=== PATIENT | male | born 1940 | race Caucasian/White ===

== ENCOUNTER → 2016-11-25 | Outpatient (CLI) | payer MEDICARE, OTHER ==
--- NOTE | 2016-11-25 17:06 | CT ---
EXAMINATION TYPE: CT angio abd aorta wo/w con with 3-D reconstructions DATE OF EXAM: 11/25/2016 4:33 PM COMPARISON: 01/21/2012 HISTORY: 76-year-old male follow-up for AAA stent. TECHNIQUE: Contiguous axial scanning of the abdomen and pelvis performed without and with IV Contrast , patient injected with 80 mL of Visipaque 320. Delayed images through the stent were obtained. Coron al/sagittal MIP reconstructions performed. CT DLP: 2268 mGycm Automated exposure control for dose reduction was used. FINDINGS: The heart is normal size without pericardial effusion. Coronary vessel calcifications are present in remarkable for coronary artery disease. Ascending aorta is ectatic at 3.8 cm. The descending thoracic aorta in the tortuous and kinked at the level of the lower thorax. Just above the kinked at the level of the mid thorax, there is mild aneur ysm at 3.2 cm, sagittal MIP image 21 and axial image 4. There is subpleural microcystic change and reticular opacities within the lungs greater in the subple ural and basilar locations. More confluent 1.6 cm focal subpleural opacity superior segment right low er lobe, axial image 7 is new from prior. Overall pulmonary findings appear to have progressed from 2 012. Interval endovascular stent graft at the distal abdominal aorta. This extends above the lower thoraci c aorta kink. The [place] aortic sac measures 4.7 x 5.2 cm as measured on axial and coronal images, re spectively. This is in comparison to 5.0 x 5.3 cm on 01/21/2012. The stented lumen is widely patent and there is no evidence for a leak There appears to be a relatively severe stenosis at the origin of the celiac axis. SMA is widely casiano nt. Moderate atherosclerotic calcifications within the abdominal aorta with fusiform dilatation of the in frarenal abdominal aorta up to 2.3 cm. No significant ectasia or aneurysm. The HUMBLE is visualized casiano nt. At least mild atherosclerotic narrowing at the origin of both renal arteries. No focal liver lesions seen. Portal venous system is patent. Gallbladder, adrenal glands, right kidney, spleen, pancreas appear within normal limits. There is a 1 .9 cm intermediate density lesion medial upper pole left kidney which does not seem to enhance sugges tive of a mildly complicated cyst, new from 2011. No dilated small bowel, free fluid, or free air. No mesenteric or retroperitoneal lymphadenopathy. Moderate stool burden without pericolonic inflammatory change. Prostate gland prominent 4.5 cm wide. Multiple pelvic phleboliths. Bladder is urine distended. There is some focal mural based thickening measuring 2.7 x 1.0 cm along t he right posterior bladder base that may represent wall redundancy. No abnormal fluid collection pelv is or pelvic lymphadenopathy seen. Bones: Degenerative changes lower lumbar spine. No osseous destructive process. IMPRESSION: 1. ENDOVASCULAR STENT GRAFT REPAIR ALONG THE LEVEL OF THE DISTAL THORACIC AORTA. THE [place] SAC MEASU RES UP TO 5.2 CM VERSUS 5.3 CM ON 01/21/2012, PRIOR TO STENTING. NO CT EVIDENCE FOR ENDOLEAK. 2. 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 3. SUSPECT HIGH-GRADE STENOSIS AT THE ORIGIN OF THE CELIAC AXIS. 4. INTERSTITIAL CHANGES WITHIN THE VISUALIZED LUNGS HAVE PROGRESSED COMPARED TO 2011. CORRELATE FO R POSSIBLE FIBROTIC NSIP OR UIP. A MORE FOCAL 1.6 CM SUBPLEURAL OPACITY IN THE RIGHT LOWER LOBE SHOUL D BE REASSESSED IN 3 MONTHS. 5. SOME FOCAL MURAL BASED THICKENING ALONG THE POSTERIOR RIGHT BLADDER WALL MEASURING 2.7 X 1.0 CM CO ULD REPRESENT BLADDER WALL REDUNDANCY. CORRELATE WITH URINALYSIS AND URINE CYTOLOGY TO EXCLUDE THE PO SSIBILITY OF A UROTHELIAL NEOPLASM.
== END | disposition home or self-care (01) ==
LOC: RADCTMAIN 14:28
PROVIDERS: ATTEND Internal Medicine Cardiovascular Disease
DX: I71.2 Thoracic aortic aneurysm, without rupture (principal); I77.1 Stricture of artery; N32.89 Other specified disorders of bladder; Z95.828 Presence of other vascular implants and grafts
CPT/HCPCS: 82565; 84520; 75635; 36415; Q9967

== ENCOUNTER 2017-01-11 21:49 | Emergency (ER) | payer MEDICARE, OTHER ==
[2017-01-11] MEDS ORDERED: ACETAMINOPHEN TAB 500 MG TAB PO STA (21:53)
[2017-01-11] MEDS ORDERED: IBUPROFEN IV 600 MG in SODIUM CHLORIDE 0.9% 250 ML IV STA (21:54)
--- NOTE | 2017-01-11 22:05 | ED ---
General Adult HPI - General Stated complaint: Weakness Time Seen by Provider: 01/11/17 21:49 Source: RN notes reviewed - History of Present Illness Initial comments: This is a 77-year-old male presents to the emergency department with the complaint from his that he was altered mentally and didn't feel well. When EMS got there he appeared to be somewhat dry and he has been working outside quite a bit today they gave him a liter of fluid he perked up and his states he is at his neurologic baseline at this time. Patient states he has had a little bit of a cough but it's been a dry cough. Patient denies any difficult breathing shortest breath per patient denies any abdominal pain patient denies any nausea vomiting diarrhea. Patient denies any dysuria hematuria or urinary frequency. Patient thinks he had a flu shot this year. - Related Data Home Medications Medication Instructions Recorded Confirmed Aspirin 81 mg PO DAILY 10/20/14 01/11/17 Gabapentin [Neurontin] 800 mg PO TID 10/20/14 01/11/17 Liothyronine Sodium [Cytomel] 5 mcg PO DAILY 10/20/14 01/11/17 Multivitamin/Iron/Folic Acid 1 tab PO DAILY 10/20/14 01/11/17 [Centrum Complete Multivit Tab] Acetaminophen Tab [Tylenol Tab] 1,000 mg PO Q6HR PRN 01/11/17 01/11/17 Cyanocobalamin (Vitamin B-12) 1,000 mcg PO DAILY 01/11/17 01/11/17 [Vitamin B-12] Levothyroxine Sodium [Synthroid] 112 mcg PO DAILY 01/11/17 01/11/17 Metoprolol Succinate (ER) [Toprol 25 mg PO DAILY 01/11/17 01/11/17 Xl] Rosuvastatin Calcium [Crestor] 40 mg PO HS 01/11/17 01/11/17 Warfarin [Coumadin] 2.5 mg PO SUTUTHSA 01/11/17 01/11/17 Warfarin [Coumadin] 5 mg PO MOWEFR 01/11/17 01/11/17 traMADol HCL [Ultram] 50 mg PO DAILY PRN 01/11/17 01/11/17 Previous Rx's Medication Instructions Recorded Isosorbide Mononitrate ER [Imdur] 30 mg PO DAILY #90 tab.er.24h 10/23/14 Levofloxacin [Levaquin] 750 mg PO DAILY #10 tab 01/12/17 Allergies Allergy/AdvReac Type Severity Reaction Status Date / Time morphine Allergy Severe Nausea & Verified 01/11/17 22:05 Vomiting iodine AdvReac Rash/Hives Verified 01/11/17 22:05 Review of Systems ROS Statement: Those systems with pertinent positive or pertinent negative responses have been documented in the HPI. ROS Other: All systems not noted in ROS Statement are negative. Past Medical History Past Medical History: Hearing Disorder / Deafness, Hyperlipidemia, Myocardial Infarction (DC), Thyroid Disorder Additional Past Medical History / Comment(s): aneurysm, vertigo AND HEARING LOSS SINCE [place] , KIDNEY STONE(PASSED IT), SPINAL STENOSIS, DDD LUMBAR SPINE , CONSTIPATION Last Myocardial Infarction Date:: 10-20-14 History of Any Multi-Drug Resistant Organisms: None Reported Past Surgical History: Heart Catheterization Additional Past Surgical History / Comment(s): STENT LOWER AORTA, EAR RECONSTRUCTION SX (LT) FAILED PT DEAF. LT KNEE HAD BONE CHIPS REMOVED,, 10-20-14 HEART CATH UNABLE TO PLACE STENT, angioplasty 10/20/14 Past Anesthesia/Blood Transfusion Reactions: No Reported Reaction Past Psychological History: No Psychological Hx Reported Smoking Status: Former smoker Past Alcohol Use History: Rare Additional Past Alcohol Use History / Comment(s): QUIT 35 YEARS AGO Past Drug Use History: None Reported - Past Family History Father Family Medical History: Unable to Obtain General Exam - General Exam Comments Initial Comments: GENERAL: Patient is well-developed and well-nourished. Patient is nontoxic and well- hydrated and is in mild distress. Patient is very warm to touch ENT: Neck is soft and supple. No significant lymphadenopathy is noted. Oropharynx is clear. Moist mucous membranes. Neck has full range of motion without eliciting any pain. EYES: The sclera were anicteric and conjunctiva were pink and moist. Extraocular movements were intact and pupils were equal round and reactive to light. Eyelids were unremarkable. PULMONARY: Patient has crackles in both bases they sound as though they're dry crackles. CARDIOVASCULAR: There is a regular rate and rhythm without any murmurs gallops or rubs. ABDOMEN: Soft and nontender with normal bowel sounds. No palpable organomegaly was noted. There is no palpable pulsatile mass. SKIN: Skin is clear with no lesions or rashes and otherwise unremarkable. NEUROLOGIC: Patient is alert and oriented x3. Cranial nerves II through XII are grossly intact. Motor and sensory are also intact. Normal speech, volume and content. Symmetrical smile. MUSCULOSKELETAL: Normal extremities with adequate strength and full range of motion. No lower extremity swelling or edema. No calf tenderness. LYMPHATICS: No significant lymphadenopathy is noted PSYCHIATRIC: Normal psychiatric evaluation. Normal interpersonal interactions appears functionally intact in deals appropriately with others. No signs of depression. No signs of anxiety. Course Vital Signs 01/11/17 01/11/17 01/11/17 21:50 22:51 23:29 Temperature 101.0 F H 102.3 F H 101.3 F H Pulse Rate 124 H 110 H 111 H Respiratory 20 18 18 Rate Blood Pressure 146/70 134/63 130/61 O2 Sat by Pulse 96 94 L 95 Oximetry 01/12/17 00:12 Temperature 98.9 F Pulse Rate 108 H Respiratory 18 Rate Blood Pressure 132/60 O2 Sat by Pulse 95 Oximetry Medical Decision Making - Medical Decision Making Patient received a liter of fluid by EMS prior to arrival EKG shows sinus tachycardia at 122 bpm SD interval is 170 QRS is 84 QT interval 300 QTC is 427. Patient's EKG shows no ST segment elevation or depression or T- wave abdomen is noted. - Lab Data Result diagrams: 01/11/17 21:50 01/11/17 21:50 Lab Results 01/11/17 01/11/17 01/11/17 Range/Units 21:50 21:50 21:50 WBC 9.1 (3.8-10.6) k/uL RBC 4.14 L (4.30-5.90) m/uL Hgb 12.2 L (13.0-17.5) gm/dL Hct 38.1 L (39.0-53.0) % MCV 91.9 (80.0-100.0) fL MCH 29.5 (25.0-35.0) pg MCHC 32.1 (31.0-37.0) g/dL RDW 12.9 (11.5-15.5) % Plt Count 214 (150-450) k/uL Neutrophils % 91 % Lymphocytes % 4 % Monocytes % 3 % Eosinophils % 2 % Basophils % 0 % Neutrophils # 8.3 H (1.3-7.7) k/uL Lymphocytes # 0.4 L (1.0-4.8) k/uL Monocytes # 0.2 (0-1.0) k/uL Eosinophils # 0.2 (0-0.7) k/uL Basophils # 0.0 (0-0.2) k/uL PT (9.0-12.0) sec INR (<1.1) APTT (22.0-30.0) sec Sodium (137-145) mmol/L Potassium (3.5-5.1) mmol/L Chloride (98-107) mmol/L Carbon Dioxide (22-30) mmol/L Anion Gap mmol/L BUN (9-20) mg/dL Creatinine (0.66-1.25) mg/dL Est GFR (MDRD) Af Amer (>60 ml/min/1.73 sqM) Est GFR (MDRD) Non-Af (>60 ml/min/1.73 sqM) Glucose (74-99) mg/dL Plasma Lactic Acid Evans 1.3 (0.7-2.0) mmol/L Calcium (8.4-10.2) mg/dL Total Bilirubin (0.2-1.3) mg/dL AST (17-59) U/L ALT (21-72) U/L Alkaline Phosphatase (38-126) U/L Total Creatine Kinase 39 L (55-170) U/L CK-MB (CK-2) 0.4 (0.0-2.4) ng/mL CK-MB (CK-2) Rel Index 1.0 Troponin I <0.012 (0.000-0.034) ng/mL Total Protein (6.3-8.2) g/dL Albumin (3.5-5.0) g/dL Urine Color Urine Appearance (Clear) Urine pH (5.0-8.0) Ur Specific Foley (1.001-1.035) Urine Protein (Negative) Urine Glucose (UA) (Negative) Urine Ketones (Negative) Urine Blood (Negative) Urine Nitrite (Negative) Urine Bilirubin (Negative) Urine Urobilinogen (<2.0) mg/dL Ur Leukocyte Esterase (Negative) Urine RBC (0-5) /hpf Urine WBC (0-5) /hpf Urine WBC Clumps (None) /hpf Ur Squamous Epith Cells (0-4) /hpf Urine Mucus (None) /hpf Influenza Type A RNA (Not Detectd) Influenza Type B (PCR) (Not Detectd) 01/11/17 01/11/17 01/11/17 Range/Units 21:50 21:50 22:04 WBC (3.8-10.6) k/uL RBC (4.30-5.90) m/uL Hgb (13.0-17.5) gm/dL Hct (39.0-53.0) % MCV (80.0-100.0) fL MCH (25.0-35.0) pg MCHC (31.0-37.0) g/dL RDW (11.5-15.5) % Plt Count (150-450) k/uL Neutrophils % % Lymphocytes % % Monocytes % % Eosinophils % % Basophils % % Neutrophils # (1.3-7.7) k/uL Lymphocytes # (1.0-4.8) k/uL Monocytes # (0-1.0) k/uL Eosinophils # (0-0.7) k/uL Basophils # (0-0.2) k/uL PT 15.9 H (9.0-12.0) sec INR 1.6 (<1.1) APTT 23.7 (22.0-30.0) sec Sodium 143 (137-145) mmol/L Potassium 4.6 (3.5-5.1) mmol/L Chloride 107 (98-107) mmol/L Carbon Dioxide 25 (22-30) mmol/L Anion Gap 11 mmol/L BUN 29 H (9-20) mg/dL Creatinine 1.60 H (0.66-1.25) mg/dL Est GFR (MDRD) Af Amer 51 (>60 ml/min/1.73 sqM) Est GFR (MDRD) Non-Af 42 (>60 ml/min/1.73 sqM) Glucose 112 H (74-99) mg/dL Plasma Lactic Acid Evans (0.7-2.0) mmol/L Calcium 8.9 (8.4-10.2) mg/dL Total Bilirubin 0.5 (0.2-1.3) mg/dL AST 19 (17-59) U/L ALT 27 (21-72) U/L Alkaline Phosphatase 85 (38-126) U/L Total Creatine Kinase (55-170) U/L CK-MB (CK-2) (0.0-2.4) ng/mL CK-MB (CK-2) Rel Index Troponin I (0.000-0.034) ng/mL Total Protein 6.6 (6.3-8.2) g/dL Albumin 3.9 (3.5-5.0) g/dL Urine Color Urine Appearance (Clear) Urine pH (5.0-8.0) Ur Specific Foley (1.001-1.035) Urine Protein (Negative) Urine Glucose (UA) (Negative) Urine Ketones (Negative) Urine Blood (Negative) Urine Nitrite (Negative) Urine Bilirubin (Negative) Urine Urobilinogen (<2.0) mg/dL Ur Leukocyte Esterase (Negative) Urine RBC (0-5) /hpf Urine WBC (0-5) /hpf Urine WBC Clumps (None) /hpf Ur Squamous Epith Cells (0-4) /hpf Urine Mucus (None) /hpf Influenza Type A RNA Not Detected (Not Detectd) Influenza Type B (PCR) Not Detected (Not Detectd) 01/11/17 Range/Units 23:05 WBC (3.8-10.6) k/uL RBC (4.30-5.90) m/uL Hgb (13.0-17.5) gm/dL Hct (39.0-53.0) % MCV (80.0-100.0) fL MCH (25.0-35.0) pg MCHC (31.0-37.0) g/dL RDW (11.5-15.5) % Plt Count (150-450) k/uL Neutrophils % % Lymphocytes % % Monocytes % % Eosinophils % % Basophils % % Neutrophils # (1.3-7.7) k/uL Lymphocytes # (1.0-4.8) k/uL Monocytes # (0-1.0) k/uL Eosinophils # (0-0.7) k/uL Basophils # (0-0.2) k/uL PT (9.0-12.0) sec INR (<1.1) APTT (22.0-30.0) sec Sodium (137-145) mmol/L Potassium (3.5-5.1) mmol/L Chloride (98-107) mmol/L Carbon Dioxide (22-30) mmol/L Anion Gap mmol/L BUN (9-20) mg/dL Creatinine (0.66-1.25) mg/dL Est GFR (MDRD) Af Amer (>60 ml/min/1.73 sqM) Est GFR (MDRD) Non-Af (>60 ml/min/1.73 sqM) Glucose (74-99) mg/dL Plasma Lactic Acid Evans (0.7-2.0) mmol/L Calcium (8.4-10.2) mg/dL Total Bilirubin (0.2-1.3) mg/dL AST (17-59) U/L ALT (21-72) U/L Alkaline Phosphatase (38-126) U/L Total Creatine Kinase (55-170) U/L CK-MB (CK-2) (0.0-2.4) ng/mL CK-MB (CK-2) Rel Index Troponin I (0.000-0.034) ng/mL Total Protein (6.3-8.2) g/dL Albumin (3.5-5.0) g/dL Urine Color Light Yellow Urine Appearance Clear (Clear) Urine pH 6.0 (5.0-8.0) Ur Specific Foley 1.008 (1.001-1.035) Urine Protein Trace H (Negative) Urine Glucose (UA) Negative (Negative) Urine Ketones Negative (Negative) Urine Blood Small H (Negative) Urine Nitrite Negative (Negative) Urine Bilirubin Negative (Negative) Urine Urobilinogen <2.0 (<2.0) mg/dL Ur Leukocyte Esterase Large H (Negative) Urine RBC 23 H (0-5) /hpf Urine WBC 23 H (0-5) /hpf Urine WBC Clumps Few H (None) /hpf Ur Squamous Epith Cells <1 (0-4) /hpf Urine Mucus Rare H (None) /hpf Influenza Type A RNA (Not Detectd) Influenza Type B (PCR) (Not Detectd) Disposition Clinical Impression: Urinary tract infection Disposition: HOME SELF-CARE Condition: Good Instructions: Urinary Tract Infection in Men (ED) Prescriptions: Levofloxacin [Levaquin] 750 mg PO DAILY #10 tab Referrals: Thania Barney DO [Primary Care Provider] - 1-2 days Time of Disposition: 00:33
[2017-01-11 22:18] LABS: Basophils % (A) 0 %; CH 29.7; CHCM 32.5; Eosinophils # (A) 0.2 k/uL (0-0.7); Eosinophils % (A) 2 %; HCT 38.1 % (39.0-53.0); HDW 2.55; HGB 12.2 gm/dL (13.0-17.5); Luc # (Auto) 0.03; Luc % (Auto) 0; Lymphocytes # (A) 0.4 k/uL (1.0-4.8); Lymphocytes % (A) 4 %; MCH 29.5 pg (25.0-35.0); MCHC 32.1 g/dL (31.0-37.0); MCV 91.9 fL (80.0-100.0); Mean Platelet Volume 7.1; Monocytes # (A) 0.2 k/uL (0-1.0); Monocytes % (A) 3 %; Neutrophils # (A) 8.3 k/uL (1.3-7.7); Neutrophils % (A) 91 %; RBC 4.14 m/uL (4.30-5.90); RDW 12.9 % (11.5-15.5); WBC 9.1 k/uL (3.8-10.6); WBC (Perox) 10.15
[2017-01-11 22:27] LABS: Calcium 8.9 mg/dL (8.4-10.2); Total Bilirubin 0.5 mg/dL (0.2-1.3); Total Protein 6.6 g/dL (6.3-8.2)
[2017-01-11 22:29] LABS: Potassium 4.6 mmol/L (3.5-5.1)
[2017-01-11 22:30] LABS: Creatine Kinase 39 U/L (55-170)
[2017-01-11 22:34] LABS: INR 1.6 (<1.1); Partial Thromboplastin Time 23.7 sec (22.0-30.0); Prothrombin Time 15.9 sec (9.0-12.0)
[2017-01-11 22:42] LABS: Creatine Kinase MB 0.4 ng/mL (0.0-2.4); Troponin I <0.012 ng/mL (0.000-0.034)
[2017-01-11 22:52] VITALS: RESP 18
--- NOTE | 2017-01-11 23:10 | XR ---
EXAM: XR Chest, 2 Views. CLINICAL HISTORY: Reason: Fever TECHNIQUE: Frontal and lateral views of the chest. COMPARISON: . FINDINGS: There is a redemonstrated thoracoabdominal aortic stent graft. Chronic pulmonary interstitial thickening. No definite acute consolidation or vascular congestion. Mild cardiomegaly. No pneumothorax IMPRESSION: Redemonstrated aortic stent graft and interstitial lung disease
[2017-01-11 23:17] LABS: Appearance,Urine Clear (Clear); Bilirubin,Urine Negative (Negative); Glucose,Urine (UA) Negative (Negative); Ketones,Urine Negative (Negative); Leukocyte Esterase,Urine Large (Negative); Mucus,Urine Rare /hpf; Nitrite,Urine Negative (Negative); Particle Count 3614; Protein,Urine Trace (Negative); RBC,Urine 23 /hpf (0-5); Specific Gravity,Urine 1.008 (1.001-1.035); Squamous Epithelial Cell,Urine <1 /hpf (0-4); UA Billing (MACRO vs. MICRO) MICRO; Urobilinogen,Urine <2.0 mg/dL (<2.0); WBC,Urine 23 /hpf (0-5)
[2017-01-12 00:13] VITALS: BP 132/60; PULSE 108; TEMP 98.9
== END 2017-01-12 00:55 | disposition home or self-care (01) ==
LOC: EC 21:49
DX: N39.0 Urinary tract infection, site not specified (principal); R00.0 Tachycardia, unspecified; E78.5 Hyperlipidemia, unspecified; I25.2 Old myocardial infarction; E07.9 Disorder of thyroid, unspecified; Z95.5 Presence of coronary angioplasty implant and graft; Z88.5 Allergy status to narcotic agent; Z91.048 Other nonmedicinal substance allergy status; Z79.01 Long term (current) use of anticoagulants; Z79.82 Long term (current) use of aspirin; Z79.899 Other long term (current) drug therapy; Z87.891 Personal history of nicotine dependence
CPT/HCPCS: 99285; 96365; 96367; 36415; 93005; 80053; 82550; 82553; 83605; 84484; 85025; 85610; 85730; 81001; 87040; 87086; 87502; 71020; J0696; J1741; 87077; 87186

== ENCOUNTER 2017-01-12 11:10 | Inpatient (IN) | payer MEDICARE, OTHER ==
[2017-01-12] MEDS ORDERED: ACETAMINOPHEN TAB 500 MG TAB PO STA (11:33)
[2017-01-12] MEDS ORDERED: KETOROLAC 30 MG/ML 1 ML VIAL IVP STA (11:37)
[2017-01-12] MEDS: SODIUM CHLORIDE 0.9% 500 ML IV SCH ×2 (12:08→12:45)
[2017-01-12] MEDS: SODIUM CHLORIDE 0.9% 1,000 ML IV SCH ×2 (12:08→20:47)
[2017-01-12 12:28] LABS: Appearance,Urine Clear (Clear); Bilirubin,Urine Negative (Negative); Glucose,Urine (UA) Negative (Negative); Ketones,Urine Negative (Negative); Leukocyte Esterase,Urine Large (Negative); Mucus,Urine Rare /hpf; Nitrite,Urine Negative (Negative); PH, Urine 5.5 (5.0-8.0); Particle Count 1246; Protein,Urine Trace (Negative); RBC,Urine 27 /hpf (0-5); Specific Gravity,Urine 1.009 (1.001-1.035); UA Billing (MACRO vs. MICRO) MICRO; Urobilinogen,Urine <2.0 mg/dL (<2.0); WBC,Urine 62 /hpf (0-5)
[2017-01-12 13:14] LABS: CH 29.8; CHCM 32.6; HCT 34.8 % (39.0-53.0); Mean Platelet Volume 7.5; RBC 3.79 m/uL (4.30-5.90)
[2017-01-12 13:33] LABS: Calcium 7.6 mg/dL (8.4-10.2); Total Bilirubin 0.8 mg/dL (0.2-1.3); Total Protein 5.4 g/dL (6.3-8.2)
--- NOTE | 2017-01-12 13:35 | ED ---
Fever HPI - General Chief Complaint: Fever Stated Complaint: Dehydration Time Seen by Provider: 01/12/17 11:18 Source: patient Mode of arrival: EMS Limitations: altered mental status - History of Present Illness Initial Comments: This 77-year-old white male presents with with a complaint of some uncontrollable shaking chills. He was just seen in the emergency department last night for the same thing. He had a temperature of 102. He relates that he had a bladder polyp removed approximately one week ago and had been utilizing a Weinstein catheter until yesterday. This was scheduled to be removed today but they did remove it yesterday after diagnosing him with a urinary tract infection. He states that he has been able to urinate okay since yesterday but does have some slight dysuria. He apparently had a slight cough yesterday. He denies any difficulty in breathing or coughing today. He denies any actual weakness or chest pain. No other modifying factors. He was discharged with a prescription for Levaquin for 10 days. The gave him 2 aspirin earlier today for the shaking chills. - Related Data Home Medications Medication Instructions Recorded Confirmed Aspirin 81 mg PO DAILY 10/20/14 01/12/17 Gabapentin [Neurontin] 800 mg PO TID 10/20/14 01/12/17 Liothyronine Sodium [Cytomel] 5 mcg PO DAILY 10/20/14 01/12/17 Multivitamin/Iron/Folic Acid 1 tab PO DAILY 10/20/14 01/12/17 [Centrum Complete Multivit Tab] Acetaminophen Tab [Tylenol Tab] 1,000 mg PO Q6HR PRN 01/11/17 01/12/17 Cyanocobalamin (Vitamin B-12) 1,000 mcg PO DAILY 01/11/17 01/12/17 [Vitamin B-12] Levothyroxine Sodium [Synthroid] 112 mcg PO DAILY 01/11/17 01/12/17 Metoprolol Succinate (ER) [Toprol 25 mg PO DAILY 01/11/17 01/12/17 Xl] Rosuvastatin Calcium [Crestor] 40 mg PO HS 01/11/17 01/12/17 Warfarin [Coumadin] 2.5 mg PO SUTUTHSA 01/11/17 01/12/17 Warfarin [Coumadin] 5 mg PO MOWEFR 05/21/17 05/22/17 traMADol HCL [Ultram] 50 mg PO DAILY PRN 01/11/17 01/12/17 Previous Rx's Medication Instructions Recorded Isosorbide Mononitrate ER [Imdur] 30 mg PO DAILY #90 tab.er.24h 10/23/14 Levofloxacin [Levaquin] 750 mg PO DAILY #10 tab 01/12/17 Allergies Allergy/AdvReac Type Severity Reaction Status Date / Time morphine Allergy Severe Nausea & Verified 01/12/17 11:45 Vomiting iodine AdvReac Rash/Hives Verified 01/12/17 11:45 Review of Systems ROS Statement: Those systems with pertinent positive or pertinent negative responses have been documented in the HPI. ROS Other: All systems not noted in ROS Statement are negative. Past Medical History Past Medical History: Hearing Disorder / Deafness, Hyperlipidemia, Myocardial Infarction ([place]), Thyroid Disorder Additional Past Medical History / Comment(s): aneurysm, vertigo AND HEARING LOSS SINCE [place] , KIDNEY STONE(PASSED IT), SPINAL STENOSIS, DDD LUMBAR SPINE , CONSTIPATION Last Myocardial Infarction Date:: 10-20-14 History of Any Multi-Drug Resistant Organisms: None Reported Past Surgical History: Heart Catheterization Additional Past Surgical History / Comment(s): STENT LOWER AORTA, EAR RECONSTRUCTION SX (LT) FAILED PT DEAF. LT KNEE HAD BONE CHIPS REMOVED,, 10-20-14 HEART CATH UNABLE TO PLACE STENT, angioplasty 10/20/14 Past Anesthesia/Blood Transfusion Reactions: No Reported Reaction Past Psychological History: No Psychological Hx Reported Smoking Status: Former smoker Past Alcohol Use History: Rare Additional Past Alcohol Use History / Comment(s): QUIT 35 YEARS AGO Past Drug Use History: None Reported - Past Family History Father Family Medical History: Unable to Obtain General Exam - General Exam Comments Initial Comments: GENERAL: The patient is well nourished and well hydrated. VITAL SIGNS: Heart rate, blood pressure, respiratory rate reviewed as recorded in nurse's notes. EYES: Pupils are round and reactive. Extraocular movements are intact. No conjunctival / lid redness or swelling. ENT: No external evidence of injury, swelling, or ecchymosis. Airway is patent. Throat is clear. NECK: Nontender. No swelling or evidence of injury. No subcutaneous emphysema. Trachea is midline. No thyroid mass. HEART: Tachycardic but regular rhythm. Good peripheral pulses. LUNGS/CHEST: Breath sounds clear and equal bilaterally. No rales, rhonchi, or wheezes. No ecchymosis, subcutaneous emphysema, or tenderness. ABDOMEN: Abdomen soft without tenderness. No palpable masses or organomegaly. No peritoneal signs. No abdominal wall swelling or ecchymosis. EXTREMITIES: No extremity tenderness. Normal muscle tone and function. No thoracolumbar tenderness. NEUROLOGIC: Sensation is grossly intact. Cranial nerve exam reveals face is symmetrical, tongue is midline, speech is clear. SKIN: No abrasions or ecchymosis is noted. No induration or masses noted. PSYCHIATRIC: Alert and oriented. Appropriate behavior and judgment. Limitations: altered mental status Course Vital Signs 01/12/17 01/12/17 11:12 13:25 Temperature 98.7 F 101.9 F H Pulse Rate 116 H 111 H Respiratory 18 18 Rate Blood Pressure 131/61 108/54 O2 Sat by Pulse 96 95 Oximetry Medical Decision Making - Medical Decision Making The patient was seen and examined. All diagnostics were reviewed. Old records were reviewed. The laboratory does call and states that a blood culture preliminary report came back from yesterday and does show some gram-negative bacteria present in the bloodstream. He is hydrated and does receive some Rocephin intravenously. He also received some Toradol and some Tylenol. He is doing well on recheck and is sleeping. He is doing well on second recheck and is alert and oriented and in no distress. He still somewhat tachycardic at a heart rate of 106 on recheck. His laboratory is reviewed and does show anemia with a hemoglobin of 7. This is quite abnormal as his hemoglobin yesterday was 12. The CBC was repeated and it does show a hemoglobin of 11. The nurse relates that she apparently salas the blood proximal to the IV while he was receiving a bolus. His urine still does look infected. It appears that he does have bacteremia likely related to urinary tract infection. It is felt as though he would require admission to the hospital for further IV antibiotics. Case is discussed with Dr. Centeno and he is agreeable to admission. - Lab Data Result diagrams: 01/12/17 12:45 01/12/17 12:45 Lab Results 01/12/17 01/12/17 01/12/17 Range/Units 11:58 11:58 11:58 WBC 3.7 L (3.8-10.6) k/uL RBC 2.39 L (4.30-5.90) m/uL Hgb 7.2 L D (13.0-17.5) gm/dL Hct 22.5 L (39.0-53.0) % MCV 94.0 (80.0-100.0) fL MCH 30.2 (25.0-35.0) pg MCHC 32.1 (31.0-37.0) g/dL RDW 13.0 (11.5-15.5) % Plt Count 109 L (150-450) k/uL Neutrophils % 89 % Lymphocytes % 3 % Monocytes % 7 % Eosinophils % 0 % Basophils % 1 % Neutrophils # 3.3 (1.3-7.7) k/uL Lymphocytes # 0.1 L (1.0-4.8) k/uL Monocytes # 0.3 (0-1.0) k/uL Eosinophils # 0.0 (0-0.7) k/uL Basophils # 0.0 (0-0.2) k/uL PT 25.5 H (9.0-12.0) sec INR 2.6 (<1.1) APTT 48.9 H (22.0-30.0) sec Sodium (137-145) mmol/L Potassium (3.5-5.1) mmol/L Chloride (98-107) mmol/L Carbon Dioxide (22-30) mmol/L Anion Gap mmol/L BUN (9-20) mg/dL Creatinine (0.66-1.25) mg/dL Est GFR (MDRD) Af Amer (>60 ml/min/1.73 sqM) Est GFR (MDRD) Non-Af (>60 ml/min/1.73 sqM) Glucose (74-99) mg/dL Plasma Lactic Acid Evans 0.7 (0.7-2.0) mmol/L Calcium (8.4-10.2) mg/dL Total Bilirubin (0.2-1.3) mg/dL AST (17-59) U/L ALT (21-72) U/L Alkaline Phosphatase (38-126) U/L Total Protein (6.3-8.2) g/dL Albumin (3.5-5.0) g/dL Urine Color Urine Appearance (Clear) Urine pH (5.0-8.0) Ur Specific [place] (1.001-1.035) Urine Protein (Negative) Urine Glucose (UA) (Negative) Urine Ketones (Negative) Urine Blood (Negative) Urine Nitrite (Negative) Urine Bilirubin (Negative) Urine Urobilinogen (<2.0) mg/dL Ur Leukocyte Esterase (Negative) Urine RBC (0-5) /hpf Urine WBC (0-5) /hpf Urine Mucus (None) /hpf 01/12/17 01/12/17 01/12/17 Range/Units 11:58 12:45 12:45 WBC 6.3 (3.8-10.6) k/uL RBC 3.79 L (4.30-5.90) m/uL Hgb 11.1 L D (13.0-17.5) gm/dL Hct 34.8 L (39.0-53.0) % MCV 92.0 (80.0-100.0) fL MCH 29.4 (25.0-35.0) pg MCHC 31.9 (31.0-37.0) g/dL RDW 13.0 (11.5-15.5) % Plt Count 164 D (150-450) k/uL Neutrophils % 88 % Lymphocytes % 4 % Monocytes % 6 % Eosinophils % 0 % Basophils % 0 % Neutrophils # 5.5 (1.3-7.7) k/uL Lymphocytes # 0.3 L (1.0-4.8) k/uL Monocytes # 0.4 (0-1.0) k/uL Eosinophils # 0.0 (0-0.7) k/uL Basophils # 0.0 (0-0.2) k/uL PT (9.0-12.0) sec INR (<1.1) APTT (22.0-30.0) sec Sodium 142 (137-145) mmol/L Potassium 4.0 (3.5-5.1) mmol/L Chloride 113 H (98-107) mmol/L Carbon Dioxide 20 L (22-30) mmol/L Anion Gap 9 mmol/L BUN 25 H (9-20) mg/dL Creatinine 1.45 H (0.66-1.25) mg/dL Est GFR (MDRD) Af Amer 57 (>60 ml/min/1.73 sqM) Est GFR (MDRD) Non-Af 47 (>60 ml/min/1.73 sqM) Glucose 94 (74-99) mg/dL Plasma Lactic Acid Evans (0.7-2.0) mmol/L Calcium 7.6 L (8.4-10.2) mg/dL Total Bilirubin 0.8 (0.2-1.3) mg/dL AST 20 (17-59) U/L ALT 25 (21-72) U/L Alkaline Phosphatase 59 (38-126) U/L Total Protein 5.4 L (6.3-8.2) g/dL Albumin 2.8 L (3.5-5.0) g/dL Urine Color Light Yellow Urine Appearance Clear (Clear) Urine pH 5.5 (5.0-8.0) Ur Specific [place] 1.009 (1.001-1.035) Urine Protein Trace H (Negative) Urine Glucose (UA) Negative (Negative) Urine Ketones Negative (Negative) Urine Blood Small H (Negative) Urine Nitrite Negative (Negative) Urine Bilirubin Negative (Negative) Urine Urobilinogen <2.0 (<2.0) mg/dL Ur Leukocyte Esterase Large H (Negative) Urine RBC 27 H (0-5) /hpf Urine WBC 62 H (0-5) /hpf Urine Mucus Rare H (None) /hpf Disposition Clinical Impression: UTI (urinary tract infection), Bacteremia due to Gram-negative bacteria, Sinus tachycardia Disposition: ADMITTED IP TO THIS HOSP Condition: Fair Referrals: Thania Barney DO [Primary Care Provider] - 1-2 days Time of Disposition: 14:25 Decision Date: 01/12/17 Decision Time: 14:25
[2017-01-12 13:36] LABS: Basophils % (A) 0 %; Eosinophils % (A) 0 %; HDW 2.53; Luc # (Auto) 0.05; Luc % (Auto) 1; Lymphocytes # (A) 0.3 k/uL (1.0-4.8); Lymphocytes % (A) 4 %; MCH 29.4 pg (25.0-35.0); MCHC 31.9 g/dL (31.0-37.0); Monocytes # (A) 0.4 k/uL (0-1.0); Monocytes % (A) 6 %; Neutrophils # (A) 5.5 k/uL (1.3-7.7); Neutrophils % (A) 88 %; WBC 6.3 k/uL (3.8-10.6); WBC (Perox) 6.75
[2017-01-12 13:50] LABS: HGB 11.1 gm/dL (13.0-17.5)
[2017-01-12] MEDS ORDERED: NALOXONE 0.4 MG/ML 1 ML VIAL IV PRN (14:26)
[2017-01-12] MEDS ORDERED: ONDANSETRON 4 MG/2 ML VIAL IVP PRN (14:26)
[2017-01-12] MEDS ORDERED: IBUPROFEN 400 MG TAB PO PRN (14:26)
[2017-01-12] MEDS ORDERED: traMADol 50 MG TAB PO PRN (14:29)
[2017-01-12 14:32] LABS: INR 1.6 (<1.1); Partial Thromboplastin Time 29.2 sec (22.0-30.0); Prothrombin Time 15.7 sec (9.0-12.0)
[2017-01-12] MEDS: WARFARIN 5 MG TAB PO SCH (17:42)
[2017-01-12] MEDS: GABAPENTIN 400 MG CAP PO SCH ×2 (17:42→21:36)
[2017-01-12] MEDS: ACETAMINOPHEN TAB 325 MG TAB PO PRN (20:47)
[2017-01-12] MEDS: ATORVASTATIN 80 MG TAB PO SCH (20:47)
[2017-01-13] MEDS: SODIUM CHLORIDE 0.9% 1,000 ML IV SCH ×3 (05:26→21:15)
[2017-01-13] MEDS: LIOTHYRONINE SODIUM 5 MCG TAB PO SCH (05:27)
[2017-01-13] MEDS: LEVOTHYROXINE 112 MCG TAB PO SCH (05:27)
[2017-01-13 07:58] LABS: INR 1.6 (<1.1); Prothrombin Time 15.1 sec (9.0-12.0)
[2017-01-13] MEDS: METOPROLOL SUCCINATE (ER) 25 MG TAB.ER.24H PO SCH (08:01)
[2017-01-13] MEDS: GABAPENTIN 400 MG CAP PO SCH ×3 (08:01→21:16)
[2017-01-13] MEDS: ISOSORBIDE MONONITRATE ER 30 MG TAB.ER.24H PO SCH (08:01)
[2017-01-13] MEDS: ASPIRIN 81 MG CHEW PO SCH (08:01)
[2017-01-13] MEDS: CYANOCOBALAMIN 500 MCG TAB PO SCH (08:01)
[2017-01-13] MEDS: ACETAMINOPHEN TAB 325 MG TAB PO PRN ×2 (08:02→21:20)
[2017-01-13 08:33] LABS: Basophils % (A) 1 %; CH 29.4; CHCM 31.6; Eosinophils % (A) 0 %; HCT 36.6 % (39.0-53.0); HDW 2.58; HGB 11.7 gm/dL (13.0-17.5); Hypochromasia Slight; Luc # (Auto) 0.15; Luc % (Auto) 3; Lymphocytes # (A) 0.3 k/uL (1.0-4.8); Lymphocytes % (A) 7 %; MCHC 32.1 g/dL (31.0-37.0); MCV 93.5 fL (80.0-100.0); Mean Platelet Volume 7.5; Monocytes # (A) 0.4 k/uL (0-1.0); Monocytes % (A) 7 %; Neutrophils # (A) 4.1 k/uL (1.3-7.7); Neutrophils % (A) 83 %; RBC 3.91 m/uL (4.30-5.90); WBC (Perox) 5.34
[2017-01-13] MEDS ORDERED: PANTOPRAZOLE 40 MG/10 ML VIAL IV SCH (09:00)
[2017-01-13 11:56] VITALS: BMI 27.6
[2017-01-13] MEDS: MULTIVITAMINS, THERA 1 EACH TAB PO SCH (12:36)
[2017-01-13] MEDS: WARFARIN 5 MG TAB PO SCH (17:20)
--- NOTE | 2017-01-13 17:28 | P.HPIM ---
History of Present Illness H&P Date: 01/13/17 Chief Complaint: Febrile illness and altered mental status Aubrey Gomez is a 77-year-old white male presents with with a complaint of some uncontrollable shaking chills. He was just seen in the emergency department the night prior to admission for the same thing. He had a temperature of 102. He relates that he had a bladder polyp removed approximately one week ago and had been utilizing a Weinstein catheter until yesterday. This was scheduled to be removed today but they did remove it yesterday after diagnosing him with a urinary tract infection. He states that he has been able to urinate okay since yesterday but does have some slight dysuria. He apparently had a slight cough yesterday. He denies any difficulty in breathing or coughing today. He denies any actual weakness or chest pain. No other modifying factors. He was discharged with a prescription for Levaquin for 10 days. The gave him 2 aspirin earlier today for the shaking chills. - Past Medical History Past Medical History: Coronary Artery Disease (CAD), Hearing Disorder / Deafness , Hyperlipidemia, Hypertension, Myocardial Infarction ([place]), Thyroid Disorder Additional Past Medical History / Comment(s): "aaa-repaired", vertigo AND HEARING LOSS SINCE [place] -lt ear deaf and rt side wears a hearing aid, KIDNEY STONE(PASSED IT), SPINAL STENOSIS, DDD LUMBAR SPINE, CONSTIPATION, neuropathy, uti. Last Myocardial Infarction Date:: 10-20-14 History of Any Multi-Drug Resistant Organisms: None Reported Past Surgical History: Heart Catheterization Additional Past Surgical History / Comment(s): STENT LOWER AORTA, EAR RECONSTRUCTION SX (LT) FAILED PT DEAF. LT KNEE HAD BONE CHIPS REMOVED,, 10-20-14 HEART CATH w/angioplasty but was unable to place stent, recent bladder polyp removed- no bx results back yet-idc was removed 01-11-17 Past Anesthesia/Blood Transfusion Reactions: No Reported Reaction Past Psychological History: No Psychological Hx Reported Additional Psychological History / Comment(s): pt lives with , is independant, no pets, no outside services, no medical equipment. 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 Smoking Status: Former smoker Past Alcohol Use History: Rare Additional Past Alcohol Use History / Comment(s): started smoking at age 19 - smoked cig then swithced to pipe. quit 1979 Past Drug Use History: None Reported - Past Family History Mother Additional Family Medical History / Comment(s): brain tumor Father Family Medical History: Unable to Obtain Medications and Allergies Home Medications Medication Instructions Recorded Confirmed Type Aspirin 81 mg PO DAILY 10/20/14 01/12/17 History Gabapentin [Neurontin] 800 mg PO TID 10/20/14 01/12/17 History Liothyronine Sodium [Cytomel] 5 mcg PO DAILY 10/20/14 01/12/17 History Multivitamin/Iron/Folic Acid 1 tab PO DAILY 10/20/14 01/12/17 History [Centrum Complete Multivit Tab] Acetaminophen Tab [Tylenol Tab] 1,000 mg PO Q6HR PRN 01/11/17 01/12/17 History Cyanocobalamin (Vitamin B-12) 1,000 mcg PO DAILY 01/11/17 01/12/17 History [Vitamin B-12] Levothyroxine Sodium [Synthroid] 112 mcg PO DAILY 01/11/17 01/12/17 History Metoprolol Succinate (ER) [Toprol 25 mg PO DAILY 01/11/17 01/12/17 History Xl] Rosuvastatin Calcium [Crestor] 40 mg PO HS 01/11/17 01/12/17 History Warfarin [Coumadin] 2.5 mg PO SUTUTHSA 01/11/17 01/12/17 History Warfarin [Coumadin] 5 mg PO MOWEFR 01/11/17 01/12/17 History traMADol HCL [Ultram] 50 mg PO DAILY PRN 01/11/17 01/12/17 History Allergies Allergy/AdvReac Type Severity Reaction Status Date / Time morphine Allergy Severe Nausea & Verified 01/12/17 11:45 Vomiting iodine AdvReac Rash/Hives Verified 01/12/17 11:45 Physical Exam Vitals: Vital Signs Temp Pulse Resp BP Pulse Ox 01/13/17 15:00 98.3 F 77 16 100/53 97 01/13/17 09:13 98.0 F 01/13/17 07:00 100.1 F H 105 H 22 123/60 95 01/12/17 23:50 16 01/12/17 22:15 98.9 F 01/12/17 20:40 102.2 F H 113 H 16 129/59 96 Intake and Output 01/13/17 01/13/1717 06:59 14:59 22:59 Intake Total 860 Balance 860 Intake: Intake, IV Titration 800 Amount Sodium Chloride 0.9% 1, 800 000 ml @ 100 mls/hr IV . Q10H [facility] Rx#:[id number] Oral 60 Other: Voiding Method Toilet Toilet Toilet Urinal Urinal Urinal # Voids 2 Weight 82.554 kg Patient Weight 01/14/17 06:59 Weight 82.554 kg In general patient is alert and oriented 3 in no apparent distress HEENT head normocephalic and atraumatic Neck is supple no JVD no goiter no lymphadenopathy Cardiac exam reveals regular heart sounds S1 and S2 no gallops no murmurs Chest exam reveals a few scattered rhonchi bilaterally Abdomen is soft nontender no organomegaly with normal bowel sounds Extremity exam reveals no edema no cyanosis or clubbing Neurological examination reveals no gross deficit Results CBC & Chem 7: 01/13/17 07:27 01/12/17 12:45 Labs: Abnormal Lab Results - Last 24 Hours (Table) 01/13/17 01/13/17 Range/Units 07:27 07:27 RBC 3.91 L (4.30-5.90) m/uL Hgb 11.7 L (13.0-17.5) gm/dL Hct 36.6 L (39.0-53.0) % Plt Count 148 L (150-450) k/uL Lymphocytes # 0.3 L (1.0-4.8) k/uL PT 15.1 H (9.0-12.0) sec Microbiology - Last 24 Hours (Table) 01/12/17 11:58 Blood Culture - Preliminary Blood No Growth after 24 hours 01/12/17 11:58 Urine Culture - Preliminary Urine,Voided Thrombosis Risk Factor Assmnt - Choose All That Apply Any of the Below Risk Factors Present?: Yes Other Risk Factors: Yes Each Risk Factor Represents 3 Points: Age 75 years or older Other congenital or acquired thrombophilia - If yes, enter type in comment: No Thrombosis Risk Factor Assessment Total Risk Factor Score: 3 Thrombosis Risk Factor Assessment Level: Moderate Risk Assessment and Plan Plan: #1 acute pyelonephritis #2 possible sepsis #3 anemia #4 acute versus chronic kidney disease Will try to obtain old records creatinine on presentation 1.45 will monitor kidney function #5 patient is on Coumadin therapy INR subtherapeutic at 1.6 exact indication for Coumadin is unclear no clear history of atrial fibrillation or pulmonary embolism patient had previous history of coronary artery disease Will try to obtain old records to assess reason for patient being on Coumadin at this time will continue was current Coumadin management At this time will continue with IV antibiotic Rocephin Awaiting further blood culture and urine culture results Would recheck CBC and CMP in a.m.
[2017-01-13] MEDS: ATORVASTATIN 80 MG TAB PO SCH (21:16)
[2017-01-14] MEDS: SODIUM CHLORIDE 0.9% 1,000 ML IV SCH (01:31)
[2017-01-14] MEDS: LEVOTHYROXINE 112 MCG TAB PO SCH (06:03)
[2017-01-14] MEDS: LIOTHYRONINE SODIUM 5 MCG TAB PO SCH (06:03)
[2017-01-14 07:46] VITALS: RESP 18
[2017-01-14] MEDS: METOPROLOL SUCCINATE (ER) 25 MG TAB.ER.24H PO SCH (08:15)
[2017-01-14] MEDS: ISOSORBIDE MONONITRATE ER 30 MG TAB.ER.24H PO SCH (08:15)
[2017-01-14] MEDS: GABAPENTIN 400 MG CAP PO SCH ×3 (08:16→22:04)
[2017-01-14] MEDS: CYANOCOBALAMIN 500 MCG TAB PO SCH (08:16)
[2017-01-14] MEDS: MULTIVITAMINS, THERA 1 EACH TAB PO SCH (08:16)
[2017-01-14] MEDS: PANTOPRAZOLE 40 MG TABLET PO SCH (08:16)
[2017-01-14] MEDS: ASPIRIN 81 MG CHEW PO SCH (08:16)
[2017-01-14 09:09] LABS: INR 1.5 (<1.1); Prothrombin Time 14.6 sec (9.0-12.0)
[2017-01-14 09:22] LABS: Calcium 8.5 mg/dL (8.4-10.2); Potassium 4.2 mmol/L (3.5-5.1); Total Bilirubin 0.7 mg/dL (0.2-1.3); Total Protein 5.7 g/dL (6.3-8.2)
[2017-01-14 09:50] LABS: Basophils % (A) 1 %; CH 29.7; CHCM 32.1; Eosinophils # (A) 0.1 k/uL (0-0.7); Eosinophils % (A) 1 %; HDW 2.77; Luc # (Auto) 0.19; Luc % (Auto) 4; Lymphocytes # (A) 0.7 k/uL (1.0-4.8); Lymphocytes % (A) 14 %; MCH 29.9 pg (25.0-35.0); MCHC 32.2 g/dL (31.0-37.0); MCV 92.9 fL (80.0-100.0); Mean Platelet Volume 7.9; Monocytes # (A) 0.4 k/uL (0-1.0); Monocytes % (A) 8 %; Neutrophils # (A) 3.5 k/uL (1.3-7.7); Neutrophils % (A) 73 %; RBC 3.66 m/uL (4.30-5.90); RDW 13.2 % (11.5-15.5); WBC 4.8 k/uL (3.8-10.6); WBC (Perox) 5.08
[2017-01-14] MEDS ORDERED: ENOXAPARIN 40 MG/0.4 ML SYRINGE SQ STA (12:22)
--- NOTE | 2017-01-14 12:46 | P.PN ---
Subjective Principal diagnosis: Febrile illness and altered mental status Aubrey Gomez is a 77-year-old white male presents with with a complaint of some uncontrollable shaking chills. He was just seen in the emergency department the night prior to admission for the same thing. He had a temperature of 102. He relates that he had a bladder polyp removed approximately one week ago and had been utilizing a Weinstein catheter until yesterday. This was scheduled to be removed today but they did remove it yesterday after diagnosing him with a urinary tract infection. He states that he has been able to urinate okay since yesterday but does have some slight dysuria. He apparently had a slight cough yesterday. He denies any difficulty in breathing or coughing today. He denies any actual weakness or chest pain. No other modifying factors. He was discharged with a prescription for Levaquin for 10 days. The gave him 2 aspirin earlier today for the shaking chills. He was admitted to the hospital and was started on IV Rocephin 1 g every 24 hours He reported improvement in his symptoms since yesterday, blood culture and urine culture are still pending Objective - Vital Signs Vital signs: Vital Signs Temp 98.8 F 01/14/17 07:00 Pulse 74 01/14/17 08:00 Resp 18 01/14/17 08:00 BP 126/60 01/14/17 07:00 Pulse Ox 94 L 01/14/17 07:00 Intake & Output 01/13/17 01/14/17 01/14/17 18:59 06:59 18:59 Intake Total 980 Balance 980 Weight 82.554 kg Intake: Intake, IV Titration 800 Amount Sodium Chloride 0.9% 1, 800 000 ml @ 100 mls/hr IV . Q10H [facility] Rx#:[id number] Oral 180 Other: Voiding Method Toilet Toilet Toilet Urinal Urinal Urinal # Voids 3 1 1 - Exam In general patient is alert and oriented 3 in no apparent distress HEENT head normocephalic and atraumatic Neck is supple no JVD no goiter no lymphadenopathy Cardiac exam reveals regular heart sounds S1 and S2 no gallops no murmurs Chest exam reveals a few scattered rhonchi bilaterally Abdomen is soft nontender no organomegaly with normal bowel sounds Extremity exam reveals no edema no cyanosis or clubbing Neurological examination reveals no gross deficit - Labs CBC & Chem 7: 01/14/17 08:17 01/14/17 08:17 Labs: Abnormal Lab Results - Last 24 Hours (Table) 01/14/17 01/14/17 01/14/17 Range/Units 08:17 08:17 08:17 RBC 3.66 L (4.30-5.90) m/uL Hgb 11.0 L (13.0-17.5) gm/dL Hct 34.0 L (39.0-53.0) % Plt Count 144 L (150-450) k/uL Lymphocytes # 0.7 L (1.0-4.8) k/uL PT 14.6 H (9.0-12.0) sec Chloride 116 H (98-107) mmol/L Carbon Dioxide 21 L (22-30) mmol/L BUN 23 H (9-20) mg/dL Creatinine 1.50 H (0.66-1.25) mg/dL Glucose 102 H (74-99) mg/dL AST 65 H (17-59) U/L Total Protein 5.7 L (6.3-8.2) g/dL Albumin 2.9 L (3.5-5.0) g/dL Microbiology - Last 24 Hours (Table) 01/12/17 11:58 Blood Culture - Preliminary Blood No Growth after 24 hours Assessment and Plan Plan: #1 acute pyelonephritis #2 possible sepsis #3 anemia #4 acute versus chronic kidney disease Will try to obtain old records creatinine on presentation 1.45 will monitor kidney function #5 patient is on Coumadin therapy INR subtherapeutic at 1.6 exact indication for Coumadin is unclear no clear history of atrial fibrillation or pulmonary embolism patient had previous history of coronary artery disease Will try to obtain old records to assess reason for patient being on Coumadin at this time will continue was current Coumadin management, patient follows with tile applicator Dr Santana At this time will continue with IV antibiotic Rocephin Awaiting further blood culture and urine culture results Would recheck CBC and CMP in a.m.
--- NOTE | 2017-01-14 14:49 | P.GSCN ---
History of Present Illness Consult date: 01/14/17 History of present illness: This is a 77 yo who had gross hematuria due to a mdium sized bladder cancer resected a the [facility] 8 days ago. He was supposed to be in the offic eyesterday for cath removal but ended up in the hospital with a uti. The catheter was removed a couple of days ago. He has luts. His blood culture was negative. His urine culture is pending. HE states he had chills which are now gone. He is on ab. His path was a gd3 t1 n0m0 tcc of the bladder. I spoke with the patient . He will need bcg bladder instillations,in the futre to decrease the likelihood of recurrence. Past Medical History Past Medical History: Coronary Artery Disease (CAD), Hearing Disorder / Deafness , Hyperlipidemia, Hypertension, Myocardial Infarction ([place]), Thyroid Disorder Additional Past Medical History / Comment(s): "aaa-repaired", vertigo AND HEARING LOSS SINCE [place] -lt ear deaf and rt side wears a hearing aid, KIDNEY STONE(PASSED IT), SPINAL STENOSIS, DDD LUMBAR SPINE, CONSTIPATION, neuropathy, uti. Last Myocardial Infarction Date:: 10-20-14 History of Any Multi-Drug Resistant Organisms: None Reported Past Surgical History: Heart Catheterization Additional Past Surgical History / Comment(s): STENT LOWER AORTA, EAR RECONSTRUCTION SX (LT) FAILED PT DEAF. LT KNEE HAD BONE CHIPS REMOVED,, 10-20-14 HEART CATH w/angioplasty but was unable to place stent, recent bladder polyp removed- no bx results back yet-idc was removed 01-11-17 Past Anesthesia/Blood Transfusion Reactions: No Reported Reaction Past Psychological History: No Psychological Hx Reported Additional Psychological History / Comment(s): pt lives with , is independant, no pets, no outside services, no medical equipment. 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 Smoking Status: Former smoker Past Alcohol Use History: Rare Additional Past Alcohol Use History / Comment(s): started smoking at age 19 - smoked cig then swithced to pipe. quit 1979 Past Drug Use History: None Reported - Past Family History Mother Additional Family Medical History / Comment(s): brain tumor Father Family Medical History: Unable to Obtain Medications and Allergies Home Medications Medication Instructions Recorded Confirmed Type Aspirin 81 mg PO DAILY 10/20/14 01/12/17 History Gabapentin [Neurontin] 800 mg PO TID 10/20/14 01/12/17 History Liothyronine Sodium [Cytomel] 5 mcg PO DAILY 10/20/14 01/12/17 History Multivitamin/Iron/Folic Acid 1 tab PO DAILY 10/20/14 01/12/17 History [Centrum Complete Multivit Tab] Acetaminophen Tab [Tylenol Tab] 1,000 mg PO Q6HR PRN 01/11/17 01/12/17 History Cyanocobalamin (Vitamin B-12) 1,000 mcg PO DAILY 01/11/17 01/12/17 History [Vitamin B-12] Levothyroxine Sodium [Synthroid] 112 mcg PO DAILY 01/11/17 01/12/17 History Metoprolol Succinate (ER) [Toprol 25 mg PO DAILY 01/11/17 01/12/17 History Xl] Rosuvastatin Calcium [Crestor] 40 mg PO HS 01/11/17 01/12/17 History Warfarin [Coumadin] 2.5 mg PO SUTUTHSA 01/11/17 01/12/17 History Warfarin [Coumadin] 5 mg PO MOWEFR 01/11/17 01/12/17 History traMADol HCL [Ultram] 50 mg PO DAILY PRN 01/11/17 01/12/17 History Allergies Allergy/AdvReac Type Severity Reaction Status Date / Time morphine Allergy Severe Nausea & Verified 01/12/17 11:45 Vomiting iodine AdvReac Rash/Hives Verified 01/12/17 11:45 Surgical - Exam Vital Signs Temp Pulse Resp BP Pulse Ox 98.7 F 116 H 18 131/61 96 01/12/17 11:12 01/12/17 11:12 01/12/17 11:12 01/12/17 11:12 01/12/17 11:12 - General well developed, well nourished, no distress - Neurologic normal coordination, normal sensation - Psychiatric oriented to time, oriented to person, oriented to place, speech is normal, memory intact Results - Labs 01/14/17 08:17 01/14/17 08:17 Abnormal Lab Results - Last 24 Hours (Table) 01/14/17 01/14/17 01/14/17 Range/Units 08:17 08:17 08:17 RBC 3.66 L (4.30-5.90) m/uL Hgb 11.0 L (13.0-17.5) gm/dL Hct 34.0 L (39.0-53.0) % Plt Count 144 L (150-450) k/uL Lymphocytes # 0.7 L (1.0-4.8) k/uL PT 14.6 H (9.0-12.0) sec Chloride 116 H (98-107) mmol/L Carbon Dioxide 21 L (22-30) mmol/L BUN 23 H (9-20) mg/dL Creatinine 1.50 H (0.66-1.25) mg/dL Glucose 102 H (74-99) mg/dL AST 65 H (17-59) U/L Total Protein 5.7 L (6.3-8.2) g/dL Albumin 2.9 L (3.5-5.0) g/dL Microbiology - Last 24 Hours (Table) 01/12/17 11:58 Blood Culture - Preliminary Blood No Growth after 48 hours Diabetes panel 01/14/17 Range/Units 08:17 Sodium 144 (137-145) mmol/L Potassium 4.2 (3.5-5.1) mmol/L Chloride 116 H (98-107) mmol/L Carbon Dioxide 21 L (22-30) mmol/L BUN 23 H (9-20) mg/dL Creatinine 1.50 H (0.66-1.25) mg/dL Glucose 102 H (74-99) mg/dL Calcium 8.5 (8.4-10.2) mg/dL AST 65 H (17-59) U/L ALT 43 (21-72) U/L Alkaline Phosphatase 95 (38-126) U/L Total Protein 5.7 L (6.3-8.2) g/dL Albumin 2.9 L (3.5-5.0) g/dL Calcium panel 01/14/17 Range/Units 08:17 Calcium 8.5 (8.4-10.2) mg/dL Albumin 2.9 L (3.5-5.0) g/dL Pituitary panel 01/14/17 Range/Units 08:17 Sodium 144 (137-145) mmol/L Potassium 4.2 (3.5-5.1) mmol/L Chloride 116 H (98-107) mmol/L Carbon Dioxide 21 L (22-30) mmol/L BUN 23 H (9-20) mg/dL Creatinine 1.50 H (0.66-1.25) mg/dL Glucose 102 H (74-99) mg/dL Calcium 8.5 (8.4-10.2) mg/dL Adrenal panel 01/14/17 Range/Units 08:17 Sodium 144 (137-145) mmol/L Potassium 4.2 (3.5-5.1) mmol/L Chloride 116 H (98-107) mmol/L Carbon Dioxide 21 L (22-30) mmol/L BUN 23 H (9-20) mg/dL Creatinine 1.50 H (0.66-1.25) mg/dL Glucose 102 H (74-99) mg/dL Calcium 8.5 (8.4-10.2) mg/dL Total Bilirubin 0.7 (0.2-1.3) mg/dL AST 65 H (17-59) U/L ALT 43 (21-72) U/L Alkaline Phosphatase 95 (38-126) U/L Total Protein 5.7 L (6.3-8.2) g/dL Albumin 2.9 L (3.5-5.0) g/dL Assessment and Plan Plan: Impression: Uti post turbt. Non invasive high grade bladder cancer Recommendation: Antibiotics as being done. The patient will need bcg intravesical instillations upon recovery from the uti
[2017-01-14] MEDS: WARFARIN 5 MG TAB PO SCH (16:11)
[2017-01-14] MEDS: ATORVASTATIN 80 MG TAB PO SCH (22:04)
[2017-01-15] MEDS: PIPERACILLIN-TAZOBACTAM 3.375 GM in DEXTROSE/WATER 1 50ML.BAG IVPB SCH ×3 (02:59→16:59)
[2017-01-15] MEDS: SODIUM CHLORIDE 0.9% 1,000 ML IV SCH ×2 (03:34→11:53)
[2017-01-15] MEDS: LEVOTHYROXINE 112 MCG TAB PO SCH (05:55)
[2017-01-15] MEDS: LIOTHYRONINE SODIUM 5 MCG TAB PO SCH (05:55)
[2017-01-15] MEDS ORDERED: cefTRIAXone 2,000 MG in SODIUM CHLORIDE 0.9% 100 ML IVPB SCH (09:00)
[2017-01-15] MEDS: ASPIRIN 81 MG CHEW PO SCH (09:09)
[2017-01-15] MEDS: METOPROLOL SUCCINATE (ER) 25 MG TAB.ER.24H PO SCH (09:09)
[2017-01-15] MEDS: GABAPENTIN 400 MG CAP PO SCH ×3 (09:09→22:08)
[2017-01-15 09:10] LABS: Calcium 8.6 mg/dL (8.4-10.2); Potassium 4.2 mmol/L (3.5-5.1); Total Bilirubin 0.7 mg/dL (0.2-1.3)
[2017-01-15] MEDS: PANTOPRAZOLE 40 MG TABLET PO SCH (09:10)
[2017-01-15] MEDS: ISOSORBIDE MONONITRATE ER 30 MG TAB.ER.24H PO SCH (09:10)
[2017-01-15 09:16] LABS: INR 1.9 (<1.1); Prothrombin Time 18.3 sec (9.0-12.0)
[2017-01-15 10:54] LABS: Aty Lym Flag Slight; CH 29.4; CHCM 31.9; HCT 34.2 % (39.0-53.0); HDW 2.82; HGB 11.4 gm/dL (13.0-17.5); Hypochromasia Slight; MCH 30.7 pg (25.0-35.0); MCHC 33.2 g/dL (31.0-37.0); MCV 92.6 fL (80.0-100.0); Mean Platelet Volume 8.6; RDW 13.3 % (11.5-15.5); WBC (Perox) 5.01
--- NOTE | 2017-01-15 11:32 | P.PN ---
Subjective The patient is in the hospital with a post TUR bladder tumor urine infection. I discussed the bladder tumor results with the patient and his . His urine infection has grown enterococcus. I will start him on BCG intravesical bladder therapy after he is treated for his infection. From a urologic standpoint he can be discharged home at any time on antibiotics. Objective - Vital Signs Vital signs: Vital Signs Temp 98.7 F 01/15/17 07:00 Pulse 72 01/15/17 08:00 Resp 18 01/15/17 08:00 BP 134/70 01/15/17 07:00 Pulse Ox 92 L 01/15/17 07:00 Intake & Output 01/14/17 01/15/17 01/15/17 18:59 06:59 18:59 Intake Total 400 Balance 400 Intake: Oral 400 Other: Voiding Method Toilet Toilet Toilet Urinal Urinal Urinal # Voids 4 1 - Labs CBC & Chem 7: 01/15/17 08:17 01/15/17 08:17 Labs: Abnormal Lab Results - Last 24 Hours (Table) 01/14/17 01/15/17 01/15/17 Range/Units 23:03 08:17 08:17 RBC 3.70 L (4.30-5.90) m/uL Hgb 11.4 L (13.0-17.5) gm/dL Hct 34.2 L (39.0-53.0) % Plt Count 149 L (150-450) k/uL PT 18.3 H (9.0-12.0) sec Chloride (98-107) mmol/L Carbon Dioxide (22-30) mmol/L Creatinine (0.66-1.25) mg/dL Glucose (74-99) mg/dL AST (17-59) U/L ALT (21-72) U/L Alkaline Phosphatase (38-126) U/L Total Protein (6.3-8.2) g/dL Albumin (3.5-5.0) g/dL Prealbumin 10 L (18-36) mg/dL 01/15/17 Range/Units 08:17 RBC (4.30-5.90) m/uL Hgb (13.0-17.5) gm/dL Hct (39.0-53.0) % Plt Count (150-450) k/uL PT (9.0-12.0) sec Chloride 115 H (98-107) mmol/L Carbon Dioxide 19 L (22-30) mmol/L Creatinine 1.48 H (0.66-1.25) mg/dL Glucose 107 H (74-99) mg/dL AST 98 H (17-59) U/L ALT 75 H (21-72) U/L Alkaline Phosphatase 153 H (38-126) U/L Total Protein 6.0 L (6.3-8.2) g/dL Albumin 3.0 L (3.5-5.0) g/dL Prealbumin (18-36) mg/dL Microbiology - Last 24 Hours (Table) 01/12/17 11:58 Urine Culture - Final Urine,Voided Enterococcus faecalis 01/12/17 11:58 Blood Culture - Preliminary Blood No Growth after 48 hours
--- NOTE | 2017-01-15 11:37 | P.CONS ---
History of Present Illness - Reason for Consult Consult date: 01/14/17 - Chief Complaint Fever and chills - History of Present Illness Very pleasant 77-year-old male who is hard of hearing presents to the emergency center feeling very poorly. The patient relates to the many hour history of fever chill and rigor. His temperature had 102 at home. And consequently was brought to hospital. The patient has a pertinent recent history of bladder polyp removal that was malignant approximately week ago. The patient's Weinstein catheter was removed. The patient did present to the emergency center he was treated and felt a bit better. However with evidence of possible blood cultures and positive urine culture has been admitted to hospital for further intervention. Because the bacteremia the infectious diseases consultation was requested. The patient does feel just slightly better. He wasn't antibiotic therapy with quinolone at home and still felt very poorly. He Is Admitted As a Failure of Outpatient Therapy. Review of Systems As noted had fever chill and rigors before admission HEENT:Denies headache or acute visual change. Denies sinus or mouth discomforts. Denies neck stiffness or pain. Denies significant oral cavity pain. Denies difficulty on swallowing. Lungs: Denies significant shortness of breath, cough, sputum production, or hemoptysis. Cardiovascular: Denies significant shortness of breath, chest pain, chest wall pain, orthopnea, dyspnea on exertion, syncope Gastrointestinal:Denies nausea, vomiting, diarrhea, constipation, hematemesis, melena, hematochezia. No no significant change of bowel habit noticed. Musculoskeletal: denies significant myalgias or arthralgias. No new joint swelling. Denies new back pain. Skin: Denies new rash or lesions. No new ulcers or wounds are related.. Neuro: Denies headache or visual change. Denies any new onset weakness or difficulty with ambulation. Denies falls or seizures. Psychiatric:Denies anxiety or depression. Endocrine: Denies significant fatigue, denies significant weight loss or weight gain. Urinary very little discomfort at this time with the Weinstein removed. Was still having some bloody urine at times Past Medical History Past Medical History: Coronary Artery Disease (CAD), Hearing Disorder / Deafness , Hyperlipidemia, Hypertension, Myocardial Infarction ([place]), Thyroid Disorder Additional Past Medical History / Comment(s): "aaa-repaired", vertigo AND HEARING LOSS SINCE [place] -lt ear deaf and rt side wears a hearing aid, KIDNEY STONE(PASSED IT), SPINAL STENOSIS, DDD LUMBAR SPINE, CONSTIPATION, neuropathy, uti. Last Myocardial Infarction Date:: 10-20-14 History of Any Multi-Drug Resistant Organisms: None Reported Past Surgical History: Heart Catheterization Additional Past Surgical History / Comment(s): STENT LOWER AORTA, EAR RECONSTRUCTION SX (LT) FAILED PT DEAF. LT KNEE HAD BONE CHIPS REMOVED,, 10-20-14 HEART CATH w/angioplasty but was unable to place stent, recent bladder polyp removed- no bx results back yet-idc was removed 01-11-17 Past Anesthesia/Blood Transfusion Reactions: No Reported Reaction Past Psychological History: No Psychological Hx Reported Additional Psychological History / Comment(s): pt lives with , is independant, no pets, no outside services, no medical equipment. 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 No recent international travel. Tobacco smoking stopped 35 years ago. No alcohol use. No animal exposures. No other ill contacts Smoking Status: Former smoker Past Alcohol Use History: Rare Additional Past Alcohol Use History / Comment(s): started smoking at age 19 - smoked cig then swithced to pipe. quit 1979 Past Drug Use History: None Reported - Past Family History Mother Additional Family Medical History / Comment(s): brain tumor Father Family Medical History: Unable to Obtain Medications and Allergies Home Medications and Allergies Comment(s): Current Medications Acetaminophen (Tylenol Tab) 650 mg PO Q6HR PRN PRN Reason: Mild Pain or Fever > 100.5 Last Admin: 01/13/17 21:20 Dose: 650 mg Aspirin (Aspirin) 81 mg PO DAILY [facility] Last Admin: 01/14/17 08:16 Dose: 81 mg Atorvastatin Calcium (Lipitor) 80 mg PO HS [facility] Last Admin: 01/13/17 21:16 Dose: 80 mg Cyanocobalamin (Vitamin B-12) 1,000 mcg PO DAILY [facility] Last Admin: 01/14/17 08:16 Dose: 1,000 mcg Gabapentin (Neurontin) 800 mg PO TID [facility] Last Admin: 01/14/17 16:11 Dose: 800 mg Sodium Chloride (Saline 0.9%) 1,000 mls @ 100 mls/hr IV .Q10H [facility] Last Admin: 01/14/17 01:31 Dose: 100 mls/hr Ceftriaxone Sodium 2,000 mg/ (Sodium Chloride) 100 mls @ 100 mls/hr IVPB Q24HR [facility] Ibuprofen (Motrin) 400 mg PO Q6HR PRN PRN Reason: Mild Pain or Fever > 100.5 Isosorbide Mononitrate (Imdur) 30 mg PO DAILY [facility] Last Admin: 01/14/17 08:15 Dose: 30 mg Levothyroxine Sodium (Synthroid) 112 mcg PO DAILY@0630 [facility] Last Admin: 01/14/17 06:03 Dose: 112 mcg Liothyronine Sodium (Cytomel) 5 mcg PO DAILY@0630 [facility] Last Admin: 01/14/17 06:03 Dose: 5 mcg Metoprolol Succinate (Toprol Xl) 25 mg PO DAILY [facility] Last Admin: 01/14/17 08:15 Dose: 25 mg Multivitamins (Theragran) 1 each PO DAILY@1200 [facility] Last Admin: 01/14/17 08:16 Dose: 1 each Naloxone HCl (Narcan) 0.2 mg IV Q2M PRN PRN Reason: Opioid Reversal Ondansetron HCl (Zofran) 4 mg IVP Q8HR PRN PRN Reason: Nausea And Vomiting Pantoprazole Sodium (Protonix) 40 mg PO DAILY [facility] Last Admin: 01/14/17 08:16 Dose: 40 mg Tramadol HCl (Ultram) 50 mg PO DAILY PRN PRN Reason: Moderate Pain Warfarin Sodium (Coumadin) 2.5 mg PO [id number] [facility] Last Admin: 01/13/17 17:20 Dose: 2.5 mg Warfarin Sodium (Coumadin) 5 mg PO [id number] [facility] Last Admin: 01/14/17 16:11 Dose: 5 mg Home Medications Medication Instructions Recorded Confirmed Type Aspirin 81 mg PO DAILY 10/20/14 01/12/17 History Gabapentin [Neurontin] 800 mg PO TID 10/20/14 01/12/17 History Liothyronine Sodium [Cytomel] 5 mcg PO DAILY 10/20/14 01/12/17 History Multivitamin/Iron/Folic Acid 1 tab PO DAILY 10/20/14 01/12/17 History [Centrum Complete Multivit Tab] Acetaminophen Tab [Tylenol Tab] 1,000 mg PO Q6HR PRN 01/11/17 01/12/17 History Cyanocobalamin (Vitamin B-12) 1,000 mcg PO DAILY 01/11/17 01/12/17 History [Vitamin B-12] Levothyroxine Sodium [Synthroid] 112 mcg PO DAILY 01/11/17 01/12/17 History Metoprolol Succinate (ER) [Toprol 25 mg PO DAILY 01/11/17 01/12/17 History Xl] Rosuvastatin Calcium [Crestor] 40 mg PO HS 01/11/17 01/12/17 History Warfarin [Coumadin] 2.5 mg PO SUTUTHSA 01/11/17 01/12/17 History Warfarin [Coumadin] 5 mg PO MOWEFR 01/11/17 01/12/17 History traMADol HCL [Ultram] 50 mg PO DAILY PRN 01/11/17 01/12/17 History Allergies Allergy/AdvReac Type Severity Reaction Status Date / Time morphine Allergy Severe Nausea & Verified 01/12/17 11:45 Vomiting iodine AdvReac Rash/Hives Verified 01/12/17 11:45 Physical Exam Vitals: Vital Signs Temp Pulse Resp BP Pulse Ox 01/14/17 16:00 71 18 01/14/17 15:00 97.9 F 71 18 109/65 94 L 01/14/17 08:00 74 18 01/14/17 07:00 98.8 F 74 18 126/60 94 L 01/14/17 00:00 78 16 01/13/17 22:11 99.0 F Intake and Output 01/14/17 01/14/17 01/14/17 06:59 14:59 22:59 Intake Total 800 Balance 800 Intake: Intake, IV Titration 800 Amount Sodium Chloride 0.9% 1, 800 000 ml @ 100 mls/hr IV . Q10H [facility] Rx#:[id number] Other: Voiding Method Toilet Toilet Toilet Urinal Urinal Urinal # Voids 1 4 1 Pleasant 77-year-old male feels slightly better since coming to Hospital HEENT: Anicteric conjunctiva are pink and moist nasal mucosa grossly intact without significant lesions, there is no thrush. Has significant cranial nerve VIII defects Neck: The neck is supple without significant lymphadenopathy or thyromegaly. Lungs: Good bilateral air entry few scattered wheezes without crackles. There is no significant bronchial sounds. There is no egophony or dullness. Heart: Regular rate and rhythm with an audible S1-S2, no S3 positive S4. There is no significant murmur click or rub, PMI was nondisplaced. Abdomen: Positive bowel sounds soft and nontender without palpable masses or organomegaly. There was no guarding or rebound. Extremities: The upper extremities have excellent pulses they are symmetric, no significant petechiae or telangiectasia. No splinter hemorrhages were noted. The lower extremities are free from significant edema. The peripheral pulses were 2+ and symmetric. Neuro: Awake alert oriented to person place and time. There are no acute new gross focal sensory motor deficits. 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 No testicular swelling or penile drainage. Results CBC & Chem 7: 01/14/17 08:01/14/17 08:17 Labs: Abnormal Lab Results - Last 24 Hours (Table) 01/14/17 01/14/17 01/14/17 Range/Units : 08: 08:17 RBC 3.66 L (4.30-5.90) m/uL Hgb 11.0 L (13.0-17.5) gm/dL Hct 34.0 L (39.0-53.0) % Plt Count 144 L (150-450) k/uL Lymphocytes # 0.7 L (1.0-4.8) k/uL PT 14.6 H (9.0-12.0) sec Chloride 116 H (98-107) mmol/L Carbon Dioxide 21 L (22-30) mmol/L BUN 23 H (9-20) mg/dL Creatinine 1.50 H (0.66-1.25) mg/dL Glucose 102 H (74-99) mg/dL AST 65 H (17-59) U/L Total Protein 5.7 L (6.3-8.2) g/dL Albumin 2.9 L (3.5-5.0) g/dL Microbiology - Last 24 Hours (Table) 01/12/17 11:58 Blood Culture - Preliminary Blood No Growth after 48 hours Laboratory Results WBC 4.8 k/uL (3.8-10.6) 01/14/17 08:17 RBC 3.66 m/uL (4.30-5.90) L 01/14/17 08:17 Hgb 11.0 gm/dL (13.0-17.5) L 01/14/17 08:17 Hct 34.0 % (39.0-53.0) L 01/14/17 08:17 MCV 92.9 fL (80.0-100.0) 01/14/17 08:17 MCH 29.9 pg (25.0-35.0) 01/14/17 08:17 MCHC 32.2 g/dL (31.0-37.0) 01/14/17 08:17 RDW 13.2 % (11.5-15.5) 01/14/17 08:17 Plt Count 144 k/uL (150-450) L 01/14/17 08:17 Neutrophils % 73 % 01/14/17 08:17 Lymphocytes % 14 % 01/14/17 08:17 Monocytes % 8 % 01/14/17 08:17 Eosinophils % 1 % 01/14/17 08:17 Basophils % 1 % 01/14/17 08:17 Neutrophils # 3.5 k/uL (1.3-7.7) 01/14/17 08:17 Lymphocytes # 0.7 k/uL (1.0-4.8) L 01/14/17 08:17 Monocytes # 0.4 k/uL (0-1.0) 01/14/17 08:17 Eosinophils # 0.1 k/uL (0-0.7) 01/14/17 08:17 Basophils # 0.0 k/uL (0-0.2) 01/14/17 08:17 Hypochromasia Slight 01/13/17 07:27 PT 14.6 sec (9.0-12.0) H 01/14/17 08:17 INR 1.5 (<1.1) 01/14/17 08:17 APTT 29.2 sec (22.0-30.0) 01/12/17 12:45 Sodium 144 mmol/L (137-145) 01/14/17 08:17 Potassium 4.2 mmol/L (3.5-5.1) 01/14/17 08:17 Chloride 116 mmol/L (98-107) H 01/14/17 08:17 Carbon Dioxide 21 mmol/L (22-30) L 01/14/17 08:17 Anion Gap 7 mmol/L 01/14/17 08:17 BUN 23 mg/dL (9-20) H 01/14/17 08:17 Creatinine 1.50 mg/dL (0.66-1.25) H 01/14/17 08:17 Est GFR (MDRD) Af Amer 55 (>60 ml/min/1.73 sqM) 01/14/17 08:17 Est GFR (MDRD) Non-Af 46 (>60 ml/min/1.73 sqM) 01/14/17 08:17 Glucose 102 mg/dL (74-99) H 01/14/17 08:17 Plasma Lactic Acid Evans 0.7 mmol/L (0.7-2.0) 01/12/17 11:58 Calcium 8.5 mg/dL (8.4-10.2) 01/14/17 08:17 Total Bilirubin 0.7 mg/dL (0.2-1.3) 01/14/17 08:17 AST 65 U/L (17-59) H 01/14/17 08:17 ALT 43 U/L (21-72) 01/14/17 08:17 Alkaline Phosphatase 95 U/L (38-126) 01/14/17 08:17 Total Protein 5.7 g/dL (6.3-8.2) L 01/14/17 08:17 Albumin 2.9 g/dL (3.5-5.0) L 01/14/17 08:17 Urine Color Light Yellow 01/12/17 11:58 Urine Appearance Clear (Clear) 01/12/17 11:58 Urine pH 5.5 (5.0-8.0) 01/12/17 11:58 Ur Specific [place] 1.009 (1.001-1.035) 01/12/17 11:58 Urine Protein Trace (Negative) H 01/12/17 11:58 Urine Glucose (UA) Negative (Negative) 01/12/17 11:58 Urine Ketones Negative (Negative) 01/12/17 11:58 Urine Blood Small (Negative) H 01/12/17 11:58 Urine Nitrite Negative (Negative) 01/12/17 11:58 Urine Bilirubin Negative (Negative) 01/12/17 11:58 Urine Urobilinogen <2.0 mg/dL (<2.0) 01/12/17 11:58 Ur Leukocyte Esterase Large (Negative) H 01/12/17 11:58 Urine RBC 27 /hpf (0-5) H 01/12/17 11:58 Urine WBC 62 /hpf (0-5) H 01/12/17 11:58 Urine Mucus Rare /hpf (None) H 01/12/17 11:58 Microbiology 01/12/17 11:58 Blood Blood Culture - Preliminary No Growth after 48 hours 01/12/17 11:58 Urine,Voided Urine Culture - Preliminary Assessment and Plan (1) Sepsis Narrative/Plan: Very pleasant 77-year-old male presents to hospital with high-grade fever and chills. Patient had recent intervention with removal of a bladder tumor. He has now developed evidence of Serratia marcescens bacteremia from his urinary infection. Before she started to feel better since coming to Hospital receiving fluids. Although the bacteria is not highly resistant. He did fail outpatient antibiotic therapy. With this we'll plan on a course of outpatient intravenous antibiotic therapy with cefuroxime. Patient is agreeable to this course of therapy. If he has any difficulty with urinary retention bladder scan can be performed. Creatinine is mildly elevated and is being monitored. Given the patient has an endovascular stent graft for his abdominal aortic aneurysm aggressive treatment is certainly indicated. Follow blood cultures have been requested. Status: Acute (2) Bacteremia due to Gram-negative bacteria Status: Acute (3) Fever Status: Acute (4) Bladder malignancy Status: Acute
[2017-01-15 12:11] LABS: Add Differential Manual Differential
[2017-01-15 12:14] LABS: Manual Review Performed; Nucleated Red Blood Cells 0 /100 WBC (0-0); Total Cells Counted 100
[2017-01-15] MEDS ORDERED: LIDOCAINE 2% INJ 20 MG/ML SQ ONE (12:30)
[2017-01-15] MEDS: MULTIVITAMINS, THERA 1 EACH TAB PO SCH (12:31)
--- NOTE | 2017-01-15 12:49 | P.PN ---
Subjective Aubrey Gomez is a 77-year-old white male presents with with a complaint of some uncontrollable shaking chills. He was just seen in the emergency department the night prior to admission for the same thing. He had a temperature of 102. He relates that he had a bladder polyp removed approximately one week ago and had been utilizing a Weinstein catheter until yesterday. This was scheduled to be removed today but they did remove it yesterday after diagnosing him with a urinary tract infection. Patient seen by urology has known bladder cancer and they will be completing BCG intravascular bladder therapy after the UTI is treated. Patient is urinating without difficulty. No hematuria. He reports that the burning is showing improvement. He did have a low-grade temperature yesterday of 100.1. Infectious disease is following. Patient denies any chest pain or shortness of breath. Denies any nausea or vomiting. Objective - Vital Signs Vital signs: Vital Signs Temp 98.7 F 01/15/17 07:00 Pulse 72 01/15/17 08:00 Resp 18 01/15/17 08:00 BP 134/70 01/15/17 07:00 Pulse Ox 92 L 01/15/17 07:00 Intake & Output 01/14/17 01/15/17 01/15/17 18:59 06:59 18:59 Intake Total 400 Balance 400 Intake: Oral 400 Other: Voiding Method Toilet Toilet Toilet Urinal Urinal Urinal # Voids 4 1 - Exam Head normocephalic Neck supple Lungs clear to auscultation bilaterally no wheezing or crackles Heart regular rate and rhythm S1-S2, no rub or gallop Abdomen is soft nontender nondistended positive bowel sounds no hepatosplenomegaly Extremities no edema Neuro alert and orientated to 3 - Labs CBC & Chem 7: 01/15/17 08:17 01/15/17 08:17 Labs: Abnormal Lab Results - Last 24 Hours (Table) 01/14/17 01/15/17 01/15/17 Range/Units 23:03 08: 08:17 RBC 3.70 L (4.30-5.90) m/uL Hgb 11.4 L (13.0-17.5) gm/dL Hct 34.2 L (39.0-53.0) % Plt Count 149 L (150-450) k/uL PT 18.3 H (9.0-12.0) sec Chloride (98-107) mmol/L Carbon Dioxide (22-30) mmol/L Creatinine (0.66-1.25) mg/dL Glucose (74-99) mg/dL AST (17-59) U/L ALT (21-72) U/L Alkaline Phosphatase (38-126) U/L Total Protein (6.3-8.2) g/dL Albumin (3.5-5.0) g/dL Prealbumin 10 L (18-36) mg/dL 01/15/17 Range/Units 08:17 RBC (4.30-5.90) m/uL Hgb (13.0-17.5) gm/dL Hct (39.0-53.0) % Plt Count (150-450) k/uL PT (9.0-12.0) sec Chloride 115 H (98-107) mmol/L Carbon Dioxide 19 L (22-30) mmol/L Creatinine 1.48 H (0.66-1.25) mg/dL Glucose 107 H (74-99) mg/dL AST 98 H (17-59) U/L ALT 75 H (21-72) U/L Alkaline Phosphatase 153 H (38-126) U/L Total Protein 6.0 L (6.3-8.2) g/dL Albumin 3.0 L (3.5-5.0) g/dL Prealbumin (18-36) mg/dL Microbiology - Last 24 Hours (Table) 01/12/17 11:58 Urine Culture - Final Urine,Voided Enterococcus faecalis 01/12/17 11:58 Blood Culture - Preliminary Blood No Growth after 48 hours Assessment and Plan Plan: 1. UTI with sepsis: Urine culture growing enterococcus Cialis patient currently on Zosyn. Infectious disease following. Patient did have a low- grade temp of 100.1. We'll await further infectious disease recommendations 2. Bacteremia with previous blood culture growing Serratia Marfidelina Sanchez from his urinary infection. Infectious disease following. Repeat blood culture negative. #3 bladder cancer: Followed by urology. They're planning on BCG intravascular bladder therapy once urinary tract infection has cleared up. #4 acute versus chronic kidney disease Will try to obtain old records creatinine on presentation 1.45 will monitor kidney function. Creatinine 1.48 #5 patient is on Coumadin therapy INR subtherapeutic at 1.9 exact indication for Coumadin is unclear no clear history of atrial fibrillation or pulmonary embolism patient had previous history of coronary artery disease Will try to obtain old records to assess reason for patient being on Coumadin at this time will continue was current Coumadin management. Patient follows with process eng Dr. Goddard #6 metabolic encephalopathy with altered mental status on admission likely related to his UTI and bacteremia Consult physical therapy Anticipate discharge possibly tomorrow I performed an examination of the patient and discussed their management with the physician Food Safety Coordinator. I have reviewed the Physician Food Safety Coordinator's notes and agree with the documented findings and plan of care
--- NOTE | 2017-01-15 15:05 | IR ---
PICC LINE PLACEMENT: HISTORY: Infection requiring long-term antibiotic therapy PROCEDURE: Ultrasound and fluoroscopic guidance of PICC line placement. COMPLICATIONS: None ANESTHESIA: 1. 1% Lidocaine locally. FINDINGS/TECHNIQUE: The procedure was explained to the patient. The risks, complications, benefits and alternatives were discussed and any questions were answered. Informed consent was obtained. The patient was placed supine on the fluoroscopic table and prepped and draped in the usual sterile fash ion. Utilizing a 21 gauge needle and sonographic and fluoroscopic guidance, access in the left basi lic vein was achieved and there is placement of a 0.018 guidewire. The vein is patent. A 4-F sheath was placed over the guidewire. The guidewire and dilator were removed and a 4-F. PICC line was plac ed through the sheath with the tip at the level of the SVC. The sheath was removed, the catheter was flushed and sutured into position. The patient was stable throughout the procedure and remained sta ble upon discharge from the Department of Radiology. The vein puncture was patent under ultrasound. A lindsey scale image was obtained to document patency of the vein punctured. All elements of the maximal barrier technique were utilized. FLUOROSCOPY TIME: 0.5 minute IMPRESSION: Successful PICC line placement under ultrasound and fluoroscopic guidance.
[2017-01-15] MEDS: WARFARIN 5 MG TAB PO SCH (16:59)
--- NOTE | 2017-01-15 21:11 | P.PN ---
Subjective Principal diagnosis: Sepsis Very pleasant 77-year-old male who is hard of hearing presents to the emergency center feeling very poorly. The patient relates to the many hour history of fever chill and rigor. His temperature had 102 at home. And consequently was brought to hospital. The patient has a pertinent recent history of bladder polyp removal that was malignant approximately week ago. The patient's Weinstein catheter was removed. The patient did present to the emergency center he was treated and felt a bit better. However with evidence of possible blood cultures and positive urine culture has been admitted to hospital for further intervention. Because the bacteremia the infectious diseases consultation was requested. The patient does feel just slightly better. He wasn't antibiotic therapy with quinolone at home and still felt very poorly. He Is Admitted As a Failure of Outpatient Therapy. Cultures now reveal evidence of multiple pathogens including enterococcus. Objective - Vital Signs Vital signs: Vital Signs Temp 98.0 F 01/15/17 15:00 Pulse 58 L 01/15/17 16:00 Resp 18 01/15/17 16:00 BP 116/58 01/15/17 15:00 Pulse Ox 95 01/15/17 15:00 Intake & Output 01/15/17 01/15/17 01/16/17 06:59 18:59 06:59 Intake Total 400 Balance 400 Intake: Oral 400 Other: Voiding Method Toilet Toilet Urinal Urinal # Voids 1 2 - Exam Pleasant 77-year-old male feels slightly better since coming to Hospital HEENT: Anicteric conjunctiva are pink and moist nasal mucosa grossly intact without significant lesions, there is no thrush. Has significant cranial nerve VIII defects Neck: The neck is supple without significant lymphadenopathy or thyromegaly. Lungs: Good bilateral air entry few scattered wheezes without crackles. There is no significant bronchial sounds. There is no egophony or dullness. Heart: Regular rate and rhythm with an audible S1-S2, no S3 positive S4. There is no significant murmur click or rub, PMI was nondisplaced. Abdomen: Positive bowel sounds soft and nontender without palpable masses or organomegaly. There was no guarding or rebound. Extremities: The upper extremities have excellent pulses they are symmetric, no significant petechiae or telangiectasia. No splinter hemorrhages were noted. The lower extremities are free from significant edema. The peripheral pulses were 2+ and symmetric. Neuro: Awake alert oriented to person place and time. There are no acute new gross focal sensory motor deficits. 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 No testicular swelling or penile drainage. - Labs CBC & Chem 7: 01/15/17 08:17 01/15/17 08:17 Labs: Abnormal Lab Results - Last 24 Hours (Table) 01/14/17 01/15/17 01/15/17 Range/Units 23:03 08:17 08:17 RBC 3.70 L (4.30-5.90) m/uL Hgb 11.4 L (13.0-17.5) gm/dL Hct 34.2 L (39.0-53.0) % Plt Count 149 L (150-450) k/uL PT 18.3 H (9.0-12.0) sec Chloride (98-107) mmol/L Carbon Dioxide (22-30) mmol/L Creatinine (0.66-1.25) mg/dL Glucose (74-99) mg/dL AST (17-59) U/L ALT (21-72) U/L Alkaline Phosphatase (38-126) U/L Total Protein (6.3-8.2) g/dL Albumin (3.5-5.0) g/dL Prealbumin 10 L (18-36) mg/dL 01/15/17 Range/Units 08:17 RBC (4.30-5.90) m/uL Hgb (13.0-17.5) gm/dL Hct (39.0-53.0) % Plt Count (150-450) k/uL PT (9.0-12.0) sec Chloride 115 H (98-107) mmol/L Carbon Dioxide 19 L (22-30) mmol/L Creatinine 1.48 H (0.66-1.25) mg/dL Glucose 107 H (74-99) mg/dL AST 98 H (17-59) U/L ALT 75 H (21-72) U/L Alkaline Phosphatase 153 H (38-126) U/L Total Protein 6.0 L (6.3-8.2) g/dL Albumin 3.0 L (3.5-5.0) g/dL Prealbumin (18-36) mg/dL Microbiology - Last 24 Hours (Table) 01/12/17 11:58 Blood Culture - Preliminary Blood No Growth after 72 hours 01/12/17 11:58 Urine Culture - Final Urine,Voided Enterococcus faecalis Laboratory Results WBC 5.0 k/uL (3.8-10.6) 01/15/17 08:17 RBC 3.70 m/uL (4.30-5.90) L 01/15/17 08:17 Hgb 11.4 gm/dL (13.0-17.5) L 01/15/17 08:17 Hct 34.2 % (39.0-53.0) L 01/15/17 08:17 MCV 92.6 fL (80.0-100.0) 01/15/17 08:17 MCH 30.7 pg (25.0-35.0) 01/15/17 08: MCHC 33.2 g/dL (31.0-37.0) 01/15/17 08:17 RDW 13.3 % (11.5-15.5) 01/15/17 08:17 Plt Count 149 k/uL (150-450) L 01/15/17 08:17 Neutrophils % 73 % 01/14/17 08:17 Neutrophils % (Manual) 61.0 % 01/15/17 08:17 Band Neutrophils % 1.0 % 01/15/17 08:17 Lymphocytes % 14 % 01/14/17 08:17 Lymphocytes % (Manual) 21.0 % 01/15/17 08:17 Monocytes % 8 % 01/14/17 08:17 Monocytes % (Manual) 14.0 % 01/15/17 08:17 Eosinophils % 1 % 01/14/17 08:17 Eosinophils % (Manual) 3.0 % 01/15/17 08:17 Basophils % 1 % 01/14/17 08:17 Neutrophils # 3.5 k/uL (1.3-7.7) 01/14/17 08:17 Neutrophils # (Manual) 3.1 k/uL (1.3-7.7) 01/15/17 08:17 Lymphocytes # 0.7 k/uL (1.0-4.8) L 01/14/17 08:17 Lymphocytes # (Manual) 1.1 k/uL (1.0-4.8) 01/15/17 08:17 Monocytes # 0.4 k/uL (0-1.0) 01/14/17 08:17 Monocytes # (Manual) 0.7 k/uL (0-1.0) 01/15/17 08:17 Eosinophils # 0.1 k/uL (0-0.7) 01/14/17 08:17 Eosinophils # (Manual) 0.2 k/uL (0-0.7) 01/15/17 08:17 Basophils # 0.0 k/uL (0-0.2) 01/14/17 08:17 Nucleated RBCs 0 /100 WBC (0-0) 01/15/17 08:17 Manual Slide Review Performed 01/15/17 08:17 Hypochromasia Slight 01/15/17 08:17 Poikilocytosis (manual Present 01/15/17 08:17 PT 18.3 sec (9.0-12.0) H 01/15/17 08:17 INR 1.9 (<1.1) 01/15/17 08:17 APTT 29.2 sec (22.0-30.0) 01/12/17 12:45 Sodium 144 mmol/L (137-145) 01/15/17 08:17 Potassium 4.2 mmol/L (3.5-5.1) 01/15/17 08:17 Chloride 115 mmol/L (98-107) H 01/15/17 08:17 Carbon Dioxide 19 mmol/L (22-30) L 01/15/17 08:17 Anion Gap 10 mmol/L 01/15/17 08:17 BUN 17 mg/dL (9-20) 01/15/17 08:17 Creatinine 1.48 mg/dL (0.66-1.25) H 01/15/17 08:17 Est GFR (MDRD) Af Amer 56 (>60 ml/min/1.73 sqM) 01/15/17 08:17 Est GFR (MDRD) Non-Af 46 (>60 ml/min/1.73 sqM) 01/15/17 08:17 Glucose 107 mg/dL (74-99) H 01/15/17 08:17 Plasma Lactic Acid Evans 0.7 mmol/L (0.7-2.0) 01/12/17 11:58 Calcium 8.6 mg/dL (8.4-10.2) 01/15/17 08:17 Total Bilirubin 0.7 mg/dL (0.2-1.3) 01/15/17 08:17 AST 98 U/L (17-59) H 01/15/17 08:17 ALT 75 U/L (21-72) H 01/15/17 08:17 Alkaline Phosphatase 153 U/L (38-126) H 01/15/17 08:17 Total Protein 6.0 g/dL (6.3-8.2) L 01/15/17 08:17 Albumin 3.0 g/dL (3.5-5.0) L 01/15/17 08:17 Prealbumin 10 mg/dL (18-36) L 01/14/17 23:03 Urine Color Light Yellow 01/12/17 11:58 Urine Appearance Clear (Clear) 01/12/17 11:58 Urine pH 5.5 (5.0-8.0) 01/12/17 11:58 Ur Specific [place] 1.009 (1.001-1.035) 01/12/17 11:58 Urine Protein Trace (Negative) H 01/12/17 11:58 Urine Glucose (UA) Negative (Negative) 01/12/17 11:58 Urine Ketones Negative (Negative) 01/12/17 11:58 Urine Blood Small (Negative) H 01/12/17 11:58 Urine Nitrite Negative (Negative) 01/12/17 11:58 Urine Bilirubin Negative (Negative) 01/12/17 11:58 Urine Urobilinogen <2.0 mg/dL (<2.0) 01/12/17 11:58 Ur Leukocyte Esterase Large (Negative) H 01/12/17 11:58 Urine RBC 27 /hpf (0-5) H 01/12/17 11:58 Urine WBC 62 /hpf (0-5) H 01/12/17 11:58 Urine Mucus Rare /hpf (None) H 01/12/17 11:58 Microbiology 01/12/17 11:58 Blood Blood Culture - Preliminary No Growth after 72 hours 01/12/17 11:58 Urine,Voided Urine Culture - Final Enterococcus faecalis Outpatient urine culture with Serratia marcescens and Pseudomonas aeruginosa. Blood culture with Serratia marcescens. Assessment and Plan (1) Sepsis Narrative/Plan: Very pleasant 77-year-old male presents to hospital with high-grade fever and chills. Patient had recent intervention with removal of a bladder tumor. He has now developed evidence of Serratia marcescens bacteremia from his urinary infection. Before she started to feel better since coming to Hospital receiving fluids. Although the bacteria is not highly resistant. He did fail outpatient antibiotic therapy. With this we'll plan on a course of outpatient intravenous antibiotic therapy with cefuroxime. Patient is agreeable to this course of therapy. If he has any difficulty with urinary retention bladder scan can be performed. Creatinine is mildly elevated and is being monitored. Given the patient has an endovascular stent graft for his abdominal aortic aneurysm aggressive treatment is certainly indicated. Follow blood cultures have been requested. With the isolation of Serratia marcescens in the urine and the blood, Pseudomonas in the urine as well as enterococcus in the urine antibiotic therapy was altered to piperacillin tazobactam. Patient feeling considerably better today. PICC line is been placed and arrangements are being made for home intravenous antibiotic therapy with Zosyn. If discharged tomorrow to the office in 2 weeks to monitor his antibiotic therapy. Status: Acute (2) Bacteremia due to Gram-negative bacteria Status: Acute (3) Fever Status: Acute (4) Bladder malignancy Status: Acute
[2017-01-16] MEDS: PIPERACILLIN-TAZOBACTAM 3.375 GM in DEXTROSE/WATER 1 50ML.BAG IVPB SCH ×2 (02:24→08:36)
[2017-01-16] MEDS: LIOTHYRONINE SODIUM 5 MCG TAB PO SCH (06:17)
[2017-01-16] MEDS: LEVOTHYROXINE 112 MCG TAB PO SCH (06:17)
[2017-01-16 06:44] LABS: Aty Lym Flag Slight; CH 29.8; CHCM 33.8; HCT 32.6 % (39.0-53.0); HDW 3.14; HGB 10.9 gm/dL (13.0-17.5); MCH 29.7 pg (25.0-35.0); MCHC 33.4 g/dL (31.0-37.0); MCV 88.9 fL (80.0-100.0); RBC 3.67 m/uL (4.30-5.90); WBC 5.8 k/uL (3.8-10.6); WBC (Perox) 6.15
[2017-01-16 06:48] LABS: INR 2.5 (<1.1); Prothrombin Time 23.6 sec (9.0-12.0)
[2017-01-16 06:56] LABS: Calcium 8.7 mg/dL (8.4-10.2); Potassium 4.2 mmol/L (3.5-5.1); Total Bilirubin 0.7 mg/dL (0.2-1.3)
[2017-01-16 07:12] LABS: Add Differential Manual Differential
[2017-01-16 07:18] LABS: Manual Review Performed; Nucleated Red Blood Cells 0 /100 WBC (0-0); Total Cells Counted 100
[2017-01-16 07:19] LABS: Reactive Lymphocytes Present
[2017-01-16] MEDS: SODIUM CHLORIDE 0.9% 1,000 ML IV SCH (07:43)
[2017-01-16 08:26] VITALS: BP 140/72; PULSE 60; TEMP 98.6
[2017-01-16] MEDS: CYANOCOBALAMIN 500 MCG TAB PO SCH (08:34)
[2017-01-16] MEDS: GABAPENTIN 400 MG CAP PO SCH (08:34)
[2017-01-16] MEDS: ISOSORBIDE MONONITRATE ER 30 MG TAB.ER.24H PO SCH (08:35)
[2017-01-16] MEDS: ASPIRIN 81 MG CHEW PO SCH (08:35)
[2017-01-16] MEDS: METOPROLOL SUCCINATE (ER) 25 MG TAB.ER.24H PO SCH (08:35)
[2017-01-16] MEDS: PANTOPRAZOLE 40 MG TABLET PO SCH (08:35)
--- NOTE | 2017-01-16 11:58 | P.DS ---
Providers Date of admission: 01/12/17 14:31 Expected date of discharge: 01/16/17 Attending physician: Laly Centeno Consults: 01/14/17 12:24 Consult Physician Routine Consulting Provider: Crispin Holt Consult Reason/Comments: sepsis Do you want consulting provider notified?: Yes 01/14/17 12:57 Consult Physician Routine Consulting Provider: Ben Lott Consult Reason/Comments: bladder ca Do you want consulting provider notified?: Yes Primary care physician: Thania Barney Hospital Course: Discharge diagnosis 1. UTI with sepsis: Likely catheter associated UTI .Urine culture growing enterococcus facaelis patient currently on Zosyn. Infectious disease following. Infectious disease recommending Zosyn for 2 more weeks. Previous urine culture had grown Serratia Marcescens and pseudomonas aeruginosa 2. Bacteremia with previous blood culture growing Serratia Marcescens from his urinary infection. Infectious disease following. Repeat blood culture negative. #3 bladder cancer: Followed by urology. They're planning on BCG intravascular bladder therapy once urinary tract infection has cleared up. #4 acute versus chronic kidney disease Will try to obtain old records creatinine on presentation 1.45 will monitor kidney function. Creatinine 1.48 #5 patient is on Coumadin therapy INR subtherapeutic at 1.9 exact indication for Coumadin is unclear no clear history of atrial fibrillation or pulmonary embolism patient had previous history of coronary artery disease Will try to obtain old records to assess reason for patient being on Coumadin at this time will continue was current Coumadin management. Patient follows with electrical project engineer Dr. Goddard #6 metabolic encephalopathy with altered mental status on admission likely related to his UTI and bacteremia #7 mildly elevated LFTs likely related to the Lipitor. Lipitor has been placed on hold. Recommend checking CMP in 1 week. Infectious disease has recommended weekly checks of his CBC and BMP while on antibiotics Hospital course Aubrey Gomez is a 77-year-old white male presents with with a complaint of some uncontrollable shaking chills. He was just seen in the emergency department the night prior to admission for the same thing. He had a temperature of 102. He relates that he had a bladder polyp removed approximately one week ago and had been utilizing a Weinstein catheter until yesterday. This was scheduled to be removed today but they did remove it yesterday after diagnosing him with a urinary tract infection. Patient seen by urology has known bladder cancer and they will be completing BCG intravascular bladder therapy after the UTI is treated. Urine culture for this admission has finalized at enterococcus facaelis. Repeat blood cultures are negative. Infectious diseases recommending IV Zosyn for 2 weeks. And then patient will follow-up with infectious disease, Dr. Holt in 2 weeks. After that he can proceed to see Dr. Presley for the BCG intravascular bladder therapy for his bladder cancer. Patient's symptoms have improved. He is afebrile. He is stable for discharge. Please refer to chart for any further details. I performed an examination of the patient and discussed their management with the physician Table Setter. I have reviewed the Physician Table Setter's notes and agree with the documented findings and plan of care Patient Condition at Discharge: Stable Plan - Discharge Summary New Discharge Prescriptions: Piperacillin-Tazobactam [Zosyn] 3.375 gm IVPB Q6H #56 bag Discharge Medication List Aspirin 81 mg PO DAILY 10/20/14 [History] Gabapentin [Neurontin] 800 mg PO TID 10/20/14 [History] Liothyronine Sodium [Cytomel] 5 mcg PO DAILY 10/20/14 [History] Multivitamin/Iron/Folic Acid [Centrum Complete Multivit Tab] 1 tab PO DAILY [History] Isosorbide Mononitrate ER [Imdur] 30 mg PO DAILY #90 tab.er.24h 10/23/14 [Rx] Acetaminophen Tab [Tylenol] 1,000 mg PO Q6HR PRN 01/11/17 [History] Cyanocobalamin (Vitamin B-12) [Vitamin B-12] 1,000 mcg PO DAILY 01/11/17 [ History] Levothyroxine Sodium [Synthroid] 112 mcg PO DAILY 01/11/17 [History] Metoprolol Succinate (ER) [Toprol XL] 25 mg PO DAILY 01/11/17 [History] Warfarin [Coumadin] 2.5 mg PO SUTUTHSA 01/11/17 [History] Warfarin [Coumadin] 5 mg PO MOWEFR 01/11/17 [History] traMADol HCL [Ultram] 50 mg PO DAILY PRN 01/11/17 [History] Piperacillin-Tazobactam [Zosyn] 3.375 gm IVPB Q6H #56 bag 01/15/17 [Rx] Follow up Appointment(s)/Referral(s): Thania Barney DO [Primary Care Provider] - 1 Week Crispin Holt MD [STAFF PHYSICIAN] - 2 Weeks Ben Lott MD [STAFF PHYSICIAN] - 1 Week Ambulatory/Diagnostic Orders: Basic Metabolic Panel [LAB.AMB] Location: Determined By Patient Complete Blood Count w/diff [LAB.AMB] Location: Determined By Patient Activity/Diet/Wound Care/Special Instructions: Diet: cardiac Activity: as tolerated Discharge Disposition: HOME WITH HOME HEALTH SERVICES
== END 2017-01-16 12:55 | disposition home health service (06) | DRG 698 ==
LOC: EC 11:10 → 5MS5E 14:31
PROVIDERS: ADMIT Internal Medicine; ATTEND Internal Medicine
PROC: 02HV33Z Insertion of Infusion Device into Superior Vena Cava, Percutaneous Approach (ICD-10-PCS; principal; 2017-01-15 12:20)
PROC: B5181ZA Fluoroscopy of Superior Vena Cava using Low Osmolar Contrast, Guidance (ICD-10-PCS; principal; 2017-01-15 12:20)
PROC: B548ZZA Ultrasonography of Superior Vena Cava, Guidance (ICD-10-PCS; principal; 2017-01-15 12:20)
DX: T83.518A Infection and inflammatory reaction due to other urinary catheter, initial encounter (principal); A41.50 Gram-negative sepsis, unspecified; G93.41 Metabolic encephalopathy; N10 Acute pyelonephritis; C67.9 Malignant neoplasm of bladder, unspecified; D64.9 Anemia, unspecified; I10 Essential (primary) hypertension; E78.5 Hyperlipidemia, unspecified; H91.92 Unspecified hearing loss, left ear; I25.10 Atherosclerotic heart disease of native coronary artery without angina pectoris; I25.2 Old myocardial infarction; Y84.6 Urinary catheterization as the cause of abnormal reaction of the patient, or of later complication, without mention of misadventure at the time of the procedure; Z79.01 Long term (current) use of anticoagulants; Z79.2 Long term (current) use of antibiotics; Z79.82 Long term (current) use of aspirin; Z79.899 Other long term (current) drug therapy; Z87.442 Personal history of urinary calculi; Z87.891 Personal history of nicotine dependence; T46.6X5A Adverse effect of antihyperlipidemic and antiarteriosclerotic drugs, initial encounter; R79.89 Other specified abnormal findings of blood chemistry; Z88.5 Allergy status to narcotic agent; Z91.041 Radiographic dye allergy status
CPT/HCPCS: 36415; 36569; 71020; 76937; 77001; 80053; 81001; 82550; 82553; 83605; 84134; 84484; 85025; 85610; 85730; 87040; 87077; 87086; 87186; 87502; 93005; 96365; 96367; 99285

== ENCOUNTER 2017-02-22 11:13 | Inpatient (IN) | payer MEDICARE, OTHER ==
[2017-02-22] MEDS ORDERED: ACETAMINOPHEN TAB 500 MG TAB PO STA (11:39)
[2017-02-22] MEDS ORDERED: IBUPROFEN 600 MG TAB PO STA (11:39)
--- NOTE | 2017-02-22 11:43 | ED ---
General Adult HPI - General Chief complaint: Fever Stated complaint: Fever Time Seen by Provider: 02/22/17 11:15 Source: patient, RN notes reviewed Mode of arrival: wheelchair Limitations: no limitations - History of Present Illness Initial comments: This is a 77-year-old male who presents to the emergency department because he was altered when he woke up this morning according to the he had 102 for fever. Patient was altered for about 30 minutes and then came back to his baseline. Patient states he felt extremely fatigued this morning until he was given some Tylenol his temperature started to come down and now he feels considerably better. Patient denies any cough patient denies any difficulty breathing or shortness of breath per patient states she's had a history of urinary tract infection so he had no symptoms of dysuria hematuria urinary frequency. Patient denies any abdominal pain patient denies nausea vomiting diarrhea. Patient denies any neck stiffness. Patient denies headache patient denies numbness weakness. Patient denies any skin lesions or rashes or erythema - Related Data Home Medications Medication Instructions Recorded Confirmed Aspirin 81 mg PO DAILY 10/20/14 02/22/17 Gabapentin [Neurontin] 800 mg PO TID 10/20/14 02/22/17 Liothyronine Sodium [Cytomel] 5 mcg PO DAILY 10/20/14 02/22/17 Multivitamin/Iron/Folic Acid 1 tab PO DAILY 10/20/14 02/22/17 [Centrum Complete Multivit Tab] Acetaminophen Tab [Tylenol] 1,000 mg PO Q6HR PRN 01/11/17 02/22/17 Cyanocobalamin (Vitamin B-12) 1,000 mcg PO DAILY 01/11/17 02/22/17 [Vitamin B-12] Levothyroxine Sodium [Synthroid] 112 mcg PO DAILY 01/11/17 02/22/17 Metoprolol Succinate (ER) [Toprol 25 mg PO DAILY 01/11/17 02/22/17 XL] Warfarin [Coumadin] 2.5 mg PO SUTUTHSA 01/11/17 02/22/17 Warfarin [Coumadin] 5 mg PO MOWEFR 01/11/17 02/22/17 traMADol HCL [Ultram] 50 mg PO BID PRN 01/11/17 02/22/17 Rosuvastatin Calcium [Crestor] 40 mg PO DAILY 02/22/17 02/22/17 Previous Rx's Medication Instructions Recorded Isosorbide Mononitrate ER [Imdur] 30 mg PO DAILY #90 tab.er.24h 10/23/14 Allergies Allergy/AdvReac Type Severity Reaction Status Date / Time morphine Allergy Severe Nausea & Verified 02/22/17 12:31 Vomiting Iodinated Contrast Media - Allergy Unknown Verified 02/22/17 12:31 Oral and Review of Systems ROS Statement: Those systems with pertinent positive or pertinent negative responses have been documented in the HPI. ROS Other: All systems not noted in ROS Statement are negative. Past Medical History Past Medical History: Coronary Artery Disease (CAD), Cancer, Hearing Disorder / Deafness, Hyperlipidemia, Hypertension, Myocardial Infarction ([place]), Thyroid Disorder Additional Past Medical History / Comment(s): "aaa-repaired", vertigo AND HEARING LOSS SINCE [place] -lt ear deaf and rt side wears a hearing aid, KIDNEY STONE(PASSED IT), SPINAL STENOSIS, DDD LUMBAR SPINE, CONSTIPATION, neuropathy, uti. Bladder cancer Last Myocardial Infarction Date:: 10-20-14 History of Any Multi-Drug Resistant Organisms: None Reported Past Surgical History: Heart Catheterization Additional Past Surgical History / Comment(s): STENT LOWER AORTA, EAR RECONSTRUCTION SX (LT) FAILED PT DEAF. LT KNEE HAD BONE CHIPS REMOVED,, 10-20-14 HEART CATH w/angioplasty but was unable to place stent, recent bladder polyp removed- no bx results back yet-idc was removed 01-11-17 Past Anesthesia/Blood Transfusion Reactions: No Reported Reaction Past Psychological History: No Psychological Hx Reported Smoking Status: Former smoker Past Alcohol Use History: Rare Past Drug Use History: None Reported - Past Family History Mother Additional Family Medical History / Comment(s): brain tumor Father Family Medical History: Unable to Obtain General Exam - General Exam Comments Initial Comments: GENERAL: Patient is well-developed and well-nourished. Patient is nontoxic and well- hydrated and is in mild distress. Patient feels warm ENT: Neck is soft and supple. No significant lymphadenopathy is noted. Oropharynx is clear. Moist mucous membranes. Neck has full range of motion without eliciting any pain. EYES: The sclera were anicteric and conjunctiva were pink and moist. Extraocular movements were intact and pupils were equal round and reactive to light. Eyelids were unremarkable. PULMONARY: Unlabored respirations. Good breath sounds bilaterally. No audible rales rhonchi or wheezing was noted. CARDIOVASCULAR: There is a regular rate and rhythm without any murmurs gallops or rubs. ABDOMEN: Soft and nontender with normal bowel sounds. No palpable organomegaly was noted. There is no palpable pulsatile mass. SKIN: Skin is clear with no lesions or rashes and otherwise unremarkable. NEUROLOGIC: Patient is alert and oriented x3. Cranial nerves II through XII are grossly intact. Motor and sensory are also intact. Normal speech, volume and content. Symmetrical smile. MUSCULOSKELETAL: Normal extremities with adequate strength and full range of motion. No lower extremity swelling or edema. No calf tenderness. LYMPHATICS: No significant lymphadenopathy is noted PSYCHIATRIC: Normal psychiatric evaluation. Limitations: no limitations Course Vital Signs 02/22/17 11:18 Temperature 100.1 F H Pulse Rate 104 H Respiratory 20 Rate Blood Pressure 107/56 O2 Sat by Pulse 95 Oximetry Medical Decision Making - Medical Decision Making EKG shows normal sinus rhythm at 91 bpm ND interval is 170 QRS is 82 QT interval 3:30 QTC is 45. Patient's EKG shows no ST segment elevation or depression or T wave abnormalities are noted. Patient does have Q waves inferiorly. When compared to an old EKG there are no acute changes She has urinary tract infection with a very high white count. I looked at the microbiology studies of the urine previously as well as the blood cultures and Zosyn would cover all of those as with Levaquin however patient's on Coumadin so I did not want to start him on Levaquin. I spoke with Dr. Centeno he agreed to admit the patient admitted the patient continued antibiotics in the floor - Lab Data Result diagrams: 02/22/17 11:47 02/22/17 11:47 Lab Results 02/22/17 02/22/17 02/22/17 Range/Units 11:47 11:47 11:47 WBC 19.4 H (3.8-10.6) k/uL RBC 4.56 (4.30-5.90) m/uL Hgb 14.0 (13.0-17.5) gm/dL Hct 39.9 (39.0-53.0) % MCV 87.5 D (80.0-100.0) fL MCH 30.6 (25.0-35.0) pg MCHC 35.0 (31.0-37.0) g/dL RDW 13.8 (11.5-15.5) % Plt Count 251 (150-450) k/uL Neutrophils % 86 % Lymphocytes % 6 % Monocytes % 7 % Eosinophils % 0 % Basophils % 0 % Neutrophils # 16.6 H (1.3-7.7) k/uL Lymphocytes # 1.1 (1.0-4.8) k/uL Monocytes # 1.4 H (0-1.0) k/uL Eosinophils # 0.0 (0-0.7) k/uL Basophils # 0.1 (0-0.2) k/uL PT (9.0-12.0) sec INR (<1.1) APTT (22.0-30.0) sec Sodium 139 (137-145) mmol/L Potassium 5.1 (3.5-5.1) mmol/L Chloride 104 (98-107) mmol/L Carbon Dioxide 24 (22-30) mmol/L Anion Gap 11 mmol/L BUN 23 H (9-20) mg/dL Creatinine 1.82 H (0.66-1.25) mg/dL Est GFR (MDRD) Af Amer 44 (>60 ml/min/1.73 sqM) Est GFR (MDRD) Non-Af 36 (>60 ml/min/1.73 sqM) Glucose 118 H (74-99) mg/dL Plasma Lactic Acid Evans 1.4 (0.7-2.0) mmol/L Calcium 9.5 (8.4-10.2) mg/dL Total Bilirubin 1.3 (0.2-1.3) mg/dL AST 28 (17-59) U/L ALT 31 (21-72) U/L Alkaline Phosphatase 92 (38-126) U/L Total Protein 7.5 (6.3-8.2) g/dL Albumin 4.2 (3.5-5.0) g/dL Urine Color Urine Appearance (Clear) Urine pH (5.0-8.0) Ur Specific [place] (1.001-1.035) Urine Protein (Negative) Urine Glucose (UA) (Negative) Urine Ketones (Negative) Urine Blood (Negative) Urine Nitrite (Negative) Urine Bilirubin (Negative) Urine Urobilinogen (<2.0) mg/dL Ur Leukocyte Esterase (Negative) Urine RBC (0-5) /hpf Urine WBC (0-5) /hpf Ur Squamous Epith Cells (0-4) /hpf Urine Bacteria (None) /hpf Urine Mucus (None) /hpf Urine Yeast (Budding) (None) /hpf 02/22/17 02/22/17 Range/Units 11:47 11:47 WBC (3.8-10.6) k/uL RBC (4.30-5.90) m/uL Hgb (13.0-17.5) gm/dL Hct (39.0-53.0) % MCV (80.0-100.0) fL MCH (25.0-35.0) pg MCHC (31.0-37.0) g/dL RDW (11.5-15.5) % Plt Count (150-450) k/uL Neutrophils % % Lymphocytes % % Monocytes % % Eosinophils % % Basophils % % Neutrophils # (1.3-7.7) k/uL Lymphocytes # (1.0-4.8) k/uL Monocytes # (0-1.0) k/uL Eosinophils # (0-0.7) k/uL Basophils # (0-0.2) k/uL PT 18.6 H (9.0-12.0) sec INR 1.9 (<1.1) APTT 27.8 (22.0-30.0) sec Sodium (137-145) mmol/L Potassium (3.5-5.1) mmol/L Chloride (98-107) mmol/L Carbon Dioxide (22-30) mmol/L Anion Gap mmol/L BUN (9-20) mg/dL Creatinine (0.66-1.25) mg/dL Est GFR (MDRD) Af Amer (>60 ml/min/1.73 sqM) Est GFR (MDRD) Non-Af (>60 ml/min/1.73 sqM) Glucose (74-99) mg/dL Plasma Lactic Acid Evans (0.7-2.0) mmol/L Calcium (8.4-10.2) mg/dL Total Bilirubin (0.2-1.3) mg/dL AST (17-59) U/L ALT (21-72) U/L Alkaline Phosphatase (38-126) U/L Total Protein (6.3-8.2) g/dL Albumin (3.5-5.0) g/dL Urine Color Yellow Urine Appearance Clear (Clear) Urine pH 8.0 (5.0-8.0) Ur Specific [place] 1.010 (1.001-1.035) Urine Protein Trace H (Negative) Urine Glucose (UA) Negative (Negative) Urine Ketones Negative (Negative) Urine Blood Moderate H (Negative) Urine Nitrite Negative (Negative) Urine Bilirubin Negative (Negative) Urine Urobilinogen <2.0 (<2.0) mg/dL Ur Leukocyte Esterase Large H (Negative) Urine RBC 30 H (0-5) /hpf Urine WBC 164 H (0-5) /hpf Ur Squamous Epith Cells <1 (0-4) /hpf Urine Bacteria Rare H (None) /hpf Urine Mucus Rare H (None) /hpf Urine Yeast (Budding) Occasional H (None) /hpf Disposition Clinical Impression: Urinary tract infection, Sepsis Disposition: ADMITTED IP TO THIS HOSP Referrals: Thania Barney DO [Primary Care Provider] - 1-2 days Time of Disposition: 12:42
[2017-02-22] MEDS: SODIUM CHLORIDE 0.9% 500 ML IV SCH ×2 (11:51→11:52)
[2017-02-22 12:21] LABS: Basophils # (A) 0.1 k/uL (0-0.2); Basophils % (A) 0 %; CH 29.7; Eosinophils % (A) 0 %; HCT 39.9 % (39.0-53.0); HDW 2.54; Luc # (Auto) 0.15; Luc % (Auto) 1; Lymphocytes # (A) 1.1 k/uL (1.0-4.8); Lymphocytes % (A) 6 %; MCH 30.6 pg (25.0-35.0); Mean Platelet Volume 7.2; Monocytes # (A) 1.4 k/uL (0-1.0); Monocytes % (A) 7 %; Neutrophils # (A) 16.6 k/uL (1.3-7.7); Neutrophils % (A) 86 %; RBC 4.56 m/uL (4.30-5.90); RDW 13.8 % (11.5-15.5); WBC 19.4 k/uL (3.8-10.6)
[2017-02-22 12:22] LABS: Appearance,Urine Clear (Clear); Bacteria,Urine Rare /hpf; Bilirubin,Urine Negative (Negative); Glucose,Urine (UA) Negative (Negative); Ketones,Urine Negative (Negative); Leukocyte Esterase,Urine Large (Negative); Mucus,Urine Rare /hpf; Nitrite,Urine Negative (Negative); Particle Count 2879; Protein,Urine Trace (Negative); RBC,Urine 30 /hpf (0-5); Squamous Epithelial Cell,Urine <1 /hpf (0-4); UA Billing (MACRO vs. MICRO) MICRO; Urobilinogen,Urine <2.0 mg/dL (<2.0); WBC,Urine 164 /hpf (0-5)
[2017-02-22 12:23] LABS: Calcium 9.5 mg/dL (8.4-10.2); INR 1.9 (<1.1); Partial Thromboplastin Time 27.8 sec (22.0-30.0); Potassium 5.1 mmol/L (3.5-5.1); Prothrombin Time 18.6 sec (9.0-12.0); Total Bilirubin 1.3 mg/dL (0.2-1.3); Total Protein 7.5 g/dL (6.3-8.2)
[2017-02-22 12:27] LABS: MCV 87.5 fL (80.0-100.0)
--- NOTE | 2017-02-22 12:34 | XR ---
EXAMINATION TYPE: XR chest 2V DATE OF EXAM: 02/22/2017 COMPARISON: 01/11/17 HISTORY: Shortness of breath TECHNIQUE: Frontal and lateral views of the chest are obtained. FINDINGS: Scattered senescent parenchymal changes noted. Hyperinflation compatible with COPD. No evidence for infiltrate. No evidence for atelectasis. Heart size is stable. Mediastinal structures are stable and grossly unremarkable. No evidence for hilar prominence. Degenerative changes dorsal spine. IMPRESSION: 1. No evidence for acute pulmonary disease.
[2017-02-22] MEDS ORDERED: PIPERACILLIN-TAZOBACTAM 3.375 GM in DEXTROSE/WATER 1 50ML.BAG IVPB STA (12:40)
[2017-02-22] MEDS ORDERED: SODIUM CHLORIDE 0.9% 1,000 ML IV ONE (12:43)
[2017-02-22 14:05] VITALS: BMI 27.9
[2017-02-22] MEDS: GABAPENTIN 400 MG CAP PO SCH ×2 (16:28→22:34)
[2017-02-22] MEDS ORDERED: WARFARIN 2.5 MG TAB PO SCH (18:00)
[2017-02-22] MEDS: PIPERACILLIN-TAZOBACTAM 3.375 GM in DEXTROSE/WATER 1 50ML.BAG IVPB SCH ×2 (19:09→23:54)
[2017-02-23] MEDS: LIOTHYRONINE SODIUM 5 MCG TAB PO SCH (06:23)
[2017-02-23] MEDS: LEVOTHYROXINE 112 MCG TAB PO SCH (06:23)
[2017-02-23] MEDS: GABAPENTIN 400 MG CAP PO SCH ×3 (07:37→21:13)
[2017-02-23] MEDS: ACETAMINOPHEN TAB 325 MG TAB PO PRN ×3 (07:37→23:06)
[2017-02-23] MEDS: CYANOCOBALAMIN 500 MCG TAB PO SCH (07:37)
[2017-02-23] MEDS: ASPIRIN 81 MG CHEW PO SCH (07:38)
[2017-02-23] MEDS: ATORVASTATIN 80 MG TAB PO SCH (07:38)
[2017-02-23] MEDS: METOPROLOL SUCCINATE (ER) 25 MG TAB.ER.24H PO SCH (07:38)
[2017-02-23] MEDS: ISOSORBIDE MONONITRATE ER 30 MG TAB.ER.24H PO SCH (07:38)
[2017-02-23 08:12] LABS: Basophils # (A) 0.1 k/uL (0-0.2); Basophils % (A) 1 %; CH 29.6; CHCM 33.3; Eosinophils % (A) 0 %; HCT 39.7 % (39.0-53.0); HDW 2.51; HGB 13.2 gm/dL (13.0-17.5); Luc # (Auto) 0.25; Luc % (Auto) 2; Lymphocytes # (A) 0.9 k/uL (1.0-4.8); Lymphocytes % (A) 5 %; MCH 29.8 pg (25.0-35.0); MCHC 33.4 g/dL (31.0-37.0); MCV 89.3 fL (80.0-100.0); Mean Platelet Volume 7.3; Monocytes # (A) 1.1 k/uL (0-1.0); Monocytes % (A) 7 %; Neutrophils # (A) 14.2 k/uL (1.3-7.7); Neutrophils % (A) 86 %; RBC 4.45 m/uL (4.30-5.90); RDW 14.1 % (11.5-15.5); WBC 16.5 k/uL (3.8-10.6); WBC (Perox) 16.85
[2017-02-23 08:22] LABS: Calcium 8.8 mg/dL (8.4-10.2); Potassium 4.4 mmol/L (3.5-5.1)
[2017-02-23] MEDS: PIPERACILLIN-TAZOBACTAM 3.375 GM in DEXTROSE/WATER 1 50ML.BAG IVPB SCH ×2 (10:37→17:19)
[2017-02-23 11:04] LABS: INR 1.4 (<1.1); Prothrombin Time 13.6 sec (9.0-12.0)
--- NOTE | 2017-02-23 12:37 | P.HPIM ---
History of Present Illness H&P Date: 02/23/17 Chief Complaint: Mental status changes and fever This is a 77-year-old male, [facility] patient. He has a known past medical history of bladder cancer with recurrent UTIs. He follows up with Dr. Presley weekly for bladder washes area patient also has a history of chronic kidney disease, myocardial infarction, hypertension, hyperlipidemia, hypothyroidism, coronary artery disease with previous angioplasty and abdominal aortic aneurysm repair. Patient was brought into the emergency room because his was very concerned about his change in mental status as well as having fevers as 102. He initially was not feeling well on Thursday. But Patient's states today that he was in the bathroom standing at the counter and talking but not making much sense and was having high-grade fevers. He was given Tylenol at home and his mentation did improve. She brought him into the emergency room for further evaluation and he was found have evidence of a UTI. Last week when he went into see Dr. Fernandez Lott top of the urine was cloudy and they did not complete a bladder wash at that time. On admission his white count is 19.4 he had a temp of 102.7 and he was tachycardic with a heart rate of 128. He has received IV fluids and started on IV Zosyn. Urine culture and blood cultures are pending. Urology has been consulted. Also patient has had poor oral intake. Needing. Denies any chest pain or shortness of breath. Denies any bowel movement changes. He has been having some urinary frequency. He denies any hematuria or dysuria. Review of Systems HPI otherwise unremarkable Past Medical History Past Medical History: Coronary Artery Disease (CAD), Cancer, Hearing Disorder / Deafness, Hyperlipidemia, Hypertension, Myocardial Infarction ([place]), Thyroid Disorder Additional Past Medical History / Comment(s): "aaa-repaired", vertigo AND HEARING LOSS SINCE [place] -lt ear deaf and rt side wears a hearing aid, KIDNEY STONE(PASSED IT), SPINAL STENOSIS, DDD LUMBAR SPINE, CONSTIPATION, neuropathy, Bladder cancer Last Myocardial Infarction Date:: 10-20-14 History of Any Multi-Drug Resistant Organisms: None Reported Past Surgical History: Heart Catheterization Additional Past Surgical History / Comment(s): STENT LOWER AORTA, EAR RECONSTRUCTION SX (LT) FAILED PT DEAF. LT KNEE HAD BONE CHIPS REMOVED,, 2-27-15 HEART CATH w/angioplasty but was unable to place stent, recent bladder polyp removed; indwelling catheter was removed 01-11-17 Past Anesthesia/Blood Transfusion Reactions: No Reported Reaction Past Psychological History: No Psychological Hx Reported Additional Psychological History / Comment(s): Pt. lives with , is independant, one dog, no outside services, no medical equipment. 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 Smoking Status: Former smoker Past Alcohol Use History: Rare Past Drug Use History: None Reported - Past Family History Mother Additional Family Medical History / Comment(s): brain tumor Father Family Medical History: Unable to Obtain Medications and Allergies Home Medications Medication Instructions Recorded Confirmed Type Aspirin 81 mg PO DAILY 10/20/14 02/22/17 History Gabapentin [Neurontin] 800 mg PO TID 10/20/14 02/22/17 History Liothyronine Sodium [Cytomel] 5 mcg PO DAILY 10/20/14 02/22/17 History Multivitamin/Iron/Folic Acid 1 tab PO DAILY 10/20/14 02/22/17 History [Centrum Complete Multivit Tab] Acetaminophen Tab [Tylenol] 1,000 mg PO Q6HR PRN 01/11/17 02/22/17 History Cyanocobalamin (Vitamin B-12) 1,000 mcg PO DAILY 01/11/17 02/22/17 History [Vitamin B-12] Levothyroxine Sodium [Synthroid] 112 mcg PO DAILY 01/11/17 02/22/17 History Metoprolol Succinate (ER) [Toprol 25 mg PO DAILY 01/11/17 02/22/17 History XL] Warfarin [Coumadin] 2.5 mg PO SUTUTHSA 01/11/17 02/22/17 History Warfarin [Coumadin] 5 mg PO MOWEFR 01/11/17 02/22/17 History traMADol HCL [Ultram] 50 mg PO BID PRN 01/11/17 02/22/17 History Rosuvastatin Calcium [Crestor] 40 mg PO DAILY 02/22/17 02/22/17 History Allergies Allergy/AdvReac Type Severity Reaction Status Date / Time morphine Allergy Severe Nausea & Verified 02/22/17 12:31 Vomiting Iodinated Contrast Media - Allergy Unknown Verified 02/22/17 12:31 Oral and Physical Exam Vitals: Vital Signs Temp Pulse Pulse Resp BP BP Pulse Ox 02/23/17 08:00 128 H 02/23/17 07:00 102.7 F H 128 H 20 135/63 91 L 02/22/17 23:30 100.7 F H 02/22/17 22:56 102.1 F H 101 H 18 131/62 94 L 02/22/17 13:51 98.0 F 83 22 108/55 94 L 02/22/17 12:50 99.0 F 80 16 108/57 94 L Intake and Output 02/22/17 02/23/17 02/23/17 22:59 06:59 14:59 Other: Voiding Method Toilet Toilet Urinal Urinal # Voids 1 3 Weight 83.461 kg Patient Weight 02/24/17 06:59 Weight 83.461 kg Head normocephalic Neck supple Lungs clear to auscultation bilaterally no wheezing or crackles Heart regular rate and rhythm S1-S2, no rub or gallop Abdomen is soft nontender nondistended positive bowel sounds no hepatosplenomegaly Extremities no edema Neuro alert and orientated to 3 Results CBC & Chem 7: 02/23/17 07:47 02/23/17 07:47 Labs: Abnormal Lab Results - Last 24 Hours (Table) 02/22/17 02/23/17 02/23/17 Range/Units 11:47 07:47 07:47 WBC 19.4 H 16.5 H (3.8-10.6) k/uL Neutrophils # 16.6 H 14.2 H (1.3-7.7) k/uL Lymphocytes # 0.9 L (1.0-4.8) k/uL Monocytes # 1.4 H 1.1 H (0-1.0) k/uL PT (9.0-12.0) sec BUN 25 H (9-20) mg/dL Creatinine 2.14 H (0.66-1.25) mg/dL Glucose 127 H (74-99) mg/dL 02/23/17 Range/Units 07:47 WBC (3.8-10.6) k/uL Neutrophils # (1.3-7.7) k/uL Lymphocytes # (1.0-4.8) k/uL Monocytes # (0-1.0) k/uL PT 13.6 H (9.0-12.0) sec BUN (9-20) mg/dL Creatinine (0.66-1.25) mg/dL Glucose (74-99) mg/dL Microbiology - Last 24 Hours (Table) 02/22/17 11:47 Urine Culture - Preliminary Urine,Voided Gram Neg Bacilli Thrombosis Risk Factor Assmnt - Choose All That Apply Any of the Below Risk Factors Present?: Yes Each Factor Represents 1 point: Acute [place], Sepsis (< 1month) Each Risk Factor Represents 3 Points: Age 75 years or older, History of DVT/PE Thrombosis Risk Factor Assessment Total Risk Factor Score: 8 Thrombosis Risk Factor Assessment Level: High Risk Assessment and Plan Plan: 1. UTI with sepsis present on admission: Patient is been placed on IV Zosyn. Urine culture and blood culture are pending. Continue with IV fluids. Consult has been placed for urology 2. Altered mental status changes likely secondary to a metabolic encephalopathy from a UTI. Mentation has returned to baseline 3. History of bladder cancer: Follows up with urology outpatient for bladder washes 4. Acute on chronic kidney injury, stage III. Continue with IV fluids and likely related to sepsis and poor oral intake. 5. History of blood clots in his carotid and I in which patient is on Coumadin. INR 1.9 on admission. Monitor daily PT/INR's and continue with Coumadin 6. History of hypothyroidism continue Synthroid 7. History of myocardial infarction and coronary artery disease with previous angioplasty no cardiac stent 8. Hyperlipidemia continue Lipitor 9. Essential hypertension continue metoprolol GI prophylaxis Protonix and DVT prophylaxis patient on Coumadin. Check PT/INR now and dose accordingly Time with Patient: Greater than 30 (Greater than 50% of the total time spent in counseling and coordination of care.I performed an examination of the patient and discussed their management with the physician Die Sinker Apprentice. I have reviewed the Physician Die Sinker Apprentice's notes and agree with the documented findings and plan of care)
[2017-02-23] MEDS: MULTIVITAMINS, THERA 1 EACH TAB PO SCH (12:39)
[2017-02-23] MEDS ORDERED: ENOXAPARIN 40 MG/0.4 ML SYRINGE SQ SCH (13:30)
--- NOTE | 2017-02-23 14:51 | US ---
EXAMINATION TYPE: US kidneys/renal and bladder DATE OF EXAM: 02/23/2017 COMPARISON: NONE CLINICAL HISTORY: 77-year-old male pain, r/o hydronephrosis. TECHNIQUE: Multiple sonographic images of the kidneys and bladder were obtained. FINDINGS: Right Kidney: 11.2 x 5.9 x 5.9 cm without hydronephrosis. Left Kidney: 11.5 x 5.4 x 5.3 cm without hydronephrosis. Underdistention of the bladder limits evaluation. Neither ureteral jet was seen during the course of the exam. IMPRESSION: No hydronephrosis.
[2017-02-23] MEDS: SODIUM CHLORIDE 0.9% 1,000 ML IV SCH (15:48)
[2017-02-23] MEDS ORDERED: WARFARIN 5 MG TAB PO SCH (18:00)
--- NOTE | 2017-02-23 18:57 | P.CON ---
Consult Note - . Consult date: 02/23/17 History of Present Illness Chief Complaint: Fever The patient is a 77-year-old male admitted through the emergency room for evaluation of sepsis secondary to a urinary tract infection. The patient says that he first began experiencing intermittent chills several days prior to admission. He came to the emergency room yesterday where he was evaluated and noted to have a temperature of 102. Urinalysis suggested a urinary tract infection and his white blood count was 19,400. The patient was started on Zosyn and says he feels better but he continues to have a fever. Urologic evaluation was requested due to a history of bladder cancer. The patient was evaluated by Dr. Lott in 11/2016 due to gross hematuria. CT urogram on 11/25/2016 showed a left renal cyst but no hydronephrosis. There was thickening of the right bladder wall and cystoscoscopy confirmed a tumor in that location. 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 He was started on intravesical BCG and completed 3 of 6 planned treatments. He was last seen in the office on 02/17 and at that time his urinalysis suggested a urinary tract infection. A urine culture was obtained which grew pseudomonas aeruginosa which was sensitive to Cipro and a prescription was called in on but the patient said he never had the prescription filled. The patient denies any dysuria. He has had no hematuria since resection of his bladder tumor. He says he is voiding every 2-3 hours during the day and once or twice at night and that this is his normal voiding pattern. He denies sensations of incomplete bladder emptying. PAST MEDICAL HISTORY:Aortic Aneurysm (stable), Heart Attack (stable), 2014, Hyperlipidemia (stable), Hypothyroidism (stable), Vitamin D Deficiency (stable) , Hepatitis, Hypercholesterolemia (stable), Deafness, Vertigo (stable), Hearing Loss (Since [place]) (stable), Spinal Stenosis (Lumbar), Degenerative Disc Disease (Lumbar) (stable), Neuropathy (stable) PAST SURGICAL HISTORY: Angioplasty 2014, Aortic Aneurysm Repair (Endovascular Stent Graft Repair ) 2011, Cardiac Catheterization 2014, ear surgery -Reconstruction, knee surgery left, TUR bladder tumor 01/05/2017 MEDICATIONS ON ADMISSION: Aspirin 81 mg oral tablet, # once a day Coumadin 2.5 mg oral tablet as directed Coumadin 5 mg oral tablet, # as directed Gabapentin 800 mg oral tablet, # three times a day Imdur 30 mg oral tablet, extended release, # once a day Liothyronine Sodium 5 mcg oral tablet, # once a day Lipitor 80 mg oral tablet, # at bedtime Metoprolol Tartrate 25 mg oral tablet, # once a day Synthroid 112 mcg (0.112 mg) oral tablet, # once a day TraMADol Hydrochloride 50 mg oral tablet twice a day Tylenol 325 mg oral capsule, # prn-as needed Vitamin B12 1000 mcg oral tablet, # once a day Review of Systems - Review of Systems Constitutional: Reports: fever Respiratory: Denies: cough, wheezes Cardiac (ROS): Denies: chest pain ABD/GI: Denies: diarrhea, nausea : Denies: flank pain Physical Exam - Physical Exam General Appearance: no apparent distress Cardiovascular/Chest: no JVD Respiratory: no respiratory distress Gastrointestinal/Abdominal: non tender, soft, no organomegaly, other ( Genitourinary: Testicles are descended. No evidence of epididymitis. No hernia. Uncircumcised.) Skin Exam: warm/dry Results Result Diagrams: 02/23/17 07:47 02/23/17 07:47 Abnormal Lab Results - Last 24 Hours (Table) 02/23/17 02/23/17 02/23/17 Range/Units 07:47 07:47 07:47 WBC 16.5 H (3.8-10.6) k/uL Neutrophils # 14.2 H (1.3-7.7) k/uL Lymphocytes # 0.9 L (1.0-4.8) k/uL Monocytes # 1.1 H (0-1.0) k/uL PT 13.6 H (9.0-12.0) sec BUN 25 H (9-20) mg/dL Creatinine 2.14 H (0.66-1.25) mg/dL Glucose 127 H (74-99) mg/dL Microbiology - Last 24 Hours (Table) 02/22/17 11:47 Blood Culture - Preliminary Blood No Growth after 24 hours 02/22/17 11:47 Urine Culture - Preliminary Urine,Voided Gram Neg Bacilli Assessment and Plan (1) Sepsis Status: Acute (2) Urinary tract infection Status: Acute Plan: The patient is currently on Zosyn and according to the urine culture done on 6/ 27, the pseudomonas aeruginosa UTI is sensitive to this. Renal ultrasound will be obtained to exclude the new development of hydronephrosis which may make treatment more complicated. Post void residual will also be checked. Plan - Follow Up Plan Follow up with: Thania Barney DO [Primary Care Provider] - 1-2 days
[2017-02-23] MEDS: HEPARIN SODIUM,PORCINE 5,000 UNIT/ML 1 ML VIAL SQ SCH (21:12)
[2017-02-24] MEDS: SODIUM CHLORIDE 0.9% 1,000 ML IV SCH ×2 (03:07→16:17)
[2017-02-24] MEDS: LIOTHYRONINE SODIUM 5 MCG TAB PO SCH (06:15)
[2017-02-24] MEDS: LEVOTHYROXINE 112 MCG TAB PO SCH (06:15)
[2017-02-24] MEDS: PIPERACILLIN-TAZOBACTAM 3.375 GM in DEXTROSE/WATER 1 50ML.BAG IVPB SCH ×3 (07:38→23:19)
[2017-02-24] MEDS: METOPROLOL SUCCINATE (ER) 25 MG TAB.ER.24H PO SCH (07:38)
[2017-02-24] MEDS: PANTOPRAZOLE 40 MG TABLET PO SCH (07:38)
[2017-02-24] MEDS: ISOSORBIDE MONONITRATE ER 30 MG TAB.ER.24H PO SCH (07:38)
[2017-02-24] MEDS: ASPIRIN 81 MG CHEW PO SCH (07:38)
[2017-02-24] MEDS: ATORVASTATIN 80 MG TAB PO SCH (07:38)
[2017-02-24] MEDS: CYANOCOBALAMIN 500 MCG TAB PO SCH (07:38)
[2017-02-24] MEDS: GABAPENTIN 400 MG CAP PO SCH ×3 (07:39→21:08)
[2017-02-24] MEDS: HEPARIN SODIUM,PORCINE 5,000 UNIT/ML 1 ML VIAL SQ SCH ×2 (07:39→20:46)
[2017-02-24 08:01] LABS: INR 1.4 (<1.1); Prothrombin Time 13.6 sec (9.0-12.0)
[2017-02-24 08:04] LABS: Basophils % (A) 0 %; CHCM 32.5; Calcium 8.5 mg/dL (8.4-10.2); Eosinophils # (A) 0.1 k/uL (0-0.7); Eosinophils % (A) 1 %; HCT 34.9 % (39.0-53.0); HDW 2.64; HGB 11.6 gm/dL (13.0-17.5); Luc # (Auto) 0.37; Luc % (Auto) 3; Lymphocytes % (A) 8 %; MCH 29.7 pg (25.0-35.0); MCHC 33.1 g/dL (31.0-37.0); MCV 89.8 fL (80.0-100.0); Mean Platelet Volume 7.7; Monocytes # (A) 1.2 k/uL (0-1.0); Monocytes % (A) 10 %; Neutrophils # (A) 9.2 k/uL (1.3-7.7); Neutrophils % (A) 78 %; Potassium 4.5 mmol/L (3.5-5.1); RBC 3.89 m/uL (4.30-5.90); RDW 13.8 % (11.5-15.5); Total Bilirubin 0.9 mg/dL (0.2-1.3); WBC 11.8 k/uL (3.8-10.6); WBC (Perox) 12.61
--- NOTE | 2017-02-24 10:19 | P.PN ---
Progress Note - Text The patient is afebrile this morning. Blood pressure 136/64. The patient says that he is feeling better although he still does not have much of an appetite. He denies any abdominal or flank pain. He has no dysuria. Bladder scan was done yesterday and his postvoid residual was low. Urine culture has confirmed Pseudomonas aeruginosa which is sensitive to Zosyn as well as fluoroquinolones. Blood culture is no growth. White blood count has improved and is 11,800. BUN/creatinine are improved at 27/2.0. Impression: Sepsis secondary to pseudomonas aeruginosa urinary tract infection- improved. Recommendation: The patient could be switched to Levaquin IV and then transitioned to Cipro orally once he is discharged. The patient was scheduled to have a BCG treatment this week but this will be deferred at least until next week.
--- NOTE | 2017-02-24 13:43 | P.PN ---
Subjective This is a 77-year-old male, [facility] patient. He has a known past medical history of bladder cancer with recurrent UTIs. He follows up with Dr. Presley weekly for bladder washes area patient also has a history of chronic kidney disease, myocardial infarction, hypertension, hyperlipidemia, hypothyroidism, coronary artery disease with previous angioplasty and abdominal aortic aneurysm repair. Patient was brought into the emergency room because his was very concerned about his change in mental status as well as having fevers as 102. He initially was not feeling well on Thursday. But Patient's states today that he was in the bathroom standing at the counter and talking but not making much sense and was having high-grade fevers. He was given Tylenol at home and his mentation did improve. She brought him into the emergency room for further evaluation and he was found have evidence of a UTI. Last week when he went into see Dr. Fernandez Lott top of the urine was cloudy and they did not complete a bladder wash at that time. On admission his white count is 19.4 he had a temp of 102.7 and he was tachycardic with a heart rate of 128. He has received IV fluids and started on IV Zosyn. Urine culture and blood cultures are pending. Urology has been consulted. Also patient has had poor oral intake. Needing. Denies any chest pain or shortness of breath. Denies any bowel movement changes. He has been having some urinary frequency. He denies any hematuria or dysuria. On 02/24/2017 patient is feeling better he had episodes of significant sweating last night, temperature 98.2 as this morning he is alert and oriented he is feeling better he denies any pain or discomfort at this time. Input from urology reviewed, however will avoid IV Levaquin due to concomitant Coumadin use , plan for discharge tomorrow on oral Cipro if stable. INR is subtherapeutic at 1.4 will give Coumadin 7.5 mg today Objective - Vital Signs Vital signs: Vital Signs Temp 98.2 F 02/24/17 07:00 Pulse 69 02/24/17 07:00 Resp 20 02/24/17 07:00 BP 136/64 02/24/17 07:00 Pulse Ox 97 02/24/17 07:00 Intake & Output 02/23/17 02/24/17 02/24/17 18:59 06:59 18:59 Intake Total 600 Output Total 600 Balance 0 Weight 83.461 kg Intake: Intake, IV Titration 600 Amount Sodium Chloride 0.9% 1, 600 000 ml @ 75 mls/hr IV . [id number] [facility] Rx#:[id number] Output: Urine 600 Other: Voiding Method Toilet Toilet Urinal Urinal # Voids 1 - Exam In general patient is alert and oriented 3 in no apparent distress HEENT head normocephalic and atraumatic Neck is supple no JVD no goiter no lymphadenopathy Chest exam reveals a few scattered crackles in both bases no wheezing Cardiac exam reveals regular heart sounds no gallops no murmurs Abdomen is soft nontender no organomegaly with normal bowel sounds Extremity exam reveals no edema no cyanosis or clubbing - Labs CBC & Chem 7: 02/24/17 06:58 02/24/17 06:58 Labs: Abnormal Lab Results - Last 24 Hours (Table) 02/24/17 02/24/17 02/24/17 Range/Units 06:58 06:58 06:58 WBC 11.8 H (3.8-10.6) k/uL RBC 3.89 L (4.30-5.90) m/uL Hgb 11.6 L (13.0-17.5) gm/dL Hct 34.9 L (39.0-53.0) % Neutrophils # 9.2 H (1.3-7.7) k/uL Monocytes # 1.2 H (0-1.0) k/uL PT 13.6 H (9.0-12.0) sec Chloride 110 H (98-107) mmol/L BUN 27 H (9-20) mg/dL Creatinine 2.00 H (0.66-1.25) mg/dL Glucose 106 H (74-99) mg/dL Total Protein 6.0 L (6.3-8.2) g/dL Albumin 2.9 L (3.5-5.0) g/dL Microbiology - Last 24 Hours (Table) 02/22/17 11:47 Urine Culture - Final Urine,Voided Pseudomonas aeruginosa 02/22/17 11:47 Blood Culture - Preliminary Blood No Growth after 24 hours Assessment and Plan Plan: 1. UTI with sepsis present on admission: Patient is been placed on IV Zosyn. Urine culture and blood culture are pending. Continue with IV fluids. Consult has been placed for urology 2. Altered mental status changes likely secondary to a metabolic encephalopathy from a UTI. Mentation has returned to baseline 3. History of bladder cancer: Follows up with urology outpatient for bladder washes 4. Acute on chronic kidney injury, stage III. Continue with IV fluids and likely related to sepsis and poor oral intake. 5. History of blood clots in his carotid and I in which patient is on Coumadin. INR 1.9 on admission. Now 1.4 will give Coumadin 7.5 mg today Monitor daily PT/INR's and continue with Coumadin 6. History of hypothyroidism continue Synthroid 7. History of myocardial infarction and coronary artery disease with previous angioplasty no cardiac stent 8. Hyperlipidemia continue Lipitor 9. Essential hypertension continue metoprolol GI prophylaxis Protonix and DVT prophylaxis patient on Coumadin. Check PT/INR now and dose accordingly
[2017-02-24] MEDS: MULTIVITAMINS, THERA 1 EACH TAB PO SCH (16:17)
[2017-02-24] MEDS ORDERED: WARFARIN 7.5 MG TAB PO ONE (18:00)
[2017-02-25] MEDS: SODIUM CHLORIDE 0.9% 1,000 ML IV SCH (05:47)
[2017-02-25] MEDS: LEVOTHYROXINE 112 MCG TAB PO SCH (06:36)
[2017-02-25] MEDS: LIOTHYRONINE SODIUM 5 MCG TAB PO SCH (06:36)
[2017-02-25 07:11] LABS: Basophils # (A) 0.1 k/uL (0-0.2); Basophils % (A) 1 %; CHCM 32.8; Eosinophils # (A) 0.2 k/uL (0-0.7); Eosinophils % (A) 2 %; HCT 33.5 % (39.0-53.0); HDW 2.79; HGB 11.3 gm/dL (13.0-17.5); Luc # (Auto) 0.34; Luc % (Auto) 4; Lymphocytes # (A) 1.3 k/uL (1.0-4.8); Lymphocytes % (A) 15 %; MCHC 33.8 g/dL (31.0-37.0); MCV 88.8 fL (80.0-100.0); Mean Platelet Volume 7.7; Monocytes # (A) 0.8 k/uL (0-1.0); Monocytes % (A) 9 %; Neutrophils # (A) 5.8 k/uL (1.3-7.7); Neutrophils % (A) 69 %; RBC 3.77 m/uL (4.30-5.90); RDW 13.9 % (11.5-15.5); WBC 8.5 k/uL (3.8-10.6)
[2017-02-25 07:20] VITALS: BP 139/69; PULSE 68; RESP 18; TEMP 97.1
[2017-02-25 07:20] LABS: INR 1.9 (<1.1); Prothrombin Time 18.6 sec (9.0-12.0)
[2017-02-25 07:32] LABS: Calcium 8.6 mg/dL (8.4-10.2); Potassium 4.4 mmol/L (3.5-5.1); Total Bilirubin 0.7 mg/dL (0.2-1.3)
[2017-02-25] MEDS: PIPERACILLIN-TAZOBACTAM 3.375 GM in DEXTROSE/WATER 1 50ML.BAG IVPB SCH (09:22)
[2017-02-25] MEDS: ATORVASTATIN 80 MG TAB PO SCH (09:23)
[2017-02-25] MEDS: CYANOCOBALAMIN 500 MCG TAB PO SCH (09:23)
[2017-02-25] MEDS: GABAPENTIN 400 MG CAP PO SCH (09:23)
[2017-02-25] MEDS: HEPARIN SODIUM,PORCINE 5,000 UNIT/ML 1 ML VIAL SQ SCH (09:23)
[2017-02-25] MEDS: ASPIRIN 81 MG CHEW PO SCH (09:24)
[2017-02-25] MEDS: METOPROLOL SUCCINATE (ER) 25 MG TAB.ER.24H PO SCH (09:24)
[2017-02-25] MEDS: PANTOPRAZOLE 40 MG TABLET PO SCH (09:24)
[2017-02-25] MEDS: ISOSORBIDE MONONITRATE ER 30 MG TAB.ER.24H PO SCH (09:24)
--- NOTE | 2017-02-25 13:37 | P.DS ---
Providers Date of admission: 02/22/17 12:44 Expected date of discharge: 02/25/17 Attending physician: Laly Centeno Consults: 02/23/17 11:45 Consult Physician Routine Consulting Provider: Ben Lott Consult Reason/Comments: bladder cancer, UTI Do you want consulting provider notified?: Yes Primary care physician: Thania Barney [facility] Course: Diagnoses on discharge 1. UTI with sepsis present on admission: Patient is been placed on IV Zosyn. Urine culture positive for Pseudomonas Aerogin[place]. At the time of discharge patient was switched to Cipro 500 mg bid for 10 days Consult has been placed for urology 2. Altered mental status changes likely secondary to a metabolic encephalopathy from a UTI. Mentation has returned to baseline 3. History of bladder cancer: Follows up with urology outpatient for bladder washes 4. Acute on chronic kidney injury, stage III. Continue with IV fluids and likely related to sepsis and poor oral intake. 5. History of blood clots in his carotid and I in which patient is on Coumadin. INR 1.9 on discharge, resume home coumadin dose follow up with primary care office in 2-3 days for assessment of INR 6. History of hypothyroidism continue Synthroid 7. History of myocardial infarction and coronary artery disease with previous angioplasty no cardiac stent 8. Hyperlipidemia continue Lipitor 9. Essential hypertension continue metoprolol Hospital course: This is a 77-year-old male, [facility] patient. He has a known past medical history of bladder cancer with recurrent UTIs. He follows up with Dr. Presley weekly for bladder washes area patient also has a history of chronic kidney disease, myocardial infarction, hypertension, hyperlipidemia, hypothyroidism, coronary artery disease with previous angioplasty and abdominal aortic aneurysm repair. Patient was brought into the emergency room because his was very concerned about his change in mental status as well as having fevers as 102. He initially was not feeling well on Thursday. But Patient's states today that he was in the bathroom standing at the counter and talking but not making much sense and was having high-grade fevers. He was given Tylenol at home and his mentation did improve. She brought him into the emergency room for further evaluation and he was found have evidence of a UTI. Last week when he went into see Dr. Fernandez Lott top of the urine was cloudy and they did not complete a bladder wash at that time. On admission his white count is 19.4 he had a temp of 102.7 and he was tachycardic with a heart rate of 128. He has received IV fluids and started on IV Zosyn. Urine culture and blood cultures are pending. Urology has been consulted. Also patient has had poor oral intake. Needing. Denies any chest pain or shortness of breath. Denies any bowel movement changes. He has been having some urinary frequency. He denies any hematuria or dysuria. On 02/24/2017 patient is feeling better he had episodes of significant sweating last night, temperature 98.2 as this morning he is alert and oriented he is feeling better he denies any pain or discomfort at this time. Input from urology reviewed, however will avoid IV Levaquin due to concomitant Coumadin use , plan for discharge on oral Cipro if stable. On02/25/2017 patient is stable , afebrile, WBC down to 8.5 Patient feeling well discharged home on Cipro 500 mg bid Follow up with PCP in 2-3 days at [facility] Plan - Discharge Summary New Discharge Prescriptions: New Ciprofloxacin HCl [Cipro] 500 mg PO Q12HR #20 tablet Continue Gabapentin [Neurontin] 800 mg PO TID Aspirin 81 mg PO DAILY Multivitamin/Iron/Folic Acid [Centrum Complete Multivit Tab] 1 tab PO DAILY Liothyronine Sodium [Cytomel] 5 mcg PO DAILY Isosorbide Mononitrate ER [Imdur] 30 mg PO DAILY #90 tab.er.24h Levothyroxine Sodium [Synthroid] 112 mcg PO DAILY Cyanocobalamin (Vitamin B-12) [Vitamin B-12] 1,000 mcg PO DAILY Acetaminophen Tab [Tylenol] 1,000 mg PO Q6HR PRN PRN Reason: Pain traMADol HCL [Ultram] 50 mg PO BID PRN PRN Reason: Pain Warfarin [Coumadin] 5 mg PO MOWEFR Warfarin [Coumadin] 2.5 mg PO SUTUTHSA Metoprolol Succinate (ER) [Toprol XL] 25 mg PO DAILY Rosuvastatin Calcium [Crestor] 40 mg PO DAILY Discharge Medication List Aspirin 81 mg PO DAILY 10/20/14 [History] Gabapentin [Neurontin] 800 mg PO TID 10/20/14 [History] Liothyronine Sodium [Cytomel] 5 mcg PO DAILY 10/20/14 [History] Multivitamin/Iron/Folic Acid [Centrum Complete Multivit Tab] 1 tab PO DAILY [History] Isosorbide Mononitrate ER [Imdur] 30 mg PO DAILY #90 tab.er.24h 10/23/14 [Rx] Acetaminophen Tab [Tylenol] 1,000 mg PO Q6HR PRN 01/11/17 [History] Cyanocobalamin (Vitamin B-12) [Vitamin B-12] 1,000 mcg PO DAILY 01/11/17 [ History] Levothyroxine Sodium [Synthroid] 112 mcg PO DAILY 01/11/17 [History] Metoprolol Succinate (ER) [Toprol XL] 25 mg PO DAILY 01/11/17 [History] Warfarin [Coumadin] 2.5 mg PO SUTUTHSA 01/11/17 [History] Warfarin [Coumadin] 5 mg PO MOWEFR 01/11/17 [History] traMADol HCL [Ultram] 50 mg PO BID PRN 01/11/17 [History] Rosuvastatin Calcium [Crestor] 40 mg PO DAILY 02/22/17 [History] Ciprofloxacin HCl [Cipro] 500 mg PO Q12HR #20 tablet 02/25/17 [Rx] Follow up Appointment(s)/Referral(s): Thania Barney DO [Primary Care Provider] - 1-2 days
== END 2017-02-25 14:09 | disposition home health service (06) | DRG 871 ==
LOC: EC 11:13 → 4MS4W 12:44
PROVIDERS: ADMIT Internal Medicine; ATTEND Internal Medicine
DX: A41.9 Sepsis, unspecified organism (principal); G93.41 Metabolic encephalopathy; N17.9 Acute kidney failure, unspecified; N39.0 Urinary tract infection, site not specified; C67.2 Malignant neoplasm of lateral wall of bladder; G62.9 Polyneuropathy, unspecified; B96.5 Pseudomonas (aeruginosa) (mallei) (pseudomallei) as the cause of diseases classified elsewhere; N18.3 Chronic kidney disease, stage 3 (moderate); I12.9 Hypertensive chronic kidney disease with stage 1 through stage 4 chronic kidney disease, or unspecified chronic kidney disease; E78.5 Hyperlipidemia, unspecified; E03.9 Hypothyroidism, unspecified; E55.9 Vitamin D deficiency, unspecified; E78.00 Pure hypercholesterolemia, unspecified; H91.92 Unspecified hearing loss, left ear; M48.06 Spinal stenosis, lumbar region; M51.36 Other intervertebral disc degeneration, lumbar region; I25.10 Atherosclerotic heart disease of native coronary artery without angina pectoris; I25.2 Old myocardial infarction; Z98.61 Coronary angioplasty status; Z86.79 Personal history of other diseases of the circulatory system; Z87.442 Personal history of urinary calculi; Z87.891 Personal history of nicotine dependence; Z87.440 Personal history of urinary (tract) infections; Z86.19 Personal history of other infectious and parasitic diseases; Z88.5 Allergy status to narcotic agent; Z91.041 Radiographic dye allergy status; Z79.82 Long term (current) use of aspirin; Z79.899 Other long term (current) drug therapy; Z79.01 Long term (current) use of anticoagulants
CPT/HCPCS: 36415; 71020; 76770; 80048; 80053; 81001; 83605; 85025; 85610; 85730; 87040; 87077; 87086; 87186; 93005

== ENCOUNTER → 2018-03-19 | Outpatient (CLI) | payer MEDICARE, OTHER ==
[2018-03-19 08:40] LABS: HCT 41.7 % (39.0-53.0); HGB 13.1 gm/dL (13.0-17.5); MCH 28.3 pg (25.0-35.0); MCHC 31.3 g/dL (31.0-37.0); MCV 90.5 fL (80.0-100.0); Platelet Count 241 k/uL (150-450); RBC 4.61 m/uL (4.30-5.90); RDW 13.2 % (11.5-15.5); WBC 8.1 k/uL (3.8-10.6)
== END | disposition home or self-care (01) ==
LOC: LABPAT 07:51
PROVIDERS: ATTEND Internal Medicine Cardiovascular Disease
DX: Z01.812 Encounter for preprocedural laboratory examination (principal); I25.10 Atherosclerotic heart disease of native coronary artery without angina pectoris
CPT/HCPCS: 85027

== ENCOUNTER → 2018-03-19 | Outpatient (CLI) | payer MEDICARE, OTHER ==
[2018-03-19 08:53] LABS: Albumin 4.3 g/dL (3.5-5.0); Calcium 9.6 mg/dL (8.4-10.2); Potassium 5.5 mmol/L (3.5-5.1); Total Bilirubin 0.5 mg/dL (0.2-1.3); Total Protein 7.2 g/dL (6.3-8.2)
== END | disposition home or self-care (01) ==
LOC: LABWHC1 07:54
PROVIDERS: ATTEND Physician Assistant
DX: E03.9 Hypothyroidism, unspecified (principal); I10 Essential (primary) hypertension; I25.10 Atherosclerotic heart disease of native coronary artery without angina pectoris
CPT/HCPCS: 36415; 80053; 80061; 84443

== ENCOUNTER 2018-03-30 06:17 | Day surgery (SDC) | payer MEDICARE, OTHER ==
[2018-03-22 14:02] VITALS: BMI 28.1
[2018-03-30 07:17] LABS: INR 1.2 (<1.2); Prothrombin Time 11.7 sec (9.0-12.0)
[2018-03-30 07:23] VITALS: RESP 18
[2018-03-30] MEDS ORDERED: ASPIRIN 325 MG TAB ONE (07:23)
[2018-03-30] MEDS ORDERED: ATORVASTATIN 80 MG TAB PO STA (07:28)
[2018-03-30] MEDS ORDERED: SODIUM CHLORIDE 0.9% 1,000 ML in EMPTY BAG 1 BAG IV ONE (07:28)
[2018-03-30] MEDS ORDERED: NITROGLYCERIN SL TABS 0.4 MG TAB SUBLINGUAL PRN (07:28)
[2018-03-30] MEDS ORDERED: ALPRAZolam 0.25 MG TAB PO PRN (07:28)
[2018-03-30] MEDS ORDERED: ASPIRIN 325 MG TAB PO STA (07:28)
[2018-03-30] MEDS ORDERED: ALPRAZolam 0.5 MG TAB PO PRN (07:28)
[2018-03-30] MEDS ORDERED: METOPROLOL SUCCINATE (ER) 25 MG TAB.ER.24H PO STA (07:29)
[2018-03-30] MEDS ORDERED: ISOSORBIDE MONONITRATE ER 30 MG TAB.ER.24H PO STA (07:29)
[2018-03-30] MEDS ORDERED: MIDAZOLAM 2 MG/2 ML VIAL IV ONE (09:43)
[2018-03-30] MEDS ORDERED: fentaNYL (PF) 50 MCG/ML 2 ML AMP IV ONE (09:43)
[2018-03-30] MEDS ORDERED: LIDOCAINE 1% INJ 10MG/ML (20 ML MDV) SQ ONE (09:43)
[2018-03-30] MEDS ORDERED: diphenhydrAMINE 50 MG/ML 1 ML VIAL IVP ONE (09:43)
[2018-03-30] MEDS ORDERED: BIVALIRUDIN BOLUS 250 MG/50 ML IV ONE (10:05)
[2018-03-30] MEDS ORDERED: BIVALIRUDIN 250 MG in SODIUM CHLORIDE 0.9% 50 ML IV ONE (10:06)
--- NOTE | 2018-03-30 10:14 | P.CARDCATH ---
Date of Procedure: 03/30/18 Preoperative Diagnosis: Positive stress test with ischemia in the inferolateral wall area Postoperative Diagnosis: Borderline lesion in mid RCA which seemed to be eccentric. Intermediate disease in the LAD and circumflex Procedure(s) Performed: Left heart catheterization, selective coronary arteriography Description of Procedure: HISTORY: This is a 78-year-old gentleman with history of ischemic heart disease with the previous inferior wall DC. Patient had angioplasty of the right coronary artery at the time. Patient has been complaining of fatigue and shortness of breath and a stress test showed ischemia in the inferolateral wall. Patient is advised to have cardiac catheterization. Patient is known to have renal failure with creatinine of 1.9. He was brought in for hydration before cardiac catheterization this morning. CONSENT:I have discussed the risks, benefits and alternative therapies for the above-mentioned procedure and for both sedation/analgesia as well as necessary blood product administration, if indicated, as they pertain to this patient. The patient has indicated understanding and acceptance of the risks and procedures discussed. PROCEDURE: Patient was brought to the lab in a fasting state. Patient was given some IV sedation. The right groin is infiltrated with lidocaine and right femoral artery was entered using Seldinger technique. A 6-Setswana catheter was left in place and selective coronary arteriography was performed. Patient tolerated the procedure well. He was found have borderline lesion in the mid RCA. In view of ischemia on the stress test, FFR of the lesion was requested. Dr. Chavez's during the procedure. At this time. Conscious Sedation: Versed 1mg Fentanyl 25 g Duration []minutes HEMODYNAMICS: Aortic pressure is 140/78. Left ankle end-diastolic pressure is 12-15. There was no gradient across the aortic valve SELECTIVE CORONARY ARTERIOGRAPHY: LEFT MAIN: Normal length and patent THE LEFT ANTERIOR DESCENDING CORONARY ARTERY: This is a fair caliber vessel with intermediate disease in mid LAD. The rest of the LAD is free of occlusive disease. THE LEFT CIRCUMFLEX CORONARY ARTERY: This is a nondominant vessel giving rise to moderate caliber OM branch. The ostium and proximal portion of the OM branch has about intermediate disease of 50-60%. THE RIGHT CORONARY ARTERY: This is a dominant vessel with a borderline lesion in the mid RCA which appears to be eccentric. Patient is going to have FFR to decide the significance of the stenosis. LEFT VENTRICULOGRAPHY: Not performed FINAL IMPRESSION: Borderline lesion in the RCA in the midportion. FFR is being done to assess the significance of the lesion. The LAD and the circumflex have intermittent disease. PLAN: FFR of the RCA. Further recommendations to follow PROGNOSIS: Fair
[2018-03-30] MEDS ORDERED: IOPAMIDOL-370 125ML BTL INJ ONE (10:29)
[2018-03-30] MEDS ORDERED: RX INFO: IV CONTRAST WAS GIVEN 1 EACH MISC MISCELLANE PRN (10:29)
[2018-03-30] MEDS ORDERED: SODIUM CHLORIDE 0.9% 100 ML BAG ONE (10:30)
[2018-03-30] MEDS ORDERED: ADENOSINE 3 MG/ML 4 ML VIAL IVP ONE (10:30)
[2018-03-30] MEDS ORDERED: ACETAMINOPHEN TAB 500 MG TAB PO PRN (10:33)
--- NOTE | 2018-03-30 10:57 | AS ---
ARTERIAL STUDY DATE OF SERVICE: 03/30/2018 PERFORMING PHYSICIAN: Jarvis Ribeiro MD, Program Management Intern. PROCEDURE PERFORMED: Fractional flow reserve FFR of the RCA. INDICATION: This is a pleasant 78-year-old gentleman who sees Dr. Goddard with known history of coronary artery disease and prior angioplasty of the RCA. The patient recently was experiencing chest discomfort and he underwent myocardial perfusion imaging stress test which revealed inferolateral ischemia. He underwent heart catheterization by Dr. Goddard and was found to have intermediate lesion involving the mid RCA. Decision was made toward FFR of the RCA with calf approach. APPROACH: Right common femoral artery. COMPLICATION: None. LEVEL OF SEDATION: Moderate with sedation length of 30 minutes. PROCEDURE DESCRIPTION: After diagnostic heart catheterization was performed by Dr. Goddard and after reviewing the angiogram, we decided to pursue with an FFR of the RCA anticoagulation was initiated using Angiomax. After zeroing the Doppler wire and equalizing between the Doppler wire and the guiding catheter, we did an FFR per IV adenosine infusion. The FFR came in to be at 0.77. The procedure was terminated at that point. The patient was scheduled to undergo a PTCA and stenting of the RCA as an outpatient. MMODL / IJN: [id number] /
[2018-03-30] MEDS: traMADol 50 MG TAB PO PRN (12:30)
[2018-03-30] MEDS: SODIUM CHLORIDE 0.9% 1,000 ML IV SCH (13:32)
[2018-03-30] MEDS ORDERED: WARFARIN 2.5 MG TAB PO SCH (18:00)
[2018-03-30] MEDS: GABAPENTIN 400 MG CAP PO SCH ×2 (18:22→21:15)
[2018-03-31] MEDS: SODIUM CHLORIDE 0.9% 1,000 ML IV SCH (03:04)
[2018-03-31] MEDS ORDERED: LEVOTHYROXINE 112 MCG TAB PO SCH (06:30)
[2018-03-31] MEDS ORDERED: LIOTHYRONINE SODIUM 5 MCG TAB PO SCH (06:30)
[2018-03-31 06:40] LABS: Calcium 9.1 mg/dL (8.4-10.2); Potassium 4.6 mmol/L (3.5-5.1)
[2018-03-31 08:05] VITALS: BP 149/70; PULSE 61; TEMP 97.8
[2018-03-31] MEDS ORDERED: ATORVASTATIN 20 MG TAB PO SCH (09:00)
[2018-03-31] MEDS ORDERED: ISOSORBIDE MONONITRATE ER 30 MG TAB.ER.24H PO SCH ×2 (09:00)
[2018-03-31] MEDS ORDERED: METOPROLOL SUCCINATE (ER) 25 MG TAB.ER.24H PO SCH (09:00)
[2018-03-31] MEDS ORDERED: ASPIRIN 81 MG PO SCH (09:00)
--- NOTE | 2018-03-31 09:02 | P.DS ---
Providers Date of admission: 03/30/2018 Attending physician: Man Goddard Primary care physician: Thania Barney - Discharge Diagnosis(es) (1) Positive cardiac stress test Current Visit: Yes Status: Acute (2) CAD (coronary artery disease) Current Visit: Yes Status: Acute (3) Hyperlipidemia Current Visit: No Status: Acute (4) Hypertension Current Visit: No Status: Acute (5) Abdominal aortic aneurysm Current Visit: No Status: Acute Hospital Course: This 78-year-old gentleman with history of ischemic heart disease and previous inferior wall myocardial infarction has been complaining of fatigue and shortness of breath. Patient does stress test showed ischemia involving the inferolateral wall. Patient had a cardiac catheterization yesterday. Patient has history of renal failure with creatinine of 1.9. Patient was brought in for hydration prior to the procedure. He was found to have borderline lesion in the mid RCA at the site of previous angioplasty. Patient had FFR which was significant suggestive of a significant lesion. Because of his renal failure, patient is admitted to the hospital for hydration. His creatinine remained at 1.73. Patient is being discharged home in a stable condition. He'll have outpatient intervention to be scheduled by Dr. Chavez in about one to 2 weeks. Follow-up in the office in one week. He'll resume his Coumadin and will have a PT/INR on Thursday. Further recommendations depend upon the clinical course. Plan - Discharge Summary Discharge Rx Participant: No New Discharge Prescriptions: New Nitroglycerin Sl Tabs [Nitrostat] 0.4 mg SUBLINGUAL Q5M PRN #25 tab PRN Reason: Chest Pain Continue Gabapentin [Neurontin] 800 mg PO TID Aspirin 81 mg PO DAILY Liothyronine Sodium [Cytomel] 5 mcg PO DAILY Isosorbide Mononitrate ER [Imdur] 30 mg PO DAILY #90 tab.er.24h Levothyroxine Sodium [Synthroid] 112 mcg PO DAILY Cyanocobalamin (Vitamin B-12) [Vitamin B-12] 1,000 mcg PO DAILY Acetaminophen Tab [Tylenol] 1,000 mg PO Q6HR PRN PRN Reason: Pain traMADol HCL [Ultram] 50 mg PO BID PRN PRN Reason: Pain Warfarin [Coumadin] 5 mg PO MOWEFR Warfarin [Coumadin] 2.5 mg PO SUTUTHSA Metoprolol Succinate (ER) [Toprol XL] 25 mg PO DAILY Rosuvastatin Calcium [Crestor] 40 mg PO DAILY Discharge Medication List Aspirin 81 mg PO DAILY 10/20/14 [History] Gabapentin [Neurontin] 800 mg PO TID 10/20/14 [History] Liothyronine Sodium [Cytomel] 5 mcg PO DAILY 10/20/14 [History] Isosorbide Mononitrate ER [Imdur] 30 mg PO DAILY #90 tab.er.24h 10/23/14 [Rx] Acetaminophen Tab [Tylenol] 1,000 mg PO Q6HR PRN 01/11/17 [History] Cyanocobalamin (Vitamin B-12) [Vitamin B-12] 1,000 mcg PO DAILY 01/11/17 [ History] Levothyroxine Sodium [Synthroid] 112 mcg PO DAILY 01/11/17 [History] Metoprolol Succinate (ER) [Toprol XL] 25 mg PO DAILY 01/11/17 [History] Warfarin [Coumadin] 2.5 mg PO SUTUTHSA 01/11/17 [History] Warfarin [Coumadin] 5 mg PO MOWEFR 01/11/17 [History] traMADol HCL [Ultram] 50 mg PO BID PRN 01/11/17 [History] Rosuvastatin Calcium [Crestor] 40 mg PO DAILY 02/22/17 [History] Nitroglycerin Sl Tabs [Nitrostat] 0.4 mg SUBLINGUAL Q5M PRN #25 tab 03/31/18 [Rx ] Follow up Appointment(s)/Referral(s): Man Goddard MD [STAFF PHYSICIAN] - 1 Week Discharge Disposition: HOME SELF-CARE
[2018-03-31] MEDS: GABAPENTIN 400 MG CAP PO SCH (10:07)
[2018-03-31] MEDS: traMADol 50 MG TAB PO PRN (10:11)
[2018-03-31] MEDS ORDERED: CYANOCOBALAMIN 500 MCG TAB PO SCH (12:00)
[2018-03-31] MEDS ORDERED: WARFARIN 5 MG TAB PO SCH (18:00)
== END 2018-03-31 11:15 | disposition home or self-care (01) ==
LOC: CATHCVL 06:17 → 3OBS 12:14 → CATHCVL 03-31 11:15
PROVIDERS: ATTEND Internal Medicine Cardiovascular Disease
DX: I25.10 Atherosclerotic heart disease of native coronary artery without angina pectoris (principal); R94.39 Abnormal result of other cardiovascular function study; I10 Essential (primary) hypertension; E78.00 Pure hypercholesterolemia, unspecified; I71.4 Abdominal aortic aneurysm, without rupture; I25.2 Old myocardial infarction; F17.210 Nicotine dependence, cigarettes, uncomplicated; Z98.61 Coronary angioplasty status; Z79.01 Long term (current) use of anticoagulants; Z79.82 Long term (current) use of aspirin; Z79.52 Long term (current) use of systemic steroids; Z79.899 Other long term (current) drug therapy; Z86.73 Personal history of transient ischemic attack (TIA), and cerebral infarction without residual deficits; Z88.5 Allergy status to narcotic agent; Z91.09 Other allergy status, other than to drugs and biological substances
CPT/HCPCS: 93571; 93458; 80048; 85610; C1760; C1887 ×2; C1769 ×2; C1894; J2250; J1200; J2001; J3010; J0583; Q9967

== ENCOUNTER 2018-05-03 06:04 | Day surgery (SDC) | payer MEDICARE, OTHER ==
[2018-04-27 14:40] VITALS: BMI 26.6
[~2018-05-03 06:04] MED LIST: ALPRAZolam 0.25 MG TAB PO PRN; ALPRAZolam 0.5 MG TAB PO PRN; ASPIRIN 325 MG TAB PO STA; ATORVASTATIN 80 MG TAB PO STA; NITROGLYCERIN SL TABS 0.4 MG TAB SUBLINGUAL PRN
[2018-05-03] MEDS ORDERED: SODIUM CHLORIDE 0.9% 1,000 ML in EMPTY BAG 1 BAG IV ONE (06:30)
[2018-05-03 07:33] LABS: INR 1.3 (<1.2); Prothrombin Time 11.9 sec (9.0-12.0)
[2018-05-03 07:34] LABS: Basophils % (A) 0 %; Eosinophils % (A) 0 %; HCT 38.5 % (39.0-53.0); HGB 12.2 gm/dL (13.0-17.5); Lymphocytes % (A) 9 %; MCH 28.7 pg (25.0-35.0); MCHC 31.8 g/dL (31.0-37.0); MCV 90.3 fL (80.0-100.0); Mean Platelet Volume 6.8; Monocytes # (A) 0.7 k/uL (0-1.0); Monocytes % (A) 6 %; Neutrophils # (A) 9.4 k/uL (1.3-7.7); Neutrophils % (A) 84 %; Platelet Count 242 k/uL (150-450); RBC 4.27 m/uL (4.30-5.90); RDW 13.6 % (11.5-15.5); WBC 11.2 k/uL (3.8-10.6)
[2018-05-03 07:43] LABS: Calcium 9.5 mg/dL (8.4-10.2); Potassium 5.3 mmol/L (3.5-5.1)
[2018-05-03] MEDS: MIDAZOLAM 2 MG/2 ML VIAL IV ONE ×4 (07:55→09:09)
[2018-05-03] MEDS ORDERED: LIDOCAINE 1% INJ 10MG/ML (20 ML MDV) SQ ONE (07:57)
[2018-05-03] MEDS ORDERED: BIVALIRUDIN BOLUS 250 MG/50 ML IV ONE (08:04)
[2018-05-03] MEDS ORDERED: BIVALIRUDIN 250 MG in SODIUM CHLORIDE 0.9% 50 ML IV ONE ×2 (08:04→09:30)
[2018-05-03] MEDS ORDERED: CLOPIDOGREL 75 MG TAB PO ONE (08:08)
[2018-05-03] MEDS: NITROGLYCERIN 1000MCG/10ML SYRINGE INTRACORON ONE ×2 (08:17→10:39)
[2018-05-03] MEDS: fentaNYL (PF) 50 MCG/ML 2 ML AMP IV ONE ×3 (08:22→08:47)
[2018-05-03] MEDS ORDERED: NITROGLYCERIN SL TABS 0.4 MG TAB SUBLINGUAL ONE (08:59)
[2018-05-03] MEDS ORDERED: HYDROmorphone 1 MG/ML 1 ML SYRINGE ONE ×2 (09:16→10:01)
[2018-05-03] MEDS ORDERED: fentaNYL (PF) 50 MCG/ML 2 ML AMP IV ONE (09:18)
[2018-05-03] MEDS ORDERED: HYDROmorphone 1 MG/ML 1 ML SYRINGE IVP ONE ×4 (09:19→10:03)
[2018-05-03] MEDS ORDERED: IOPAMIDOL-370 125ML BTL INJ ONE (10:12)
[2018-05-03] MEDS ORDERED: niCARdipine Syringe (1,000 mcg/10 mL) INTRACORON ONE (10:39)
[2018-05-03] MEDS ORDERED: IOPAMIDOL-370 100ML BTL INJ ONE (10:42)
[2018-05-03] MEDS ORDERED: traMADol 50 MG TAB PO PRN (10:49)
[2018-05-03] MEDS ORDERED: NITROGLYCERIN SL TABS 0.4 MG TAB SUBLINGUAL PRN ×2 (10:49→10:50)
[2018-05-03] MEDS ORDERED: ACETAMINOPHEN TAB 500 MG TAB PO PRN (10:49)
[2018-05-03] MEDS ORDERED: ZOLPIDEM 5 MG TAB PO PRN (10:50)
[2018-05-03] MEDS ORDERED: RX INFO: IV CONTRAST WAS GIVEN 1 EACH MISC MISCELLANE PRN (10:50)
[2018-05-03] MEDS ORDERED: ATROPINE SULFATE 0.1 MG/ML 10ML SYRINGE IV PRN (10:50)
[2018-05-03] MEDS ORDERED: MAG HYDROX/AL HYDROX/SIMETH 30 ML CUP PO PRN (10:50)
[2018-05-03] MEDS ORDERED: TIROFIBAN 12.5MG-0.9% NS PMX 250 ML BAG IV ONE (10:53)
[2018-05-03] MEDS ORDERED: TIROFIBAN BOLUS 12.5MG/250 ML BAG IV ONE (10:53)
[2018-05-03] MEDS ORDERED: TIROFIBAN 12.5MG-250ML NS 250 ML IV ONE (10:56)
[2018-05-03] MEDS ORDERED: SODIUM CHLORIDE 0.9% 1,000 ML IV SCH (11:00)
[2018-05-03] MEDS: GABAPENTIN 400 MG CAP PO SCH ×2 (15:33→22:05)
[2018-05-03] MEDS ORDERED: WARFARIN 5 MG TAB PO SCH (18:00)
--- NOTE | 2018-05-04 05:08 | PTCA ---
PERCUTANEOUSTRANS CORORONARY ANGIOGRAPHY PERCUTANEOUS CORONARY INTERVENTION DATE OF PROCEDURE: May 03, 2018 PERFORMING PHYSICIAN: Jarvis Ribeiro MD. PROCEDURE PERFORMED: 1. Successful stenting of the mid right coronary artery using 2.0 x 8 and 2.0 x 15 mm Resolute [place] drug-eluting stent with good angiographic results. 2. Successful stenting of the proximal right coronary artery using 2.0 x 18 mm Resolute [place] drug-eluting stent with good angiographic results. INDICATION: Mr. Gomez is a very pleasant 78-year-old gentleman who sees Dr. Goddard as an outpatient who was experiencing chest discomfort concerning for angina. He underwent a stress test and that revealed inferior ischemia. Subsequently the patient underwent heart catheterization by Dr. Goddard a few weeks ago and that revealed intermediate to severe lesion involving the mid RCA which was eccentric and was seen worse on the TREJO view. A fractional flow reserve was performed at that time and that came in to be ischemic at 0.80. Because of that, the patient was brought today to undergo a PCI of the RCA. APPROACH: Right common femoral artery. COMPLICATION: Thrombus formation in the mid and proximal right coronary artery likely related to wire dissection. LEVEL OF SEDATION: Moderate with sedation length of 2 hours and 48 minutes. PROCEDURE DESCRIPTION: After obtaining an informed consent, the patient was brought to the cardiac laborer poultry hatchery. The right common femoral artery was cannulated using micropuncture technique and a micropuncture wire passed easily then I placed a 6-Yoruba sheath in the right common femoral artery. Subsequently anticoagulation was initiated using Angiomax. I attempted initially engaging the right coronary artery using a Bran right catheter, but I could not get good coaxial seating of the guide with the artery, but I was able to get that using a Bran right posterior. After that I wired the right coronary artery using a whisper wire and the wire was across the lesion in the midportion very smoothly and advanced to the distal right coronary artery. Subsequently I tried advancing 2.0 x 12 mm balloon but the balloon will not cross the proximal to mid right coronary artery in view of the calcified and tortuous artery. At that point, I decided to wire the right coronary artery using a run-through wire. I had hard time advancing the run-through in the mid right coronary artery and I do feel that I was in a dissection plane. Finally I was able to get the wire which was a run-through wire to the distal right coronary artery using a SuperCross catheter. The wire at that point was advanced to the distal right coronary artery. At that point, the patient started experiencing chest discomfort and the following angiogram revealed no flow in the right coronary artery with possible thrombus formation proximally. Subsequently I did balloon angioplasty of the mid and proximal right coronary artery using 2.0 x 12 mm balloon. I did balloon the mid on subsequently the proximal right coronary artery. After that I attempted advancing a stent which was is Xience 2.5 stent but the stent will not cross the lesion in the proximal to mid RCA. At that point, I decided to change my wire into a stiffer wire, which was an Iron Man. I was able to achieve that using SuperCross catheter and I did change the run- through into an Iron Man wire. With the Iron Man, I attempted advancing the Xience stent and the stent will not cross again the lesion in the proximal to mid right coronary artery. At that point, I decided to use the [place] drug-eluting stent and the stent again will not cross the lesion in the proximal to mid right coronary artery. After that I did balloon the mid and proximal RCA using initially 2.5 mm semi-compliant balloon and then a 3 mm noncompliant balloon and then 3.5 mm noncompliant balloon. With that, I was able to advance initially 2.0 x 8 mm [place] drug-eluting stent where the stent was positioned under fluoroscopy guidance and deployed under 16 atmospheres for 30 seconds. After that and proximal to that stent, I deployed 2.0 x 15 mm another Abhilash drug-eluting stent. The second stent was deployed under 16 atmospheres for 20 seconds. The last stent was 2 0 x 18 mm another [place] which was also deployed under 16 atmospheres for 20 seconds. After that, I took noncompliant balloon which was 3.5 NC balloon and I did balloon angioplasty of the stented segment in the mid and proximal right coronary artery just after I pulled the Iron Man wire from behind the . Final angiogram showed excellent angiographic results with a good flow in the right coronary artery and the patient was pain free by the end of the procedure. POSTPROCEDURE MANAGEMENT: 1. Dual antiplatelet therapy. 2. Risk factors modifications. 3. Follow up with the patient. MMODL / IJN: [id number] /
[2018-05-04] MEDS ORDERED: LEVOTHYROXINE 112 MCG TAB PO SCH (06:30)
[2018-05-04] MEDS ORDERED: LIOTHYRONINE SODIUM 5 MCG TAB PO SCH (06:30)
[2018-05-04 07:49] LABS: Basophils # (A) 0.1 k/uL (0-0.2); Basophils % (A) 1 %; Eosinophils # (A) 0.1 k/uL (0-0.7); Eosinophils % (A) 1 %; HCT 37.4 % (39.0-53.0); HGB 11.5 gm/dL (13.0-17.5); Hypochromasia Slight; Lymphocytes # (A) 1.8 k/uL (1.0-4.8); Lymphocytes % (A) 16 %; MCH 28.3 pg (25.0-35.0); MCHC 30.7 g/dL (31.0-37.0); MCV 92.3 fL (80.0-100.0); Mean Platelet Volume 6.7; Monocytes # (A) 0.8 k/uL (0-1.0); Monocytes % (A) 7 %; Neutrophils # (A) 8.3 k/uL (1.3-7.7); Neutrophils % (A) 74 %; Platelet Count 229 k/uL (150-450); RBC 4.05 m/uL (4.30-5.90); RDW 13.9 % (11.5-15.5); WBC 11.2 k/uL (3.8-10.6)
[2018-05-04] MEDS: GABAPENTIN 400 MG CAP PO SCH (08:06)
[2018-05-04 08:08] LABS: Calcium 9.2 mg/dL (8.4-10.2); Potassium 4.9 mmol/L (3.5-5.1)
[2018-05-04 08:11] VITALS: BP 117/68; PULSE 75; RESP 16; TEMP 98
[2018-05-04] MEDS ORDERED: METOPROLOL SUCCINATE (ER) 25 MG TAB.ER.24H PO SCH (09:00)
[2018-05-04] MEDS ORDERED: CLOPIDOGREL 75 MG TAB PO SCH (09:00)
[2018-05-04] MEDS ORDERED: ASPIRIN 81 MG PO SCH (09:00)
[2018-05-04] MEDS ORDERED: ATORVASTATIN 80 MG TAB PO SCH (09:00)
[2018-05-04] MEDS ORDERED: CYANOCOBALAMIN 500 MCG TAB PO SCH (09:00)
[2018-05-04] MEDS ORDERED: ISOSORBIDE MONONITRATE ER 30 MG TAB.ER.24H PO SCH (09:00)
--- NOTE | 2018-05-04 12:36 | DS ---
DISCHARGE SUMMARY DATE ADMISSION: 05/03/2018 DATE OF DISCHARGE: 05/04/2018 BRIEF HISTORY: This is a pleasant 78-year-old gentleman who sees Dr. Goddard in the office as an outpatient, who underwent a heart catheterization several weeks ago for chest discomfort and the heart catheterization revealed intermediate decidual disease involving the mid RCA documented by FFR. The patient was brought yesterday to undergo PCI of the RCA. APPROACH: Right common femoral artery. The patient underwent yesterday successful stenting of the proximal and mid RCA with good angiographic results. The procedure was complicated by dissection involving the mid RCA which was covered nicely with a stent. By the end of the procedure, the patient was completely pain-free. On follow up with him today, he denies having any chest pain or discomfort or shortness of breath. The right groin is soft and nontender and without any bruises. The patient is going to be discharged home on dual anti-platelet therapy and he is going to follow up with Dr. Goddard in the office in a week. MMODL / SHAKIRAN: [id number] /
[2018-05-04] MEDS ORDERED: WARFARIN 2.5 MG TAB PO SCH (18:00)
== END 2018-05-04 10:30 | disposition home or self-care (01) ==
LOC: CATHCVL 06:04 → 6SEL 10:44 → CATHCVL 05-04 10:30
PROVIDERS: ATTEND Internal Medicine Interventional Cardiology
DX: I25.10 Atherosclerotic heart disease of native coronary artery without angina pectoris (principal); R94.31 Abnormal electrocardiogram [ECG] [EKG]; I71.4 Abdominal aortic aneurysm, without rupture; I10 Essential (primary) hypertension; E78.00 Pure hypercholesterolemia, unspecified; N19 Unspecified kidney failure; I25.2 Old myocardial infarction; F17.210 Nicotine dependence, cigarettes, uncomplicated; Z95.5 Presence of coronary angioplasty implant and graft; Z79.01 Long term (current) use of anticoagulants; Z79.82 Long term (current) use of aspirin; Z79.899 Other long term (current) drug therapy; Z88.5 Allergy status to narcotic agent; Z91.09 Other allergy status, other than to drugs and biological substances; Z86.73 Personal history of transient ischemic attack (TIA), and cerebral infarction without residual deficits
CPT/HCPCS: 94760; 80048 ×2; 85025 ×2; 85610; C9600; C1769 ×10; C1887 ×4; C1725 ×7; C1894; C1874 ×2; J2250; J2001; J3010; J1170; J0583; J3246; Q9967 ×2

== ENCOUNTER → 2018-10-19 | Outpatient (CLI) | payer MEDICARE, OTHER ==
--- NOTE | 2018-10-19 09:03 | CT ---
EXAMINATION TYPE: CT chest wo con DATE OF EXAM: 10/19/2018 COMPARISON: Correlation CTA 11/25/[address] 01/21/2012 HISTORY: SOB, cough TECHNIQUE: Contiguous axial scanning of the chest without IV contrast. Coronal and sagittal reconstru ctions performed. CT DLP: 488 mGycm Automated exposure control for dose reduction was used. FINDINGS: Heart upper limits of normal in size without pericardial effusion. Extensive coronary vessel calcific ations are present. Midascending aorta mildly aneurysmal at 4.1 cm versus 3.9 cm in 2012. Moderate atherosclerotic arch calcifications within the tortuous origin anatomy. The upper descending thoracic aorta is aneurysmal at 3.6 cm versus 3.4 cm in 2012. Focal aneurysmal d ilatation mid descending thoracic aorta at 4.0 x 3.9 cm versus 4.1 x 3.5 cm on 11/25/2016, stable to in creased by a few millimeters, presently. Endovascular stent graft of the lower descending thoracic aorta to the level of the SMA is redemonstr ated. This segment of the aorta is very tortuous and the [place] sac measures 5.0 cm versus approximat maribel 4.9 cm as remeasured on the prior exam. Suspected severe atherosclerotic narrowing at the origin of the celiac axis. Redemonstrated fibrotic changes throughout the lungs along with underlying emphysema. Some honeycombi ng at the lung bases is demonstrated. -Subpleural mass posterior right lower lobe measures 4.2 cm. -A second irregular nodule just above in the right lower lobe measures 2.4 cm. -Medial right basilar pulmonary nodule measures 1.8 cm. -Peripheral right basilar subpleural nodule measures 2.6 x 1.3 cm. -Right middle lobe subpleural nodule measures 1.5 cm. Biapical pleural-parenchymal scarring. Lower right paratracheal lymph node is borderline to mildly enlarged at 1.1 cm, nonspecific. Visualized upper abdomen shows a couple surgical clips along the anterior right omentum. Bones: Subacute healing left anterolateral sixth rib fracture. IMPRESSION: 1. COPD AND PULMONARY FIBROSIS. 2. MULTIFOCAL CONSOLIDATIVE MASSES/NODULES IN THE RIGHT LOWER LOBE AND RIGHT MIDDLE LOBE MEASURING UP TO 4.2 CM. (APPROXIMATELY 5 DIFFERENT NODULES ARE PRESENT). ATYPICAL FUNGAL/MYCOBACTERIAL INFECTIONS AND LUNG CANCER ARE THE FAVORED DIFFERENTIAL CONSIDERATIONS. FURTHER CLINICAL CORRELATION AND WORKUP RECOMMENDED. 3. BORDERLINE TO MILDLY ENLARGED 1.1 CM RIGHT PARATRACHEAL LYMPH NODE IS NONSPECIFIC. 4. ANEURYSMAL THORACIC AORTA (ASCENDING 4.1 CM VERSUS 3.9 CM IN 2012; UPPER DESCENDING 3.6 CM VERSUS 3.4 CM IN 2012; AND PRIOR DISTAL STENT GRAFT WITH THE [place] SAC MEASURING 4.0 X 3.9 CM VERSUS 4.1 X 3.5 CM IN 11/25/2016, STABLE TO A FEW MILLIMETERS LARGER).
== END ==
LOC: RADCTMAIN 06:33
PROVIDERS: ATTEND Family Medicine
DX: J44.9 Chronic obstructive pulmonary disease, unspecified (principal); J84.10 Pulmonary fibrosis, unspecified; I71.2 Thoracic aortic aneurysm, without rupture
CPT/HCPCS: 71250

== ENCOUNTER 2018-11-24 07:22 | Day surgery (SDC) | payer MEDICARE, OTHER ==
[2018-11-24 08:27] VITALS: TEMP 97.6
[2018-11-24 08:29] LABS: Mean Platelet Volume 7.9; Platelet Count 383 k/uL (150-450)
[2018-11-24 08:41] LABS: INR 1.2 (<1.2); Prothrombin Time 12.6 sec (9.0-12.0)
--- NOTE | 2018-11-24 10:07 | XR ---
EXAMINATION TYPE: XR chest 1V portable DATE OF EXAM: 11/24/2018 COMPARISON: Prior chest x-ray dated 02/23/2017 HISTORY: Pneumothorax status post right lung biopsy TECHNIQUE: Single frontal view of the chest is obtained. FINDINGS: Interstitial changes, patient's right lung masses, postprocedural changes within the desce nding aorta are all again noted. No sizable pneumothorax is evident. IMPRESSION: No sizable pneumothorax status post right lung biopsy.
--- NOTE | 2018-11-24 10:09 | CT ---
EXAMINATION TYPE: CT biopsy lung RT DATE OF EXAM: 11/24/2018 HISTORY: Lung mass right lung COMPARISON: CT 10/19/2018 Maximal barrier technique was utilized. The skin overlying a suitable path to the lesion was localiz ed using CT and the overlying skin was prepped and draped. Lidocaine used for local anesthesia. A s kin gissel made with a scalpel. Using CT guidance, access was gained to the lesion with a 17-gauge clara de and coaxially placed 22-gauge needle. Aspirated specimen submitted to cytology. Pneumothorax was noted. Pneumothorax was aspirated through the guide needle. Core biopsy then obtained with an 18-gaug e needle coaxially. 2 passes were performed in all. Following the procedure no immediate complicatio ns. The patient is discharged in stable condition. Hemostasis achieved. IMPRESSION: SUCCESSFUL CT GUIDED CORE BIOPSY right lung mass, fine-needle aspiration also performed. PATHOLOGY P ENDING. THIS PROCEDURE WAS PERFORMED BY THE UNDERSIGNED.
[2018-11-24 10:46] VITALS: RESP 18
--- NOTE | 2018-11-24 12:14 | XR ---
EXAMINATION TYPE: XR chest 1V portable DATE OF EXAM: 11/24/2018 COMPARISON: 11/24/2018 HISTORY: Follow-up pneumothorax TECHNIQUE: Single frontal view of the chest is obtained. FINDINGS: There is a small approximately 5-10% right-sided apical pneumothorax. Left apical pleural thickening seen in areas of masslike consolidation involving the right lung are stable. Chronic inter stitial lung disease and COPD suspected. Heart is enlarged and is atherosclerotic change aorta and pr evious surgery of the aorta. IMPRESSION: There is an approximate 5-10% right apical pneumothorax.
--- NOTE | 2018-11-24 14:09 | XR ---
EXAMINATION TYPE: XR chest 1V portable DATE OF EXAM: 11/24/2018 COMPARISON: 11/24/2018 HISTORY: Post lung biopsy TECHNIQUE: Single frontal view of the chest is obtained. FINDINGS: Lucency along the medial margin the right lung. Findings right likely represent a stable r ight-sided pneumothorax. Findings suggestive of chronic interstitial lung disease, COPD bibasilar con solidation and masslike areas in the right lung are stable. Postsurgical changes noted. IMPRESSION: Stable right-sided pneumothorax.
[2018-11-24 14:20] VITALS: BP 105/52; PULSE 68
== END 2018-11-24 15:15 | disposition home or self-care (01) ==
LOC: RADPROMAIN 07:22 → 1SOBS 09:00 → RADPROMAIN 15:15
PROVIDERS: ATTEND Internal Medicine Hematology & Oncology
DX: C34.91 Malignant neoplasm of unspecified part of right bronchus or lung (principal); C67.9 Malignant neoplasm of bladder, unspecified; J93.9 Pneumothorax, unspecified; I25.2 Old myocardial infarction; E78.5 Hyperlipidemia, unspecified; Z85.51 Personal history of malignant neoplasm of bladder; Z87.891 Personal history of nicotine dependence; Z86.73 Personal history of transient ischemic attack (TIA), and cerebral infarction without residual deficits; Z95.5 Presence of coronary angioplasty implant and graft; Z88.5 Allergy status to narcotic agent; Z91.048 Other nonmedicinal substance allergy status; Z79.01 Long term (current) use of anticoagulants; Z79.02 Long term (current) use of antithrombotics/antiplatelets; Z79.82 Long term (current) use of aspirin; Z79.890 Hormone replacement therapy; Z79.899 Other long term (current) drug therapy
CPT/HCPCS: 10009; 10010; 36415; 71045; 77012; 85049; 85610; 88173; 88305; 88341; 88342

== ENCOUNTER → 2018-11-25 | Outpatient (CLI) | payer MEDICARE, OTHER ==
--- NOTE | 2018-11-25 11:37 | XR ---
EXAMINATION TYPE: XR chest 2V DATE OF EXAM: 11/25/2018 COMPARISON: Chest x-ray from yesterday. CT chest October 19, 2018. HISTORY: Pneumothorax. TECHNIQUE: Frontal and lateral views of the chest are obtained. FINDINGS: Some right-sided volume loss with mediastinal shift remains present. There are reticular in terstitial changes bilaterally felt to reflect chronic parenchymal fibrosis. Right hilar mass like op acity corresponding to superior lower lobe spiculated nodule is redemonstrated. No pleural effusion o r pneumothorax is seen. No new suspicious focal airspace opacity. The cardiac silhouette size is stab le and upper limits of normal with atherosclerotic and ectatic thoracic aorta. Metallic stent graft i n the thoracoabdominal aorta is redemonstrated with anterior course again seen. The osseous structu res are intact. IMPRESSION: Chronic parenchymal fibrosis without new acute infiltrate or obvious pneumothorax on cur rent study. I do not see pneumothorax on prior study either. Patient has chronic cystic change or ble bs medially right upper lobe unchanged from 2012 CT.
== END ==
LOC: RADXRMAIN 11:11
PROVIDERS: ATTEND Radiology Diagnostic Radiology
DX: J84.10 Pulmonary fibrosis, unspecified (principal)
CPT/HCPCS: 71046

== ENCOUNTER 2018-12-29 19:07 | Emergency (ER) | payer MEDICARE, OTHER ==
[2018-12-29 19:20] VITALS: RESP 18
[2018-12-29] MEDS ORDERED: SODIUM CHLORIDE 0.9% 1,000 ML IV ONE (19:22)
--- NOTE | 2018-12-29 20:19 | ED ---
General Adult HPI - General Chief complaint: Nausea/Vomiting/Diarrhea Stated complaint: Nausea, vomiting Time Seen by Provider: 12/29/18 19:10 Source: patient, family Mode of arrival: EMS Limitations: no limitations - History of Present Illness Initial comments: Is a 78-year-old male who presents emergent department for generalized fatigue, malaise, nausea and decreased appetite. He states that the symptoms been going on for last couple of days. He states that he has not wanted to eat anything for the last couple of days and has not. He states he's had decreased urination as well. He states that he has not had any bowel movements for the last couple of days as well. No diarrhea. No fevers or chills. No chest pain or shortness of breath. He states that he was vomiting quite a bit at home just prior to calling an ambulance. In EMS he was given Zofran. He states that his nausea and vomiting have now since improved however he still feels generally weak. He denies any other acute complaints. - Related Data Home Medications Medication Instructions Recorded Confirmed Aspirin 81 mg PO DAILY 10/20/14 12/29/18 Gabapentin [Neurontin] 800 mg PO TID 10/20/14 12/29/18 Liothyronine Sodium [Cytomel] 5 mcg PO DAILY 10/20/14 12/29/18 Acetaminophen Tab [Tylenol] 1,000 mg PO Q6HR PRN 01/11/17 12/29/18 Levothyroxine Sodium [Synthroid] 112 mcg PO DAILY 01/11/17 12/29/18 Metoprolol Succinate (ER) [Toprol 25 mg PO DAILY 01/11/17 12/29/18 XL] Warfarin [Coumadin] 2.5 mg PO SUTUTHSA 01/11/17 12/29/18 Warfarin [Coumadin] 5 mg PO MOWEFR 01/11/17 12/29/18 traMADol HCL [Ultram] 50 mg PO BID PRN 01/11/17 12/29/18 Rosuvastatin Calcium [Crestor] 40 mg PO DAILY 02/22/17 12/29/18 Previous Rx's Medication Instructions Recorded Isosorbide Mononitrate ER [Imdur] 30 mg PO DAILY #90 tab.er.24h 10/23/14 Nitroglycerin Sl Tabs [Nitrostat] 0.4 mg SUBLINGUAL Q5M PRN #25 tab 03/31/18 Clopidogrel [Plavix] 75 mg PO DAILY #90 tab 05/04/18 Cephalexin [Keflex] 500 mg PO Q8HR #21 cap 12/29/18 Ondansetron Odt [Zofran Odt] 4 mg PO Q8HR PRN #12 tab 12/29/18 Allergies Allergy/AdvReac Type Severity Reaction Status Date / Time morphine Allergy Severe Nausea & Verified 12/29/18 19:20 Vomiting Iodinated Contrast- Oral and Allergy Unknown Verified 12/29/18 19:20 IV Dye [Iodinated Contrast Media - Oral and] Review of Systems ROS Statement: Those systems with pertinent positive or pertinent negative responses have been documented in the HPI. ROS Other: All systems not noted in ROS Statement are negative. Past Medical History Past Medical History: Coronary Artery Disease (CAD), Cancer, Hearing Disorder / Deafness, Hyperlipidemia, Hypertension, Myocardial Infarction ([place]), Thyroid Disorder Additional Past Medical History / Comment(s): "aaa-repaired", vertigo AND HEARING LOSS SINCE [place] -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 LT KNEE HAD BONE CHIPS REMOVED,, 10-20-14 HEART CATH w/angioplasty but was unable to place stent, recent bladder polyp removed; indwelling catheter was removed 01-11-17. 3 STENTS RCA 05/03/18, biopsy lung-bronch Past Anesthesia/Blood Transfusion Reactions: No Reported Reaction Past Psychological History: No Psychological Hx Reported Smoking Status: Former smoker Past Alcohol Use History: None Reported Past Drug Use History: None Reported - Past Family History Mother Additional Family Medical History / Comment(s): brain tumor Father Family Medical History: Unable to Obtain General Exam - General Exam Comments Initial Comments: Constitutional: Awake alert Appears comfortable Head: Normocephalic atraumatic Eyes: no conjunctival injection No scleral icterus EOMI [place] [facility]: Oral mucosa is tacky Neck: No JVD Supple Heart: Regular rate rhythm normal S1-S2 no murmurs Lungs: Clear to auscultation bilaterally No wheezing No rales Abdomen: Soft nondistended nontender Extremities: Non edematous DP pulses intact Radial pulses intact Neuro: A&Ox3 No focal neurologic deficits Psych: Appropriate mood and affect Limitations: no limitations Course Vital Signs 12/29/18 12/29/18 19:12 21:46 Temperature 97.0 F L 97.7 F Pulse Rate 74 68 Respiratory 18 18 Rate Blood Pressure 163/75 141/75 O2 Sat by Pulse 98 98 Oximetry EKG Findings - EKG Comments: EKG Findings:: EKG is showing normal sinus rhythm with a rate of 70. There is no abnormal ST segment changes or T-wave inversions. QTC is 438. Other intervals normal. No ectopy. Medical Decision Making - Medical Decision Making This is a 78-year-old male who presents to the emergency department for nausea and vomiting and generalized malaise. Patient was given Zofran by EMS in route and had great resolution of his symptoms. The patient was given IV fluids emergency department and blood work was checked. The patient's chronic kidney disease unchanged and otherwise his electrolytes and blood counts were unr emarkable. UA did show 12 WBCs and the patient was given Keflex for this for home. He was also given another dose of Zofran and his home dose of tramadol. I spoke with the patient at length about staying in the hospital versus going home and he stated that he would like to go home because he is more comfortable there. I told that I would send him home with Keflex to take and also Zofran and that he needed to return to the emergency department promptly if he was having any nausea or vomiting that did not improve with the medications. He states that he understood and agreed. The was present at bedside and understood as well and all questions were answered. - Lab Data Result diagrams: 12/29/18 20:10 12/29/18 20:10 Lab Results 12/29/18 12/29/18 12/29/18 Range/Units 20:10 20:10 20:10 WBC 9.3 (3.8-10.6) k/uL RBC 4.53 (4.30-5.90) m/uL Hgb 12.1 L (13.0-17.5) gm/dL Hct 39.0 (39.0-53.0) % MCV 86.1 (80.0-100.0) fL MCH 26.8 (25.0-35.0) pg MCHC 31.1 (31.0-37.0) g/dL RDW 14.7 (11.5-15.5) % Plt Count 355 (150-450) k/uL Neutrophils % 84 % Lymphocytes % 9 % Monocytes % 5 % Eosinophils % 0 % Basophils % 1 % Neutrophils # 7.9 H (1.3-7.7) k/uL Lymphocytes # 0.9 L (1.0-4.8) k/uL Monocytes # 0.4 (0-1.0) k/uL Eosinophils # 0.0 (0-0.7) k/uL Basophils # 0.0 (0-0.2) k/uL Hypochromasia Slight Sodium 145 (137-145) mmol/L Potassium 4.7 (3.5-5.1) mmol/L Chloride 109 H (98-107) mmol/L Carbon Dioxide 23 (22-30) mmol/L Anion Gap 13 mmol/L BUN 25 H (9-20) mg/dL Creatinine 1.65 H (0.66-1.25) mg/dL Est GFR (CKD-EPI)AfAm 46 (>60 ml/min/1.73 sqM) Est GFR (CKD-EPI)NonAf 40 (>60 ml/min/1.73 sqM) Glucose 118 H (74-99) mg/dL Calcium 10.1 (8.4-10.2) mg/dL Magnesium 2.2 (1.6-2.3) mg/dL Total Bilirubin 0.9 (0.2-1.3) mg/dL AST 19 (17-59) U/L ALT 17 L (21-72) U/L Alkaline Phosphatase 104 (38-126) U/L Troponin I <0.012 (0.000-0.034) ng/mL Total Protein 8.0 (6.3-8.2) g/dL Albumin 4.5 (3.5-5.0) g/dL Lipase 45 (23-300) U/L Urine Color Urine Appearance (Clear) Urine pH (5.0-8.0) Ur Specific [place] (1.001-1.035) Urine Protein (Negative) Urine Glucose (UA) (Negative) Urine Ketones (Negative) Urine Blood (Negative) Urine Nitrite (Negative) Urine Bilirubin (Negative) Urine Urobilinogen (<2.0) mg/dL Ur Leukocyte Esterase (Negative) Urine RBC (0-5) /hpf Urine WBC (0-5) /hpf Urine Bacteria (None) /hpf Hyaline Casts (0-2) /lpf Urine Mucus (None) /hpf 12/29/18 Range/Units 20:22 WBC (3.8-10.6) k/uL RBC (4.30-5.90) m/uL Hgb (13.0-17.5) gm/dL Hct (39.0-53.0) % MCV (80.0-100.0) fL MCH (25.0-35.0) pg MCHC (31.0-37.0) g/dL RDW (11.5-15.5) % Plt Count (150-450) k/uL Neutrophils % % Lymphocytes % % Monocytes % % Eosinophils % % Basophils % % Neutrophils # (1.3-7.7) k/uL Lymphocytes # (1.0-4.8) k/uL Monocytes # (0-1.0) k/uL Eosinophils # (0-0.7) k/uL Basophils # (0-0.2) k/uL Hypochromasia Sodium (137-145) mmol/L Potassium (3.5-5.1) mmol/L Chloride (98-107) mmol/L Carbon Dioxide (22-30) mmol/L Anion Gap mmol/L BUN (9-20) mg/dL Creatinine (0.66-1.25) mg/dL Est GFR (CKD-EPI)AfAm (>60 ml/min/1.73 sqM) Est GFR (CKD-EPI)NonAf (>60 ml/min/1.73 sqM) Glucose (74-99) mg/dL Calcium (8.4-10.2) mg/dL Magnesium (1.6-2.3) mg/dL Total Bilirubin (0.2-1.3) mg/dL AST (17-59) U/L ALT (21-72) U/L Alkaline Phosphatase (38-126) U/L Troponin I (0.000-0.034) ng/mL Total Protein (6.3-8.2) g/dL Albumin (3.5-5.0) g/dL Lipase (23-300) U/L Urine Color Yellow Urine Appearance Clear (Clear) Urine pH 6.0 (5.0-8.0) Ur Specific [place] 1.015 (1.001-1.035) Urine Protein Trace H (Negative) Urine Glucose (UA) Negative (Negative) Urine Ketones 1+ H (Negative) Urine Blood Negative (Negative) Urine Nitrite Negative (Negative) Urine Bilirubin Negative (Negative) Urine Urobilinogen <2.0 (<2.0) mg/dL Ur Leukocyte Esterase Small H (Negative) Urine RBC 1 (0-5) /hpf Urine WBC 12 H (0-5) /hpf Urine Bacteria Rare H (None) /hpf Hyaline Casts 3 H (0-2) /lpf Urine Mucus Rare H (None) /hpf Disposition Clinical Impression: Nausea & vomiting Disposition: HOME SELF-CARE Condition: Stable Instructions (If sedation given, give patient instructions): Acute Nausea and Vomiting (ED) Prescriptions: Cephalexin [Keflex] 500 mg PO Q8HR #21 cap Ondansetron Odt [Zofran Odt] 4 mg PO Q8HR PRN #12 tab PRN Reason: Nausea Is patient prescribed a controlled substance at d/c from ED?: No Referrals: Thania Barney DO [Primary Care Provider] - 1-2 days
--- NOTE | 2018-12-29 20:20 | XR ---
EXAMINATION TYPE: XR abdomen acute w cxr DATE OF EXAM: 12/29/2018 COMPARISON: NONE HISTORY: Nausea and vomiting TECHNIQUE: Chest x-ray with supine and upright abdomen. FINDINGS: There is general coarsening interstitial density throughout the lungs. Heart appears slightly enlarge d. There is upper abdominal aorta and lower thoracic aortic stent. There is no gross heart failure. T horacic aorta is atheromatous. There is no sign of intestinal obstruction or pneumoperitoneum. Fecal pattern is normal. I see no pat hologic calcifications over the kidneys. There are some rounded calcifications over the right mid abd omen that apparently are in the omentum and unchanged compared to CT scan of 11/25/2016. IMPRESSION: Nonacute abdomen. Advanced pulmonary fibrosis. Atheromatous aorta.
[2018-12-29 20:32] LABS: Basophils % (A) 1 %; Eosinophils % (A) 0 %; HGB 12.1 gm/dL (13.0-17.5); Hypochromasia Slight; Lymphocytes # (A) 0.9 k/uL (1.0-4.8); Lymphocytes % (A) 9 %; MCH 26.8 pg (25.0-35.0); MCHC 31.1 g/dL (31.0-37.0); MCV 86.1 fL (80.0-100.0); Mean Platelet Volume 7.5; Monocytes # (A) 0.4 k/uL (0-1.0); Monocytes % (A) 5 %; Neutrophils # (A) 7.9 k/uL (1.3-7.7); Neutrophils % (A) 84 %; Platelet Count 355 k/uL (150-450); RBC 4.53 m/uL (4.30-5.90); RDW 14.7 % (11.5-15.5); WBC 9.3 k/uL (3.8-10.6)
[2018-12-29 20:34] LABS: Appearance,Urine Clear (Clear); Bacteria,Urine Rare /hpf; Bilirubin,Urine Negative (Negative); Blood,Urine Negative (Negative); Color,Urine Yellow; Glucose,Urine (UA) Negative (Negative); Hyaline Casts,Urine 3 /lpf (0-2); Ketones,Urine 1+ (Negative); Leukocyte Esterase,Urine Small (Negative); Mucus,Urine Rare /hpf; Nitrite,Urine Negative (Negative); Protein,Urine Trace (Negative); RBC,Urine 1 /hpf (0-5); Specific Gravity,Urine 1.015 (1.001-1.035); Urobilinogen,Urine <2.0 mg/dL (<2.0); WBC,Urine 12 /hpf (0-5)
[2018-12-29 20:36] LABS: Albumin 4.5 g/dL (3.5-5.0); Calcium 10.1 mg/dL (8.4-10.2); Magnesium 2.2 mg/dL (1.6-2.3); Potassium 4.7 mmol/L (3.5-5.1); Total Bilirubin 0.9 mg/dL (0.2-1.3)
[2018-12-29] MEDS ORDERED: ONDANSETRON ODT 4 MG TAB PO STA (21:35)
[2018-12-29] MEDS ORDERED: traMADol 50 MG TAB PO STA (21:35)
[2018-12-29] MEDS ORDERED: CEPHALEXIN 500 MG CAP PO STA (21:35)
[2018-12-29 21:53] VITALS: BP 141/75; PULSE 68; TEMP 97.7
== END 2018-12-29 22:50 | disposition home or self-care (01) ==
LOC: EC 19:07
DX: R11.2 Nausea with vomiting, unspecified (principal); R53.83 Other fatigue; R53.81 Other malaise; I25.10 Atherosclerotic heart disease of native coronary artery without angina pectoris; E78.5 Hyperlipidemia, unspecified; H91.90 Unspecified hearing loss, unspecified ear; I10 Essential (primary) hypertension; I25.2 Old myocardial infarction; E07.9 Disorder of thyroid, unspecified; Z85.51 Personal history of malignant neoplasm of bladder; Z85.118 Personal history of other malignant neoplasm of bronchus and lung; Z87.891 Personal history of nicotine dependence; Z79.01 Long term (current) use of anticoagulants; Z79.890 Hormone replacement therapy; Z79.82 Long term (current) use of aspirin; Z79.899 Other long term (current) drug therapy; Z88.5 Allergy status to narcotic agent; Z91.041 Radiographic dye allergy status; Z95.818 Presence of other cardiac implants and grafts
CPT/HCPCS: 36415; 74022; 80053; 81001; 83690; 83735; 84484; 85025; 93005; 96360; 99285

== ENCOUNTER 2019-01-11 09:40 | Observation (INO) | payer MEDICARE, OTHER ==
[2019-01-11] MEDS ORDERED: ONDANSETRON 4 MG/2 ML VIAL IVP STA (10:05)
[2019-01-11] MEDS ORDERED: SODIUM CHLORIDE 0.9% 1,000 ML IV STA ×2 (10:05)
--- NOTE | 2019-01-11 10:09 | ED ---
Weakness HPI - General Chief complaint: Weakness Stated complaint: weakness Time Seen by Provider: 01/11/19 09:53 Source: patient, family, RN notes reviewed, old records reviewed Mode of arrival: ambulatory Limitations: no limitations - History of Present Illness Initial comments: Patient is a 79-year-old male presents emergency department today for complaints of generalized weakness, nausea and diarrhea for the past 2 weeks. Patient states he feels dehydrated and exhausted. He states that he's had no bloody stools. He was here in the hospital and offered admission one week ago for similar complaints but was discharged home with an oral prescription for Keflex for a mild urinary tract infection. Patient states she has not been taking the antibiotic. He also reports that he has been diagnosed with lung cancer, has had recent biopsies. Patient states he's had a productive cough for the past 6 months. He reports he is supposed to follow-up with Dr. Duff next week in regards to his biopsy results to determine the treatment plan for his cancer. Patient has had chills, but no significant fever. He reports his generalized cramping abdominal pain. - Related Data Home Medications Medication Instructions Recorded Confirmed Aspirin 81 mg PO DAILY 10/20/14 01/11/19 Gabapentin [Neurontin] 800 mg PO TID 10/20/14 01/11/19 Liothyronine Sodium [Cytomel] 5 mcg PO DAILY 10/20/14 01/11/19 Acetaminophen Tab [Tylenol] 1,000 mg PO Q6HR PRN 01/11/17 01/11/19 Levothyroxine Sodium [Synthroid] 112 mcg PO DAILY 01/11/17 01/11/19 Metoprolol Succinate (ER) [Toprol 25 mg PO DAILY 01/11/17 01/11/19 XL] Warfarin [Coumadin] 2.5 mg PO SUTUTHSA 01/11/17 01/11/19 Warfarin [Coumadin] 5 mg PO MOWEFR 01/11/17 01/11/19 traMADol HCL [Ultram] 50 mg PO BID PRN 01/11/17 01/11/19 Rosuvastatin Calcium [Crestor] 40 mg PO DAILY 02/22/17 01/11/19 Previous Rx's Medication Instructions Recorded Isosorbide Mononitrate ER [Imdur] 30 mg PO DAILY #90 tab.er.24h 10/23/14 Nitroglycerin Sl Tabs [Nitrostat] 0.4 mg SUBLINGUAL Q5M PRN #25 tab 03/31/18 Clopidogrel [Plavix] 75 mg PO DAILY #90 tab 05/04/18 Cephalexin [Keflex] 500 mg PO Q8HR #21 cap 12/29/18 Ondansetron Odt [Zofran Odt] 4 mg PO Q8HR PRN #12 tab 12/29/18 Allergies Allergy/AdvReac Type Severity Reaction Status Date / Time Iodinated Contrast- Oral and Allergy Unknown Verified 01/11/19 09:53 IV Dye [Iodinated Contrast Media - Oral and] morphine AdvReac Severe Nausea & Verified 01/11/19 09:56 Vomiting Review of Systems ROS Statement: Those systems with pertinent positive or pertinent negative responses have been documented in the HPI. ROS Other: All systems not noted in ROS Statement are negative. Past Medical History Past Medical History: Coronary Artery Disease (CAD), Cancer, Hearing Disorder / Deafness, Hyperlipidemia, Hypertension, Myocardial Infarction ([place]), Thyroid Disorder Additional Past Medical History / Comment(s): "aaa-repaired", vertigo AND HEARING LOSS SINCE [place] -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 LT KNEE HAD BONE CHIPS REMOVED,, 10-20-14 HEART CATH w/angioplasty but was unable to place stent, recent bladder polyp removed; indwelling catheter was removed 01-11-17. 3 STENTS RCA 05/03/18, biopsy lung-bronch Past Anesthesia/Blood Transfusion Reactions: No Reported Reaction Past Psychological History: No Psychological Hx Reported Smoking Status: Former smoker Past Alcohol Use History: None Reported Past Drug Use History: None Reported - Past Family History Mother Additional Family Medical History / Comment(s): brain tumor Father Family Medical History: Unable to Obtain General Exam - General Exam Comments Initial Comments: 79-year-old male. oriented 3. No distress. Patient appears generally weak, lethargic. Limitations: no limitations General appearance: alert, in no apparent distress Head exam: Present: atraumatic, normocephalic, normal inspection Eye exam: Present: normal appearance, PERRL, EOMI. Absent: scleral icterus, conjunctival injection, periorbital swelling ENT exam: Present: mucous membranes dry. Absent: normal exam, normal oropharynx Neck exam: Present: normal inspection. Absent: tenderness, meningismus, lymphadenopathy Respiratory exam: Present: normal lung sounds bilaterally. Absent: respiratory distress, wheezes, rales, rhonchi, stridor Cardiovascular Exam: Present: regular rate, normal rhythm, normal heart sounds. Absent: systolic murmur, diastolic murmur, rubs, gallop, clicks GI/Abdominal exam: Present: soft, tenderness (Diffuse abdominal tenderness, no epigastric tenderness.). Absent: distended, guarding, rebound, rigid, normal bowel sounds Extremities exam: Present: normal inspection, full ROM, normal capillary refill. Absent: tenderness, pedal edema, joint swelling, calf tenderness Back exam: Present: normal inspection Neurological exam: Present: alert, oriented X3, CN II-XII intact Psychiatric exam: Present: normal affect, normal mood Skin exam: Present: warm, dry, intact, normal color, urticaria (Patient also has urticaria-like rash over her arms legs and ankles.). Absent: rash Course Vital Signs 01/11/19 01/11/19 01/11/19 09:43 10:57 11:00 Temperature 97.4 F L Pulse Rate 112 H 80 74 Respiratory 22 15 19 Rate Blood Pressure 119/72 118/56 O2 Sat by Pulse 97 98 97 Oximetry 01/11/19 12:00 Temperature Pulse Rate 80 Respiratory 16 Rate Blood Pressure 107/78 O2 Sat by Pulse 98 Oximetry EKG Findings - EKG Comments: EKG Findings:: EKG shows normal sinus rhythm. Infarct age undetermined. Abnormal EKG. Ventricular rate of 81 bpm. SC interval is 152 ms. QRS duration 84 ms. QTQTC 3-4/446 ms. Medical Decision Making - Medical Decision Making This is a 79-year-old male presenting to emergency department today for evaluation complaints of generalized weakness, nausea vomiting. Patient has had multiple episodes of diarrhea. He was seen in emergency room one week ago, and was supposed to be started on Keflex for a minor urinary tract infection. Patient reports taking a couple doses of antibiotic. Is also noted the Patient has some small areas of urticaria over her arms and legs. On known cause of ALLERGIC reaction but could've been related to Keflex dosed earlier this week. Patient arrived today to place continued generalized weakness fatigue and bodyaches He did have diarrhea this morning prior to arrival. Patient has a diffuse abdominal tenderness. Blood work was completed. Patient has evidence of acute any injury due to dehydration elevated BUN and creatinine of 2.26. Patient was given [address] abdomen and pelvis was completed and shows evidence of pulmonary masses, Patient is aware of this. There is some evidence of infiltrate or consolidation. No evidence of obstruction or diverticulitis. There is also noted to 6 mm distal ureteral stone that is nonobstructing. His white blood cell count was within normal limits. Patient's continued to feel weak and dehydrated despite 2 L of fluids and still has not produced urine sample. Patient admitted this time with due to generalized weakness dehydration acute kidney injury. - Lab Data Result diagrams: 01/11/19 10:29 01/11/19 10:29 Lab Results 01/11/19 01/11/19 01/11/19 Range/Units 10:29 10:29 10:29 WBC 10.6 (3.8-10.6) k/uL RBC 5.07 (4.30-5.90) m/uL Hgb 13.5 (13.0-17.5) gm/dL Hct 42.6 (39.0-53.0) % MCV 84.0 (80.0-100.0) fL MCH 26.6 (25.0-35.0) pg MCHC 31.6 (31.0-37.0) g/dL RDW 14.6 (11.5-15.5) % Plt Count 346 (150-450) k/uL Neutrophils % 89 % Lymphocytes % 7 % Monocytes % 3 % Eosinophils % 0 % Basophils % 0 % Neutrophils # 9.4 H (1.3-7.7) k/uL Lymphocytes # 0.8 L (1.0-4.8) k/uL Monocytes # 0.3 (0-1.0) k/uL Eosinophils # 0.0 (0-0.7) k/uL Basophils # 0.0 (0-0.2) k/uL Hypochromasia Slight PT (9.0-12.0) sec INR (<1.2) APTT (22.0-30.0) sec Sodium 142 (137-145) mmol/L Potassium 4.3 (3.5-5.1) mmol/L Chloride 105 (98-107) mmol/L Carbon Dioxide 22 (22-30) mmol/L Anion Gap 15 mmol/L BUN 33 H (9-20) mg/dL Creatinine 2.26 H (0.66-1.25) mg/dL Est GFR (CKD-EPI)AfAm 31 (>60 ml/min/1.73 sqM) Est GFR (CKD-EPI)NonAf 27 (>60 ml/min/1.73 sqM) Glucose 141 H (74-99) mg/dL Plasma Lactic Acid Evans 2.0 (0.7-2.0) mmol/L Calcium 9.6 (8.4-10.2) mg/dL Phosphorus 3.6 (2.5-4.5) mg/dL Magnesium 2.4 H (1.6-2.3) mg/dL Total Bilirubin 1.0 (0.2-1.3) mg/dL AST 35 (17-59) U/L ALT 28 (21-72) U/L Alkaline Phosphatase 108 (38-126) U/L Troponin I (0.000-0.034) ng/mL Total Protein 7.7 (6.3-8.2) g/dL Albumin 4.2 (3.5-5.0) g/dL 01/11/19 01/11/19 Range/Units 10:29 10:29 WBC (3.8-10.6) k/uL RBC (4.30-5.90) m/uL Hgb (13.0-17.5) gm/dL Hct (39.0-53.0) % MCV (80.0-100.0) fL MCH (25.0-35.0) pg MCHC (31.0-37.0) g/dL RDW (11.5-15.5) % Plt Count (150-450) k/uL Neutrophils % % Lymphocytes % % Monocytes % % Eosinophils % % Basophils % % Neutrophils # (1.3-7.7) k/uL Lymphocytes # (1.0-4.8) k/uL Monocytes # (0-1.0) k/uL Eosinophils # (0-0.7) k/uL Basophils # (0-0.2) k/uL Hypochromasia PT 12.0 (9.0-12.0) sec INR 1.2 H (<1.2) APTT 24.9 (22.0-30.0) sec Sodium (137-145) mmol/L Potassium (3.5-5.1) mmol/L Chloride (98-107) mmol/L Carbon Dioxide (22-30) mmol/L Anion Gap mmol/L BUN (9-20) mg/dL Creatinine (0.66-1.25) mg/dL Est GFR (CKD-EPI)AfAm (>60 ml/min/1.73 sqM) Est GFR (CKD-EPI)NonAf (>60 ml/min/1.73 sqM) Glucose (74-99) mg/dL Plasma Lactic Acid Evans (0.7-2.0) mmol/L Calcium (8.4-10.2) mg/dL Phosphorus (2.5-4.5) mg/dL Magnesium (1.6-2.3) mg/dL Total Bilirubin (0.2-1.3) mg/dL AST (17-59) U/L ALT (21-72) U/L Alkaline Phosphatase (38-126) U/L Troponin I <0.012 (0.000-0.034) ng/mL Total Protein (6.3-8.2) g/dL Albumin (3.5-5.0) g/dL - Radiology Data Radiology results: report reviewed CT shows pulmonary fibrosis with pulmonary masses in area of his of consolidation or infiltrate. Aortic stents noted secondary to aortic aneurysm. Nonspecific bowel gas pattern with no evidence of obstruction. There is a nonob structing distal right ureteral calculus measuring 6 mm. Findings compatible with patient's history of lung carcinoma post procedural changes. Interstitial lung disease noted. Disposition Clinical Impression: Dehydration, KAPIL (acute kidney injury), Nausea, Diarrhea, Pulmonary mass, Acute urticaria Disposition: HOME SELF-CARE Condition: Good Is patient prescribed a controlled substance at d/c from ED?: No Referrals: Thania Barney DO [Primary Care Provider] - 1-2 days Time of Disposition: 12:50
[2019-01-11 10:51] LABS: Basophils % (A) 0 %; Eosinophils % (A) 0 %; HCT 42.6 % (39.0-53.0); HGB 13.5 gm/dL (13.0-17.5); Hypochromasia Slight; Lymphocytes # (A) 0.8 k/uL (1.0-4.8); Lymphocytes % (A) 7 %; MCH 26.6 pg (25.0-35.0); MCHC 31.6 g/dL (31.0-37.0); Mean Platelet Volume 7.7; Monocytes # (A) 0.3 k/uL (0-1.0); Monocytes % (A) 3 %; Neutrophils # (A) 9.4 k/uL (1.3-7.7); Neutrophils % (A) 89 %; Platelet Count 346 k/uL (150-450); RBC 5.07 m/uL (4.30-5.90); RDW 14.6 % (11.5-15.5); WBC 10.6 k/uL (3.8-10.6)
[2019-01-11 11:01] LABS: INR 1.2 (<1.2); Partial Thromboplastin Time 24.9 sec (22.0-30.0)
[2019-01-11 11:03] LABS: Albumin 4.2 g/dL (3.5-5.0); Calcium 9.6 mg/dL (8.4-10.2); Magnesium 2.4 mg/dL (1.6-2.3); Phosphorus 3.6 mg/dL (2.5-4.5); Potassium 4.3 mmol/L (3.5-5.1); Total Protein 7.7 g/dL (6.3-8.2)
--- NOTE | 2019-01-11 11:11 | XR ---
EXAMINATION TYPE: XR chest 2V DATE OF EXAM: 01/11/2019 COMPARISON: Prior chest x-ray 12/29/2018, 11/25/2018 HISTORY: Weakness, diarrhea, lung carcinoma TECHNIQUE: Frontal and lateral views of the chest are obtained. FINDINGS: Aortic stent graft shows a tortuous course in the descending aorta. Aorta is dense and ane urysmal. Interstitial changes are again noted. Patient's right lower lobe lung mass is again seen. N o evident pneumothorax. Apical pleural thickening greater on the left. Patient is rotated. IMPRESSION: Findings compatible with patient's history of lung carcinoma, post procedural changes. I nterstitial lung disease.
[2019-01-11] MEDS ORDERED: methylPREDNISolone SOD SUCCI 125 MG/2 ML VIAL IV STA (11:30)
[2019-01-11] MEDS ORDERED: SODIUM CHLORIDE 0.9% 1,000 ML IV ONE (11:43)
--- NOTE | 2019-01-11 12:35 | CT ---
EXAMINATION TYPE: CT abdomen pelvis wo con DATE OF EXAM: 01/11/2019 COMPARISON: None HISTORY: Weakness CT DLP: 682.7 mGycm Automated exposure control for dose reduction was used. TECHNIQUE: Helical acquisition of images was performed from the lung bases through the pelvis. FINDINGS: LUNG BASES: There is coronary artery calcification and mass involving the right lower lobe. Pleural-b ased mass anterior segment of the right lower lobe also noted. Areas of infiltrate are seen at both l george bases. Additional paraspinal nodule on image 11 not excluded. Findings of pulmonary fibrosis are noted. There is an aortic stent. Dense coronary artery calcification and cardiomegaly noted. LIVER/GB: No significant abnormality is appreciated. PANCREAS: No significant abnormality is seen. SPLEEN: No significant abnormality is seen. ADRENALS: No significant abnormality is seen. KIDNEYS: There is a 6 mm distal right ureteral calculus but no evidence of hydronephrosis. ADENOPATHY: None visualized. OSSEOUS STRUCTURES: Arthropathy of the hips. There is multilevel facet arthropathy. Multilevel degen erative disc disease with grade 1 anterolisthesis L4 and L5. Suspect multilevel disc bulging and kathleen l stenosis with most marked findings at L3-4 and L4-5.. BOWEL: No significant abnormality is seen. OTHER: No free fluid or free air. IMPRESSION: 1 pulmonary fibrosis with pulmonary masses and areas of consolidation or infiltrate. 2. Aortic stents noted secondary to aortic aneurysm. 3. Nonspecific bowel gas pattern with no diagnostic evidence of obstruction. #4 nonobstructing distal right ureteral calculus measuring 6 mm.
[2019-01-11] MEDS ORDERED: MORPHINE SULFATE 4 MG/ML SYRINGE IV PRN (12:50)
[2019-01-11] MEDS ORDERED: IBUPROFEN 400 MG TAB PO PRN (12:50)
[2019-01-11] MEDS ORDERED: Acetaminophen-Codeine 300-30mg TAB PO PRN (12:50)
[2019-01-11] MEDS ORDERED: NALOXONE 0.4 MG/ML 1 ML VIAL IV PRN (12:50)
[2019-01-11] MEDS ORDERED: ACETAMINOPHEN TAB 325 MG TAB PO PRN (12:50)
[2019-01-11] MEDS ORDERED: ONDANSETRON 4 MG/2 ML VIAL IVP PRN (13:40)
[2019-01-11] MEDS ORDERED: NITROGLYCERIN SL TABS 0.4 MG TAB SUBLINGUAL PRN (13:41)
[2019-01-11] MEDS ORDERED: traMADol 50 MG TAB PO PRN (13:41)
[2019-01-11] MEDS ORDERED: diphenhydrAMINE 50 MG/ML 1 ML VIAL IVP PRN (13:44)
[2019-01-11 14:51] LABS: Amylase 86 U/L (30-110); Lipase 38 U/L (23-300)
[2019-01-11] MEDS: METOPROLOL SUCCINATE (ER) 25 MG TAB.ER.24H PO SCH (14:53)
[2019-01-11] MEDS: SODIUM CHLORIDE 0.9% 1,000 ML IV SCH (14:53)
--- NOTE | 2019-01-11 14:54 | P.HPIM ---
History of Present Illness H&P Date: 01/11/19 Chief Complaint: Nausea vomiting diarrhea This is a 79-year-old male, patient of [facility]. He has a known past medical history bladder cancer, presumed lung cancer awaiting biopsy results, chronic kidney disease, coronary artery disease previous cardiac stent s, myocardial infarction, hypertension, hyperlipidemia and repair of abdominal aortic aneurysm. 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 INR is subtherapeutic at 1.2. Patient presents to the hospital with complaints of generalized weakness nausea vomiting and diarrhea for the last few days. A couple weeks ago he presented to the ER with nausea and vomiting and at that time was found to have a UTI and was started on Keflex. Patient states he took a few doses of the medication. He is concerned that it is also made him feel ill. Over the last 3 days he has been unable to eat and she is been vomiting and multiple episodes of watery stools. He denies any sick contacts or any recent traveling. Stool for C. diff has been ordered as well as a urinalysis with culture. Patient had a computed tomography scan of the abdomen and pelvis without contrast showing a nonspecific bowel gas pattern with no diagnostic evidence of obstruction. Nonobstructing distal right ureter calculus measuring 6 mm pulmonary fibrosis with pulmonary masses and areas of consolidation or infiltrate. Aortic stents noted secondary to her aortic aneurysm. Patient denies any chest pain or shortness of breath. Denies any cough, fever or chills or sweats, denies any burning with urination. He follows up with Dr. Presley for his bladder cancer. And he follows up with Dr. Duff for the presumed lung cancer he is to be getting the biopsy results soon. Patient denies any blood in the vomit or stool. Patient was found to be dehydrated with a creatinine of 2.26 BUN of 33 years tachycardic with a heart rate of 112. Troponin was negative. Patient's been started on IV Protonix and IV Zofran as needed. Patient also has a rash macular and she noted on the legs and arms and abdomen. Patient seen and examined in the ER. He is not feeling well and difficulty to obtain full sensitive history. Most of history was obtained from the chart. Patient was given a dose of IV Solu-Medrol in the ER and we'll place him on Benadryl as needed. He does complain that the rash is itchy. He does report feeling achy all over Review of Systems Please refer to HPI otherwise unremarkable Past Medical History Past Medical History: Coronary Artery Disease (CAD), Cancer, Hearing Disorder / Deafness, Hyperlipidemia, Hypertension, Myocardial Infarction ([place]), Thyroid Dis order Additional Past Medical History / Comment(s): "aaa-repaired", vertigo AND HEARING LOSS SINCE [place] -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 LT KNEE HAD BONE CHIPS REMOVED,, 10-20-14 HEART CATH w/angioplasty but was unable to place stent, recent bladder polyp removed; indwelling catheter was removed 01-11-17. 3 STENTS RCA 05/03/18, biopsy lung-bronch Past Anesthesia/Blood Transfusion Reactions: No Reported Reaction Past Psychological History: No Psychological Hx Reported Smoking Status: Former smoker Past Alcohol Use History: None Reported Past Drug Use History: None Reported - Past Family History Mother Additional Family Medical History / Comment(s): brain tumor Father Family Medical History: Unable to Obtain Medications and Allergies Home Medications Medication Instructions Recorded Confirmed Type Aspirin 81 mg PO DAILY 10/20/14 01/11/19 History Gabapentin [Neurontin] 800 mg PO TID 10/20/14 01/11/19 History Liothyronine Sodium [Cytomel] 5 mcg PO DAILY 10/20/14 01/11/19 History Isosorbide Mononitrate ER [Imdur] 30 mg PO DAILY #90 tab.er.24h 10/23/14 01/11/19 Rx Acetaminophen Tab [Tylenol] 1,000 mg PO Q6HR PRN 01/11/17 01/11/19 History Levothyroxine Sodium [Synthroid] 112 mcg PO DAILY 01/11/17 01/11/19 History Metoprolol Succinate (ER) [Toprol 25 mg PO DAILY 01/11/17 01/11/19 History XL] Warfarin [Coumadin] 2.5 mg PO SUTUTHSA 01/11/17 01/11/19 History Warfarin [Coumadin] 5 mg PO MOWEFR 01/11/17 01/11/19 History traMADol HCL [Ultram] 50 mg PO BID PRN 01/11/17 01/11/19 History Rosuvastatin Calcium [Crestor] 40 mg PO DAILY 02/22/17 01/11/19 History Nitroglycerin Sl Tabs [Nitrostat] 0.4 mg SUBLINGUAL Q5M PRN #25 tab 03/31/18 01/11/19 Rx Clopidogrel [Plavix] 75 mg PO DAILY #90 tab 05/04/18 01/11/19 Rx Cephalexin [Keflex] 500 mg PO Q8HR #21 cap 12/29/18 01/11/19 Rx Ondansetron Odt [Zofran Odt] 4 mg PO Q8HR PRN #12 tab 12/29/18 01/11/19 Rx Allergies Allergy/AdvReac Type Severity Reaction Status Date / Time Iodinated Contrast- Oral and Allergy Unknown Verified 01/11/19 09:53 IV Dye [Iodinated Contrast Media - Oral and] morphine AdvReac Severe Nausea & Verified 01/11/19 09:56 Vomiting Physical Exam Vitals: Vital Signs Temp Pulse Resp BP Pulse Ox 01/11/19 13:30 82 113/56 94 L 01/11/19 12:30 79 12 92 L 01/11/19 12:00 80 16 107/78 98 01/11/19 11:00 74 19 118/56 97 01/11/19 10:57 80 15 98 01/11/19 09:43 97.4 F L 112 H 22 119/72 97 Intake and Output 01/10/19 01/11/19 01/11/19 22:59 06:59 14:59 Other: Weight 79.379 kg Head normocephalic Neck supple Lungs clear to auscultation bilaterally no wheezing or crackles Heart regular rate and rhythm S1-S2, no rub or gallop Abdomen is soft nontender nondistended positive bowel sounds no hepatosplenomegaly Extremities no edema Neuro alert and orientated to 3 Skin patient has macular rash noted on the legs arms and sides of abdomen Results CBC & Chem 7: 01/11/19 10:29 01/11/19 10:29 Labs: Abnormal Lab Results - Last 24 Hours (Table) 01/11/19 01/11/19 01/11/19 Range/Units 10:29 10:29 10:29 Neutrophils # 9.4 H (1.3-7.7) k/uL Lymphocytes # 0.8 L (1.0-4.8) k/uL INR 1.2 H (<1.2) BUN 33 H (9-20) mg/dL Creatinine 2.26 H (0.66-1.25) mg/dL Glucose 141 H (74-99) mg/dL Magnesium 2.4 H (1.6-2.3) mg/dL Assessment and Plan Assessment: 1. Generalized weakness with nausea vomiting and diarrhea: Exact etiology unclear. nonspecific bowel gas pattern noted on CAT scan. Check stool for C. diff patient has had recent antibiotic use. Check a urinalysis with culture. LFTs are normal. Check amylase and lipase. 2. Acute kidney injury: Likely related to dehydration and ATN due to his vomiting and diarrhea. Also poor oral intake. Continue normal saline at 100 mL an hour. 3. Chronic kidney disease stage III. Baseline creatinine between 1.5 and 1.8 4. Evidence of dehydration on admission BUN 33 creatinine 2.26 tachycardic with heart rate of 112 5. Macular rash noted on the arms legs and abdomen likely a possible ALLERGIC reaction to Keflex. Patient was given a dose of IV Solu-Medrol in the ER. We'll continue with the IV Benadryl as needed and add IV solumedrol 40mg q 8 hours. Keflex has been discontinued. 6. 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 CAT scan showing evidence of pulmonary masses. Consult Dr. Ramires and Dr. Blackwell 7. History of bladder cancer follows with Dr. Presley undergoes bladder washes. Last bladder wash was 2 years ago 8. History of coronary artery disease with previous cardiac stents resume patient's aspirin and Plavix 9. History of myocardial infarction 10. Essential hypertension 11. Hyperlipidemia 12. History of abdominal aortic aneurysm repair 13. History of carotid artery blood clots in which she is anticoagulated with Coumadin. INR subtherapeutic at 1.2. Will give Coumadin 5 mg tonight. Check PT/INR daily. And dose Coumadin accordingly. Will give Lovenox 80 mgSC q 12h until INR is therapeutic GI prophylaxis Protonix and DVT prophylaxis Lovenox Time with Patient: Greater than 30 (Greater than 50% of the total time spent in counseling and coordination of care.I performed an examination of the patient and discussed their management with the physician Boat Builder. I have reviewed the Physician Boat Builder's notes and agree with the documented findings and plan of care)
[2019-01-11 15:16] LABS: Appearance,Urine Clear (Clear); Bacteria,Urine Rare /hpf; Bilirubin,Urine Negative (Negative); Blood,Urine Small (Negative); Color,Urine Yellow; Glucose,Urine (UA) Negative (Negative); Ketones,Urine Trace (Negative); Leukocyte Esterase,Urine Negative (Negative); Mucus,Urine Rare /hpf; Nitrite,Urine Negative (Negative); PH, Urine 5.5 (5.0-8.0); Protein,Urine 1+ (Negative); RBC,Urine <1 /hpf (0-5); Specific Gravity,Urine 1.017 (1.001-1.035); Squamous Epithelial Cell,Urine <1 /hpf (0-4); Urobilinogen,Urine <2.0 mg/dL (<2.0)
[2019-01-11] MEDS: GABAPENTIN 400 MG CAP PO SCH (16:27)
[2019-01-11] MEDS: methylPREDNISolone SOD SUCCI 40 MG/ML 1 ML VIAL IV SCH (16:27)
[2019-01-11] MEDS: ENOXAPARIN 80 MG/0.8 ML SYRINGE SQ SCH (16:32)
[2019-01-11] MEDS ORDERED: WARFARIN 5 MG TAB PO ONE (18:00)
--- NOTE | 2019-01-11 18:02 | P.CNPUL ---
History of Present Illness Consult date: 01/11/19 Requesting physician: Laly Centeno Reason for consult: other Chief complaint: Generalized weakness, nausea and diarrhea, dehydration History of present illness: This is a 79-year-old white male patient of Dr. 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 Patient underwent a CT-guided fine-needle biopsy of the right lung mass. Patient was referred to interventional radiology after CT chest on 2018 was completed showing multifocal consolidative masses/nodules in the right lower lobe and right middle lobe measuring up to 4.2 cm, and there were approximately 5 different nodules present, and there was mildly enlarged 1.1 cm right paratracheal lymph node. Patient follows with Dr. Duff, and was supposed to see him for biopsy results and the plan of care. On 12/29/2018 patient was seen in the emergency department with symptoms of generalized fatigue, malaise, dehydration, decreased urination. Patient was hydrated in the emergency department, was diagnosed with urinary tract infection, was given oral Keflex and was discharged home in stable condition, however at home patient started his Keflex, and developed a rash on arms and legs and abdomen, he stopped his antibiotics. And on 01/11/2019 patient presented to the emergency department with complaint of generalized weakness, nausea, vomiting and diarrhea for the last few days. He has been unable to eat, complaining of watery diarrhea, several episodes per day. Computed tomography scan of the abdomen and pelvis without contrast showed a nonspecific bowel gas pattern with no diagnostic evidence of obstruction. There was a nonobstructing distal right ureter ureteral calculus, bilateral sections of the lungs showed pulmonary fibrosis with pulmonary masses and areas of consolidation, and aortic stents secondary to aortic aneurysm. She denied any chest pain or shortness of breath, denies any cough, chest congestion, fever or chills. Denies any burning sensation or pressure with urination. Follows with Dr. Presley for his bladder cancer. Blood work did not show any evidence of leukocytosis, patient does have evidence of ac aman kidney injury with creatinine of 2.26 and BUN of 33, mild tachycardia, patient is afebrile, room air pulse ox is 97%, blood pressure is 107/78. Patient was given 2 L of IV fluids, and maintenance IV fluids are infusing at a rate of 100 ML per hour. Electrolytes are within normal limits, plasma lactic acid is 2.0, LFTs, amylase and lipase are within normal limits. Patient was given a few doses of IV Solu-Medrol, Benadryl and Pepcid for ALLERGIC reaction presumably to Keflex. Influenza screen was negative, C. difficile was negative, stool for occult blood was positive, urinalysis showed 1+ protein, trace ketones, small amount of blood, no significant bacteria or white blood cell count. Review of Systems All systems: negative Constitutional: Reports anorexia, Reports malaise, Reports weakness, Denies chills, Denies fever Eyes: denies blurred vision, denies pain Ears, nose, mouth and throat: Denies headache, Denies sore throat Cardiovascular: Denies chest pain, Denies shortness of breath Respiratory: Reports dyspnea, Denies cough Gastrointestinal: Denies abdominal pain, Denies diarrhea, Denies nausea, Denies vomiting Musculoskeletal: Denies myalgias Integumentary: Denies pruritus, Denies rash Neurological: Denies numbness, Denies weakness Psychiatric: Denies anxiety, Denies depression Endocrine: Denies fatigue, Denies weight change Past Medical History Past Medical History: Coronary Artery Disease (CAD), Cancer, Hearing Disorder / Deafness, Hyperlipidemia, Hypertension, Myocardial Infarction (ID), Thyroid Disorder Additional Past Medical History / Comment(s): "aaa-repaired", vertigo AND HEARING LOSS SINCE [place] -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 LT KNEE HAD BONE CHIPS REMOVED,, 10-20-14 HEART CATH w/angioplasty but was unable to place stent, recent bladder polyp removed; indwelling catheter was removed 01-11-. 3 STENTS RCA 05/03/18, biopsy lung-bronch Past Anesthesia/Blood Transfusion Reactions: No Reported Reaction Past Psychological History: No Psychological Hx Reported Smoking Status: Former smoker Past Alcohol Use History: None Reported Past Drug Use History: None Reported - Past Family History Mother Additional Family Medical History / Comment(s): brain tumor Father Family Medical History: Unable to Obtain Medications and Allergies Home Medications Medication Instructions Recorded Confirmed Type Aspirin 81 mg PO DAILY 10/20/14 01/11/19 History Gabapentin [Neurontin] 800 mg PO TID 10/20/14 01/11/19 History Liothyronine Sodium [Cytomel] 5 mcg PO DAILY 10/20/14 01/11/19 History Isosorbide Mononitrate ER [Imdur] 30 mg PO DAILY #90 tab.er.24h 10/23/14 01/11/19 Rx Acetaminophen Tab [Tylenol] 1,000 mg PO Q6HR PRN 01/11/17 01/11/19 History Levothyroxine Sodium [Synthroid] 112 mcg PO DAILY 01/11/17 01/11/19 History Metoprolol Succinate (ER) [Toprol 25 mg PO DAILY 01/11/17 01/11/19 History XL] Warfarin [Coumadin] 2.5 mg PO SUTUTHSA 01/11/17 01/11/19 History Warfarin [Coumadin] 5 mg PO MOWEFR 01/11/17 01/11/19 History traMADol HCL [Ultram] 50 mg PO BID PRN 01/11/17 01/11/19 History Rosuvastatin Calcium [Crestor] 40 mg PO DAILY 02/22/17 01/11/19 History Nitroglycerin Sl Tabs [Nitrostat] 0.4 mg SUBLINGUAL Q5M PRN #25 tab 03/31/18 01/11/19 Rx Clopidogrel [Plavix] 75 mg PO DAILY #90 tab 05/04/18 01/11/19 Rx Cephalexin [Keflex] 500 mg PO Q8HR #21 cap 12/29/18 01/11/19 Rx Ondansetron Odt [Zofran Odt] 4 mg PO Q8HR PRN #12 tab 12/29/18 01/11/19 Rx Allergies Allergy/AdvReac Type Severity Reaction Status Date / Time Iodinated Contrast- Oral and Allergy Unknown Verified 01/11/19 09:53 IV Dye [Iodinated Contrast Media - Oral and] morphine AdvReac Severe Nausea & Verified 01/11/19 09:56 Vomiting Physical Exam Vitals: Vital Signs Temp Pulse Resp BP Pulse Ox 01/11/19 15:30 78 122/62 92 L 01/11/19 15:00 80 97 01/11/19 14:30 118/62 01/11/19 14:00 82 113/56 93 L 01/11/19 13:30 82 113/56 94 L 01/11/19 12:30 79 12 92 L 01/11/19 12:00 80 16 107/78 98 01/11/19 11:00 74 19 118/56 97 01/11/19 10:57 80 15 98 01/11/19 09:43 97.4 F L 112 H 22 119/72 97 Intake and Output 01/11/19 01/11/19 01/11/19 06:59 14:59 22:59 Other: Weight 79.379 kg GENERAL EXAM: Alert, 79-year-old white male, comfortable in no apparent distress. HEAD: Normocephalic/atraumatic. EYES: Normal reaction of pupils, equal size. Conjunctiva pink, sclera white. NOSE: Clear with pink turbinates. THROAT: No erythema or exudates. NECK: No masses, no JVD, no thyroid enlargement, no adenopathy. CHEST: No chest wall deformity. Symmetrical expansion. LUNGS: Equal air entry with coarse crackles at the bases CVS: Regular rate and rhythm, normal S1 and S2, no gallops, no murmurs, no rubs ABDOMEN: Soft, nontender. No hepatosplenomegaly, normal bowel sounds, no guarding or rigidity. EXTREMITIES: No clubbing, no edema, no cyanosis, 2+ pulses and upper and lower extremities. MUSCULOSKELETAL: Muscle strength and tone normal. SPINE: No scoliosis or deformity SKIN: Macular rash present on legs and arms and sides of abdomen CENTRAL NERVOUS SYSTEM: Alert and oriented -3. No focal deficits, tone is normal in all 4 extremities. PSYCHIATRIC: Alert and oriented -3. Appropriate affect. Intact judgment and insight. Results - Laboratory Findings CBC and BMP: 01/11/19 10:29 01/11/19 10:29 PT/INR, D-dimer PT 12.0 sec (9.0-12.0) 01/11/19 10:29 INR 1.2 (<1.2) H 01/11/19 10:29 Abnormal lab findings: Abnormal Labs 0501/11/19 01/11/19 10:29 10:29 10:29 Neutrophils # 9.4 H Lymphocytes # 0.8 L INR 1.2 H BUN 33 H Creatinine 2.26 H Glucose 141 H Magnesium 2.4 H Urine Protein Urine Ketones Urine Blood Urine Bacteria Urine Mucus 01/11/19 14:45 Neutrophils # Lymphocytes # INR BUN Creatinine Glucose Magnesium Urine Protein 1+ H Urine Ketones Trace H Urine Blood Small H Urine Bacteria Rare H Urine Mucus Rare H - Diagnostic Findings Chest x-ray: report reviewed, image reviewed Additional studies: CT of abdomen and pelvis Assessment and Plan Plan: Assessment: #1. Nausea vomiting, diarrhea, generalized weakness and dehydration. CT abdomen showed nonspecific bowel gas pattern, no diagnostic evidence of obstru ction and nonobstructing distal right ureteral calculus #2. Recent urinary tract infection, patient was treated with a few doses of Keflex and developed an ALLERGIC rash on arms and legs and abdomen. Urinalysis on this admission negative for infection #3. 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 Acute kidney injury related to ATN #5. CKD stage III #6. History of bladder cancer, follows with Dr. Presley #7. History of CAD with previous stenting and previous myocardial infarction #8. History of thoracic abdominal aortic aneurysm repair #9. Hypertension #10. Hyperlipidemia Plan: Continue the IV hydration, patient is hemodynamically stable, no worsening pamela rtness of breath, maintaining good oxygenation on room air, chest x-ray, and abdominal/pelvis CT has been reviewed by Dr. Blackwell, patient was seen and evaluated by Dr. Blackwell, and findings are consistent with patient's recent diagnosis of poorly differentiated metastatic non-small cell lung cancer with urothelial carcinoma. Medical oncology has been consulted. Will await their input in regards to the treatment of metastatic urothelial cancer. We'll continue current medical treatment. I performed a history & physical examination of the patient and discussed their management with my nurse practitioner, Elyssa Fields. I reviewed the nurse practitioner's note and agree with the documented findings and plan of care. Lung sounds are positive for coarse crackles breath sounds. The findings and the impression was discussed with the patient. I attest to the documentation by the nurse practitioner. Time with Patient: Greater than 30
[2019-01-12] MEDS: GABAPENTIN 400 MG CAP PO SCH ×4 (03:47→21:09)
[2019-01-12] MEDS: methylPREDNISolone SOD SUCCI 40 MG/ML 1 ML VIAL IV SCH ×2 (03:48→08:19)
[2019-01-12 06:34] VITALS: BMI 26.6
[2019-01-12] MEDS: LEVOTHYROXINE 112 MCG TAB PO SCH (06:35)
[2019-01-12] MEDS: ATORVASTATIN 80 MG TAB PO SCH (08:19)
[2019-01-12] MEDS: ISOSORBIDE MONONITRATE ER 30 MG TAB.ER.24H PO SCH (08:19)
[2019-01-12] MEDS: METOPROLOL SUCCINATE (ER) 25 MG TAB.ER.24H PO SCH (08:19)
[2019-01-12] MEDS: LIOTHYRONINE SODIUM 5 MCG TAB PO SCH (08:19)
[2019-01-12] MEDS: ASPIRIN 81 MG PO SCH (08:19)
[2019-01-12] MEDS: PANTOPRAZOLE 40 MG/10 ML VIAL IV SCH (08:19)
[2019-01-12] MEDS: CLOPIDOGREL 75 MG TAB PO SCH (08:19)
[2019-01-12] MEDS: ENOXAPARIN 80 MG/0.8 ML SYRINGE SQ SCH (08:20)
[2019-01-12 09:25] LABS: INR 1.8 (<1.2); Prothrombin Time 17.9 sec (9.0-12.0)
[2019-01-12 09:31] LABS: Basophils % (A) 0 %; Eosinophils % (A) 0 %; HCT 37.2 % (39.0-53.0); HGB 11.2 gm/dL (13.0-17.5); Hypochromasia Moderate; Lymphocytes # (A) 0.7 k/uL (1.0-4.8); Lymphocytes % (A) 7 %; MCH 26.1 pg (25.0-35.0); MCHC 30.2 g/dL (31.0-37.0); MCV 86.7 fL (80.0-100.0); Mean Platelet Volume 8.1; Monocytes # (A) 0.2 k/uL (0-1.0); Monocytes % (A) 2 %; Neutrophils # (A) 9.6 k/uL (1.3-7.7); Neutrophils % (A) 90 %; Platelet Count 303 k/uL (150-450); RDW 14.2 % (11.5-15.5); WBC 10.7 k/uL (3.8-10.6)
[2019-01-12 09:45] LABS: Albumin 3.4 g/dL (3.5-5.0); Magnesium 2.4 mg/dL (1.6-2.3); Potassium 4.9 mmol/L (3.5-5.1); Total Bilirubin 0.6 mg/dL (0.2-1.3); Total Protein 6.5 g/dL (6.3-8.2)
--- NOTE | 2019-01-12 11:00 | P.PN ---
Subjective Progress Note Date: 01/12/19 This is a 79-year-old male, patient of [facility]. He has a known past medical history bladder cancer, presumed lung cancer awaiting biopsy results, chronic kidney disease, coronary artery disease previous cardiac stents, myocardial infarction, hypertension, hyperlipidemia and repair of abdom inal aortic aneurysm. 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 INR is subtherapeutic at 1.2. Patient presents to the hospital with complaints of generalized weakness nausea vomiting and diarrhea for the last few days. A couple weeks ago he presented to the ER with nausea and vomiting and at that time was found to have a UTI and was started on Keflex. Patient states he took a few doses of the medication. He is concerned that it is also made him feel ill. Over the last 3 days he has been unable to eat and she is been vomiting and multiple episodes of watery stools. He denies any sick contacts or any recent traveling. Stool for C. diff has been ordered as well as a urinalysis with culture. Patient had a computed tomography scan of the abdomen and pelvis without contrast showing a nonspecific bowel gas pattern with no diagnostic evidence of obstruction. Nonobstructing distal right ureter calculus measuring 6 mm pulmonary fibrosis with pulmonary masses and areas of consolidation or infiltrate. Aortic stents noted secondary to her aortic aneurysm. Patient denies any chest pain or shortness of breath. Denies any cough, fever or chills or sweats, denies any burning with urination. He follows up with Dr. Presley for his bladder cancer. And he follows up with Dr. Duff for the presumed lung cancer he is to be getting the biopsy results soon. Patient denies any blood in the vomit or stool. Patient was found to be dehydrated with a creatinine of 2.26 BUN of 33 years tachycardic with a heart rate of 112. Troponin was negative. Patient's been started on IV Protonix and IV Zofran as needed. Patient also has a rash macular and she noted on the legs and arms and abdomen. Patient seen and examined in the ER. He is not feeling well and difficulty to obtain full sensitive history. Most of history was obtained from the chart. Patient was given a dose of IV Solu-Medrol in the ER and we'll place him on Benadryl as needed. He does complain that the rash is itchy. He does report feeling achy all over On 01/12/2019 patient's states improvement with generalized weakness. Patient is alert and oriented 3. Patient denies any chest shortness breath. Patient denies nausea vomiting or diarrhea. Patient denies any urinary burning or frequency. Patient is still complaining of itchiness. Patient is on benedryl and Solu-Medrol Objective - Vital Signs Vital signs: Vital Signs Temp 97.8 F 01/12/19 07:20 Pulse 62 01/12/19 07:20 Resp 16 01/12/19 07:20 BP 119/68 01/12/19 07:20 Pulse Ox 98 01/12/19 07:20 Intake & Output 01/11/19 01/12/19 01/12/19 18:59 06:59 18:59 Weight 79.379 kg - Exam Head normocephalic Neck supple Lungs clear to auscultation bilaterally no wheezing or crackles Heart regular rate and rhythm S1-S2, no rub or gallop Abdomen is soft nontender nondistended positive bowel sounds no hepatosplenomegaly Extremities no edema Neuro alert and orientated to 3 Skin patient has macular rash noted on the legs arms and sides of abdomen - Labs CBC & Chem 7: 01/12/19 08:37 01/12/19 08:37 Labs: Abnormal Lab Results - Last 24 Hours (Table) 01/11/19 01/11/19 01/11/19 Range/Units 10:29 10:29 14:45 WBC (3.8-10.6) k/uL Hgb (13.0-17.5) gm/dL Hct (39.0-53.0) % MCHC (31.0-37.0) g/dL Neutrophils # (1.3-7.7) k/uL Lymphocytes # (1.0-4.8) k/uL PT (9.0-12.0) sec INR 1.2 H (<1.2) Chloride (98-107) mmol/L BUN 33 H (9-20) mg/dL Creatinine 2.26 H (0.66-1.25) mg/dL Glucose 141 H (74-99) mg/dL Magnesium 2.4 H (1.6-2.3) mg/dL Albumin (3.5-5.0) g/dL Urine Protein 1+ H (Negative) Urine Ketones Trace H (Negative) Urine Blood Small H (Negative) Urine Bacteria Rare H (None) /hpf Urine Mucus Rare H (None) /hpf 01/12/19 01/12/19 01/12/19 Range/Units 08:37 08:37 08:37 WBC 10.7 H (3.8-10.6) k/uL Hgb 11.2 L (13.0-17.5) gm/dL Hct 37.2 L (39.0-53.0) % MCHC 30.2 L (31.0-37.0) g/dL Neutrophils # 9.6 H (1.3-7.7) k/uL Lymphocytes # 0.7 L (1.0-4.8) k/uL PT 17.9 H (9.0-12.0) sec INR 1.8 H (<1.2) Chloride 112 H (98-107) mmol/L BUN 40 H (9-20) mg/dL Creatinine 1.74 H (0.66-1.25) mg/dL Glucose 158 H (74-99) mg/dL Magnesium 2.4 H (1.6-2.3) mg/dL Albumin 3.4 L (3.5-5.0) g/dL Urine Protein (Negative) Urine Ketones (Negative) Urine Blood (Negative) Urine Bacteria (None) /hpf Urine Mucus (None) /hpf Microbiology - Last 24 Hours (Table) 01/11/19 14:45 Stool Culture - Preliminary Stool Assessment and Plan Assessment: 1. Generalized weakness with nausea vomiting and diarrhea: Exact etiology unclear. nonspecific bowel gas pattern noted on CAT scan. C. diff negative. Amylase and lipase within normal limits 2. Acute kidney injury: Likely related to dehydration and ATN due to his vomiting and diarrhea. Also poor oral intake. Continue normal saline at 100 mL an hour. Creatinine improving to 1.74 and bun 40 continue to monitor 3. Chronic kidney disease stage III. Baseline creatinine between 1.5 and 1.8 4. Evidence of dehydration on admission BUN 33 creatinine 2.26 tachycardic with heart rate of 112. Resolved 5. Macular rash noted on the arms legs and abdomen likely a possible ALLERGIC reaction to Keflex. Patient was given a dose of IV Solu-Medrol in the ER. We'll continue with the IV Benadryl as needed and add IV solumedrol 40mg q 8 hours. Keflex has been discontinued. 6. 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 CAT scan showing evidence of pulmonary masses. Consult Dr. Ramires and Dr. Blackwell 7. History of bladder cancer follows with Dr. Presley undergoes bladder washes. Last bladder wash was 2 years ago 8. History of coronary artery disease with previous cardiac stents resume patient's aspirin and Plavix 9. History of myocardial infarction 10. Essential hypertension 11. Hyperlipidemia 12. History of abdominal aortic aneurysm repair 13. History of carotid artery blood clots in which she is anticoagulated with Coumadin. INR subtherapeutic at 1.2. Will give Coumadin 5 mg tonight. Check PT/INR daily. And dose Coumadin accordingly. Will give Lovenox 80 mgSC q 12h until INR is therapeutic. INR 1.8. Patient to get 5 mg of Coumadin tonight per pharmacy dosing DVT prophylaxis Lovenox until Coumadin is therapeutic. GI prophylaxis Protonix I performed an examination of the patient and discussed their management with the Nurse Practitioner. I have reviewed the Nurse Practitioner's notes and agree with the documented findings and plan of care
--- NOTE | 2019-01-12 13:35 | P.CONS ---
History of Present Illness - Reason for Consult Consult date: 01/12/19 metastatic urotheolial carcinoma Requesting physician: Reina Hamilton - Chief Complaint weakness - History of Present Illness Mr. Gomez is a very pleasant 79-year-old male patient recently seen by Dr. Duff for concerns about right lung mass and pleural effusion. He has a history of urothelial carcinoma, treated by Urology successfully for quite some time, patient denied any chemotherapy. On 11/24/18 patient had a right lung FNA and core biopsy, he states he had postoperative complications of pneumothorax but I see no documentation to support the same. Pathology consistent with non-small cell carcinoma consistent with a high-grade urothelial carcinoma. He states that over the last couple of days he has had no energy, got to the point where he couldn't walk, unable to eat or drink adequately, he had "whole body" pain, patient denied fevers, vomiting or diarrhea to me, no bleeding, cough, palpitations, bloating, chest pain, dysuria or swelling. He states he is feeling a little better today, he did eat quite a bit of is breakfast Review of Systems 14 point review of systems is negative except as stated in HPI Past Medical History Past Medical History: Coronary Artery Disease (CAD), Cancer, Hearing Disorder / Deafness, Hyperlipidemia, Hypertension, Myocardial Infarction (PR), Thyroid Disorder Additional Past Medical History / Comment(s): "aaa-repaired", vertigo AND HEARING LOSS SINCE [place] -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 LT KNEE HAD BONE CHIPS REMOVED,, 10-20-14 HEART CATH w/angioplasty but was unable to place stent, recent bladder polyp removed; indwelling catheter was removed 01-11-17. 3 STENTS RCA 05/03/18, biopsy lung-bronch Past Anesthesia/Blood Transfusion Reactions: No Reported Reaction Past Psychological History: No Psychological Hx Reported Additional Psychological History / Comment(s): Pt. lives with , is independant, one dog, no outside services, no medical equipment. 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 Smoking Status: Former smoker Past Alcohol Use History: None Reported Additional Past Alcohol Use History / Comment(s): started smoking at age 19 - smoked cig then swithced to pipe. quit 1979 Past Drug Use History: None Reported - Past Family History Mother Additional Family Medical History / Comment(s): brain tumor Father Family Medical History: Unable to Obtain Medications and Allergies Home Medications Medication Instructions Recorded Confirmed Type Aspirin 81 mg PO DAILY 10/20/14 01/11/19 History Gabapentin [Neurontin] 800 mg PO TID 10/20/14 01/11/19 History Liothyronine Sodium [Cytomel] 5 mcg PO DAILY 10/20/14 01/11/19 History Isosorbide Mononitrate ER [Imdur] 30 mg PO DAILY #90 tab.er.24h 10/23/14 01/11/19 Rx Acetaminophen Tab [Tylenol] 1,000 mg PO Q6HR PRN 01/11/17 01/11/19 History Levothyroxine Sodium [Synthroid] 112 mcg PO DAILY 01/11/17 01/11/19 History Metoprolol Succinate (ER) [Toprol 25 mg PO DAILY 01/11/17 01/11/19 History XL] Warfarin [Coumadin] 2.5 mg PO SUTUTHSA 01/11/17 01/11/19 History Warfarin [Coumadin] 5 mg PO MOWEFR 01/11/17 01/11/19 History traMADol HCL [Ultram] 50 mg PO BID PRN 01/11/17 01/11/19 History Rosuvastatin Calcium [Crestor] 40 mg PO DAILY 02/22/17 01/11/19 History Nitroglycerin Sl Tabs [Nitrostat] 0.4 mg SUBLINGUAL Q5M PRN #25 tab 03/31/18 01/11/19 Rx Clopidogrel [Plavix] 75 mg PO DAILY #90 tab 05/04/18 01/11/19 Rx Cephalexin [Keflex] 500 mg PO Q8HR #21 cap 12/29/18 01/11/19 Rx Ondansetron Odt [Zofran Odt] 4 mg PO Q8HR PRN #12 tab 12/29/18 01/11/19 Rx Allergies Allergy/AdvReac Type Severity Reaction Status Date / Time Iodinated Contrast- Oral and Allergy Unknown Verified 01/11/19 09:53 IV Dye [Iodinated Contrast Media - Oral and] morphine AdvReac Severe Nausea & Verified 01/11/19 09:56 Vomiting Physical Exam Vitals: Vital Signs Temp Pulse Pulse Resp BP BP Pulse Ox 01/12/19 07:20 97.8 F 62 16 119/68 98 01/12/19 03:45 97.2 F L 76 18 129/73 94 L 01/12/19 03:14 66 16 112/64 97 01/12/19 00:05 97.8 F 77 16 131/65 98 01/11/19 21:42 71 18 106/53 94 L 01/11/19 18:30 70 112/67 93 L 01/11/19 18:00 109/64 96 01/11/19 17:30 81 108/66 97 01/11/19 17:00 72 114/64 96 01/11/19 16:35 97.6 F 73 15 114/64 98 01/11/19 16:30 73 114/64 96 01/11/19 16:00 74 28 H 111/63 95 01/11/19 15:30 78 122/62 92 L 01/11/19 15:00 80 97 01/11/19 14:30 118/62 01/11/19 14:00 82 113/56 93 L 01/11/19 13:30 82 113/56 94 L - Constitutional General appearance: average body habitus, cooperative, no acute distress - EENT Eyes: anicteric sclerae, EOMI ENT: hard of hearing, no hearing grossly normal, no NA/AT, normal oropharynx, no other, no pharyngeal erythema, no thrush, no tonsillar exudates, no tonsillar swelling - Neck Neck: no lymphadenopathy - Respiratory Respiratory: right: diminished, bilateral: rhonchi - Cardiovascular Heart sounds: normal: S1, S2 Abnormal Heart Sounds: no systolic murmur, no diastolic murmur, no rub, no S3 Gallop, no S4 Gallop, no click, no other leg Peripheral Edema: bilateral: None - Gastrointestinal General gastrointestinal: no absent bowel sounds, no decreased bowel sounds, no distended, no hepatomegaly, no hyperactive bowel sounds, normal bowel sounds, no organomegaly, no rigid, no scaphoid, soft, no splenomegaly, no tenderness, no umbilical hernia, no ventral hernia - Integumentary Integumentary: normal - Neurologic Neurologic: CNII-XII intact - Musculoskeletal Musculoskeletal: strength equal bilaterally - Psychiatric Psychiatric: A&O x's 3, appropriate affect, intact judgment & insight Results CBC & Chem 7: 01/12/19 08:37 01/12/19 08:37 Labs: Abnormal Lab Results - Last 24 Hours (Table) 01/11/19 01/12/19 01/12/19 Range/Units 14:45 08:37 08:37 WBC 10.7 H (3.8-10.6) k/uL Hgb 11.2 L (13.0-17.5) gm/dL Hct 37.2 L (39.0-53.0) % MCHC 30.2 L (31.0-37.0) g/dL Neutrophils # 9.6 H (1.3-7.7) k/uL Lymphocytes # 0.7 L (1.0-4.8) k/uL PT (9.0-12.0) sec INR (<1.2) Chloride 112 H (98-107) mmol/L BUN 40 H (9-20) mg/dL Creatinine 1.74 H (0.66-1.25) mg/dL Glucose 158 H (74-99) mg/dL Magnesium 2.4 H (1.6-2.3) mg/dL Albumin 3.4 L (3.5-5.0) g/dL Urine Protein 1+ H (Negative) Urine Ketones Trace H (Negative) Urine Blood Small H (Negative) Urine Bacteria Rare H (None) /hpf Urine Mucus Rare H (None) /hpf 01/12/19 Range/Units 08:37 WBC (3.8-10.6) k/uL Hgb (13.0-17.5) gm/dL Hct (39.0-53.0) % MCHC (31.0-37.0) g/dL Neutrophils # (1.3-7.7) k/uL Lymphocytes # (1.0-4.8) k/uL PT 17.9 H (9.0-12.0) sec INR 1.8 H (<1.2) Chloride (98-107) mmol/L BUN (9-20) mg/dL Creatinine (0.66-1.25) mg/dL Glucose (74-99) mg/dL Magnesium (1.6-2.3) mg/dL Albumin (3.5-5.0) g/dL Urine Protein (Negative) Urine Ketones (Negative) Urine Blood (Negative) Urine Bacteria (None) /hpf Urine Mucus (None) /hpf Microbiology - Last 24 Hours (Table) 01/11/19 14:45 Stool Culture - Preliminary Stool Chest x-ray: report reviewed CT scan - abdomen: report reviewed CT scan - pelvis: report reviewed Assessment and Plan (1) Urothelial carcinoma of bladder Narrative/Plan: Recently diagnosed with metastasis to the lungs. Patient is scheduled to see Dr. Duff on Thursday for results and plan for treatment. We did review the pathology from the lung being positive and consistent with patient's urothelial carcinoma. Patient verbalized understanding spread disease. Patient had no further questions at this time other than he did wanted to discuss treatment options. There are several different options, I have not reviewed them in full detail with Dr. Duff. I will follow up with patient, also encouraged patient to keep his appointment for Thursday case he is discharged. All of his questions were answered to the best of my ability. Current Visit: Yes Status: Acute Priority: High Code(s): C67.9 - MALIGNANT NEOPLASM OF BLADDER, UNSPECIFIED SNOMED Code(s): 284146435
[2019-01-12] MEDS: SODIUM CHLORIDE 0.9% 1,000 ML IV SCH (14:06)
--- NOTE | 2019-01-12 16:12 | P.PN ---
Subjective Progress Note Date: 01/12/19 Principal diagnosis: Nausea vomiting diarrhea, generalized weakness and dehydration This is a 79-year-old white male patient of Dr. Thania Barney, with past medical history of bladder cancer, CAD with stents, hypertension, hyperlipidemia, previous OH, hypothyroidism, thoracic aortic aneurysm repair, former nicotine dependence, recently diagnosed with poorly differentiated non- small cell carcinoma consistent with metastatic high-grade urothelial carcinoma. Patient underwent a CT-guided fine-needle biopsy of the right lung mass. Patient was referred to interventional radiology after CT chest on 2018 was completed showing multifocal consolidative masses/nodules in the right lower lobe and right middle lobe measuring up to 4.2 cm, and there were approximately 5 different nodules present, and there was mildly enlarged 1.1 cm right paratracheal lymph node. Patient follows with Dr. Duff, and was supposed to see him for biopsy results and the plan of care. On 12/29/2018 patient was seen in the emergency department with symptoms of generalized fatigue, malaise, dehydration, decreased urination. Patient was hydrated in the emergency department, was diagnosed with urinary tract infection, was given oral Keflex and was discharged home in stable condition, however at home patient started his Keflex, and developed a rash on arms and legs and abdomen, he stopped his antibiotics. And on 01/11/2019 patient presented to the emergency department with complaint of generalized weakness, nausea, vomiting and diarrhea for the last few days. He has been unable to eat, complaining of watery diarrhea, several episodes per day. Computed tomography scan of the abdomen and pelvis without contrast showed a nonspecific bowel gas pattern with no diagnostic evidence of obstruction. There was a nonobstructing distal right ureter ureteral calculus, bilateral sections of the lungs showed pulmonary fibrosis with pulmonary masses and areas of consolidation, and aortic stents secondary to aortic aneurysm. She denied any chest pain or shortness of breath, denies any cough, chest congestion, fever or chills. Denies any burning sensation or pressure with urination. Follows with Dr. Presley for his bladder cancer. Blood work did not show any evidence of leukocytosis, patient does have evidence of acute kidney injury with creatinine of 2.26 and BUN of 33, mild tachycardia, patient is afebrile, room air pulse ox is 97%, blood pressure is 107/78. Patient was given 2 L of IV fluids, and maintenance IV fluids are infusing at a rate of 100 ML per hour. Electrolytes are within normal limits, plasma lactic acid is 2.0, LFTs, amylase and lipase are within normal limits. Patient was given a few doses of IV Solu-Medrol, Benadryl and Pepcid for ALLERGIC reaction presumably to Keflex. Influenza screen was negative, C. difficile was negative, stool for occult blood was positive, urinalysis showed 1+ protein, trace ketones, small amount of blood, no significant bacteria or white blood cell count. On 01/12/2018 patient seen in follow-up on medical surgical floor. He is resting comfortably in bed, in no acute distress, he states he is feeling better today, she denies any shortness of breath, no cough or congestion, room air pulse ox is 94%, patient is afebrile, stool culture is sent and is pending at this time. Vital signs are stable, renal profile is improving, on today's labs BUN is 40, and creatinine is 1.74, white blood cell count is 10.7, hemoglobin is 11.2, INR is 1.8. C. diff was negative, stool occult blood was positive, influenza was not detected. Lung sounds are clear, patient was seen by medical oncology, will await their further input in regards to treatment of patient's urothelial carcinoma with metastasis to the lungs. Objective - Vital Signs Vital signs: Vital Signs Temp 98.2 F 01/12/19 13:02 Pulse 77 01/12/19 13:02 Resp 16 01/12/19 13:02 BP 102/56 01/12/19 13:02 Pulse Ox 94 L 01/12/19 13:02 Intake & Output 01/11/19 01/12/19 01/12/19 18:59 06:59 18:59 Intake Total 160 Balance 160 Weight 79.379 kg Intake: IV 160 Sodium Chloride 0.9% 1, 160 000 ml @ 20 mls/hr IV . Q24H [facility] Rx#:[id number] Other: # Voids 2 # Bowel Movements 1 - Exam GENERAL EXAM: Alert, 79-year-old white male, comfortable in no apparent distress. HEAD: Normocephalic/atraumatic. EYES: Normal reaction of pupils, equal size. Conjunctiva pink, sclera white. NOSE: Clear with pink turbinates. THROAT: No erythema or exudates. NECK: No masses, no JVD, no thyroid enlargement, no adenopathy. CHEST: No chest wall deformity. Symmetrical expansion. LUNGS: Equal air entry with coarse crackles at the bases CVS: Regular rate and rhythm, normal S1 and S2, no gallops, no murmurs, no rubs ABDOMEN: Soft, nontender. No hepatosplenomegaly, normal bowel sounds, no guarding or rigidity. EXTREMITIES: No clubbing, no edema, no cyanosis, 2+ pulses and upper and lower extremities. MUSCULOSKELETAL: Muscle strength and tone normal. SPINE: No scoliosis or deformity SKIN: Macular rash present on legs and arms and sides of abdomen CENTRAL NERVOUS SYSTEM: Alert and oriented -3. No focal deficits, tone is normal in all 4 extremities. PSYCHIATRIC: Alert and oriented -3. Appropriate affect. Intact judgment and insight. - Labs CBC & Chem 7: 01/12/19 08:37 01/12/19 08:37 Labs: Abnormal Lab Results - Last 24 Hours (Table) 01/12/19 01/12/19 01/12/19 Range/Units 08:37 08:37 08:37 WBC 10.7 H (3.8-10.6) k/uL Hgb 11.2 L (13.0-17.5) gm/dL Hct 37.2 L (39.0-53.0) % MCHC 30.2 L (31.0-37.0) g/dL Neutrophils # 9.6 H (1.3-7.7) k/uL Lymphocytes # 0.7 L (1.0-4.8) k/uL PT 17.9 H (9.0-12.0) sec INR 1.8 H (<1.2) Chloride 112 H (98-107) mmol/L BUN 40 H (9-20) mg/dL Creatinine 1.74 H (0.66-1.25) mg/dL Glucose 158 H (74-99) mg/dL Magnesium 2.4 H (1.6-2.3) mg/dL Albumin 3.4 L (3.5-5.0) g/dL Microbiology - Last 24 Hours (Table) 01/11/19 14:45 Stool Culture - Preliminary Stool Assessment and Plan Plan: Assessment: #1. Nausea vomiting, diarrhea, generalized weakness and dehydration, improved. CT abdomen showed nonspecific bowel gas pattern, no diagnostic evidence of obstruction and nonobstructing distal right ureteral calculus #2. Recent urinary tract infection, patient was treated with a few doses of Keflex and developed an ALLERGIC rash on arms and legs and abdomen. Urinalysis on this admission negative for infection #3. 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 Acute kidney injury related to ATN #5. CKD stage III #6. History of bladder cancer, follows with Dr. Presley #7. History of CAD with previous stenting and previous myocardial infarction #8. History of thoracic abdominal aortic aneurysm repair #9. Hypertension #10. Hyperlipidemia Plan: We'll continue with IV hydration, hemodynamically patient is stable, no further nausea vomiting or diarrhea, stool culture was sent and is pending at this time, C. diff was negative, no pulmonary complaints, maintaining good oxygenation on room air, was seen by medical oncology, will await their further input in reg ards to the plan of treatment I performed a history & physical examination of the patient and discussed their management with my nurse practitioner, Elyssa Fields. I reviewed the nurse practitioner's note and agree with the documented findings and plan of care. Lung sounds are positive for coarse crackles breath sounds. The findings and the impression was discussed with the patient. I attest to the documentation by the nurse practitioner. Time with Patient: Less than 30
[2019-01-12] MEDS: methylPREDNISolone SOD SUCCI 125 MG/2 ML VIAL IV SCH (17:09)
[2019-01-12] MEDS ORDERED: WARFARIN 5 MG TAB PO ONE (18:00)
[2019-01-12] MEDS: HYDROCORTISONE 1% CREAM 30 GM TUBE TOPICAL PRN (21:10)
[2019-01-12 22:22] VITALS: RESP 18
[2019-01-13] MEDS: methylPREDNISolone SOD SUCCI 125 MG/2 ML VIAL IV SCH ×3 (00:34→11:34)
[2019-01-13] MEDS: LEVOTHYROXINE 112 MCG TAB PO SCH (06:02)
[2019-01-13 06:20] LABS: Basophils % (A) 0 %; Eosinophils % (A) 0 %; HCT 31.7 % (39.0-53.0); Hypochromasia Moderate; Lymphocytes # (A) 0.5 k/uL (1.0-4.8); Lymphocytes % (A) 6 %; MCHC 31.6 g/dL (31.0-37.0); MCV 85.6 fL (80.0-100.0); Mean Platelet Volume 7.9; Monocytes # (A) 0.3 k/uL (0-1.0); Monocytes % (A) 3 %; Neutrophils # (A) 8.9 k/uL (1.3-7.7); Neutrophils % (A) 91 %; Platelet Count 287 k/uL (150-450); RDW 14.4 % (11.5-15.5); WBC 9.8 k/uL (3.8-10.6)
[2019-01-13 06:27] LABS: INR 3.1 (<1.2); Prothrombin Time 29.5 sec (9.0-12.0)
[2019-01-13 06:29] LABS: Albumin 2.9 g/dL (3.5-5.0); Calcium 8.7 mg/dL (8.4-10.2); Magnesium 2.4 mg/dL (1.6-2.3); Potassium 4.3 mmol/L (3.5-5.1); Total Bilirubin 0.3 mg/dL (0.2-1.3); Total Protein 5.6 g/dL (6.3-8.2)
[2019-01-13 07:07] VITALS: BP 119/64; PULSE 68; TEMP 98
[2019-01-13] MEDS: ENOXAPARIN 80 MG/0.8 ML SYRINGE SQ SCH (08:27)
[2019-01-13] MEDS: METOPROLOL SUCCINATE (ER) 25 MG TAB.ER.24H PO SCH (08:29)
[2019-01-13] MEDS: PANTOPRAZOLE 40 MG/10 ML VIAL IV SCH (08:29)
[2019-01-13] MEDS: ATORVASTATIN 80 MG TAB PO SCH (08:29)
[2019-01-13] MEDS: LIOTHYRONINE SODIUM 5 MCG TAB PO SCH (08:29)
[2019-01-13] MEDS: GABAPENTIN 400 MG CAP PO SCH (08:29)
[2019-01-13] MEDS: ISOSORBIDE MONONITRATE ER 30 MG TAB.ER.24H PO SCH (08:29)
[2019-01-13] MEDS: HYDROCORTISONE 1% CREAM 30 GM TUBE TOPICAL PRN (08:29)
[2019-01-13] MEDS: ASPIRIN 81 MG PO SCH (08:29)
[2019-01-13] MEDS: CLOPIDOGREL 75 MG TAB PO SCH (08:29)
[2019-01-13] MEDS: SODIUM CHLORIDE 0.9% 1,000 ML IV SCH (10:29)
--- NOTE | 2019-01-13 13:26 | P.DS ---
Providers Date of admission: 01/11/19 12:50 Expected date of discharge: 01/13/19 Attending physician: Laly Centeno Consults: 01/11/19 14:48 Consult Physician Routine Consulting Provider: Fredy Ramires Consult Reason/Comments: lung cancer Do you want consulting provider notified?: Yes 01/11/19 14:49 Consult Physician Routine Consulting Provider: Pretty Blackwell Consult Reason/Comments: lung cancer Do you want consulting provider notified?: Yes Primary care physician: Thania Barney Hospital Course: Discharge diagnosis 1. Generalized weakness with nausea vomiting and diarrhea: Possibly secondary to either a gastroenteritis or ALLERGIC reaction from the Keflex. Symptoms have now resolved. nonspecific bowel gas pattern noted on CAT scan. C. diff negative. Amylase and lipase within normal limits 2. Acute kidney injury: Likely related to dehydration and ATN due to his vomiting and diarrhea. Also poor oral intake. Kidney function has shown improvement. Creatinine is down to 1.60 which is near patient's baseline 3. Chronic kidney disease stage III. Baseline creatinine between 1.5 and 1.8 4. Evidence of dehydration on admission BUN 33 creatinine 2.26 tachycardic with heart rate of 112. Resolved 5. Macular rash noted on the arms legs and abdomen likely a possible ALLERGIC reaction to Keflex. Patient was given a dose of IV Solu-Medrol in the ER. We'll continue with the IV Benadryl as needed and add IV solumedrol 40mg q 8 hours. Keflex has been discontinued. Patient will continue a Medrol Dosepak, [id number] Benadryl and hydrocortisone cream as needed 6. 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 CAT scan showing evidence of pulmonary masses. Patient seen by both oncology and pulmonary service. Patient to follow-up with Dr. Duff on Thursday for treatment plan. 7. History of bladder cancer follows with Dr. Presley undergoes bladder washes. Last bladder wash was 2 years ago 8. History of coronary artery disease with previous cardiac stents resume patient's aspirin and Plavix 9. History of myocardial infarction 10. Essential hypertension 11. Hyperlipidemia 12. History of abdominal aortic aneurysm repair 13. History of carotid artery blood clots in which she is anticoagulated with Coumadin. INR subtherapeutic on admission due to patient not taking his Coumadin due to the nausea and vomiting. INR is now elevated at 3.1. No Coumadin tonight. Resume Coumadin tomorrow. We'll him follow-up with his PCP in 1 week to recheck PT/INR 14. Elevated AST of 80. Hold Lipitor and Tylenol. Repeat labs in 1 week 15. Stool positive for occult blood with anemia hemoglobin of 10. No active signs of bleeding. Will start ferrous sulfate 325 mg twice a day. Iron studies are pending. The occult blood may be positive due to patient's diarrhea episode. Recommend continuing to monitor and follow-up outpatient last colonoscopy was 5 years ago and negative. Hospital course This is a 79-year-old male, patient of [facility]. He has a known past medical history bladder cancer, presumed lung cancer awaiting biopsy results, chronic kidney disease, coronary artery disease previous cardiac stents, myocardial infarction, hypertension, hyperlipidemia and repair of abdominal aortic aneurysm. 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 INR is subtherapeutic at 1.2. Patient presents to the hospital with complaints of generalized weakness nausea vomiting and diarrhea for the last few days. A couple weeks ago he presented to the ER with nausea and vomiting and at that time was found to have a UTI and was started on Keflex. Patient states he took a few doses of the medication. He is concerned that it is also made him feel ill. Over the last 3 days he has been unable to eat and she is been vomiting and multiple episodes of watery stools. He denies any sick contacts or any recent traveling. Stool for C. diff has been ordered as well as a urinalysis with culture. Patient had a computed tomography scan of the abdomen and pelvis without contrast showing a nonspecific bowel gas pattern with no diagnostic evidence of obstruction. Nonobstructing distal right ureter calculus measuring 6 mm pulmonary fibrosis with pulmonary masses and areas of consolidation or infiltrate. Aortic stents noted secondary to her aortic aneurysm. Patient denies any chest pain or shortness of breath. Denies any cough, fever or chills or sweats, denies any burning with urination. He follows up with Dr. Presley for his bladder cancer. And he follows up with Dr. Duff for the presumed lung cancer he is to be getting the biopsy results soon. Patient denies any blood in the vomit or stool. Patient was found to be dehydrated with a creatinine of 2.26 BUN of 33 years tachycardic with a heart rate of 112. Troponin was negative. Patient's been started on IV Protonix and IV Zofran as needed. Patient also has a rash macular and she noted on the legs and arms and abdomen. Patient seen and examined in the ER. He is not feeling well and difficulty to obtain full sensitive history. Most of history was obtained from the chart. Patient was given a dose of IV Solu-Medrol in the ER and we'll place him on Benadryl as needed. He does complain that the rash is itchy. He does report feeling achy all over On 01/12/2019 patient's states improvement with generalized weakness. Patient is alert and oriented 3. Patient denies any chest shortness breath. Patient denies nausea vomiting or diarrhea. Patient denies any urinary burning or frequency. Patient is still complaining of itchiness. Patient is on benedryl and Solu-Medrol 01/13/2019 patient is medically stable for discharge. His nausea vomiting and diarrhea have now resolved. Tolerating diet. Symptoms were likely related to either a gastroenteritis or reaction to the Keflex. Patient will continue a Medrol Dosepak, [id number] Benadryl and hydrocortisone cream as needed for his rash. He did have elevated AST Lipitor and Tylenol discontinued. Recommend repeating LFTs in 1 week. INR is 3.1 no Coumadin scheduled for tonight and then he can resume his home Coumadin tomorrow. Patient will be following up with oncology tomorrow for further discussion regarding treatment for his bladder cancer with metastatic disease to the lung. Patient's symptoms have improved he is medically stable for discharge. Please refer to chart for any further details. Check CBC, CMP and PT/INR in 1 week Follow-up with Dr. Barney in [address] Duff on Thursday I performed an examination of the patient and discussed their management with the physician Health Promotion Coordinator. I have reviewed the Physician Health Promotion Coordinator's notes and agree with the documented findings and plan of care Patient Condition at Discharge: Stable Plan - Discharge Summary Discharge Rx Participant: No New Discharge Prescriptions: New Hydrocortisone Cream [Hydrocortisone 1% Cream] 1 applic TOPICAL BID PRN #1 applic PRN Reason: Skin Irritation methylPREDNISolone Dose Pack [Medrol Dose Pack] 4 mg PO DIRECTED #21 package Continue Gabapentin [Neurontin] 800 mg PO TID Aspirin 81 mg PO DAILY Liothyronine Sodium [Cytomel] 5 mcg PO DAILY Isosorbide Mononitrate ER [Imdur] 30 mg PO DAILY #90 tab.er.24h Levothyroxine Sodium [Synthroid] 112 mcg PO DAILY traMADol HCL [Ultram] 50 mg PO BID PRN PRN Reason: Pain Warfarin [Coumadin] 5 mg PO MOWEFR Warfarin [Coumadin] 2.5 mg PO SUTUTHSA Metoprolol Succinate (ER) [Toprol XL] 25 mg PO DAILY Nitroglycerin Sl Tabs [Nitrostat] 0.4 mg SUBLINGUAL Q5M PRN #25 tab PRN Reason: Chest Pain Clopidogrel [Plavix] 75 mg PO DAILY #90 tab Ondansetron Odt [Zofran ODT] 4 mg PO Q8HR PRN #12 tab PRN Reason: Nausea Discontinued Acetaminophen Tab [Tylenol] 1,000 mg PO Q6HR PRN PRN Reason: Pain Rosuvastatin Calcium [Crestor] 40 mg PO DAILY Cephalexin [Keflex] 500 mg PO Q8HR #21 cap Discharge Medication List Aspirin 81 mg PO DAILY 10/20/14 [History] Gabapentin [Neurontin] 800 mg PO TID 10/20/14 [History] Liothyronine Sodium [Cytomel] 5 mcg PO DAILY 10/20/14 [History] Isosorbide Mononitrate ER [Imdur] 30 mg PO DAILY #90 tab.er.24h 10/23/14 [Rx] Levothyroxine Sodium [Synthroid] 112 mcg PO DAILY 01/11/17 [History] Metoprolol Succinate (ER) [Toprol XL] 25 mg PO DAILY 01/11/17 [History] Warfarin [Coumadin] 2.5 mg PO SUTUTHSA 01/11/17 [History] Warfarin [Coumadin] 5 mg PO MOWEFR 01/11/17 [History] traMADol HCL [Ultram] 50 mg PO BID PRN 01/11/17 [History] Nitroglycerin Sl Tabs [Nitrostat] 0.4 mg SUBLINGUAL Q5M PRN #25 tab 03/31/18 [Rx] Clopidogrel [Plavix] 75 mg PO DAILY #90 tab 05/04/18 [Rx] Ondansetron Odt [Zofran ODT] 4 mg PO Q8HR PRN #12 tab 12/29/18 [Rx] Hydrocortisone Cream [Hydrocortisone 1% Cream] 1 applic TOPICAL BID PRN #1 applic 01/13/19 [Rx] methylPREDNISolone Dose Pack [Medrol Dose Pack] 4 mg PO DIRECTED #21 package 01/13/19 [Rx] Follow up Appointment(s)/Referral(s): Rickie Duff MD [Family Provider] - 01/14/19 Thania Barney DO [Primary Care Provider] - 3 Days Ambulatory/Diagnostic Orders: Complete Blood Count w/diff [LAB.AMB] Time Frame: 1 Week, Location: None Selected Activity/Diet/Wound Care/Special Instructions: Diet: cardiac Activity: as tolerated ok to use benadryl OTC PRN for itching Discharge Disposition: HOME SELF-CARE
[2019-01-13] MEDS ORDERED: WARFARIN 1 MG TAB PO ONE (18:00)
[2019-01-13 18:44] LABS: Iron Saturation 17.77 (15.00-50.00)
== END 2019-01-13 13:47 | disposition home or self-care (01) ==
LOC: EC 09:40 → 4MS4W 12:50
PROVIDERS: ADMIT Internal Medicine; ATTEND Internal Medicine
DX: N17.0 Acute kidney failure with tubular necrosis (principal); R11.2 Nausea with vomiting, unspecified; R53.1 Weakness; R19.7 Diarrhea, unspecified; E03.9 Hypothyroidism, unspecified; E78.5 Hyperlipidemia, unspecified; E86.0 Dehydration; I12.9 Hypertensive chronic kidney disease with stage 1 through stage 4 chronic kidney disease, or unspecified chronic kidney disease; L27.0 Generalized skin eruption due to drugs and medicaments taken internally; T36.1X5A Adverse effect of cephalosporins and other beta-lactam antibiotics, initial encounter; N18.3 Chronic kidney disease, stage 3 (moderate); C67.9 Malignant neoplasm of bladder, unspecified; C78.02 Secondary malignant neoplasm of left lung; C78.01 Secondary malignant neoplasm of right lung; N20.1 Calculus of ureter; D64.9 Anemia, unspecified; H91.90 Unspecified hearing loss, unspecified ear; E07.9 Disorder of thyroid, unspecified; L50.9 Urticaria, unspecified; J84.10 Pulmonary fibrosis, unspecified; I25.10 Atherosclerotic heart disease of native coronary artery without angina pectoris; I25.2 Old myocardial infarction; Z79.82 Long term (current) use of aspirin; Z79.899 Other long term (current) drug therapy; Z79.01 Long term (current) use of anticoagulants; Z79.02 Long term (current) use of antithrombotics/antiplatelets; Z88.5 Allergy status to narcotic agent; Z91.041 Radiographic dye allergy status; Z87.442 Personal history of urinary calculi; Z97.4 Presence of external hearing-aid; Z87.891 Personal history of nicotine dependence; Z95.828 Presence of other vascular implants and grafts; Z87.440 Personal history of urinary (tract) infections; Z79.890 Hormone replacement therapy; Z86.79 Personal history of other diseases of the circulatory system
CPT/HCPCS: 96376 ×3; 96372 ×2; 96375 ×2; 96361; 96374; 99285; 36415; 93005; 80053 ×3; 82728; 82150; 83540; 83550; 83605; 83690; 83735 ×3; 84100; 84484; 85025 ×3; 85610 ×3; 85730; 82272; 81001; 87040; 87324; 87045; 87046; 87502; 71046; 74176; G0378 ×3; J2920 ×2; J2930 ×3; J2405; J1650 ×2; C9113 ×2

== ENCOUNTER 2019-01-18 12:09 | Inpatient (IN) | payer MEDICARE, OTHER ==
[2019-01-18] MEDS ORDERED: SODIUM CHLORIDE 0.9% 500 ML 500 ML IV STA (12:30)
--- NOTE | 2019-01-18 13:05 | ED ---
General Adult HPI - General Chief complaint: Weakness Stated complaint: Low BP Time Seen by Provider: 01/18/19 12:25 Source: patient, family, RN notes reviewed, old records reviewed Mode of arrival: wheelchair Limitations: no limitations - History of Present Illness Initial comments: 79-year-old male presenting for evaluation of generalized weakness, fatigue. Patient was sent from primary care office with hypertension. Patient had recent hospital admission with dehydration, chronic renal failure. He states that since time of discharge she has been quite weak. He's had exertional dyspnea. He has recent diagnosis of lung cancer and is scheduled to initiate treatment within the next week or so. Denies fever or chills. Denies abdominal pain. He had one episode of vomiting prior to arrival today. Denied chest pain. Denies diarrhea. Denies dysuria or hematuria. - Related Data Home Medications Medication Instructions Recorded Confirmed Aspirin 81 mg PO DAILY 10/20/14 01/18/19 Liothyronine Sodium [Cytomel] 5 mcg PO DAILY 10/20/14 01/18/19 Levothyroxine Sodium [Synthroid] 112 mcg PO DAILY 01/11/17 01/18/19 Metoprolol Succinate (ER) [Toprol 25 mg PO DAILY 01/11/17 01/18/19 XL] traMADol HCL [Ultram] 50 mg PO BID PRN 01/11/17 01/18/19 Acetaminophen [Tylenol] 325 mg PO TID 01/18/19 01/18/19 Cyanocobalamin (Vitamin B-12) 1,000 mcg PO DAILY 01/18/19 01/18/19 [Vitamin B-12] Gabapentin [Neurontin] 800 mg PO TID 01/18/19 01/18/19 Rosuvastatin Calcium [Crestor] 40 mg PO DAILY 01/18/19 01/18/19 Warfarin [Coumadin] 3 mg PO DAILY 01/18/19 01/18/19 Previous Rx's Medication Instructions Recorded Isosorbide Mononitrate ER [Imdur] 30 mg PO DAILY #90 tab.er.24h 10/23/14 Nitroglycerin Sl Tabs [Nitrostat] 0.4 mg SUBLINGUAL Q5M PRN #25 tab 03/31/18 Clopidogrel [Plavix] 75 mg PO DAILY #90 tab 05/04/18 Ferrous Sulfate [Feosol] 325 mg PO BID #60 tab 01/13/19 Hydrocortisone Cream 1 applic TOPICAL BID PRN #1 applic 01/13/19 [Hydrocortisone 1% Cream] Allergies Allergy/AdvReac Type Severity Reaction Status Date / Time ciprofloxacin [From Cipro] Allergy Rash/Hives Verified 01/18/19 12:43 Iodinated Contrast- Oral and Allergy Unknown Verified 01/18/19 12:43 IV Dye [Iodinated Contrast Media - Oral and] morphine AdvReac Severe Nausea & Verified 01/18/19 12:43 Vomiting Review of Systems ROS Statement: Those systems with pertinent positive or pertinent negative responses have been documented in the HPI. ROS Other: All systems not noted in ROS Statement are negative. 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 LT KNEE HAD BONE CHIPS REMOVED,, 10-20-14 HEART CATH w/angioplasty but was unable to place stent, recent bladder polyp removed; indwelling catheter was removed 01-11-17. 3 STENTS RCA 05/03/18, biopsy lung- bronch Past Anesthesia/Blood Transfusion Reactions: No Reported Reaction Past Psychological History: No Psychological Hx Reported Smoking Status: Former smoker Past Alcohol Use History: None Reported Past Drug Use History: None Reported - Past Family History Mother Additional Family Medical History / Comment(s): brain tumor Father Family Medical History: Unable to Obtain General Exam Limitations: no limitations General appearance: alert, in no apparent distress Head exam: Present: atraumatic, normocephalic Eye exam: Present: normal appearance, PERRL ENT exam: Present: mucous membranes dry Neck exam: Present: normal inspection. Absent: tenderness, meningismus Respiratory exam: Present: respiratory distress (mild), rales Cardiovascular Exam: Present: regular rate, normal rhythm GI/Abdominal exam: Present: soft. Absent: distended, tenderness Extremities exam: Present: full ROM, normal capillary refill Neurological exam: Present: alert, oriented X3, CN II-XII intact. Absent: motor sensory deficit Psychiatric exam: Present: normal affect, normal mood Skin exam: Present: warm, dry, intact. Absent: cyanosis, diaphoretic Course Vital Signs 01/18/19 01/18/19 01/18/19 12:14 13:06 14:23 Temperature 97.6 F 97.4 F L Pulse Rate 94 86 74 Respiratory 18 20 16 Rate Blood Pressure 74/41 91/57 92/57 O2 Sat by Pulse 83 L 100 100 Oximetry 01/18/19 14:24 Temperature 98 F Pulse Rate 72 Respiratory 18 Rate Blood Pressure 140/70 O2 Sat by Pulse 96 Oximetry EKG Findings - EKG Comments: EKG Findings:: EKG: Normal sinus rhythm, baseline tremor, no ST segment elevation. Rate of 91, DE interval 154, QRS duration 74, QTC 457 Medical Decision Making - Medical Decision Making 71-year-old male presenting with dyspnea, lightheadedness. Found to be hypotensive. He does admit to cough and dyspnea. Chest x-ray shows left lower lobe pneumonia and pulmonary fibrosis. He has a significantly elevated white blood cell count at 21. Hemoglobin 9.8 which is stable for this patient from recent of 10. He has an elevated INR at 5.4, Coumadin will be held. Patient has elevated creatinine above baseline, lactic acid 3.8. He receives IV hydration in the emergency department. Urinalysis pending. Blood culture pending. Patient is initiated on Zosyn and vancomycin. Will be admitted for resuscitation, and IV antibiotics for healthcare associated pneumonia. Case discussed with admitting physician. - Lab Data Result diagrams: 01/18/19 12:50 01/18/19 12:50 Lab Results 01/18/19 01/18/19 01/18/19 Range/Units 12:50 12:50 12:50 WBC 21.0 H (3.8-10.6) k/uL RBC 3.70 L (4.30-5.90) m/uL Hgb 9.8 L (13.0-17.5) gm/dL Hct 31.5 L (39.0-53.0) % MCV 85.1 (80.0-100.0) fL MCH 26.5 (25.0-35.0) pg MCHC 31.2 (31.0-37.0) g/dL RDW 15.6 H (11.5-15.5) % Plt Count 457 H (150-450) k/uL Neutrophils % 85 % Lymphocytes % 7 % Monocytes % 5 % Eosinophils % 2 % Basophils % 0 % Neutrophils # 17.9 H (1.3-7.7) k/uL Lymphocytes # 1.5 (1.0-4.8) k/uL Monocytes # 1.0 (0-1.0) k/uL Eosinophils # 0.4 (0-0.7) k/uL Basophils # 0.0 (0-0.2) k/uL Hypochromasia Moderate PT (9.0-12.0) sec INR (<1.2) APTT (22.0-30.0) sec Sodium 143 (137-145) mmol/L Potassium 4.6 (3.5-5.1) mmol/L Chloride 108 H (98-107) mmol/L Carbon Dioxide 21 L (22-30) mmol/L Anion Gap 14 mmol/L BUN 61 H (9-20) mg/dL Creatinine 2.04 H (0.66-1.25) mg/dL Est GFR (CKD-EPI)AfAm 35 (>60 ml/min/1.73 sqM) Est GFR (CKD-EPI)NonAf 30 (>60 ml/min/1.73 sqM) Glucose 117 H (74-99) mg/dL Plasma Lactic Acid Evans 3.8 H* (0.7-2.0) mmol/L Calcium 9.3 (8.4-10.2) mg/dL Magnesium 2.5 H (1.6-2.3) mg/dL Total Bilirubin 0.5 (0.2-1.3) mg/dL AST 31 (17-59) U/L ALT 52 (21-72) U/L Alkaline Phosphatase 90 (38-126) U/L Creatine Kinase 27 L (55-170) U/L Troponin I (0.000-0.034) ng/mL NT-Pro-B Natriuret Pep pg/mL Total Protein 7.2 (6.3-8.2) g/dL Albumin 4.0 (3.5-5.0) g/dL 01/18/19 01/18/19 01/18/19 Range/Units 12:50 12:50 12:50 WBC (3.8-10.6) k/uL RBC (4.30-5.90) m/uL Hgb (13.0-17.5) gm/dL Hct (39.0-53.0) % MCV (80.0-100.0) fL MCH (25.0-35.0) pg MCHC (31.0-37.0) g/dL RDW (11.5-15.5) % Plt Count (150-450) k/uL Neutrophils % % Lymphocytes % % Monocytes % % Eosinophils % % Basophils % % Neutrophils # (1.3-7.7) k/uL Lymphocytes # (1.0-4.8) k/uL Monocytes # (0-1.0) k/uL Eosinophils # (0-0.7) k/uL Basophils # (0-0.2) k/uL Hypochromasia PT 52.5 H (9.0-12.0) sec INR 5.4 H* (<1.2) APTT 22.8 (22.0-30.0) sec Sodium (137-145) mmol/L Potassium (3.5-5.1) mmol/L Chloride (98-107) mmol/L Carbon Dioxide (22-30) mmol/L Anion Gap mmol/L BUN (9-20) mg/dL Creatinine (0.66-1.25) mg/dL Est GFR (CKD-EPI)AfAm (>60 ml/min/1.73 sqM) Est GFR (CKD-EPI)NonAf (>60 ml/min/1.73 sqM) Glucose (74-99) mg/dL Plasma Lactic Acid Evans (0.7-2.0) mmol/L Calcium (8.4-10.2) mg/dL Magnesium (1.6-2.3) mg/dL Total Bilirubin (0.2-1.3) mg/dL AST (17-59) U/L ALT (21-72) U/L Alkaline Phosphatase (38-126) U/L Creatine Kinase (55-170) U/L Troponin I <0.012 (0.000-0.034) ng/mL NT-Pro-B Natriuret Pep 803 pg/mL Total Protein (6.3-8.2) g/dL Albumin (3.5-5.0) g/dL Critical Care Time Critical Care Time: Yes Total Critical Care Time: 35 Disposition Clinical Impression: KAPIL (acute kidney injury), Dehydration, HCAP (healthcare-associated pneumonia) Disposition: ADMITTED IP TO THIS [facility] Condition: Stable Is patient prescribed a controlled substance at d/c from ED?: No Referrals: Thania Barney DO [Primary Care Provider] - 1-2 days Decision to Admit Reason: Admit from EC Decision Date: 01/18/19 Decision Time: 15:38
[2019-01-18 13:09] LABS: Basophils % (A) 0 %; Eosinophils # (A) 0.4 k/uL (0-0.7); Eosinophils % (A) 2 %; HCT 31.5 % (39.0-53.0); HGB 9.8 gm/dL (13.0-17.5); Hypochromasia Moderate; Lymphocytes # (A) 1.5 k/uL (1.0-4.8); Lymphocytes % (A) 7 %; MCH 26.5 pg (25.0-35.0); MCHC 31.2 g/dL (31.0-37.0); MCV 85.1 fL (80.0-100.0); Mean Platelet Volume 8.3; Monocytes % (A) 5 %; Neutrophils # (A) 17.9 k/uL (1.3-7.7); Neutrophils % (A) 85 %; Platelet Count 457 k/uL (150-450); RDW 15.6 % (11.5-15.5)
[2019-01-18 13:23] LABS: Calcium 9.3 mg/dL (8.4-10.2); Magnesium 2.5 mg/dL (1.6-2.3); Potassium 4.6 mmol/L (3.5-5.1); Total Bilirubin 0.5 mg/dL (0.2-1.3); Total Protein 7.2 g/dL (6.3-8.2)
[2019-01-18] MEDS ORDERED: VANCOMYCIN 1,750 MG in SODIUM CHLORIDE 0.9% 500 ML 500 ML IVPB ONE (13:30)
[2019-01-18 13:31] LABS: Partial Thromboplastin Time 22.8 sec (22.0-30.0); Prothrombin Time 52.5 sec (9.0-12.0)
[2019-01-18 13:43] LABS: INR 5.4 (<1.2)
[2019-01-18] MEDS ORDERED: SODIUM CHLORIDE 0.9% 1,000 ML IV ONE (14:05)
[2019-01-18] MEDS ORDERED: PIPERACILLIN-TAZOBACTAM 3.375 GM in SODIUM CHLORIDE 0.9% 100 ML IVPB STA (14:05)
--- NOTE | 2019-01-18 14:18 | XR ---
EXAMINATION TYPE: XR chest 2V DATE OF EXAM: 01/18/2019 COMPARISON: 01/11/2019 HISTORY: Weakness TECHNIQUE: Frontal and lateral views of the chest are obtained. FINDINGS: Aortic stent in coronary artery stent are present. There is reticular retrocardiac opacity that appears similar to the prior. This represents pulmonary fibrosis when correlated with the prior CT of 01/11/2019. Cardiomediastinal silhouette is stable. No pleural effusion or pneumothorax. Genera lized osseous demineralization is seen. There is slight progression of the midthoracic compression de formity. IMPRESSION: 1. Slight progression of the midthoracic compression deformity in comparison to the recent exam of . 2. Pulmonary fibrosis particularly exaggerated in the left lung base.
[2019-01-18] MEDS ORDERED: VANCOMYCIN IV PER PHARMACY 1 EACH MISC MISCELLANE PRN (14:50)
[2019-01-18] MEDS ORDERED: SODIUM CHLORIDE 0.9% 500 ML 500 ML IV ONE (14:55)
[2019-01-18] MEDS ORDERED: ACETAMINOPHEN TAB 325 MG TAB PO PRN (15:35)
[2019-01-18] MEDS ORDERED: NALOXONE 0.4 MG/ML 1 ML VIAL IV PRN (15:35)
[2019-01-18] MEDS: SODIUM CHLORIDE 0.9% 1,000 ML IV SCH (16:09)
[2019-01-18 18:56] LABS: Appearance,Urine Clear (Clear); Bilirubin,Urine Negative (Negative); Blood,Urine Negative (Negative); Color,Urine Light Yellow; Glucose,Urine (UA) Negative (Negative); Ketones,Urine Negative (Negative); Leukocyte Esterase,Urine Negative (Negative); Nitrite,Urine Negative (Negative); Protein,Urine Negative (Negative); Specific Gravity,Urine 1.015 (1.001-1.035); Urobilinogen,Urine <2.0 mg/dL (<2.0)
[2019-01-18] MEDS: PIPERACILLIN-TAZOBACTAM 3.375 GM in SODIUM CHLORIDE 0.9% 100 ML IVPB SCH (21:10)
[2019-01-18] MEDS ORDERED: NITROGLYCERIN SL TABS 0.4 MG TAB SUBLINGUAL PRN (21:56)
[2019-01-18] MEDS: GABAPENTIN 400 MG CAP PO SCH (22:23)
[2019-01-18] MEDS: ACETAMINOPHEN TAB 325 MG TAB PO SCH (22:23)
[2019-01-18] MEDS ORDERED: HYDROCORTISONE 1% CREAM 30 GM TUBE TOPICAL PRN (22:30)
[2019-01-19] MEDS: SODIUM CHLORIDE 0.9% 1,000 ML IV SCH ×2 (04:26→15:36)
[2019-01-19] MEDS: PIPERACILLIN-TAZOBACTAM 3.375 GM in SODIUM CHLORIDE 0.9% 100 ML IVPB SCH ×3 (04:26→20:05)
[2019-01-19] MEDS: LEVOTHYROXINE 112 MCG TAB PO SCH (06:43)
[2019-01-19] MEDS: traMADol 50 MG TAB PO PRN ×2 (08:32→20:05)
[2019-01-19] MEDS: FERROUS SULFATE 325 MG TAB PO SCH ×2 (08:33→20:05)
[2019-01-19] MEDS: GABAPENTIN 400 MG CAP PO SCH ×3 (08:33→22:37)
[2019-01-19] MEDS: ISOSORBIDE MONONITRATE ER 30 MG TAB.ER.24H PO SCH (08:33)
[2019-01-19] MEDS: ACETAMINOPHEN TAB 325 MG TAB PO SCH ×3 (08:33→21:20)
[2019-01-19] MEDS: CYANOCOBALAMIN 500 MCG TAB PO SCH (08:33)
[2019-01-19] MEDS: LIOTHYRONINE SODIUM 5 MCG TAB PO SCH (08:33)
[2019-01-19] MEDS: ATORVASTATIN 80 MG TAB PO SCH (08:34)
[2019-01-19] MEDS: METOPROLOL SUCCINATE (ER) 25 MG TAB.ER.24H PO SCH (08:35)
[2019-01-19] MEDS ORDERED: CLOPIDOGREL 75 MG TAB PO SCH (09:00)
[2019-01-19] MEDS ORDERED: ASPIRIN 81 MG PO SCH (09:00)
[2019-01-19 09:19] LABS: HCT 25.3 % (39.0-53.0); Hypochromasia Marked; MCH 27.2 pg (25.0-35.0); MCHC 31.4 g/dL (31.0-37.0); MCV 86.5 fL (80.0-100.0); Mean Platelet Volume 8.3; Platelet Count 334 k/uL (150-450); RBC 2.92 m/uL (4.30-5.90); RDW 15.3 % (11.5-15.5); WBC 10.7 k/uL (3.8-10.6)
[2019-01-19 09:24] LABS: HGB 7.9 gm/dL (13.0-17.5)
[2019-01-19 09:45] LABS: Prothrombin Time 61.6 sec (9.0-12.0)
[2019-01-19 09:49] LABS: INR 6.4 (<1.2)
[2019-01-19] MEDS ORDERED: PHYTONADIONE ORAL 5 MG/5 ML ORAL.SYRG PO STA (11:03)
--- NOTE | 2019-01-19 11:09 | P.HPIM ---
History of Present Illness H&P Date: 01/19/19 This is a 71-year-old male patient of Dr. Barney. Patient presented to the ER with complaints of generalized weakness and fatigue. Patient was recently admitted for general weakness and acute kidney injury. At this time patient does not use hearing aids and unable to hear clearly. 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 During previous admission patient was seen by pulmonary and oncology services. Additional medical history includes bladder cancer, coronary artery disease, myocardial infarction, essential hypertension, hyperlipidemia, abdominal aneurysm repair, coronary artery blood clots in which he is on Coumadin. Patient INR 5.6 on admission. Initial lactic acid 3.8. Creatinine 2.04 and bun 61. Patient also hypotensive on arrival. Patient received 2 L bolus. Blood pressure has improved. Chest x- ray completed showing slight progression in the mid thoracic compression def ormity. Pulmonary fibrosis 50 Fleet surgery in the left lung base. EKG completed showing normal sinus rhythm, possible inferior infarct. Patient denies chest pain or shortness breath. Patient denies nausea vomiting or diarrhea. Patient denies any urinary burning or frequency Review of Systems please refer to HPI otherwise unremarkable Past Medical History Past Medical History: Coronary Artery Disease (CAD), Cancer, Hearing Disorder / Deafness, Hyperlipidemia, Hypertension, Myocardial Infarction ([place]), Thyroid Disorder Additional Past Medical History / Comment(s): "aaa-repaired", vertigo AND HEAR ING LOSS SINCE [place] -lt ear deaf and rt side wears a hearing aid, KIDNEY STONE(PASSED IT), SPINAL STENOSIS, DDD LUMBAR SPINE, CONSTIPATION, neuropathy, Bladder cancer, lung CA Last Myocardial Infarction Date:: 10-20-14 History of Any Multi-Drug Resistant Organisms: None Reported Past Surgical History: Heart Catheterization Additional Past Surgical History / Comment(s): STENT LOWER AORTA, EAR RE CONSTRUCTION SX (LT) FAILED PT DEAF. LT KNEE HAD BONE CHIPS REMOVED,, 10-20-14 HEART CATH w/angioplasty but was unable to place stent, recent bladder polyp removed; indwelling catheter was removed 01-11-17. 3 STENTS RCA 05/03/18, biopsy lung-bronch Past Anesthesia/Blood Transfusion Reactions: No Reported Reaction Past Psychological History: No Psychological Hx Reported Additional Psychological History / Comment(s): Pt. lives with , is independant, one dog, no outside services, no medical equipment. 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 Smoking Status: Former smoker Past Alcohol Use History: None Reported Additional Past Alcohol Use History / Comment(s): started smoking at age 19 - smoked cig then swithced to pipe. quit 1979 Past Drug Use History: None Reported - Past Family History Mother Additional Family Medical History / Comment(s): brain tumor Father Family Medical History: Unable to Obtain Medications and Allergies Home Medications Medication Instructions Recorded Confirmed Type Aspirin 81 mg PO DAILY 10/20/14 01/18/19 History Liothyronine Sodium [Cytomel] 5 mcg PO DAILY 10/20/14 01/18/19 History Isosorbide Mononitrate ER [Imdur] 30 mg PO DAILY #90 tab.er.24h 10/23/14 01/18/19 Rx Levothyroxine Sodium [Synthroid] 112 mcg PO DAILY 01/11/17 01/18/19 History Metoprolol Succinate (ER) [Toprol 25 mg PO DAILY 01/11/17 01/18/19 History XL] traMADol HCL [Ultram] 50 mg PO BID PRN 01/11/17 01/18/19 History Nitroglycerin Sl Tabs [Nitrostat] 0.4 mg SUBLINGUAL Q5M PRN #25 tab 03/31/18 01/18/19 Rx Clopidogrel [Plavix] 75 mg PO DAILY #90 tab 05/04/18 01/18/19 Rx Ferrous Sulfate [Feosol] 325 mg PO BID #60 tab 01/13/19 01/18/19 Rx Hydrocortisone Cream 1 applic TOPICAL BID PRN #1 applic 01/13/19 01/18/19 Rx [Hydrocortisone 1% Cream] Acetaminophen [Tylenol] 325 mg PO TID 01/18/19 01/18/19 History Cyanocobalamin (Vitamin B-12) 1,000 mcg PO DAILY 01/18/19 01/18/19 History [Vitamin B-12] Gabapentin [Neurontin] 800 mg PO TID 01/18/19 01/18/19 History Rosuvastatin Calcium [Crestor] 40 mg PO DAILY 01/18/19 01/18/19 History Warfarin [Coumadin] 3 mg PO DAILY 01/18/19 01/18/19 History Allergies Allergy/AdvReac Type Severity Reaction Status Date / Time ciprofloxacin [From Cipro] Allergy Rash/Hives Verified 01/18/19 12:43 Iodinated Contrast- Oral and Allergy Unknown Verified 01/18/19 12:43 IV Dye [Iodinated Contrast Media - Oral and] morphine AdvReac Severe Nausea & Verified 01/18/19 12:43 Vomiting Physical Exam Vitals: Vital Signs Temp Pulse Pulse Resp BP BP Pulse Ox 01/19/19 10:10 77 16 01/19/19 04:28 97.6 F 75 16 95/53 100 01/19/19 00:00 97.7 F 66 15 99/53 100 01/18/19 20:59 97.6 F 71 16 104/51 100 01/18/19 18:30 97.5 F L 67 20 108/56 99 01/18/19 15:54 70 20 94/58 100 01/18/19 14:23 97.4 F L 74 16 92/57 100 01/18/19 13:06 86 20 91/57 100 01/18/19 12:14 97.6 F 94 18 74/41 83 L Intake and Output 01/18/19 01/19/19 01/19/19 22:59 06:59 14:59 Intake Total 600 1400 Output Total 275 675 Balance 325 725 Intake: Intake, IV Titration 600 1000 Amount Piperacillin-Tazobactam 3 100 .375 gm In Sodium Chloride 0.9% 100 ml @ 25 mls/hr IVPB Q8H [facility] Rx#: [id number] Sodium Chloride 0.9% 1, 600 900 000 ml @ 75 mls/hr IV . [id number] [facility] Rx#:[id number] Oral 400 Output: Urine 275 675 Other: Voiding Method Urinal Urinal Urinal # Voids 2 Weight 77.5 kg Head normocephalic Neck supple Lungs clear to auscultation bilaterally no wheezing or crackles Heart regular rate and rhythm S1-S2, no rub or gallop Abdomen is soft nontender nondistended positive bowel sounds no hepatosplenomegaly Extremities no edema Neuro alert and orientated to 3. Hard of hearing Results CBC & Chem 7: 01/19/19 08:30 01/18/19 12:50 Labs: Abnormal Lab Results - Last 24 Hours (Table) 01/18/19 01/18/19 01/18/19 Range/Units 12:50 12:50 12:50 WBC 21.0 H (3.8-10.6) k/uL RBC 3.70 L (4.30-5.90) m/uL Hgb 9.8 L (13.0-17.5) gm/dL Hct 31.5 L (39.0-53.0) % RDW 15.6 H (11.5-15.5) % Plt Count 457 H (150-450) k/uL Neutrophils # 17.9 H (1.3-7.7) k/uL PT (9.0-12.0) sec INR (<1.2) Chloride 108 H (98-107) mmol/L Carbon Dioxide 21 L (22-30) mmol/L BUN 61 H (9-20) mg/dL Creatinine 2.04 H (0.66-1.25) mg/dL Glucose 117 H (74-99) mg/dL Plasma Lactic Acid Evans 3.8 H* (0.7-2.0) mmol/L Magnesium 2.5 H (1.6-2.3) mg/dL Creatine Kinase 27 L (55-170) U/L 01/18/19 01/19/19 01/19/19 Range/Units 12:50 08:30 08:30 WBC 10.7 H (3.8-10.6) k/uL RBC 2.92 L (4.30-5.90) m/uL Hgb 7.9 L D (13.0-17.5) gm/dL Hct 25.3 L (39.0-53.0) % RDW (11.5-15.5) % Plt Count (150-450) k/uL Neutrophils # (1.3-7.7) k/uL PT 52.5 H 61.6 H (9.0-12.0) sec INR 5.4 H* 6.4 H* (<1.2) Chloride (98-107) mmol/L Carbon Dioxide (22-30) mmol/L BUN (9-20) mg/dL Creatinine (0.66-1.25) mg/dL Glucose (74-99) mg/dL Plasma Lactic Acid Evans (0.7-2.0) mmol/L Magnesium (1.6-2.3) mg/dL Creatine Kinase (55-170) U/L Thrombosis Risk Factor Assmnt - Choose All That Apply Any of the Below Risk Factors Present?: No Other Risk Factors: Yes Each Risk Factor Represents 3 Points: Age 75 years or older Other congenital or acquired thrombophilia - If yes, enter type in comment: No Thrombosis Risk Factor Assessment Total Risk Factor Score: 3 Thrombosis Risk Factor Assessment Level: Moderate Risk Assessment and Plan Assessment: 1. Sepsis present on admission related to possible pneumonia. WBC 21.0. Lactic acid 3.8. Chest x-ray completed showing slight progression in the mid thoracic compression deformity in comparison to the recent exam of 01/11/2019 pulmonary fibrosis particularly exaggerated in the left lung base. Pulmonary services have been consulted repeat chest x-ray has been ordered. Patient currently on vancomycin and Zosyn 2. Acute on chronic kidney disease related to dehydration. Creatinine 2.04 and bun 61. Patient received 2 L of normal saline. 3. Increased weakness related to dehydration and possible pneumonia. 4. Supra therapeutic INR. INR 6.4. Patient to receive 1 dose of 2 mg of vitamin K 5. 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 Patient biopsy completed November 2018 showing right lung core biopsy poorly differentiated non-small cell carcinoma consistent with metastatic high-grade urothelial carcinoma. Patient was seen by oncology and pulmonary services during previous admission. Pulmonary service is consulted 6. History of chronic kidney disease stage III. Baseline creatinine 1.5-1.8 7. History of bladder cancer. 8. History of coronary artery disease with previous cardiac stents. Patient maintained on Plavix and aspirin 9. History of myocardial infarction 10. History of essential hypertension. Home meds resumed parameters 11. History of hyperlipidemia 12. History of abdominal aortic aneurysm repair 13. History of carotid artery blood clots in which he is on Coumadin. INR subtherapeutic at 5.4 and admission. Coumadin currently held 14. Anemia. Patient currently maintained on ferrous sulfate. During previous admission patient was positive for occult blood. hemoGlobin 7.9 pulmonary, oncology and cardiology services consulted Maintained on vancomycin and Zosyn Time with Patient: Greater than 30 (Greater than 60% of the total time spent in counseling and coordination of care. I performed an examination of the patient and discussed their management with the Nurse Practitioner. I have reviewed the Nurse Practitioner's notes and agree with the documented findings and plan of care)
[2019-01-19 11:17] LABS: Calcium 8.2 mg/dL (8.4-10.2); Potassium 4.6 mmol/L (3.5-5.1)
[2019-01-19] MEDS ORDERED: VANCOMYCIN 1,500 MG in SODIUM CHLORIDE 0.9% 250 ML IVPB SCH (12:00)
--- NOTE | 2019-01-19 12:50 | XR ---
EXAMINATION TYPE: XR chest 2V DATE OF EXAM: 01/19/2019 COMPARISON: 01/18/2019 HISTORY: Shortness of breath TECHNIQUE: Frontal and lateral views of the chest are obtained. FINDINGS: Scattered senescent parenchymal changes noted. Hyperinflation compatible with COPD. stable LLL infiltrate superimposed on fibrosis Heart size is stable. Mediastinal structures are stable and grossly unremarkable. No evidence for hilar prominence. Degenerative changes dorsal spine. IMPRESSION: 1. stable LLL infiltrate superimposed on fibrosis
--- NOTE | 2019-01-19 14:23 | P.CNPUL ---
History of Present Illness Consult date: 01/19/19 Requesting physician: Laly Centeno Reason for consult: dyspnea, hypoxemia, abnormal CXR/CT, other Chief complaint: Weakness, shortness of breath, hypoxemic respiratory failure, hypotension History of present illness: This is a 79-year-old daughter white male patient with recently diagnosed poorl y differentiated non-small cell carcinoma consistent with metastatic high-grade urothelial carcinoma, diagnosed via a CT-guided fine-needle biopsy of the right lung mass. Patient follows with Dr. Duff, and was supposed to see him yesterday in regards to the treatment plan for his cancer. He was recently hospitalized last week with symptoms of nausea, vomiting and diarrhea, generalized weakness and dehydration. CT of the abdomen was negative for any diagnostic evidence of obstruction. Patient was recently treated for a urinary tract infection with a round of Keflex which she did not finish because he developed a rash. Other medical history includes chronic kidney disease stage III, history of bladder cancer being followed by Dr. Presley, CAD with previous stenting and previous myocardial infarction, history of thoracic abdominal aortic aneurysm repair, hypertension, and hyperlipidemia. Patient received IV hydration during his last admission, and was discharged home. C. diff was negative, amylase and lipase were within normal limits, his symptoms had resolved, his kidney function was improving with hydration. After going home patient felt increasingly weak and fatigued, short of breath, and it yesterday morning patient could hardly walk 10 feet related to his shortness of breath with exertion, and weakness. No nausea or vomiting, no abdominal pain, patient did pass 2 very dark colored almost black colored stools yesterday. No fever or chills, no chest pain. Patient was taken to the outpatient clinic, where he was noted to be hypotensive with a blood pressure of 74/41, and was transferred to the hospital for evaluation of his hypotension and weakness. He has an occasional cough, which has been chronic for the last 3 months, and occasional production of clear sputum. No significant cough or congestion. Chest x-ray is showing pulmonary fibrosis leading more prominent in the left lung base, follow- up chest x-ray today showed stable possible left lower lobe infiltrate. Lab work showed white blood cell count of 21, hemoglobin is 9.8, INR is 5.4, sodium was 143, potassium is 4.6, chloride was 108, CO2 is 21, B1 is 61 and creatinine is 2.04, plasma lactic acid was 3.8, troponin was negative 1, proBNP was 803, urinalysis was within normal limits, on today's labs, there has been a drop in hemoglobin down to 7.9, white blood cell count is 10.7, INR has increased to 6.4, and patient was given vitamin K, she received IV hydration, and the there has been some improvement in patient's renal profile, with BUN down to 46 and creatinine 1.7, lactic acid is down to 1.1. Patient has not had any more bowel movements, he remains weak and fatigued, but hemodynamically more stable, blood pressure is 99/52, he remains on IV 0.9 normal saline at a rate of 75 ML per hour, afebrile, room air pulse ox is 99%. He was started on antibiotic coverage in the form of Zosyn and vancomycin, blood cultures have been drawn and are pending at this time. Review of Systems All systems: negative Constitutional: Reports weakness, Denies chills, Denies fever Eyes: denies blurred vision, denies pain Ears, nose, mouth and throat: Denies headache, Denies sore throat Cardiovascular: Reports decreased exercise tolerance, Reports dyspnea on exertion, Denies chest pain, Denies shortness of breath Respiratory: Reports dyspnea, Denies cough Gastrointestinal: Denies abdominal pain, Denies diarrhea, Denies nausea, Denies vomiting Musculoskeletal: Denies myalgias Integumentary: Denies pruritus, Denies rash Neurological: Denies numbness, Denies weakness Psychiatric: Denies anxiety, Denies depression Endocrine: Denies fatigue, Denies weight change Past Medical History Past Medical History: Coronary Artery Disease (CAD), Cancer, Hearing Disorder / Deafness, Hyperlipidemia, Hypertension, Myocardial Infarction ([place]), Thyroid Disorder Additional Past Medical History / Comment(s): "aaa-repaired", vertigo AND HEARING LOSS SINCE [place] -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 LT KNEE HAD BONE CHIPS REMOVED,, 10-20-14 HEART CATH w/angioplasty but was unable to place stent, recent bladder polyp removed; indwelling catheter was removed 01-11-17. 3 STENTS RCA 05/03/18, biopsy lung-bronch Past Anesthesia/Blood Transfusion Reactions: No Reported Reaction Past Psychological History: No Psychological Hx Reported Additional Psychological History / Comment(s): Pt. lives with , is independant, one dog, no outside services, no medical equipment. 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 Smoking Status: Former smoker Past Alcohol Use History: None Reported Additional Past Alcohol Use History / Comment(s): started smoking at age 19 - smoked cig then swithced to pipe. quit 1979 Past Drug Use History: None Reported - Past Family History Mother Additional Family Medical History / Comment(s): brain tumor Father Family Medical History: Unable to Obtain Medications and Allergies Home Medications Medication Instructions Recorded Confirmed Type Aspirin 81 mg PO DAILY 10/20/14 01/18/19 History Liothyronine Sodium [Cytomel] 5 mcg PO DAILY 10/20/14 01/18/19 History Isosorbide Mononitrate ER [Imdur] 30 mg PO DAILY #90 tab.er.24h 10/23/14 01/18/19 Rx Levothyroxine Sodium [Synthroid] 112 mcg PO DAILY 01/11/17 01/18/19 History Metoprolol Succinate (ER) [Toprol 25 mg PO DAILY 01/11/17 01/18/19 History XL] traMADol HCL [Ultram] 50 mg PO BID PRN 01/11/17 01/18/19 History Nitroglycerin Sl Tabs [Nitrostat] 0.4 mg SUBLINGUAL Q5M PRN #25 tab 03/31/18 01/18/19 Rx Clopidogrel [Plavix] 75 mg PO DAILY #90 tab 05/04/18 01/18/19 Rx Ferrous Sulfate [Feosol] 325 mg PO BID #60 tab 01/13/19 01/18/19 Rx Hydrocortisone Cream 1 applic TOPICAL BID PRN #1 applic 01/13/19 01/18/19 Rx [Hydrocortisone 1% Cream] Acetaminophen [Tylenol] 325 mg PO TID 01/18/19 01/18/19 History Cyanocobalamin (Vitamin B-12) 1,000 mcg PO DAILY 01/18/19 01/18/19 History [Vitamin B-12] Gabapentin [Neurontin] 800 mg PO TID 01/18/19 01/18/19 History Rosuvastatin Calcium [Crestor] 40 mg PO DAILY 01/18/19 01/18/19 History Warfarin [Coumadin] 3 mg PO DAILY 01/18/19 01/18/19 History Allergies Allergy/AdvReac Type Severity Reaction Status Date / Time ciprofloxacin [From Cipro] Allergy Rash/Hives Verified 01/18/19 12:43 Iodinated Contrast- Oral and Allergy Unknown Verified 01/18/19 12:43 IV Dye [Iodinated Contrast Media - Oral and] morphine AdvReac Severe Nausea & Verified 01/18/19 12:43 Vomiting Physical Exam Vitals: Vital Signs Temp Pulse Pulse Resp BP BP Pulse Ox 01/19/19 12:00 97.7 F 79 18 99/52 99 01/19/19 11:10 77 16 01/19/19 10:10 77 16 01/19/19 04:28 97.6 F 75 16 95/53 100 01/19/19 00:00 97.7 F 66 15 99/53 100 01/18/19 20:59 97.6 F 71 16 104/51 100 01/18/19 18:30 97.5 F L 67 20 108/56 99 01/18/19 15:54 70 20 94/58 100 01/18/19 14:23 97.4 F L 74 16 92/57 100 Intake and Output 01/18/19 01/19/19 01/19/19 22:59 06:59 14:59 Intake Total 600 1400 Output Total 275 675 Balance 325 725 Intake: Intake, IV Titration 600 1000 Amount Piperacillin-Tazobactam 3 100 .375 gm In Sodium Chloride 0.9% 100 ml @ 25 mls/hr IVPB Q8H [facility] Rx#: [id number] Sodium Chloride 0.9% 1, 600 900 000 ml @ 75 mls/hr IV . [id number] [facility] Rx#:[id number] Oral 400 Output: Urine 275 675 Other: Voiding Method Urinal Urinal Urinal # Voids 2 Weight 77.5 kg GENERAL EXAM: Alert, pleasant, 79-year-old white male comfortable in no apparent distress. HEAD: Normocephalic/atraumatic. EYES: Normal reaction of pupils, equal size. Conjunctiva pink, sclera white. NOSE: Clear with pink turbinates. THROAT: No erythema or exudates. NECK: No masses, no JVD, no thyroid enlargement, no adenopathy. CHEST: No chest wall deformity. Symmetrical expansion. LUNGS: Equal air entry with coarse inspiratory crackles over left lower lobe CVS: Regular rate and rhythm, normal S1 and S2, no gallops, no murmurs, no rubs ABDOMEN: Soft, nontender. No hepatosplenomegaly, normal bowel sounds, no guarding or rigidity. EXTREMITIES: No clubbing, no edema, no cyanosis, 2+ pulses and upper and lower extremities. MUSCULOSKELETAL: Muscle strength and tone normal. SPINE: No scoliosis or deformity SKIN: No rashes CENTRAL NERVOUS SYSTEM: Alert and oriented -3. No focal deficits, tone is normal in all 4 extremities. PSYCHIATRIC: Alert and oriented -3. Appropriate affect. Intact judgment and insight. Results - Laboratory Findings CBC and BMP: 01/19/19 08:30 01/19/19 08:30 PT/INR, D-dimer PT 61.6 sec (9.0-12.0) H 01/19/19 08:30 INR 6.4 (<1.2) H* 01/19/19 08:30 Abnormal lab findings: Abnormal Labs 01/18/19 01/18/19 01/18/19 12:50 12:50 12:50 WBC 21.0 H RBC 3.70 L Hgb 9.8 L Hct 31.5 L RDW 15.6 H Plt Count 457 H Neutrophils # 17.9 H PT INR Chloride 108 H Carbon Dioxide 21 L BUN 61 H Creatinine 2.04 H Glucose 117 H Plasma Lactic Acid Evans 3.8 H* Calcium Magnesium 2.5 H Creatine Kinase 27 L 01/18/19 01/19/19 01/19/19 12:50 08:30 08:30 WBC 10.7 H RBC 2.92 L Hgb 7.9 L D Hct 25.3 L RDW Plt Count Neutrophils # PT 52.5 H 61.6 H INR 5.4 H* 6.4 H* Chloride Carbon Dioxide BUN Creatinine Glucose Plasma Lactic Acid Evans Calcium Magnesium Creatine Kinase 01/19/19 08:30 WBC RBC Hgb Hct RDW Plt Count Neutrophils # PT INR Chloride 116 H Carbon Dioxide BUN 46 H Creatinine 1.77 H Glucose 121 H Plasma Lactic Acid Evans Calcium 8.2 L Magnesium Creatine Kinase - Diagnostic Findings Chest x-ray: report reviewed Additional studies: EKG reviewed Assessment and Plan Plan: Assessment: #1. Weakness, hypotension, shortness of breath, likely related to acute GI blood loss anemia #2. Left lower lobe infiltrate, the possibility of underlying pneumonia is not completely excluded #3. Non-anion gap metabolic acidosis related to lactic acidosis, related to blood loss anemia, an infectious etiology is not completely excluded #4. Acute kidney injury related to ATN #5. Coagulopathy, and melanotic stools #6. Recent hospitalization for nausea, vomiting diarrhea, weakness and dehydration #7. 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 Chronic kidney disease stage III #9. History of bladder cancer follows with Dr. Presley #10. History of CAD with previous stenting and previous myocardial infarction #11. History of thoracic abdominal aortic aneurysm repair #12. Hypertension #13. Hyperlipidemia #14. History of carotid artery blood clots , on chronic anticoagulation with Coumadin Plan: We will continue with current antibiotic coverage, obtain sputum culture, chest x-ray has been reviewed, and shows a left lower lobe infiltrate superimposed on fibrosis. We'll consult a GI service in regards to coagulopathy, and melanotic stools, suspect the etiology for weakness and hypotension related to acute GI blood loss anemia, although infectious etiology is not completely excluded, we'll send ProCalcitonin level. Coumadin is on hold, patient received a dose of vitamin K. IV Protonix, and IV hydration, repeat CBC now, daily PT/INR. I performed a history & physical examination of the patient and discussed their management with my nurse practitioner, Elyssa Fields. I reviewed the nurse practitioner's note and agree with the documented findings and plan of care. Lung sounds are positive for diminised breath sounds and coarse rales in left lower lobe. The findings and the impression was discussed with the patient. I attest to the documentation by the nurse practitioner. Time with Patient: Greater than 30
[2019-01-19 14:46] LABS: HCT 22.2 % (39.0-53.0); Hypochromasia Marked; MCH 27.3 pg (25.0-35.0); MCHC 31.1 g/dL (31.0-37.0); MCV 87.8 fL (80.0-100.0); Mean Platelet Volume 7.9; Platelet Count 334 k/uL (150-450); RBC 2.53 m/uL (4.30-5.90); RDW 15.6 % (11.5-15.5); WBC 8.7 k/uL (3.8-10.6)
[2019-01-19 14:52] LABS: HGB 6.9 gm/dL (13.0-17.5)
[2019-01-19] MEDS: PANTOPRAZOLE 40 MG/10 ML VIAL IVP SCH (15:35)
[2019-01-19 16:11] LABS: Prothrombin Time 65.5 sec (9.0-12.0)
[2019-01-19 16:21] LABS: INR 6.7 (<1.2)
--- NOTE | 2019-01-19 18:26 | P.CONS ---
History of Present Illness - Reason for Consult Consult date: 01/19/19 Metastatic urothelial carcinoma Requesting physician: Laly Centeno - Chief Complaint Dizziness, hypotension - History of Present Illness Mr. Gomez is a very pleasant 79-year-old male patient who is well known to our practice. He was seen last month by Dr. Duff for concerns about right lung mass and pleural effusion. Has a known history of urothelial carci noma, treated by Urology, successfully for quite some time, no chemotherapy. On 11/24/18 patient had a right lung FNA and core biopsy, Pathology consistent with non-small cell carcinoma consistent with a high-grade urothelial carcinoma, he has plans to start chemotherapy. He was admitted earlier this month for complaints of weakness. Patient is currently admitted for dizziness and weakness. Patient was found to be hypotensive, tachycardic with an elevated lactic acid. Patient's renal function was slightly elevated. Blood cultures so far are negative, urinary analysis was not suspicious, patient is on antibiotics for suspected pneumonia. No fevers, chills, nausea, vomiting, patient appetite is fair, he does have a dry cough, no hemoptysis, abdominal pain, dysuria, hematuria, diarrhea, constipation, rashes, he does have a scab on his lip and chin, no swelling of the lower extremities, patient is ambulatory back and forth to the restroom. Review of Systems 14 point review of systems is negative except as stated in HPI Past Medical History Past Medical History: Coronary Artery Disease (CAD), Cancer, Hearing Disorder / Deafness, Hyperlipidemia, Hypertension, Myocardial Infarction ([place]), Thyroid Disorder Additional Past Medical History / Comment(s): "aaa-repaired", vertigo AND HEARING LOSS SINCE [place] -lt ear deaf and rt side wears a hearing aid, KIDNEY STONE(PASSED IT), SPINAL STENOSIS, DDD LUMBAR SPINE, CONSTIPATION, neuropathy, Bladder cancer, lung CA Last Myocardial Infarction Date:: 10-20-14 History of Any Multi-Drug Resistant Organisms: None Reported Past Surgical History: Heart Catheterization Additional Past Surgical History / Comment(s): STENT LOWER AORTA, EAR RECONSTR UCTION SX (LT) FAILED PT DEAF. LT KNEE HAD BONE CHIPS REMOVED,, 10-20-14 HEART CATH w/angioplasty but was unable to place stent, recent bladder polyp removed; indwelling catheter was removed 01-11-17. 3 STENTS RCA 05/03/18, biopsy lung- bronch Past Anesthesia/Blood Transfusion Reactions: No Reported Reaction Past Psychological History: No Psychological Hx Reported Additional Psychological History / Comment(s): Pt. lives with , is independant, one dog, no outside services, no medical equipment. 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 Smoking Status: Former smoker Past Alcohol Use History: None Reported Additional Past Alcohol Use History / Comment(s): started smoking at age 19 - smoked cig then swithced to pipe. quit 1979 Past Drug Use History: None Reported - Past Family History Mother Additional Family Medical History / Comment(s): brain tumor Father Family Medical History: Unable to Obtain Medications and Allergies Home Medications Medication Instructions Recorded Confirmed Type Aspirin 81 mg PO DAILY 10/20/14 01/18/19 History Liothyronine Sodium [Cytomel] 5 mcg PO DAILY 10/20/14 01/18/19 History Isosorbide Mononitrate ER [Imdur] 30 mg PO DAILY #90 tab.er.24h 10/23/14 01/18/19 Rx Levothyroxine Sodium [Synthroid] 112 mcg PO DAILY 01/11/17 01/18/19 History Metoprolol Succinate (ER) [Toprol 25 mg PO DAILY 01/11/17 01/18/19 History XL] traMADol HCL [Ultram] 50 mg PO BID PRN 01/11/17 01/18/19 History Nitroglycerin Sl Tabs [Nitrostat] 0.4 mg SUBLINGUAL Q5M PRN #25 tab 03/31/18 01/18/19 Rx Clopidogrel [Plavix] 75 mg PO DAILY #90 tab 05/04/18 01/18/19 Rx Ferrous Sulfate [Feosol] 325 mg PO BID #60 tab 01/13/19 01/18/19 Rx Hydrocortisone Cream 1 applic TOPICAL BID PRN #1 applic 01/13/19 01/18/19 Rx [Hydrocortisone 1% Cream] Acetaminophen [Tylenol] 325 mg PO TID 01/18/19 01/18/19 History Cyanocobalamin (Vitamin B-12) 1,000 mcg PO DAILY 01/18/19 01/18/19 History [Vitamin B-12] Gabapentin [Neurontin] 800 mg PO TID 01/18/19 01/18/19 History Rosuvastatin Calcium [Crestor] 40 mg PO DAILY 01/18/19 01/18/19 History Warfarin [Coumadin] 3 mg PO DAILY 01/18/19 01/18/19 History Allergies Allergy/AdvReac Type Severity Reaction Status Date / Time ciprofloxacin [From Cipro] Allergy Rash/Hives Verified 01/18/19 12:43 Iodinated Contrast- Oral and Allergy Unknown Verified 01/18/19 12:43 IV Dye [Iodinated Contrast Media - Oral and] morphine AdvReac Severe Nausea & Verified 01/18/19 12:43 Vomiting Physical Exam Vitals: Vital Signs Temp Pulse Pulse Resp BP BP Pulse Ox 01/19/19 17:56 97.3 F L 75 18 104/54 100 01/19/19 17:46 96.7 F L 79 16 106/52 97 01/19/19 16:36 68 18 01/19/19 16:33 97.4 F L 68 18 106/52 98 01/19/19 12:00 97.7 F 79 18 99/52 99 01/19/19 11:10 77 16 01/19/19 10:10 77 16 01/19/19 04:28 97.6 F 75 16 95/53 100 01/19/19 00:00 97.7 F 66 15 99/53 100 01/18/19 20:59 97.6 F 71 16 104/51 100 01/18/19 18:30 97.5 F L 67 20 108/56 99 Intake and Output 01/19/19 01/19/19 01/19/19 06:59 14:59 22:59 Intake Total 600 1500 400 Output Total 275 675 375 Balance 325 825 25 Intake: Intake, IV Titration 600 1000 Amount Piperacillin-Tazobactam 3 100 .375 gm In Sodium Chloride 0.9% 100 ml @ 25 mls/hr IVPB Q8H KIMI Rx#: [id number] Sodium Chloride 0.9% 1, 600 900 000 ml @ 75 mls/hr IV . [id number] KIMI Rx#:[id number] Oral 500 400 Blood Product 0 Rc As-1 Unit 0 [id number] Output: Urine 275 675 375 Other: Voiding Method Urinal Urinal Urinal # Voids 2 1 # Bowel Movements 1 Weight 77.5 kg - Constitutional General appearance: cooperative, no acute distress, obese - EENT Lower lip has a scabbed area, likely HSV, small scab on the chin. Eyes: anicteric sclerae, EOMI ENT: hearing grossly normal, normal oropharynx - Neck Neck: no lymphadenopathy - Respiratory Respiratory: bilateral: diminished - Cardiovascular Rhythm: regular Heart sounds: normal: S1, S2 Abnormal Heart Sounds: systolic murmur leg Peripheral Edema: bilateral: None - Gastrointestinal General gastrointestinal: no absent bowel sounds, no decreased bowel sounds, no distended, no hepatomegaly, no hyperactive bowel sounds, normal bowel sounds, no organomegaly, no rigid, no scaphoid, soft, no splenomegaly, no tenderness, no umbilical hernia, no ventral hernia - Neurologic Neurologic: CNII-XII intact - Musculoskeletal Musculoskeletal: strength equal bilaterally - Psychiatric Psychiatric: A&O x's 3, appropriate affect, intact judgment & insight Results CBC & Chem 7: 01/19/19 14:02 01/19/19 08:30 Labs: Abnormal Lab Results - Last 24 Hours (Table) 01/19/19 01/19/19 01/19/19 Range/Units 08:30 08:30 08:30 WBC 10.7 H (3.8-10.6) k/uL RBC 2.92 L (4.30-5.90) m/uL Hgb 7.9 L D (13.0-17.5) gm/dL Hct 25.3 L (39.0-53.0) % RDW (11.5-15.5) % PT 61.6 H (9.0-12.0) sec INR 6.4 H* (<1.2) Chloride 116 H (98-107) mmol/L BUN 46 H (9-20) mg/dL Creatinine 1.77 H (0.66-1.25) mg/dL Glucose 121 H (74-99) mg/dL Calcium 8.2 L (8.4-10.2) mg/dL Crossmatch 01/19/19 01/19/19 01/19/19 Range/Units 14:02 15:47 15:47 WBC (3.8-10.6) k/uL RBC 2.53 L (4.30-5.90) m/uL Hgb 6.9 L* (13.0-17.5) gm/dL Hct 22.2 L (39.0-53.0) % RDW 15.6 H (11.5-15.5) % PT 65.5 H (9.0-12.0) sec INR 6.7 H* (<1.2) Chloride (98-107) mmol/L BUN (9-20) mg/dL Creatinine (0.66-1.25) mg/dL Glucose (74-99) mg/dL Calcium (8.4-10.2) mg/dL Crossmatch See Detail Microbiology - Last 24 Hours (Table) 01/18/19 12:50 Blood Culture - Preliminary Blood No Growth after 24 hours Chest x-ray: report reviewed Assessment and Plan (1) Urothelial carcinoma of bladder Narrative/Plan: Patient is recently diagnosed with metastatic urothelial carcinoma. There is a plan to begin chemotherapy. Discussed with patient that he will begin chemotherapy once his current condition has resolved and he has completed antibiotics as directed. He verbalized understanding. Current Visit: Yes Status: Acute Priority: High Code(s): C67.9 - MALIGNANT NEOPLASM OF BLADDER, UNSPECIFIED SNOMED Code(s): 476014920 Plan: Physical therapy will be ordered to maintain patient strength/stamina while hospitalized
[2019-01-20] MEDS: PIPERACILLIN-TAZOBACTAM 3.375 GM in SODIUM CHLORIDE 0.9% 100 ML IVPB SCH ×3 (03:54→21:58)
[2019-01-20] MEDS: SODIUM CHLORIDE 0.9% 1,000 ML IV SCH (03:55)
[2019-01-20] MEDS: LEVOTHYROXINE 112 MCG TAB PO SCH (06:48)
[2019-01-20] MEDS ORDERED: PANTOPRAZOLE 40 MG TABLET PO SCH (07:30)
[2019-01-20 07:40] LABS: INR 1.9 (<1.2); Prothrombin Time 18.8 sec (9.0-12.0)
[2019-01-20 07:41] LABS: Anisocytosis Slight; Basophils % (A) 0 %; Eosinophils # (A) 0.5 k/uL (0-0.7); Eosinophils % (A) 5 %; HCT 24.1 % (39.0-53.0); HGB 7.5 gm/dL (13.0-17.5); Hypochromasia Marked; Lymphocytes # (A) 1.2 k/uL (1.0-4.8); Lymphocytes % (A) 14 %; MCH 26.5 pg (25.0-35.0); MCHC 31.1 g/dL (31.0-37.0); MCV 85.2 fL (80.0-100.0); Mean Platelet Volume 8.2; Monocytes # (A) 0.6 k/uL (0-1.0); Monocytes % (A) 6 %; Neutrophils # (A) 6.2 k/uL (1.3-7.7); Neutrophils % (A) 73 %; Platelet Count 269 k/uL (150-450); RBC 2.83 m/uL (4.30-5.90); RDW 16.3 % (11.5-15.5); WBC 8.5 k/uL (3.8-10.6)
[2019-01-20 07:54] LABS: Albumin 2.4 g/dL (3.5-5.0); Potassium 4.4 mmol/L (3.5-5.1); Total Bilirubin 0.5 mg/dL (0.2-1.3); Total Protein 4.9 g/dL (6.3-8.2)
--- NOTE | 2019-01-20 08:17 | P.CRDCN ---
History of Present Illness Consult date: 01/20/19 Requesting physician: Laly Centeno Reason for Consult (text): History of stents Chief complaint: Weakness, shortness of breath History of present illness: This is a pleasant 79-year-old gentleman who follows regularly with Dr. Goddard in the office. He has a known history of hypertension, hyperlipidemia, inferior wall [place] with stent placement in 2014, most recently in April 2018 he underwent successful stenting of the mid right coronary artery and proximal right coronary artery by Dr. Chavez. He does have history of prior nicotine dependence and underlying renal failure. He also carries a recent diagnosis of poorly differentiated non-small cell carcinoma consistent with metastatic high-grade urothelial carcinoma diagnosed via CAT scan needle biopsy of the right lung mass. He follows with Dr. Ca for his cancer needs. He has had several recent admissions to the hospital. He presents to the hospital on this occasion with symptoms of increasing weakness and fatigue with associated shortness of breath. According to the patient, he could not even walk from his carotids to his car which is approximately 25 feet. He denies any nausea or vomiting, no abdominal discomfort, he does state that he had 2 black stools at home prior to coming to the hospital. He was taken to the outpatient clinic where he was noted to be hypotensive with a blood pressure of 74/40, he was transferred to [facility] because of this. Patient does have occasional cough especially when trying to take a deep breath, this has been going on for the past 3 months. He is coughing up occasional sputum which is clear. Chest x-ray revealed pulmonary fibrosis more prominent in the left lung base, possible left lower lobe infiltrate. White blood cell count 21, hemoglobin 9.8, INR 5.4, sodium 143, potassium 4.6, chloride 108, CO2 21, BUN 61 and creatinine 2.0. Troponin was negative, BNP 803, urinalysis normal. Subsequent to his initial labs there was a drop in hemoglobin down to 6.9, and the INR increased to 6.4, patient was given vitamin K, IV hydration, and a unit of packed red blood cells. He was seen and examined this morning, continues to have cough, feels very weak. His EKG shows a normal sinus rhythm with inferior Q waves noted. Blood pressure this morning 132/50 with a heart rate of 80, 94% on 3 L of oxygen. This morning's labs, white blood cell count 8.5, hemoglobin 7.5, platelet count 269. INR is down to 1.9. Sodium 141, potassium 4.4, BUN 33 and creatinine 1.5 this morning. Pro calcitonin 0.12+. Past Medical History Past Medical History: Coronary Artery Disease (CAD), Cancer, Hearing Disorder / Deafness, Hyperlipidemia, Hypertension, Myocardial Infarction ([place]), Thyroid Disorder Additional Past Medical History / Comment(s): "aaa-repaired", vertigo AND HEARING LOSS SINCE [place] -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 LT KNEE HAD BONE CHIPS REMOVED,, 10-20-14 HEART CATH w/angioplasty but was unable to place stent, recent bladder polyp removed; indwelling catheter was removed 01-11-17. 3 STENTS RCA 05/03/18, biopsy lung-bronch Past Anesthesia/Blood Transfusion Reactions: No Reported Reaction Past Psychological History: No Psychological Hx Reported Additional Psychological History / Comment(s): Pt. lives with , is independant, one dog, no outside services, no medical equipment. 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 Smoking Status: Former smoker Past Alcohol Use History: None Reported Additional Past Alcohol Use History / Comment(s): started smoking at age 19 - smoked cig then swithced to pipe. quit 1979 Past Drug Use History: None Reported - Past Family History Mother Additional Family Medical History / Comment(s): brain tumor Father Family Medical History: Unable to Obtain Medications and Allergies Home Medications Medication Instructions Recorded Confirmed Type Aspirin 81 mg PO DAILY 10/20/14 01/18/19 History Liothyronine Sodium [Cytomel] 5 mcg PO DAILY 10/20/14 01/18/19 History Isosorbide Mononitrate ER [Imdur] 30 mg PO DAILY #90 tab.er.24h 10/23/1401/18 Rx Levothyroxine Sodium [Synthroid] 112 mcg PO DAILY 01/11/17 01/18/19 History Metoprolol Succinate (ER) [Toprol 25 mg PO DAILY 01/11/17 01/18/19 History XL] traMADol HCL [Ultram] 50 mg PO BID PRN 01/11/17 01/18/19 History Nitroglycerin Sl Tabs [Nitrostat] 0.4 mg SUBLINGUAL Q5M PRN #25 tab 03/31/18 01/18/19 Rx Clopidogrel [Plavix] 75 mg PO DAILY #90 tab 05/04/18 01/18/19 Rx Ferrous Sulfate [Feosol] 325 mg PO BID #60 tab 01/13/19 01/18/19 Rx Hydrocortisone Cream 1 applic TOPICAL BID PRN #1 applic 01/13/19 01/18/19 Rx [Hydrocortisone 1% Cream] Acetaminophen [Tylenol] 325 mg PO TID 01/18/19 01/18/19 History Cyanocobalamin (Vitamin B-12) 1,000 mcg PO DAILY 01/18/19 01/18/19 History [Vitamin B-12] Gabapentin [Neurontin] 800 mg PO TID 01/18/19 01/18/19 History Rosuvastatin Calcium [Crestor] 40 mg PO DAILY 01/18/19 01/18/19 History Warfarin [Coumadin] 3 mg PO DAILY 01/18/19 01/18/19 History Allergies Allergy/AdvReac Type Severity Reaction Status Date / Time ciprofloxacin [From Cipro] Allergy Rash/Hives Verified 01/18/19 12:43 Iodinated Contrast- Oral and Allergy Unknown Verified 01/18/19 12:43 IV Dye [Iodinated Contrast Media - Oral and] morphine AdvReac Severe Nausea & Verified 01/18/19 12:43 Vomiting Physical Exam Vitals: Vital Signs Temp Pulse Pulse Resp BP BP Pulse Ox 01/20/19 03:53 98.2 F 86 16 132/55 94 L 01/19/19 22:42 97.9 F 70 15 111/55 100 01/19/19 19:50 98.0 F 77 15 104/54 97 01/19/19 19:43 98.0 F 77 15 104/54 97 01/19/19 18:26 98.0 F 78 18 105/51 100 01/19/19 17:56 97.3 F L 75 18 104/54 100 01/19/19 17:46 96.7 F L 79 16 106/52 97 01/19/19 16:36 68 18 01/19/19 16:33 97.4 F L 68 18 106/52 98 01/19/19 12:00 97.7 F 79 18 99/52 99 01/19/19 11:10 77 16 01/19/19 10:10 77 16 Intake and Output 01/19/19 01/20/19 01/20/19 22:59 06:59 14:59 Intake Total 710 0 Output Total 750 1200 Balance -40 -1200 0 Intake: Oral 400 0 Blood Product 310 Rc As-1 Unit 310 [id number] Output: Urine 750 1200 Other: Voiding Method Urinal Urinal # Voids 1 2 # Bowel Movements 1 1 Weight 78.5 kg GENERAL EXAM: Alert, pleasant, 79-year-old white male comfortable in no apparent distress. HEAD: Normocephalic/atraumatic. EYES: Normal reaction of pupils, equal size. Conjunctiva pink, sclera white. NOSE: Clear with pink turbinates. THROAT: No erythema or exudates. NECK: No masses, no JVD, no thyroid enlargement, no adenopathy. CHEST: No chest wall deformity. Symmetrical expansion. LUNGS: Equal air entry with coarse inspiratory crackles over left lower lobe CVS: Regular rate and rhythm, normal S1 and S2, no gallops, no murmurs, no rubs ABDOMEN: Soft, nontender. No hepatosplenomegaly, normal bowel sounds, no guarding or rigidity. EXTREMITIES: No clubbing, no edema, no cyanosis, 2+ pulses and upper and lower extremities. MUSCULOSKELETAL: Muscle strength and tone normal. SPINE: No scoliosis or deformity SKIN: No rashes CENTRAL NERVOUS SYSTEM: Alert and oriented -3. No focal deficits, tone is normal in all 4 extremities. PSYCHIATRIC: Alert and oriented -3. Appropriate affect. Intact judgment and insight. Results 01/20/19 07:21 01/20/19 07:21 Cardiac Enzymes 01/20/19 Range/Units 07:21 AST 26 (17-59) U/L Coagulation 01/19/19 01/19/19 01/20/19 Range/Units 08:30 15:47 07:21 PT 61.6 H 65.5 H 18.8 H (9.0-12.0) sec CBC 01/19/19 01/19/19 01/20/19 Range/Units 08:30 14:02 07:21 WBC 10.7 H 8.7 8.5 (3.8-10.6) k/uL RBC 2.92 L 2.53 L 2.83 L (4.30-5.90) m/uL Hgb 7.9 L D 6.9 L* 7.5 L (13.0-17.5) gm/dL Hct 25.3 L 22.2 L 24.1 L (39.0-53.0) % Plt Count 334 334 269 (150-450) k/uL Comprehensive Metabolic Panel 01/19/19 01/20/19 Range/Units 08:30 07:21 Sodium 144 141 (137-145) mmol/L Potassium 4.6 4.4 (3.5-5.1) mmol/L Chloride 116 H 115 H (98-107) mmol/L Carbon Dioxide 22 23 (22-30) mmol/L BUN 46 H 33 H (9-20) mg/dL Creatinine 1.77 H 1.56 H (0.66-1.25) mg/dL Glucose 121 H 96 (74-99) mg/dL Calcium 8.2 L 8.0 L (8.4-10.2) mg/dL AST 26 (17-59) U/L ALT 47 (21-72) U/L Alkaline Phosphatase 67 (38-126) U/L Total Protein 4.9 L (6.3-8.2) g/dL Albumin 2.4 L (3.5-5.0) g/dL Current Medications Generic Name Dose Route Start Last Admin Trade Name Cristy PRN Reason Stop Dose Admin Acetaminophen 650 mg 01/18/19 15:35 Tylenol Tab PO Q6HR PRN Mild Pain or Fever > 100.5 Acetaminophen 325 mg 01/18/19 22:00 01/19/19 21:20 Tylenol Tab PO Not Given TID [facility] Atorvastatin Calcium 80 mg 01/19/19 09:00 01/19/19 08:34 Lipitor PO 80 mg DAILY KIMI Administration Cyanocobalamin 1,000 mcg 01/19/19 09:00 01/19/19 08:33 Vitamin B-12 PO 1,000 mcg DAILY KIMI Administration Ferrous Sulfate 325 mg 01/19/19 09:00 01/19/19 20:05 Feosol PO 325 mg BID KIMI Administration Gabapentin 800 mg 05/28/19 22:00 01/19/19 22:37 Neurontin PO 800 mg TID KIMI Administration Hydrocortisone 1 applic 01/18/19 22:30 Hydrocortisone 1% Cream TOPICAL BID PRN Skin Irritation Piperacillin Sod/Tazobactam 100 mls @ 25 mls/hr 01/18/19 20:00 01/20/19 03:54 Sod 3.375 gm/ Sodium Chloride IVPB 25 mls/hr Q8H KIMI Administration Sodium Chloride 1,000 mls @ 75 mls/hr 01/18/19 15:45 01/20/19 03:55 Saline 0.9% IV 75 mls/hr .[id number] KIMI Administration Vancomycin HCl 1,500 mg/ 250 mls @ 125 mls/hr 01/20/19 12:00 Sodium Chloride IVPB Q24H [facility] Isosorbide Mononitrate 30 mg 01/19/19 09:00 01/19/19 08:33 Imdur PO 30 mg DAILY [facility] Administration Levothyroxine Sodium 112 mcg 01/19/19 06:30 01/20/19 06:48 Synthroid PO 112 mcg DAILY@0630 [facility] Administration Liothyronine Sodium 5 mcg 01/19/19 09:00 01/19/19 08:33 Cytomel PO 5 mcg DAILY [facility] Administration Metoprolol Succinate 25 mg 01/19/19 09:00 01/19/19 08:35 Toprol Xl PO 25 mg DAILY [facility] Administration Naloxone HCl 0.2 mg 01/18/19 15:35 Narcan IV Q2M PRN Opioid Reversal Nitroglycerin 0.4 mg 01/18/19 21:56 Nitrostat SUBLINGUAL Q5M PRN Chest Pain Pantoprazole Sodium 40 mg 01/19/19 13:45 01/19/19 15:35 Protonix IVP 40 mg DAILY [facility] Administration Tramadol HCl 50 mg 01/18/19 22:15 01/19/19 20:05 Ultram PO 50 mg BID PRN Administration Moderate Pain Intake and Output 01/19/19 01/20/19 01/20/19 22:59 06:59 14:59 Intake Total 710 0 Output Total 750 1200 Balance -40 -1200 0 Intake: Oral 400 0 Blood Product 310 Rc As-1 Unit 310 [id number] Output: Urine 750 1200 Other: Voiding Method Urinal Urinal # Voids 1 2 # Bowel Movements 1 1 Weight 78.5 kg 01/20/19 07:21 01/20/19 07:21 EKG Interpretations (text) EKG shows a normal sinus rhythm with no acute changes. Assessment and Plan Plan: Assessment and plan: #1. Weakness, hypotension, shortness of breath, possibly related to acute GI blood loss anemia #2. Left lower lobe infiltrate, the possibility of underlying pneumonia is not completely excluded #3. Non-anion gap metabolic acidosis related to lactic acidosis, related to blood loss anemia, an infectious etiology is not completely excluded #4. Acute kidney injury related to ATN #5. Coagulopathy, and melanotic stools #6. Recent hospitalization for nausea, vomiting diarrhea, weakness and dehydration #7. 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 Chronic kidney disease stage III #9. History of bladder cancer follows with Dr. Presley #10. History of CAD with previous stenting and previous myocardial infarction, most recent RCA stenting performed in April 2018 #11. History of thoracic abdominal aortic aneurysm repair #12. Hypertension #13. Hyperlipidemia #14. History of carotid artery blood clots , on chronic anticoagulation with Coumadin Plan Patient had been on aspirin, Plavix, and Coumadin at home all of which are currently on hold. Most recent stent as mentioned was performed in April 2018. Echocardiogram with Doppler study will be obtained. Consultation has been requested with GI service for possible EGD today. Once cleared by them patient will need to be reinitiated on the Plavix. We will continue to follow and further recommendations will be made. DNP note has been reviewed, I agree with a documented findings and plan of care. Patient was seen and examined.
[2019-01-20] MEDS ORDERED: ASPIRIN 81 MG PO SCH (09:00)
[2019-01-20] MEDS: CYANOCOBALAMIN 500 MCG TAB PO SCH (09:27)
[2019-01-20] MEDS: PANTOPRAZOLE 40 MG/10 ML VIAL IVP SCH (09:27)
[2019-01-20] MEDS: LIOTHYRONINE SODIUM 5 MCG TAB PO SCH (09:27)
[2019-01-20] MEDS: FERROUS SULFATE 325 MG TAB PO SCH ×2 (09:28→21:59)
[2019-01-20] MEDS: ATORVASTATIN 80 MG TAB PO SCH (09:28)
[2019-01-20] MEDS: METOPROLOL SUCCINATE (ER) 25 MG TAB.ER.24H PO SCH (09:28)
[2019-01-20] MEDS: GABAPENTIN 400 MG CAP PO SCH ×3 (09:28→21:59)
[2019-01-20] MEDS: ACETAMINOPHEN TAB 325 MG TAB PO SCH ×3 (09:28→21:59)
[2019-01-20] MEDS: ISOSORBIDE MONONITRATE ER 30 MG TAB.ER.24H PO SCH (09:28)
--- NOTE | 2019-01-20 11:27 | P.PN ---
Subjective Progress Note Date: 01/20/19 This is a 71-year-old male patient of Dr. Barney. Patient presented to the ER with complaints of generalized weakness and fatigue. Patient was recently admitted for general weakness and acute kidney injury. At this time patient does not use hearing aids and unable to hear clearly. 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 During previous admission patient was seen by pulmonary and oncology services. Additional medical history includes bladder cancer, coronary artery disease, myocardial infarction, essential hypertension, hyperlipidemia, abdominal aneurysm repair, coronary artery blood clots in which he is on Coumadin. Patient INR 5.6 on admission. Initial lactic acid 3.8. Creatinine 2.04 and bun 61. Patient also hypotensive on arrival. Patient received 2 L bolus. Blood pressure has improved. Chest x- ray completed showing slight progression in the mid thoracic compression deformity. Pulmonary fibrosis particularly exaggerated in the left lung base. EKG completed showing normal sinus rhythm, possible inferior infarct. Patient denies chest pain or shortness breath. Patient denies nausea vomiting or diarrhea. Patient denies any urinary burning or frequency 01/20/2019 patient is sitting up in bed comfortably. Family at bedside. Does report a productive cough. Does report shortness of breath with activity. Requiring oxygen. Does not usually use oxygen at home. He did receive 1 unit of blood yesterday. Hemoglobin has increased from 6.9-7.5. Awaiting GI evaluat ion. Patient reports no further stools. At home he did have black stools. Patient currently on Zosyn and vancomycin for pneumonia. Echocardiogram results are pending. Patient denies any chest pain. Denies any nausea vomiting. Denies any burning with urination. Also note INR is down from 6.7-1.9 after vitamin K. chest x-ray from yesterday showing stable left lower lobe infiltrate superimposed on fibrosis Objective - Vital Signs Vital signs: Vital Signs Temp 98.1 F 01/20/19 09:39 Pulse 88 01/20/19 09:40 Resp 20 01/20/19 09:40 BP 111/57 01/20/19 09:39 Pulse Ox 100 01/20/19 09:39 Intake & Output 01/19/19 01/20/19 01/20/19 18:59 06:59 18:59 Intake Total 1900 310 0 Output Total 1050 1575 Balance 850 -1265 0 Weight 78.5 kg Intake: Intake, IV Titration 1000 Amount Piperacillin-Tazobactam 3 100 .375 gm In Sodium Chloride 0.9% 100 ml @ 25 mls/hr IVPB Q8H [facility] Rx#: [id number] Sodium Chloride 0.9% 1, 900 000 ml @ 75 mls/hr IV . [id number] [facility] Rx#:[id number] Oral 900 0 Blood Product 0 310 Rc As-1 Unit 0 310 [id number] Output: Urine 1050 1575 Other: Voiding Method Urinal Urinal Urinal # Voids 1 2 # Bowel Movements 1 1 - Exam Head normocephalic Neck supple Lungs crackles left lower lobe Heart regular rate and rhythm S1-S2, no rub or gallop Abdomen is soft nontender nondistended positive bowel sounds no hepatosplenomegaly Extremities no edema Neuro alert and orientated to 3 - Labs CBC & Chem 7: 01/20/19 07:21 01/20/19 07:21 Labs: Abnormal Lab Results - Last 24 Hours (Table) 01/19/19 01/19/19 01/19/19 Range/Units 08:30 14:02 15:47 RBC 2.53 L (4.30-5.90) m/uL Hgb 6.9 L* (13.0-17.5) gm/dL Hct 22.2 L (39.0-53.0) % RDW 15.6 H (11.5-15.5) % PT 65.5 H (9.0-12.0) sec INR 6.7 H* (<1.2) Chloride 116 H (98-107) mmol/L BUN 46 H (9-20) mg/dL Creatinine 1.77 H (0.66-1.25) mg/dL Glucose 121 H (74-99) mg/dL Calcium 8.2 L (8.4-10.2) mg/dL Total Protein (6.3-8.2) g/dL Albumin (3.5-5.0) g/dL Procalcitonin (0.02-0.09) ng/mL Crossmatch 01/19/19 01/19/19 01/20/19 Range/Units 15:47 15:47 07:21 RBC 2.83 L (4.30-5.90) m/uL Hgb 7.5 L (13.0-17.5) gm/dL Hct 24.1 L (39.0-53.0) % RDW 16.3 H (11.5-15.5) % PT (9.0-12.0) sec INR (<1.2) Chloride (98-107) mmol/L BUN (9-20) mg/dL Creatinine (0.66-1.25) mg/dL Glucose (74-99) mg/dL Calcium (8.4-10.2) mg/dL Total Protein (6.3-8.2) g/dL Albumin (3.5-5.0) g/dL Procalcitonin 0.12 H (0.02-0.09) ng/mL Crossmatch See Detail 01/20/19 01/20/19 Range/Units 07:21 07:21 RBC (4.30-5.90) m/uL Hgb (13.0-17.5) gm/dL Hct (39.0-53.0) % RDW (11.5-15.5) % PT 18.8 H (9.0-12.0) sec INR 1.9 H (<1.2) Chloride 115 H (98-107) mmol/L BUN 33 H (9-20) mg/dL Creatinine 1.56 H (0.66-1.25) mg/dL Glucose (74-99) mg/dL Calcium 8.0 L (8.4-10.2) mg/dL Total Protein 4.9 L (6.3-8.2) g/dL Albumin 2.4 L (3.5-5.0) g/dL Procalcitonin (0.02-0.09) ng/mL Crossmatch Microbiology - Last 24 Hours (Table) 01/19/19 17:48 Gram Stain - Preliminary Sputum Sputum Culture - Preliminary 01/18/19 12:50 Blood Culture - Preliminary Blood No Growth after 24 hours Assessment and Plan Assessment: 1. Generalized weakness, fatigue and shortness of breath possibly related to anemia due to GI bleed and pneumonia 2. Left lower lobe infiltrate with possible pneumonia: Currently on vancomycin and Zosyn. Pulmonary service following. Pro-calcitonin level elevated at 0.12 3. Pneumonia with possible sepsis present on admission: Continue antibiotics. Patient did require IV fluids. 4. Acute blood loss anemia secondary to GI bleed: Patient is no longer having black stools. He did receive a unit of blood. Hemoglobin has gone up from 6.9- 7.5. Awaiting GI evaluation for possible endoscopy. Patient's Coumadin, aspirin and Plavix are all on hold 5. Coagulopathy INR of 6.7 on admission down to 1.9 after vitamin K given. Continue monitor PT/INR 6. Acute kidney injury secondary to ATN due to dehydration and anemia.: Continue IV fluids. Creatinine is down to 1.56 7. Chronic kidney disease stage III with a baseline creatinine of 1.5-1.8 8. 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 Patient was seen by oncology. He will be planning to start chemotherapy after his current illness has resolved. 9. History of coronary artery disease with previous cardiac stents and myocardial infarction. Last cardiac stents in 2018. Cardiology is following they have ordered an echo. And awaiting GI evaluation before restarting Plavix 10. 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 Which Coumadin is currently on hold due to GI bleed 11. History of thoracic abdominal aortic aneurysm repair 12. History of essential hypertension 13. Hyperlipidemia 14. Hypotension improved with IV fluids. Possibly related to sepsis and anemia. GI prophylaxis Protonix and DVT prophylaxis SCDs I performed an examination of the patient and discussed their management with the physician Plate Molder. I have reviewed the Physician Plate Molder's notes and agree with the documented findings and plan of care
[2019-01-20] MEDS: VANCOMYCIN 1,500 MG in SODIUM CHLORIDE 0.9% 250 ML IVPB SCH (11:48)
[2019-01-20] MEDS: traMADol 50 MG TAB PO PRN (11:55)
--- NOTE | 2019-01-20 13:22 | P.PN ---
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 Patient follows with Dr. Duff, and was supposed to see him yesterday in regards to the treatment plan for his cancer. He was recently hospitalized last week with symptoms of nausea, vomiting and diarrhea, generalized weakness and dehydration. CT of the abdomen was negative for any diagnostic evidence of obstruction. Patient was recently treated for a urinary tract infection with a round of Keflex which she did not finish because he developed a rash. Other medical history includes chronic kidney disease stage III, history of bladder cancer being followed by Dr. Presley, CAD with previous stenting and previous myocardial infarction, history of thoracic abdominal aortic aneurysm repair, hypertension, and hyperlipidemia. Patient received IV hydration during his last admission, and was discharged home. C. diff was nega tive, amylase and lipase were within normal limits, his symptoms had resolved, his kidney function was improving with hydration. After going home patient felt increasingly weak and fatigued, short of breath, and it yesterday morning patient could hardly walk 10 feet related to his shortness of breath with exertion, and weakness. No nausea or vomiting, no abdominal pain, patient did pass 2 very dark colored almost black colored stools yesterday. No fever or chills, no chest pain. Patient was taken to the outpatient clinic, where he was noted to be hypotensive with a blood pressure of 74/41, and was transferred to the hospital for evaluation of his hypotension and weakness. He has an occa sional cough, which has been chronic for the last 3 months, and occasional production of clear sputum. No significant cough or congestion. Chest x-ray is showing pulmonary fibrosis leading more prominent in the left lung base, follow- up chest x-ray today showed stable possible left lower lobe infiltrate. Lab work showed white blood cell count of 21, hemoglobin is 9.8, INR is 5.4, sodium was 143, potassium is 4.6, chloride was 108, CO2 is 21, B1 is 61 and creatinine is 2.04, plasma lactic acid was 3.8, troponin was negative 1, proBNP was 803, urinalysis was within normal limits, on today's labs, there has been a drop in hemoglobin down to 7.9, white blood cell count is 10.7, INR has increased to 6.4, and patient was given vitamin K, she received IV hydration, and the there has been some improvement in patient's renal profile, with BUN down to 46 and creatinine 1.7, lactic acid is down to 1.1. Patient has not had any more bowel movements, he remains weak and fatigued, but hemodynamically more stable, blood pressure is 99/52, he remains on IV 0.9 normal saline at a rate of 75 ML per hour, afebrile, room air pulse ox is 99%. He was started on antibiotic coverage in the form of Zosyn and vancomycin, blood cultures have been drawn and are pending at this time. On 01/20/2019 patient seen in follow-up on selective care unit, he is awake and alert, in no acute distress, no complaints of worsening shortness of breath, he remains on supplemental oxygen currently 3 L, and his pulse ox is 100%, afebrile, hemodynamically patient is stable, as today patient received units of packed red blood cells for hemoglobin of 6.9, today's blood work shows hemoglobin of 7.5, white blood cell count is 8.5, INR is down to 1.9, renal profile is improving, with the BUN of 33, and creatinine of 1.56. Her calcitonin level was relatively low, at 0.12. Patient remains on empiric antibiotics in the form of Zosyn and vancomycin, and blood culture showed no growth, urine culture is pending, preliminary Gram stain showed many gram- positive cocci, rare budding yeast, few gram-positive bacilli and few gram- negative bacilli. Fungal culture is pending. No fever or chills. no Complaints of chest pain, no cough or congestion. Objective - Vital Signs Vital signs: Vital Signs Temp 98.6 F 01/20/19 11:35 Pulse 81 01/20/19 11:35 Resp 20 01/20/19 11:35 BP 133/73 01/20/19 11:35 Pulse Ox 98 01/20/19 11:35 Intake & Output 01/19/19 01/20/19 01/20/19 18:59 06:59 18:59 Intake Total 1900 310 0 Output Total 1050 1575 725 Balance 850 -1265 -725 Weight 78.5 kg Intake: Intake, IV Titration 1000 Amount Piperacillin-Tazobactam 3 100 .375 gm In Sodium Chloride 0.9% 100 ml @ 25 mls/hr IVPB Q8H [facility] Rx#: [id number] Sodium Chloride 0.9% 1, 900 000 ml @ 75 mls/hr IV . [id number] [facility] Rx#:[id number] Oral 900 0 Blood Product 0 310 Rc As-1 Unit 0 310 [id number] Output: Urine 1050 1575 725 Other: Voiding Method Urinal Urinal Urinal # Voids 1 2 2 # Bowel Movements 1 1 - Exam GENERAL EXAM: Alert, pleasant, 79-year-old white male comfortable in no apparent distress. HEAD: Normocephalic/atraumatic. EYES: Normal reaction of pupils, equal size. Conjunctiva pink, sclera white. NOSE: Clear with pink turbinates. THROAT: No erythema or exudates. NECK: No masses, no JVD, no thyroid enlargement, no adenopathy. CHEST: No chest wall deformity. Symmetrical expansion. LUNGS: Equal air entry with coarse inspiratory crackles over left lower lobe CVS: Regular rate and rhythm, normal S1 and S2, no gallops, no murmurs, no rubs ABDOMEN: Soft, nontender. No hepatosplenomegaly, normal bowel sounds, no guarding or rigidity. EXTREMITIES: No clubbing, no edema, no cyanosis, 2+ pulses and upper and lower extremities. MUSCULOSKELETAL: Muscle strength and tone normal. SPINE: No scoliosis or deformity SKIN: No rashes CENTRAL NERVOUS SYSTEM: Alert and oriented -3. No focal deficits, tone is normal in all 4 extremities. PSYCHIATRIC: Alert and oriented -3. Appropriate affect. Intact judgment and insight. - Labs CBC & Chem 7: 01/20/19 07:21 01/20/19 07:21 Labs: Abnormal Lab Results - Last 24 Hours (Table) 01/19/19 01/19/19 01/19/19 Range/Units 14:02 15:47 15:47 RBC 2.53 L (4.30-5.90) m/uL Hgb 6.9 L* (13.0-17.5) gm/dL Hct 22.2 L (39.0-53.0) % RDW 15.6 H (11.5-15.5) % PT 65.5 H (9.0-12.0) sec INR 6.7 H* (<1.2) Chloride (98-107) mmol/L BUN (9-20) mg/dL Creatinine (0.66-1.25) mg/dL Calcium (8.4-10.2) mg/dL Total Protein (6.3-8.2) g/dL Albumin (3.5-5.0) g/dL Procalcitonin 0.12 H (0.02-0.09) ng/mL Crossmatch 01/19/19 01/20/19 01/20/19 Range/Units 15:47 07:21 07:21 RBC 2.83 L (4.30-5.90) m/uL Hgb 7.5 L (13.0-17.5) gm/dL Hct 24.1 L (39.0-53.0) % RDW 16.3 H (11.5-15.5) % PT (9.0-12.0) sec INR (<1.2) Chloride 115 H (98-107) mmol/L BUN 33 H (9-20) mg/dL Creatinine 1.56 H (0.66-1.25) mg/dL Calcium 8.0 L (8.4-10.2) mg/dL Total Protein 4.9 L (6.3-8.2) g/dL Albumin 2.4 L (3.5-5.0) g/dL Procalcitonin (0.02-0.09) ng/mL Crossmatch See Detail 01/20/19 Range/Units 07:21 RBC (4.30-5.90) m/uL Hgb (13.0-17.5) gm/dL Hct (39.0-53.0) % RDW (11.5-15.5) % PT 18.8 H (9.0-12.0) sec INR 1.9 H (<1.2) Chloride (98-107) mmol/L BUN (9-20) mg/dL Creatinine (0.66-1.25) mg/dL Calcium (8.4-10.2) mg/dL Total Protein (6.3-8.2) g/dL Albumin (3.5-5.0) g/dL Procalcitonin (0.02-0.09) ng/mL Crossmatch Microbiology - Last 24 Hours (Table) 01/19/19 17:48 Gram Stain - Preliminary Sputum Sputum Culture - Preliminary 01/18/19 12:50 Blood Culture - Preliminary Blood No Growth after 24 hours Assessment and Plan Plan: Assessment: #1. Weakness, hypotension, shortness of breath, likely related to acute GI blood loss anemia #2. Left lower lobe infiltrate, the possibility of underlying pneumonia is not completely excluded #3. Non-anion gap metabolic acidosis related to lactic acidosis, related to b lood loss anemia, an infectious etiology is not completely excluded #4. Acute kidney injury related to ATN #5. Coagulopathy, and melanotic stools #6. Recent hospitalization for nausea, vomiting diarrhea, weakness and dehydration #7. 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 Chronic kidney disease stage III #9. History of bladder cancer follows with Dr. Presley #10. History of CAD with previous stenting and previous myocardial infarction #11. History of thoracic abdominal aortic aneurysm repair #12. Hypertension #13. Hyperlipidemia #14. History of carotid artery blood clots , on chronic anticoagulation with Coumadin Plan: Continue current antibiotic coverage, will await the results of the sputum cultures, patient is afebrile, hemodynamically he is stable, received a unit of blood yesterday, today hemoglobin is 7.5, no active bleeding, INR is down to 1.9. Blood and is on hold, awaiting GI evaluation, pro-calcitonin level was relatively low at 0.12, will continue with the antibiotics for now. I performed a history & physical examination of the patient and discussed their management with my nurse practitioner, Elyssa Fields. I reviewed the nurse practitioner's note and agree with the documented findings and plan of care. Lung sounds are positive for diminised breath sounds and coarse rales in left lower lobe. The findings and the impression was discussed with the patient. I attest to the documentation by the nurse practitioner. Time with Patient: Less than 30
--- NOTE | 2019-01-20 14:13 | CDI ---
Documentation Clarification Form Date: 01/20/2019 2:04:07 PM From: Diandra [email or web address] sims, CCDS Admit Date: 01/18/2019 3:35:00 PM Patient Name: Aubrey Gomez Visit Number: [id number] Discharge Date: ATTENTION: The Clinical Documentation Specialists (CDI) and [facility] Coding Staff appreciate your assistance in clarifying documentation. Please respond to the clarification below the line at the bottom and electronically sign. The CDI & [facility] Coding staff will review the response and follow-up if needed. Please note: Queries are made part of the Legal Health Record. If you have any questions, please contact the author of this message via ITS. Dr. Kyle Aguilar: Per the pulmonary consult & subsequent progress notes: "Chief complaint: Weakness, shortness of breath, hypoxemic respiratory failure, hypotension." History/Risk Factors: Hypertension, CKD III, Bladder CA, CAD w/previous MS & stent, thoracic AAA repair & hyperlipidemia. Tobacco use: Former smoker. 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 Vital signs: R 18 - 20, BP 74/41*, PO 83 1Lnc LABS: WBC 21.0^, Hgb 9.8 - 6.9, INR 5.4^^, CO2 21*, BUN 61^, Cr 2.04^, Lactic Acid 3.8^^. Treatment: IV fluid bolus, IV Vanco, IV Zosyn, IV Narcan, O2 1-4Lnc In your professional opinion, can you please clarify the acuity of the documented hypoxic respiratory failure? Acute Chronic Acute on Chronic Other Diagnosis, please specify Unable to determine (Last Revision: November 2017) Acute hypoxemic respiratory failure related to possible left lower lobe pneumonia MTDD
[2019-01-20] MEDS ORDERED: BISACODYL 5 MG TABLET.DR PO STA (15:27)
--- NOTE | 2019-01-20 15:27 | P.CONS ---
History of Present Illness - Reason for Consult Consult date: 01/20/19 GI bleed anemia coagulopathy Requesting physician: Elyssa Feilds - Chief Complaint Weakness fatigue - History of Present Illness 79-year-old male limited with fatigue and weakness. 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 Admitted with supratherapeutic INR possible pneumonia. Home medications include Feosol aspirin Plavix warfarin. Admission hemoglobin 9.8 MCV 85. Platelet 457. hemoglobin decreased to 6.9 received 1 unit of blood current hemoglobin 7.5. INR 6.7 presently 1.9. BUN 61. Creatinine 2.0. Average hemoglobin over the past several months between 10-12. Recent positive FOBT 01/11/2019 C. diff negative. Reports an isolated bowel movement appearing black in nature few days ago and none since. Denies gross hematemesis hematochezia abdominal pain or weight loss. No history of peptic ulcer disease. No recent EGD. Colonoscopy about 5 years ago to his memory was unremarkable. No NSAIDs or alcohol. Review of Systems RConstitutional: Denies fever, chills, sweats, weight gain, or loss. Weakness fatigue. HEENT: Negative for migraines, blurred vision or loss, earaches, drainage, tinnitus, oral mucosal lesions, dysphagia, or odynophagia. Cardiac: Negative for chest pain, arrhythmias, or palpitation. Respiratory: Negative for shortness of breath, hemoptysis, cough, or sputum production. Gastrointestinal: See HPI for pertinent findings. Genitourinary: Negative for hematuria, urgency, frequency, polyuria, dysuria, or penile discharge. Musculoskeletal: Negative for muscle aches, swelling, arthritis, and arthralgias. Neurologic: Negative for stroke or TIA. Endocrine: Negative for thyroid problems. Skin: Negative for rash or itching. Psychiatric: Negative history for depression and anxietyle Past Medical History Past Medical History: Coronary Artery Disease (CAD), Cancer, Hearing Disorder / Deafness, Hyperlipidemia, Hypertension, Myocardial Infarction ([place]), Thyroid Disorder Additional Past Medical History / Comment(s): "aaa-repaired", vertigo AND HEARING LOSS SINCE [place] -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 LT KNEE HAD BONE CHIPS REMOVED,, 10-20-14 HEART CATH w/angioplasty but was unable to place stent, recent bladder polyp removed; indwelling catheter was removed 01-11-17. 3 STENTS RCA 05/03/18, biopsy lung-bronch Past Anesthesia/Blood Transfusion Reactions: No Reported Reaction Past Psychological History: No Psychological Hx Reported Additional Psychological History / Comment(s): Pt. lives with , is independant, one dog, no outside services, no medical equipment. 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 Smoking Status: Former smoker Past Alcohol Use History: None Reported Additional Past Alcohol Use History / Comment(s): started smoking at age 19 -s moked cig then swithced to pipe. quit 1979 Past Drug Use History: None Reported - Past Family History Mother Additional Family Medical History / Comment(s): brain tumor Father Family Medical History: Unable to Obtain Medications and Allergies Home Medications Medication Instructions Recorded Confirmed Type Aspirin 81 mg PO DAILY 10/20/14 01/18/19 History Liothyronine Sodium [Cytomel] 5 mcg PO DAILY 10/20/14 01/18/19 History Isosorbide Mononitrate ER [Imdur] 30 mg PO DAILY #90 tab.er.24h 10/23/14 01/18/19 Rx Levothyroxine Sodium [Synthroid] 112 mcg PO DAILY 01/11/17 01/18/19 History Metoprolol Succinate (ER) [Toprol 25 mg PO DAILY 01/11/17 01/18/19 History XL] traMADol HCL [Ultram] 50 mg PO BID PRN 01/11/17 01/18/19 History Nitroglycerin Sl Tabs [Nitrostat] 0.4 mg SUBLINGUAL Q5M PRN #25 tab 03/31/18 01/18/19 Rx Clopidogrel [Plavix] 75 mg PO DAILY #90 tab 05/04/18 01/18/19 Rx Ferrous Sulfate [Feosol] 325 mg PO BID #60 tab 01/13/19 01/18/19 Rx Hydrocortisone Cream 1 applic TOPICAL BID PRN #1 applic 01/13/19 01/18/19 Rx [Hydrocortisone 1% Cream] Acetaminophen [Tylenol] 325 mg PO TID 01/18/19 01/18/19 History Cyanocobalamin (Vitamin B-12) 1,000 mcg PO DAILY 01/18/19 01/18/19 History [Vitamin B-12] Gabapentin [Neurontin] 800 mg PO TID 01/18/19 01/18/19 History Rosuvastatin Calcium [Crestor] 40 mg PO DAILY 01/18/19 01/18/19 History Warfarin [Coumadin] 3 mg PO DAILY 01/18/19 01/18/19 History Allergies Allergy/AdvReac Type Severity Reaction Status Date / Time ciprofloxacin [From Cipro] Allergy Rash/Hives Verified 01/18/19 12:43 Iodinated Contrast- Oral and Allergy Unknown Verified 01/18/19 12:43 IV Dye [Iodinated Contrast Media - Oral and] morphine AdvReac Severe Nausea & Verified 01/18/19 12:43 Vomiting Physical Exam Vitals: Vital Signs Temp Pulse Pulse Resp BP BP Pulse Ox 01/20/19 11:35 98.6 F 81 20 133/73 98 01/20/19 11:34 88 20 01/20/19 09:40 88 20 01/20/19 09:39 98.1 F 88 20 111/57 100 01/20/19 03:53 98.2 F 86 16 132/55 94 L 01/19/19 22:42 97.9 F 70 15 111/55 100 01/19/19 19:50 98.0 F 77 15 104/54 97 01/19/19 19:43 98.0 F 77 15 104/54 97 01/19/19 18:26 98.0 F 78 18 105/51 100 01/19/19 17:56 97.3 F L 75 18 104/54 100 01/19/19 17:46 96.7 F L 79 16 106/52 97 01/19/19 16:36 68 18 01/19/19 16:33 97.4 F L 68 18 106/52 98 Intake and Output 01/19/19 01/20/19 01/20/19 22:59 06:59 14:59 Intake Total 710 0 Output Total 750 1200 725 Balance -40 -1200 -725 Intake: Oral 400 0 Blood Product 310 Rc As-1 Unit 310 [id number] Output: Urine 750 1200 725 Other: Voiding Method Urinal Urinal Urinal # Voids 1 2 2 # Bowel Movements 1 1 Weight 78.5 kg General appearance: The patient is alert, oriented, in no acute distress. HET: Head is normocephalic and atraumatic. Pupils are equal and reactive. Oropharynx is clear without lesions. Neck: Supple without lymphadenopathy. Trachea midline. Heart: S1 S2. Regular rate and rhythm. Lungs: No crackles or wheezes are heard. Abdomen: Soft, nontender, nondistended with bowel sounds. No peritoneal signs. No palpable organomegaly or masses. Extremities: Normal skin color and turgor. No cyanosis, rash, ulceration, clubbing, or edema. Radial and pedal pulses are 2/4 bilaterally. Neurological: No focal deficits. Strength and sensation are grossly intact. Results CBC & Chem 7: 01/20/19 07:21 01/20/19 07:21 Labs: Abnormal Lab Results - Last 24 Hours (Table) 01/19/19 01/19/19 01/19/19 Range/Units 14:02 15:47 15:47 RBC 2.53 L (4.30-5.90) m/uL Hgb 6.9 L* (13.0-17.5) gm/dL Hct 22.2 L (39.0-53.0) % RDW 15.6 H (11.5-15.5) % PT 65.5 H (9.0-12.0) sec INR 6.7 H* (<1.2) Chloride (98-107) mmol/L BUN (9-20) mg/dL Creatinine (0.66-1.25) mg/dL Calcium (8.4-10.2) mg/dL Total Protein (6.3-8.2) g/dL Albumin (3.5-5.0) g/dL Procalcitonin 0.12 H (0.02-0.09) ng/mL Crossmatch 01/19/19 01/20/19 01/20/19 Range/Units 15:47 07:21 07:21 RBC 2.83 L (4.30-5.90) m/uL Hgb 7.5 L (13.0-17.5) gm/dL Hct 24.1 L (39.0-53.0) % RDW 16.3 H (11.5-15.5) % PT (9.0-12.0) sec INR (<1.2) Chloride 115 H (98-107) mmol/L BUN 33 H (9-20) mg/dL Creatinine 1.56 H (0.66-1.25) mg/dL Calcium 8.0 L (8.4-10.2) mg/dL Total Protein 4.9 L (6.3-8.2) g/dL Albumin 2.4 L (3.5-5.0) g/dL Procalcitonin (0.02-0.09) ng/mL Crossmatch See Detail 01/20/19 Range/Units 07:21 RBC (4.30-5.90) m/uL Hgb (13.0-17.5) gm/dL Hct (39.0-53.0) % RDW (11.5-15.5) % PT 18.8 H (9.0-12.0) sec INR 1.9 H (<1.2) Chloride (98-107) mmol/L BUN (9-20) mg/dL Creatinine (0.66-1.25) mg/dL Calcium (8.4-10.2) mg/dL Total Protein (6.3-8.2) g/dL Albumin (3.5-5.0) g/dL Procalcitonin (0.02-0.09) ng/mL Crossmatch Microbiology - Last 24 Hours (Table) 01/19/19 17:48 Gram Stain - Preliminary Sputum Sputum Culture - Preliminary 01/18/19 12:50 Blood Culture - Preliminary Blood No Growth after 24 hours Assessment and Plan (1) Normocytic hypochromic anemia Narrative/Plan: 79-year-old male admitted with weakness fatigue supratherapeutic INR underlying history metastatic urothelial carcinoma CBC indicating normocytic hypochromic anemia status post blood transfusion with positive FOBT and report of black- colored bowel movement 3 days ago without further episodes. Component of acute blood loss anemia possible upper possible small bowel possible colonic source. Current Visit: Yes Status: Acute Code(s): D50.9 - IRON DEFICIENCY ANEMIA, UNSPECIFIED SNOMED Code(s): 47713887 (2) Metastatic cancer Current Visit: Yes Status: Acute Code(s): C79.9 - SECONDARY MALIGNANT NEOPLASM OF UNSPECIFIED SITE SNOMED Code(s): 434211779 (3) Urothelial carcinoma Current Visit: Yes Status: Acute Code(s): C68.9 - MALIGNANT NEOPLASM OF URINARY ORGAN, UNSPECIFIED SNOMED Code(s): 255193020 (4) Warfarin-induced coagulopathy Current Visit: Yes Status: Acute Code(s): D68.32 - HEMORRHAGIC DISORD D/T EXTRINSIC CIRCULATING ANTICOAGULANTS; T45.515A - ADVERSE EFFECT OF ANTICOAGULANTS, INITIAL ENCOUNTER SNOMED Code(s): 46894622 (5) Supratherapeutic INR Current Visit: Yes Status: Acute Code(s): R79.1 - ABNORMAL COAGULATION PROFILE SNOMED Code(s): 807478944 (6) Guaiac positive stools Current Visit: Yes Status: Acute Code(s): R19.5 - OTHER FECAL ABNORMALITIES SNOMED Code(s): 12281949 Plan: 1. EGD colonoscopy tomorrow possible small bowel capsule endoscopy per clinical course. CBC monitoring. Protonix 40 mg daily. Anticoagulation on hold. Feosol twice daily. PT/INR in a.m. The porcelain enameling supervisor has discussed the risks, benefits and alternative therapies for the above-mentioned procedure and for both sedation/analgesia as well as necessary blood product administration, if indicated, as they pertain to this patient. The patient has indicated understanding and acceptance of the risks and procedures discussed. Thank you for this kind referral and the opportunity to participate in the care of your patient. This consultation was discussed with Dr. Rain. The impression and plan of care have been directed as dictated.
[2019-01-20] MEDS ORDERED: PEG 3350-NA SULF,BICARB,CL/KCL 4,000 ML BOTTLE PO ONE (17:00)
--- NOTE | 2019-01-20 19:27 | P.PN ---
Subjective Progress Note Date: 01/20/19 Principal diagnosis: sepsis symptoms. In follow-up today patient is getting out of the shower, he is short of breath but after a few moments of rest he recuperates. Patient denies dizziness, nausea, appetite is fair, he is beginning to cough up some thick white sputum, denies hemoptysis, chest pain, dysuria, diarrhea or constipation, mild swelling in the lower extremities, not new for him, he has chronic back pain Objective - Vital Signs Vital signs: Vital Signs Temp 98.2 F 01/20/19 17:30 Pulse 68 01/20/19 17:30 Resp 18 01/20/19 17:30 BP 102/42 01/20/19 17:30 Pulse Ox 96 01/20/19 17:30 Intake & Output 01/20/19 01/20/19 01/21/19 06:59 18:59 06:59 Intake Total 310 680 Output Total 1575 925 Balance -1265 -245 Weight 78.5 kg Intake: Oral 680 Blood Product 310 Rc As-1 Unit 310 [id number] Output: Urine 1575 925 Other: Voiding Method Urinal Urinal # Voids 2 2 # Bowel Movements 1 - Constitutional General appearance: Present: cooperative, mild distress, obese - EENT Eyes: Present: EOMI ENT: Present: hard of hearing - Respiratory Respiratory: right: rhonchi, bilateral: diminished - Cardiovascular Heart sounds: normal: S1, S2 - Peripheral edema leg Peripheral Edema: bilateral: Trace - Gastrointestinal General gastrointestinal: Present: normal bowel sounds, soft - Integumentary Integumentary: Present: pale - Neurologic Neurologic: Present: CNII-XII intact - Musculoskeletal Musculoskeletal: Present: strength equal bilaterally - Psychiatric Psychiatric: Present: A&O x's 3, appropriate affect, intact judgment & insight - Labs CBC & Chem 7: 01/20/19 07:21 01/20/19 07:21 Labs: Abnormal Lab Results - Last 24 Hours (Table) 01/19/19 01/19/19 01/20/19 Range/Units 15:47 15:47 07:21 RBC 2.83 L (4.30-5.90) m/uL Hgb 7.5 L (13.0-17.5) gm/dL Hct 24.1 L (39.0-53.0) % RDW 16.3 H (11.5-15.5) % PT (9.0-12.0) sec INR (<1.2) Chloride (98-107) mmol/L BUN (9-20) mg/dL Creatinine (0.66-1.25) mg/dL Calcium (8.4-10.2) mg/dL Total Protein (6.3-8.2) g/dL Albumin (3.5-5.0) g/dL Procalcitonin 0.12 H (0.02-0.09) ng/mL Crossmatch See Detail 01/20/19 01/20/19 Range/Units 07:21 07:21 RBC (4.30-5.90) m/uL Hgb (13.0-17.5) gm/dL Hct (39.0-53.0) % RDW (11.5-15.5) % PT 18.8 H (9.0-12.0) sec INR 1.9 H (<1.2) Chloride 115 H (98-107) mmol/L BUN 33 H (9-20) mg/dL Creatinine 1.56 H (0.66-1.25) mg/dL Calcium 8.0 L (8.4-10.2) mg/dL Total Protein 4.9 L (6.3-8.2) g/dL Albumin 2.4 L (3.5-5.0) g/dL Procalcitonin (0.02-0.09) ng/mL Crossmatch Microbiology - Last 24 Hours (Table) 01/18/19 12:50 Blood Culture - Preliminary Blood No Growth after 48 hours 01/19/19 17:48 Gram Stain - Preliminary Sputum Sputum Culture - Preliminary Assessment and Plan (1) Urothelial carcinoma of bladder Narrative/Plan: Patient is recently diagnosed with metastatic urothelial carcinoma. There is a plan to begin chemotherapy, pending insurance verification of tecentric. Patient that he will begin chemotherapy once his current condition has resolved and he has completed antibiotics as directed. He verbalized understanding. Current Visit: Yes Status: Acute Priority: High Code(s): C67.9 - MALIGNANT NEOPLASM OF BLADDER, UNSPECIFIED SNOMED Code(s): 529193134 Plan: Physical therapy ordered
[2019-01-21] MEDS: PIPERACILLIN-TAZOBACTAM 3.375 GM in SODIUM CHLORIDE 0.9% 100 ML IVPB SCH ×3 (03:40→20:31)
[2019-01-21] MEDS: SODIUM CHLORIDE 0.9% 1,000 ML IV SCH ×3 (03:43→23:42)
[2019-01-21] MEDS: LEVOTHYROXINE 112 MCG TAB PO SCH (06:26)
[2019-01-21 06:57] LABS: Anisocytosis Slight; Basophils % (A) 0 %; Eosinophils # (A) 0.3 k/uL (0-0.7); Eosinophils % (A) 4 %; HCT 23.9 % (39.0-53.0); HGB 7.4 gm/dL (13.0-17.5); Hypochromasia Marked; Lymphocytes # (A) 1.3 k/uL (1.0-4.8); Lymphocytes % (A) 16 %; MCH 26.6 pg (25.0-35.0); MCHC 31.1 g/dL (31.0-37.0); MCV 85.6 fL (80.0-100.0); Mean Platelet Volume 8.2; Monocytes # (A) 0.5 k/uL (0-1.0); Monocytes % (A) 6 %; Neutrophils # (A) 5.9 k/uL (1.3-7.7); Neutrophils % (A) 73 %; Platelet Count 261 k/uL (150-450); RDW 17.1 % (11.5-15.5); WBC 8.1 k/uL (3.8-10.6)
[2019-01-21] MEDS: LACTATED RINGERS 1,000 ML IV SCH (07:02)
[2019-01-21 07:05] LABS: INR 1.4 (<1.2); Prothrombin Time 13.8 sec (9.0-12.0)
[2019-01-21 07:09] LABS: Albumin 2.5 g/dL (3.5-5.0); Calcium 8.1 mg/dL (8.4-10.2); Potassium 4.6 mmol/L (3.5-5.1); Total Bilirubin 0.5 mg/dL (0.2-1.3)
[2019-01-21] MEDS: ACETAMINOPHEN TAB 325 MG TAB PO SCH ×3 (09:50→21:04)
[2019-01-21] MEDS: ISOSORBIDE MONONITRATE ER 30 MG TAB.ER.24H PO SCH (09:50)
[2019-01-21] MEDS: LIOTHYRONINE SODIUM 5 MCG TAB PO SCH (09:50)
[2019-01-21] MEDS: ATORVASTATIN 80 MG TAB PO SCH (09:50)
[2019-01-21] MEDS: PANTOPRAZOLE 40 MG/10 ML VIAL IVP SCH (09:50)
[2019-01-21] MEDS: GABAPENTIN 400 MG CAP PO SCH ×3 (09:50→21:04)
[2019-01-21] MEDS: FERROUS SULFATE 325 MG TAB PO SCH ×2 (09:50→20:31)
[2019-01-21] MEDS: METOPROLOL SUCCINATE (ER) 25 MG TAB.ER.24H PO SCH (09:50)
[2019-01-21] MEDS: CYANOCOBALAMIN 500 MCG TAB PO SCH (09:50)
[2019-01-21] MEDS ORDERED: VANCOMYCIN TROUGH DUE 1 EACH MISC MISCELLANE ONE (11:00)
[2019-01-21] MEDS: VANCOMYCIN 1,500 MG in SODIUM CHLORIDE 0.9% 250 ML IVPB SCH (11:34)
--- NOTE | 2019-01-21 13:18 | P.PN ---
Subjective Progress Note Date: 01/21/19 Principal diagnosis: Weakness, shortness of breath, hypoxemic respiratory failure, hypertension This is a 79-year-old daughter white male patient with recently diagnosed poorly differentiated non-small cell carcinoma consistent with metastatic high-grade urothelial carcinoma, diagnosed via a CT-guided fine-needle biopsy of the right lung mass. Patient follows with Dr. Duff, and was supposed to see him yesterday in regards to the treatment plan for his cancer. He was recently hospitalized last week with symptoms of nausea, vomiting and diarrhea, generalized weakness and dehydration. CT of the abdomen was negative for any diagnostic evidence of obstruction. Patient was recently treated for a urinary tract infection with a round of Keflex which she did not finish because he developed a rash. Other medical history includes chronic kidney disease stage III, history of bladder cancer being followed by Dr. Presley, CAD with previous stenting and previous myocardial infarction, history of thoracic abdominal aortic aneurysm repair, hypertension, and hyperlipidemia. Patient received IV hydration during his last admission, and was discharged home. C. diff was nega tive, amylase and lipase were within normal limits, his symptoms had resolved, his kidney function was improving with hydration. After going home patient felt increasingly weak and fatigued, short of breath, and it yesterday morning patient could hardly walk 10 feet related to his shortness of breath with exertion, and weakness. No nausea or vomiting, no abdominal pain, patient did pass 2 very dark colored almost black colored stools yesterday. No fever or chills, no chest pain. Patient was taken to the outpatient clinic, where he was noted to be hypotensive with a blood pressure of 74/41, and was transferred to the hospital for evaluation of his hypotension and weakness. He has an occa sional cough, which has been chronic for the last 3 months, and occasional production of clear sputum. No significant cough or congestion. Chest x-ray is showing pulmonary fibrosis leading more prominent in the left lung base, follow- up chest x-ray today showed stable possible left lower lobe infiltrate. Lab work showed white blood cell count of 21, hemoglobin is 9.8, INR is 5.4, sodium was 143, potassium is 4.6, chloride was 108, CO2 is 21, B1 is 61 and creatinine is 2.04, plasma lactic acid was 3.8, troponin was negative 1, proBNP was 803, urinalysis was within normal limits, on today's labs, there has been a drop in hemoglobin down to 7.9, white blood cell count is 10.7, INR has increased to 6.4, and patient was given vitamin K, she received IV hydration, and the there has been some improvement in patient's renal profile, with BUN down to 46 and creatinine 1.7, lactic acid is down to 1.1. Patient has not had any more bowel movements, he remains weak and fatigued, but hemodynamically more stable, blood pressure is 99/52, he remains on IV 0.9 normal saline at a rate of 75 ML per hour, afebrile, room air pulse ox is 99%. He was started on antibiotic coverage in the form of Zosyn and vancomycin, blood cultures have been drawn and are pending at this time. On 01/20/2019 patient seen in follow-up on selective care unit, he is awake and alert, in no acute distress, no complaints of worsening shortness of breath, he remains on supplemental oxygen currently 3 L, and his pulse ox is 100%, afebrile, hemodynamically patient is stable, as today patient received units of packed red blood cells for hemoglobin of 6.9, today's blood work shows hemoglobin of 7.5, white blood cell count is 8.5, INR is down to 1.9, renal profile is improving, with the BUN of 33, and creatinine of 1.56. Her calcitonin level was relatively low, at 0.12. Patient remains on empiric antibiotics in the form of Zosyn and vancomycin, and blood culture showed no growth, urine culture is pending, preliminary Gram stain showed many gram- positive cocci, rare budding yeast, few gram-positive bacilli and few gram- negative bacilli. Fungal culture is pending. No fever or chills. no Complaints of chest pain, no cough or congestion. On 01/21/2019 patient seen in follow-up on selective care unit, he is resting comfortably in bed, in no acute distress. Remains on 2 L of oxygen and the pulse ox of 99%, hemodynamically stable, afebrile, respirations are even and nonlabored, lung sounds reveal coarse rales at the left lower base. No cough or congestion, today's labs have been reviewed, showing white blood cell count of 8.1, hemoglobin of 7.4, INR is 1.4, Coumadin remains on hold, sodium is 141, potassium is 4.6, chloride is 113, B1 of 19 creatinine is 1.58. Patient has been prepped for EGD and colonoscopy today. Continues on antibiotic coverage in the form of Zosyn and vancomycin, blood and sputum cultures showed no growth. No fever or chills Objective - Vital Signs Vital signs: Vital Signs Temp 97.7 F 01/21/19 11:47 Pulse 74 01/21/19 11:47 Resp 20 01/21/19 11:47 BP 97/57 01/21/19 11:47 Pulse Ox 99 01/21/19 11:47 Intake & Output 01/20/19 01/21/19 01/21/19 18:59 06:59 18:59 Intake Total 680 Output Total 925 850 Balance -245 -850 Weight 74.8 kg Intake: Oral 680 Output: Urine 925 850 Other: Voiding Method Urinal Urinal Urinal # Voids 2 1 # Bowel Movements 3 - Exam GENERAL EXAM: Alert, pleasant, 79-year-old white male comfortable in no apparent distress. HEAD: Normocephalic/atraumatic. EYES: Normal reaction of pupils, equal size. Conjunctiva pink, sclera white. NOSE: Clear with pink turbinates. THROAT: No erythema or exudates. NECK: No masses, no JVD, no thyroid enlargement, no adenopathy. CHEST: No chest wall deformity. Symmetrical expansion. LUNGS: Equal air entry with coarse inspiratory crackles over left lower lobe CVS: Regular rate and rhythm, normal S1 and S2, no gallops, no murmurs, no rubs ABDOMEN: Soft, nontender. No hepatosplenomegaly, normal bowel sounds, no guarding or rigidity. EXTREMITIES: No clubbing, no edema, no cyanosis, 2+ pulses and upper and lower extremities. MUSCULOSKELETAL: Muscle strength and tone normal. SPINE: No scoliosis or deformity SKIN: No rashes CENTRAL NERVOUS SYSTEM: Alert and oriented -3. No focal deficits, tone is normal in all 4 extremities. PSYCHIATRIC: Alert and oriented -3. Appropriate affect. Intact judgment and insight. - Labs CBC & Chem 7: 01/21/19 06:18 01/21/19 06:18 Labs: Abnormal Lab Results - Last 24 Hours (Table) 01/21/19 01/21/19 01/21/19 Range/Units 06:18 06:18 06:18 RBC 2.80 L (4.30-5.90) m/uL Hgb 7.4 L (13.0-17.5) gm/dL Hct 23.9 L (39.0-53.0) % RDW 17.1 H (11.5-15.5) % PT 13.8 H (9.0-12.0) sec INR 1.4 H (<1.2) Chloride 113 H (98-107) mmol/L Creatinine 1.58 H (0.66-1.25) mg/dL Calcium 8.1 L (8.4-10.2) mg/dL Total Protein 5.0 L (6.3-8.2) g/dL Albumin 2.5 L (3.5-5.0) g/dL Microbiology - Last 24 Hours (Table) 01/19/19 17:48 Gram Stain - Final Sputum Sputum Culture - Final 01/18/19 12:50 Blood Culture - Preliminary Blood No Growth after 48 hours Assessment and Plan Plan: Assessment: #1. Weakness, hypotension, shortness of breath, likely related to acute GI blood loss anemia #2. Left lower lobe infiltrate, the possibility of underlying pneumonia is not completely excluded, with acute hypoxemic respiratory failure #3. Anion gap metabolic acidosis related to lactic acidosis, related to blood loss anemia, an infectious etiology is not completely excluded, #4. Acute kidney injury related to ATN #5. Coagulopathy, and melanotic stools #6. Recent hospitalization for nausea, vomiting diarrhea, weakness and dehydration #7. 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 Chronic kidney disease stage III #9. History of bladder cancer follows with Dr. Presley #10. History of CAD with previous stenting and previous myocardial infarction #11. History of thoracic abdominal aortic aneurysm repair #12. Hypertension #13. Hyperlipidemia #14. History of carotid artery blood clots , on chronic anticoagulation with Coumadin Plan: Sputum blood cultures have been negative, we will discontinue the vancomycin, continue Zosyn for now, clinically patient is asymptomatic, no cough or congestion, no fever or chills, hemodynamically stable, awaiting EGD and colonoscopy today. We'll follow I performed a history & physical examination of the patient and discussed their management with my nurse practitioner, Elyssa Fields. I reviewed the nurse practitioner's note and agree with the documented findings and plan of care. Lung sounds are positive for diminised breath sounds and coarse rales in left lower lobe. The findings and the impression was discussed with the patient. I attest to the documentation by the nurse practitioner. Time with Patient: Less than 30
[2019-01-21] MEDS ORDERED: IV FLUID CONTINUATION 1,000 ML IV ONE (13:50)
[2019-01-21] MEDS ORDERED: LIDOCAINE 1% INJ 10MG/ML (20 ML MDV) ONE (13:51)
[2019-01-21] MEDS ORDERED: PROPOFOL 10 MG/ML 20 ML VIAL IV ONE (13:51)
--- NOTE | 2019-01-21 14:22 | ECHOF ---
Referral Reason:sob MEASUREMENTS -------- HEIGHT: 172.7 cm WEIGHT: 78.5 kg BP: 132/55 RVIDd: 3.2 cm (< 3.3) IVSd: 1.1 cm (0.6 - 1.1) LVIDd: 4.3 cm (3.9 - 5.3) LVPWd: 1.4 cm (0.6 - 1.1) IVSs: 1.4 cm LVIDs: 2.9 cm LVPWs: 1.3 cm LAESV Index (A-L): 33.76 ml/m Ao Diam: 3.6 cm (2.0 - 3.7) AV Cusp: 2.0 cm (1.5 - 2.6) LA Diam: 4.2 cm (2.7 - 3.8) MV EXCURSION: 16.659 mm (> 18.000) MV EF SLOPE: 106 mm/s (70 - 150) EPSS: 0.8 cm MV E David: 0.57 m/s MV DecT: 225 ms MV A David: 0.69 m/s MV E/A Ratio: 0.83 RAP: 5.00 mmHg RVSP: 36.49 mmHg FINDINGS -------- Sinus rhythm. This was a technically good study. The left ventricular size is normal. There is mild concentric left ventricular hypertrophy. Overa ll left ventricular systolic function is normal with, an EF between 60 - 65 %. The right ventricle is normal in size. LA is midly dilated 29-33ml/m2. The right atrial size is normal. Interatrial and interventricular septum intact. The aortic valve is trileaflet and appears structurally normal. Mild mitral regurgitation is present. Mild tricuspid regurgitation present. There is mild pulmonary hypertension. The right ventricular systolic pressure, as measured by Doppler, is 36.49mmHg. The pulmonic valve is normal. The aortic root size is normal. Normal inferior vena cava with normal inspiratory collapse consistent with estimated right atrial pre ssure of 5 mmHg. There is no pericardial effusion. CONCLUSIONS -------- 1. Sinus rhythm. 2. This was a technically good study. 3. The left ventricular size is normal. 4. There is mild concentric left ventricular hypertrophy. 5. Overall left ventricular systolic function is normal with, an EF between 60 - 65 %. 6. The right ventricle is normal in size. 7. LA is midly dilated 29-33ml/m2. 8. The right atrial size is normal. 9. Interatrial and interventricular septum intact. 10. The aortic valve is trileaflet and appears structurally normal. 11. Mild mitral regurgitation is present. 12. Mild tricuspid regurgitation present. 13. There is mild pulmonary hypertension. 14. The right ventricular systolic pressure, as measured by Doppler, is 36.49mmHg. 15. The pulmonic valve is normal. 16. The aortic root size is normal. 17. Normal inferior vena cava with normal inspiratory collapse consistent with estimated right atrial pressure of 5 mmHg. 18. There is no pericardial effusion. SCAL[facility] SPECIALIST: Morelia Leyva RDCS
--- NOTE | 2019-01-21 14:50 | P.PCN ---
Date of Procedure: 01/21/19 Description of Procedure: Brief history: 79-year-old male limited with fatigue and weakness. 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 Admitted with supratherapeutic INR possible pneumonia. Home medications include Feosol aspirin Plavix warfarin. Admission hemoglobin 9.8 MCV 85. Platelet 457. hemoglobin decreased to 6.9 received 1 unit of blood current hemoglobin 7.5. INR 6.7 presently 1.9. BUN 61. Creatinine 2.0. Average hemoglobin over the past several months between 10-12. Recent positive FOBT 01/11/2019 C. diff negative. Reports an isolated bowel movement appearing black in nature few days ago and none since. Denies gross hematemesis hematochezia abdominal pain or weight loss. No history of peptic ulcer disease. No recent EGD. Colonoscopy about 5 years ago to his memory was unremarkable. No NSAIDs or alcohol. Procedure performed: Esophagogastroduodenoscopy Colonoscopy Estimated blood loss: Minimal. Preoperative diagnosis: Anemia acute blood loss, melena Anesthesia: MAC Procedure: After informed consent was obtained from the patient was brought into the endoscopy unit and IV sedation was administered by anesthesia under continuous monitoring. Initially upper endoscopy was done. The Olympus GF 190 video endoscope was inserted inserted into the mouth and esophagus intubated without any difficulty and was gradually advanced into the stomach and duodenum and carefully examined. The bulb was significant for 2 and nonbleeding superficial ulcers without high risk stigmata for rebleeding and second part of the duodenum appeared normal. The scope was then withdrawn into the stomach adequately insufflated with air and upon careful examination the antrum and body, cardia and fundus appeared normal. The scope was then withdrawn into the esophagus. The GE junction was located at 43 cm to the incisors. It appeared regular with no erythema erosions or ulcerations. Rest of the esophagus appeared normal. Patient tolerated the procedure well. At this time the patient continued to remain sedation. Initial digital rectal examination was normal. Olympus CF 190 video colonoscope was then inserted into the rectum and gradually advanced to the cecum without any difficulty. Careful examination was performed as the scope was gradually being withdrawn. The prep was excellent. The cecum, ascending colon, transverse colon, descending colon, sigmoid colon and rectum appeared normal. Retroflexion was performed in the rectum and no lesions were noted, internal hemorrhoids seen. Patient tolerated the procedure well. Impression: 1. 2 nonbleeding duodenal ulcers. No old blood or active bleeding noted on EGD. 2. Mild internal hemorrhoids. Recommendations: Findings of this examination were discussed with the patient. Okay for full liquid diet, advance to low fiber low residual as tolerated. Continue Protonix 40 mg twice daily. Continue to monitor hemoglobin and transfuse as needed. No plan for further endoscopic evaluation at this time. The gastroenterology service will stand by, please call us back with any questions or concerns.
--- NOTE | 2019-01-21 15:10 | P.PN ---
Subjective Progress Note Date: 01/21/19 This is a 71-year-old male patient of Dr. Barney. Patient presented to the ER with complaints of generalized weakness and fatigue. Patient was recently admitted for general weakness and acute kidney injury. At this time patient does not use hearing aids and unable to hear clearly. 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 During previous admission patient was seen by pulmonary and oncology services. Additional medical history includes bladder cancer, coronary artery disease, myocardial infarction, essential hypertension, hyperlipidemia, abdominal aneurysm repair, coronary artery blood clots in which he is on Coumadin. Patient INR 5.6 on admission. Initial lactic acid 3.8. Creatinine 2.04 and bun 61. Patient also hypotensive on arrival. Patient received 2 L bolus. Blood pressure has improved. Chest x- ray completed showing slight progression in the mid thoracic compression deformity. Pulmonary fibrosis particularly exaggerated in the left lung base. EKG completed showing normal sinus rhythm, possible inferior infarct. Patient denies chest pain or shortness breath. Patient denies nausea vomiting or diarrhea. Patient denies any urinary burning or frequency 01/20/2019 patient is sitting up in bed comfortably. Family at bedside. Does report a productive cough. Does report shortness of breath with activity. Requiring oxygen. Does not usually use oxygen at home. He did receive 1 unit of blood yesterday. Hemoglobin has increased from 6.9-7.5. Awaiting GI evaluat ion. Patient reports no further stools. At home he did have black stools. Patient currently on Zosyn and vancomycin for pneumonia. Echocardiogram results are pending. Patient denies any chest pain. Denies any nausea vomiting. Denies any burning with urination. Also note INR is down from 6.7-1.9 after vitamin K. chest x-ray from yesterday showing stable left lower lobe infiltrate superimposed on fibrosis 01/21/2019 patient is scheduled for EGD and colonoscopy today. Hemoglobin history from 7.5-7.4. INR is down to 1.4. Creatinine 1.56-1.5. Albumin is low at 2.5. Patient denies any chest pain: Still having some shortness of breath requiring oxygen. Sputum culture growing normal respiratory shirley. Patient denies any nausea or vomiting. Denies any burning with urination. Patient's aspirin, Plavix and Coumadin remain on hold. Patient complaining of rash along the lower back and buttocks area. Patient reports that the rash is nonpainful. Denies any history of shingles. Objective - Vital Signs Vital signs: Vital Signs Temp 97.5 F L 01/21/19 08:00 Pulse 70 01/21/19 08:00 Resp 18 01/21/19 08:00 BP 111/72 01/21/19 08:00 Pulse Ox 98 01/21/19 08:00 Intake & Output 01/20/19 01/21/19 01/21/19 18:59 06:59 18:59 Intake Total 680 Output Total 925 850 Balance -245 -850 Weight 74.8 kg Intake: Oral 680 Output: Urine 925 850 Other: Voiding Method Urinal Urinal Urinal # Voids 2 1 # Bowel Movements 3 - Exam Head normocephalic Neck supple Lungs clear Heart regular rate and rhythm S1-S2, no rub or gallop Abdomen is soft nontender nondistended positive bowel sounds no hepat osplenomegaly Extremities no edema Neuro alert and orientated to 3 Patient has rash along the lower back and buttocks area. Rash is flat with ulcers in the middle. - Labs CBC & Chem 7: 01/21/19 06:18 01/21/19 06:18 Labs: Abnormal Lab Results - Last 24 Hours (Table) 01/21/19 01/21/19 01/21/19 Range/Units 06:18 06:18 06:18 RBC 2.80 L (4.30-5.90) m/uL Hgb 7.4 L (13.0-17.5) gm/dL Hct 23.9 L (39.0-53.0) % RDW 17.1 H (11.5-15.5) % PT 13.8 H (9.0-12.0) sec INR 1.4 H (<1.2) Chloride 113 H (98-107) mmol/L Creatinine 1.58 H (0.66-1.25) mg/dL Calcium 8.1 L (8.4-10.2) mg/dL Total Protein 5.0 L (6.3-8.2) g/dL Albumin 2.5 L (3.5-5.0) g/dL Microbiology - Last 24 Hours (Table) 01/19/19 17:48 Gram Stain - Final Sputum Sputum Culture - Final 01/18/19 12:50 Blood Culture - Preliminary Blood No Growth after 48 hours Assessment and Plan Assessment: 1. Generalized weakness, fatigue and shortness of breath possibly related to anemia due to GI bleed and pneumonia 2. Left lower lobe infiltrate with possible pneumonia: Currently on vancomycin and Zosyn. Pulmonary service following. Pro-calcitonin level 0.12. Sputum culture normal respiratory shirley 3. Pneumonia with possible sepsis present on admission: Continue antibiotics. Patient did require IV fluids. 4. Acute blood loss anemia secondary to GI bleed: Patient is no longer having black stools. He did receive a unit of blood. Hemoglobin has gone up from 6.9- 7.5. Awaiting GI evaluation for possible endoscopy. Patient's Coumadin, aspirin and Plavix are all on hold. Hemoglobin is 7.4 he is scheduled for EGD and colonoscopy today 5. Coagulopathy INR of 6.7 on admission down to 1.9 after vitamin K given. Continue monitor PT/INR 6. Acute kidney injury secondary to ATN due to dehydration and anemia.: Continue IV fluids. Creatinine is down to 1.56 7. Chronic kidney disease stage III with a baseline creatinine of 1.5-1.8 8. 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 Patient was seen by oncology. He will be planning to start chemotherapy after his current illness has resolved. 9. History of coronary artery disease with previous cardiac stents and myocardial infarction. Last cardiac stents in 2018. Cardiology is following they have ordered an echo. And awaiting GI evaluation before restarting Plavix 10. 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 Which Coumadin is currently on hold due to GI bleed 11. History of thoracic abdominal aortic aneurysm repair 12. History of essential hypertension 13. Hyperlipidemia 14. Hypotension improved with IV fluids. Possibly related to sepsis and anemia. Plan Patient scheduled for EGD and colonoscopy Patient will possibly need home O2 and nebulizer treatments at time of discharge due pneumonia and lung metastases from the bladder cancer. Await GI recommendations regarding restarting patient's Plavix, Coumadin and aspirin GI prophylaxis Protonix and DVT prophylaxis SCDs I performed an examination of the patient and discussed their management with the physician Stumper Feller. I have reviewed the Physician Stumper Feller's notes and agree with the documented findings and plan of care
[2019-01-21] MEDS: ASPIRIN 81 MG PO SCH (16:59)
[2019-01-21] MEDS: PANTOPRAZOLE 40 MG TABLET PO SCH (16:59)
[2019-01-21] MEDS: valACYclovir 500 MG TAB PO SCH ×2 (17:00→20:31)
[2019-01-21] MEDS ORDERED: WARFARIN 5 MG TAB PO ONE (18:00)
--- NOTE | 2019-01-21 18:24 | CONS ---
CONSULTATION This patient was admitted with generalized weakness. Patient had a low hemoglobin of 6.9. He underwent upper GI endoscopy and two ulcers were found. Patient's initial INR was 6.7. INR is now 1.4. Patient denies any chest pain or shortness of breath. Blood pressure is 99/48 mmHg. First and second heart sounds are normal. Lungs are clinically clear to auscultation and percussion. We will continue to hold aspirin, Plavix and Coumadin at present. We will discuss with the GI service when to resume it. We will discontinue aspirin, and when we resume we will treat the patient with Eliquis and Plavix only. MMODL / IJN: [id number] /
[2019-01-21] MEDS: traMADol 50 MG TAB PO PRN (22:41)
[2019-01-22] MEDS: PIPERACILLIN-TAZOBACTAM 3.375 GM in SODIUM CHLORIDE 0.9% 100 ML IVPB SCH ×3 (03:38→20:27)
[2019-01-22] MEDS: LACTATED RINGERS 1,000 ML IV SCH (05:07)
[2019-01-22] MEDS: LEVOTHYROXINE 112 MCG TAB PO SCH (06:11)
[2019-01-22 07:56] LABS: Anisocytosis Slight; Basophils % (A) 0 %; Eosinophils # (A) 0.4 k/uL (0-0.7); Eosinophils % (A) 4 %; HCT 25.3 % (39.0-53.0); Hypochromasia Marked; Lymphocytes % (A) 11 %; MCHC 31.6 g/dL (31.0-37.0); MCV 85.6 fL (80.0-100.0); Monocytes # (A) 0.4 k/uL (0-1.0); Monocytes % (A) 5 %; Neutrophils # (A) 7.3 k/uL (1.3-7.7); Neutrophils % (A) 79 %; Platelet Count 286 k/uL (150-450); RBC 2.96 m/uL (4.30-5.90); RDW 17.2 % (11.5-15.5); WBC 9.2 k/uL (3.8-10.6)
[2019-01-22 07:59] LABS: INR 1.3 (<1.2); Prothrombin Time 13.4 sec (9.0-12.0)
[2019-01-22 08:13] LABS: Albumin 2.7 g/dL (3.5-5.0); Calcium 8.3 mg/dL (8.4-10.2); Potassium 4.1 mmol/L (3.5-5.1); Total Bilirubin 0.7 mg/dL (0.2-1.3); Total Protein 5.4 g/dL (6.3-8.2)
[2019-01-22] MEDS: METOPROLOL SUCCINATE (ER) 25 MG TAB.ER.24H PO SCH ×2 (08:41→09:11)
[2019-01-22] MEDS: GABAPENTIN 400 MG CAP PO SCH ×3 (08:41→20:25)
[2019-01-22] MEDS: CYANOCOBALAMIN 500 MCG TAB PO SCH (08:41)
[2019-01-22] MEDS: ATORVASTATIN 80 MG TAB PO SCH (08:42)
[2019-01-22] MEDS: LIOTHYRONINE SODIUM 5 MCG TAB PO SCH (08:42)
[2019-01-22] MEDS: FERROUS SULFATE 325 MG TAB PO SCH ×2 (08:43→20:25)
[2019-01-22] MEDS: valACYclovir 500 MG TAB PO SCH ×2 (08:43→20:26)
[2019-01-22] MEDS: ACETAMINOPHEN TAB 325 MG TAB PO SCH ×3 (08:43→20:28)
[2019-01-22] MEDS: PANTOPRAZOLE 40 MG TABLET PO SCH ×2 (08:43→16:38)
[2019-01-22] MEDS: traMADol 50 MG TAB PO PRN ×2 (08:43→20:25)
[2019-01-22] MEDS: ISOSORBIDE MONONITRATE ER 30 MG TAB.ER.24H PO SCH ×2 (08:45→09:11)
[2019-01-22] MEDS: ASPIRIN 81 MG PO SCH (08:45)
[2019-01-22] MEDS ORDERED: CLOPIDOGREL 75 MG TAB PO SCH (09:00)
[2019-01-22] MEDS: SODIUM CHLORIDE 0.9% 1,000 ML IV SCH (11:55)
--- NOTE | 2019-01-22 12:21 | P.PN ---
Subjective Progress Note Date: 01/22/19 Principal diagnosis: Acute GI blood loss anemia with weakness hypotension shortness of breath This is a 79-year-old daughter white male patient with recently diagnosed poorly differentiated non-small cell carcinoma consistent with metastatic high-grade urothelial carcinoma, diagnosed via a CT-guided fine-needle biopsy of the right lung mass. Patient follows with Dr. Duff, and was supposed to see him yesterday in regards to the treatment plan for his cancer. He was recently hospitalized last week with symptoms of nausea, vomiting and diarrhea, generalized weakness and dehydration. CT of the abdomen was negative for any diagnostic evidence of obstruction. Patient was recently treated for a urinary tract infection with a round of Keflex which she did not finish because he developed a rash. Other medical history includes chronic kidney disease stage III, history of bladder cancer being followed by Dr. Presley, CAD with previous stenting and previous myocardial infarction, history of thoracic abdominal aortic aneurysm repair, hypertension, and hyperlipidemia. Patient received IV hydration during his last admission, and was discharged home. C. diff was negative, amylase and lipase were within normal limits, his symptoms had resolved, his kidney function was improving with hydration. After going home patient felt increasingly weak and fatigued, short of breath, and it yesterday morning patient could hardly walk 10 feet related to his shortness of breath with exertion, and weakness. No nausea or vomiting, no abdominal pain, patient did pass 2 very dark colored almost black colored stools yesterday. No fever or chills, no chest pain. Patient was taken to the outpatient clinic, where he was noted to be hypotensive with a blood pressure of 74/41, and was transferred to the hospital for evaluation of his hypotension and weakness. He has an occasi onal cough, which has been chronic for the last 3 months, and occasional production of clear sputum. No significant cough or congestion. Chest x-ray is showing pulmonary fibrosis leading more prominent in the left lung base, follow- up chest x-ray today showed stable possible left lower lobe infiltrate. Lab work showed white blood cell count of 21, hemoglobin is 9.8, INR is 5.4, sodium was 143, potassium is 4.6, chloride was 108, CO2 is 21, B1 is 61 and creatinine is 2.04, plasma lactic acid was 3.8, troponin was negative 1, proBNP was 803, urinalysis was within normal limits, on today's labs, there has been a drop in hemoglobin down to 7.9, white blood cell count is 10.7, INR has increased to 6.4, and patient was given vitamin K, she received IV hydration, and the there has been some improvement in patient's renal profile, with BUN down to 46 and creatinine 1.7, lactic acid is down to 1.1. Patient has not had any more bowel movements, he remains weak and fatigued, but hemodynamically more stable, blood pressure is 99/52, he remains on IV 0.9 normal saline at a rate of 75 ML per hour, afebrile, room air pulse ox is 99%. He was started on antibiotic coverage in the form of Zosyn and vancomycin, blood cultures have been drawn and are pending at this time. On 01/20/2019 patient seen in follow-up on selective care unit, he is awake and alert, in no acute distress, no complaints of worsening shortness of breath, he remains on supplemental oxygen currently 3 L, and his pulse ox is 100%, afebrile, hemodynamically patient is stable, as today patient received units of packed red blood cells for hemoglobin of 6.9, today's blood work shows hemoglobin of 7.5, white blood cell count is 8.5, INR is down to 1.9, renal profile is improving, with the BUN of 33, and creatinine of 1.56. Her calcitonin level was relatively low, at 0.12. Patient remains on empiric antibiotics in the form of Zosyn and vancomycin, and blood culture showed no growth, urine culture is pending, preliminary Gram stain showed many gram- positive cocci, rare budding yeast, few gram-positive bacilli and few gram- negative bacilli. Fungal culture is pending. No fever or chills. no Complaints of chest pain, no cough or congestion. On 01/21/2019 patient seen in follow-up on selective care unit, he is resting comfortably in bed, in no acute distress. Remains on 2 L of oxygen and the pulse ox of 99%, hemodynamically stable, afebrile, respirations are even and nonlabored, lung sounds reveal coarse rales at the left lower base. No cough or congestion, today's labs have been reviewed, showing white blood cell count of 8.1, hemoglobin of 7.4, INR is 1.4, Coumadin remains on hold, sodium is 141, potassium is 4.6, chloride is 113, B1 of 19 creatinine is 1.58. Patient has been prepped for EGD and colonoscopy today. Continues on antibiotic coverage in the form of Zosyn and vancomycin, blood and sputum cultures showed no growth. No fever or chills The patient is seen today 01/22/2019 in follow-up on the regular medical floor. He is currently sitting up in bed. Awake and alert in no acute distress. Maintaining O2 saturations in the 90s on room air. White count 9.2. Hemoglobin 8.0. Creatinine 1.68. INR 1.3. EGD/colonoscopy revealed 2 nonbleeding duodenal ulcers. No old blood or active bleeding on EGD. Mild internal hemorrhoids. He required 1 unit of packed red blood cells this admission. Objective - Vital Signs Vital signs: Vital Signs Temp 98.2 F 01/22/19 07:03 Pulse 112 H 01/22/19 09:13 Resp 14 01/22/19 09:13 BP 111/57 01/22/19 09:13 Pulse Ox 93 L 01/22/19 09:13 Intake & Output 01/21/19 01/22/19 01/22/19 18:59 06:59 18:59 Intake Total 1050 120 Output Total 300 650 Balance 750 -530 Intake: IV 450 Intake, IV Titration 120 Amount Lactated Ringers 1,000 ml 120 @ 20 mls/hr IV .Q24H [facility] Rx#:[id number] Oral 600 Output: Urine 300 650 Other: Voiding Method Urinal Toilet Urinal # Voids 1 - Exam GENERAL EXAM: Alert, pleasant, 79-year-old male comfortable in no apparent distress. On room air. HEAD: Normocephalic/atraumatic. EYES: Normal reaction of pupils, equal size. Conjunctiva pink, sclera white. NOSE: Clear with pink turbinates. THROAT: No erythema or exudates. NECK: No masses, no JVD, no thyroid enlargement, no adenopathy. CHEST: No chest wall deformity. Symmetrical expansion. LUNGS: Equal air entry with coarse inspiratory crackles over left lower lobe CVS: Regular rate and rhythm, normal S1 and S2, no gallops, no murmurs, no rubs ABDOMEN: Soft, nontender. No hepatosplenomegaly, normal bowel sounds, no guarding or rigidity. EXTREMITIES: No clubbing, no edema, no cyanosis, 2+ pulses and upper and lower extremities. MUSCULOSKELETAL: Muscle strength and tone normal. SPINE: No scoliosis or deformity SKIN: No rashes CENTRAL NERVOUS SYSTEM: Alert and oriented -3. No focal deficits, tone is normal in all 4 extremities. PSYCHIATRIC: Alert and oriented -3. Appropriate affect. Intact judgment and insight. - Labs CBC & Chem 7: 01/22/19 07:18 01/22/19 07:18 Labs: Abnormal Lab Results - Last 24 Hours (Table) 01/22/19 01/22/19 01/22/19 Range/Units 07:18 07:18 07:18 RBC 2.96 L (4.30-5.90) m/uL Hgb 8.0 L (13.0-17.5) gm/dL Hct 25.3 L (39.0-53.0) % RDW 17.2 H (11.5-15.5) % PT 13.4 H (9.0-12.0) sec INR 1.3 H (<1.2) Chloride 110 H (98-107) mmol/L Creatinine 1.68 H (0.66-1.25) mg/dL Calcium 8.3 L (8.4-10.2) mg/dL Total Protein 5.4 L (6.3-8.2) g/dL Albumin 2.7 L (3.5-5.0) g/dL Microbiology - Last 24 Hours (Table) 01/18/19 12:50 Blood Culture - Preliminary Blood No Growth after 72 hours 01/19/19 17:48 Gram Stain - Final Sputum Sputum Culture - Final Assessment and Plan Assessment: Assessment: #1. Weakness, hypotension, shortness of breath, likely related to acute GI blood loss anemia #2. Left lower lobe infiltrate, the possibility of underlying pneumonia is not completely excluded, with acute hypoxemic respiratory failure #3. Anion gap metabolic acidosis related to lactic acidosis, related to blood loss anemia, an infectious etiology is not completely excluded, #4. Acute kidney injury related to ATN #5. Coagulopathy, and melanotic stools #6. Recent hospitalization for nausea, vomiting diarrhea, weakness and dehydration #7. 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 Chronic kidney disease stage III #9. History of bladder cancer follows with Dr. Presley #10. History of CAD with previous stenting and previous myocardial infarction #11. History of thoracic abdominal aortic aneurysm repair #12. Hypertension #13. Hyperlipidemia #14. History of carotid artery blood clots , on chronic anticoagulation with Coumadin Plan: The patient was seen and evaluated by Dr. Aguilar. He is currently stable from the pulmonary standpoint. On room air. No pulmonary complaints. Continued on Zosyn for now. Increase his activity as tolerated. We'll continue to follow. I, the cosigning physician, performed a history & physical examination of the patient. Lungs sounds are clear. Maintaining good O2 saturations in the 90s on room air. I discussed the assessment and plan of care with my nurse practitioner, Stephanie Ulloa. I attest to the above note as dictated by her.
--- NOTE | 2019-01-22 14:03 | P.PN ---
Subjective Patient is seen and examined resting comfortably in bed in no acute distress. He denies symptoms of chest discomfort or shortness of breath. He underwent upper GI revealing 2 nonbleeding duodenal ulcers with no old blood or active bleeding noted on EGD. Laboratory data reviewed, WBC 9.2, hemoglobin 8, platelets 286, sodium 141, potassium 4.1, creatinine 1.68. Blood pressure 111/57 heart rate 112. Currently maintained on aspirin 81 mg daily, Plavix 75 mg daily, atorvastatin 80 mg daily, Imdur 30 mg daily, Toprol 25 mg daily and Coumadin. It was our recommendation yesterday to continue to hold aspirin and Plavix and Coumadin and monitor serial hemoglobins, however Coumadin was given last night and aspirin and Plavix were this morning however the nurse felt these after reading her note. GENERAL: Well-appearing, well-nourished and in no acute distress. NECK: Supple without JVD or thyromegaly. LUNGS: Scattered rhonchi, worse on the left. Respiration equal and unlabored. HEART: Regular rate and rhythm without murmurs, rubs or gallops. S1 and S2 heard. EXTREMITIES: Normal range of motion, no edema. No clubbing or cyanosis. Perip heral pulses intact. 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 When stable will resume plavix and eliquis 5 mg BID. We will check the cost of Eliquis with case management. Nurse Practitioner note has been reviewed, I agree with a documented findings and plan of care. Patient was seen and examined. Objective - Vital Signs Vital signs: Vital Signs Temp 98.2 F 01/22/19 07:03 Pulse 112 H 01/22/19 09:13 Resp 14 01/22/19 09:13 BP 111/57 01/22/19 09:13 Pulse Ox 93 L 01/22/19 09:13 Intake & Output 01/21/19 01/22/19 01/22/19 18:59 06:59 18:59 Intake Total 1050 120 Output Total 300 650 Balance 750 -530 Intake: IV 450 Intake, IV Titration 120 Amount Lactated Ringers 1,000 ml 120 @ 20 mls/hr IV .Q24H [facility] Rx#:[id number] Oral 600 Output: Urine 300 650 Other: Voiding Method Urinal Toilet Urinal # Voids 1 - Labs CBC & Chem 7: 01/22/19 07:18 01/22/19 07:18 Labs: Abnormal Lab Results - Last 24 Hours (Table) 01/22/19 01/22/19 01/22/19 Range/Units 07:18 07:18 07:18 RBC 2.96 L (4.30-5.90) m/uL Hgb 8.0 L (13.0-17.5) gm/dL Hct 25.3 L (39.0-53.0) % RDW 17.2 H (11.5-15.5) % PT 13.4 H (9.0-12.0) sec INR 1.3 H (<1.2) Chloride 110 H (98-107) mmol/L Creatinine 1.68 H (0.66-1.25) mg/dL Calcium 8.3 L (8.4-10.2) mg/dL Total Protein 5.4 L (6.3-8.2) g/dL Albumin 2.7 L (3.5-5.0) g/dL Microbiology - Last 24 Hours (Table) 01/18/19 12:50 Blood Culture - Preliminary Blood No Growth after 72 hours
--- NOTE | 2019-01-22 14:13 | P.PN ---
Subjective Progress Note Date: 01/22/19 This is a 71-year-old male patient of Dr. Barney. Patient presented to the ER with complaints of generalized weakness and fatigue. Patient was recently admitted for general weakness and acute kidney injury. At this time patient does not use hearing aids and unable to hear clearly. 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 During previous admission patient was seen by pulmonary and oncology services. Additional medical history includes bladder cancer, coronary artery disease, myocardial infarction, essential hypertension, hyperlipidemia, abdominal aneurysm repair, coronary artery blood clots in which he is on Coumadin. Patient INR 5.6 on admission. Initial lactic acid 3.8. Creatinine 2.04 and bun 61. Patient also hypotensive on arrival. Patient received 2 L bolus. Blood pressure has improved. Chest x- ray completed showing slight progression in the mid thoracic compression deformity. Pulmonary fibrosis particularly exaggerated in the left lung base. EKG completed showing normal sinus rhythm, possible inferior infarct. Patient denies chest pain or shortness breath. Patient denies nausea vomiting or diarrhea. Patient denies any urinary burning or frequency 01/20/2019 patient is sitting up in bed comfortably. Family at bedside. Does report a productive cough. Does report shortness of breath with activity. Requiring oxygen. Does not usually use oxygen at home. He did receive 1 unit of blood yesterday. Hemoglobin has increased from 6.9-7.5. Awaiting GI evaluat ion. Patient reports no further stools. At home he did have black stools. Patient currently on Zosyn and vancomycin for pneumonia. Echocardiogram results are pending. Patient denies any chest pain. Denies any nausea vomiting. Denies any burning with urination. Also note INR is down from 6.7-1.9 after vitamin K. chest x-ray from yesterday showing stable left lower lobe infiltrate superimposed on fibrosis 01/21/2019 patient is scheduled for EGD and colonoscopy today. Hemoglobin history from 7.5-7.4. INR is down to 1.4. Creatinine 1.56-1.5. Albumin is low at 2.5. Patient denies any chest pain: Still having some shortness of breath requiring oxygen. Sputum culture growing normal respiratory shirley. Patient denies any nausea or vomiting. Denies any burning with urination. Patient's aspirin, Plavix and Coumadin remain on hold. Patient complaining of rash along the lower back and buttocks area. Patient reports that the rash is nonpainful. Denies any history of shingles. On 01/22/2019 patient is alert and oriented 3 in no apparent distress complaining of generalized weakness otherwise he denies any complaints there is no fever or chills no headache or dizziness no chest pain no shortness of breath no cough no nausea or vomiting no abdominal pain no diarrhea and no urinary symptoms rash on back examined compatible with zoster eruption although not painful patient stated that he had this rash multiple times in the past Objective - Vital Signs Vital signs: Vital Signs Temp 98.2 F 01/22/19 07:03 Pulse 112 H 01/22/19 09:13 Resp 14 01/22/19 09:13 BP 111/57 01/22/19 09:13 Pulse Ox 93 L 01/22/19 09:13 Intake & Output 01/21/19 01/22/19 01/22/19 18:59 06:59 18:59 Intake Total 1050 120 320 Output Total 300 650 Balance 750 -530 320 Intake: IV 450 Intake, IV Titration 120 Amount Lactated Ringers 1,000 ml 120 @ 20 mls/hr IV .Q24H [facility] Rx#:[id number] Oral 600 320 Output: Urine 300 650 Other: Voiding Method Urinal Toilet Urinal # Voids 1 - Exam In general patient is alert and oriented 3 in no apparent distress Head normocephalic and atraumatic Neck supple no JVD no goiter Lungs clear to auscultation no crackles no wheezing Heart regular rate and rhythm S1-S2, no rub or gallop Abdomen is soft nontender nondistended positive bowel sounds no he patosplenomegaly Extremities no edema no cyanosis or clubbing Neuro no gross focal neurological deficit Patient has rash along the lower back and buttocks area. Rash is flat with ulcers in the middle. - Labs CBC & Chem 7: 01/22/19 07:18 01/22/19 07:18 Labs: Abnormal Lab Results - Last 24 Hours (Table) 01/22/19 01/22/19 01/22/19 Range/Units 07:18 07:18 07:18 RBC 2.96 L (4.30-5.90) m/uL Hgb 8.0 L (13.0-17.5) gm/dL Hct 25.3 L (39.0-53.0) % RDW 17.2 H (11.5-15.5) % PT 13.4 H (9.0-12.0) sec INR 1.3 H (<1.2) Chloride 110 H (98-107) mmol/L Creatinine 1.68 H (0.66-1.25) mg/dL Calcium 8.3 L (8.4-10.2) mg/dL Total Protein 5.4 L (6.3-8.2) g/dL Albumin 2.7 L (3.5-5.0) g/dL Microbiology - Last 24 Hours (Table) 01/18/19 12:50 Blood Culture - Preliminary Blood No Growth after 72 hours Assessment and Plan Plan: 1. Generalized weakness, fatigue and shortness of breath possibly related to anemia due to GI bleed and pneumonia 2. Left lower lobe infiltrate with possible pneumonia: Currently on vancomycin and Zosyn. Pulmonary service following. Pro-calcitonin level 0.12. Sputum culture normal respiratory shirley 3. Pneumonia with possible sepsis present on admission: Continue antibiotics. Patient did require IV fluids. 4. Acute blood loss anemia secondary to GI bleed: Patient is no longer having black stools. He did receive a unit of blood. Hemoglobin has gone up from 6.9- 7.5. Awaiting GI evaluation for possible endoscopy. Patient's Coumadin, aspirin and Plavix are all on hold. Hemoglobin is 7.4 he is scheduled for EGD and colonoscopy today 5. Coagulopathy INR of 6.7 on admission down to 1.9 after vitamin K given. Continue monitor PT/INR 6. Acute kidney injury secondary to ATN due to dehydration and anemia.: Continue IV fluids. Creatinine is down to 1.56 7. Chronic kidney disease stage III with a baseline creatinine of 1.5-1.8 8. 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 Patient was seen by oncology. He will be planning to start chemotherapy after his current illness has resolved. 9. History of coronary artery disease with previous cardiac stents and myocardial infarction. Last cardiac stents in 2018. Cardiology is following they have ordered an echo. And awaiting GI evaluation before restarting Plavix 10. 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 Which Coumadin is currently on hold due to GI bleed 11. History of thoracic abdominal aortic aneurysm repair 12. History of essential hypertension 13. Hyperlipidemia 14. Hypotension improved with IV fluids. Possibly related to sepsis and anemia. Plan: Today patient was seen and examined labs and medication were reviewed EGD and colonoscopy results reviewed At this time patient remains off blood thinners per cardiology and GI recommendation Patient will possibly need home O2 and nebulizer treatments at time of discharge due pneumonia and lung metastases from the bladder cancer. Valtrex was added yesterday to medication regimen Continue current medication at this time will follow in a.m. GI prophylaxis Protonix and DVT prophylaxis SCDs
[2019-01-22 15:43] VITALS: BMI 25.0
[2019-01-23] MEDS: PIPERACILLIN-TAZOBACTAM 3.375 GM in SODIUM CHLORIDE 0.9% 100 ML IVPB SCH ×3 (04:02→21:35)
[2019-01-23] MEDS: SODIUM CHLORIDE 0.9% 1,000 ML IV SCH ×2 (04:04→15:38)
[2019-01-23] MEDS: LEVOTHYROXINE 112 MCG TAB PO SCH (04:09)
[2019-01-23] MEDS: LACTATED RINGERS 1,000 ML IV SCH (04:10)
--- NOTE | 2019-01-23 06:33 | XR ---
EXAMINATION TYPE: XR chest 1V portable DATE OF EXAM: 01/23/2019 HISTORY: pneumonia. REFERENCE: Previous study dated 01/19/2019. FINDINGS: The heart is mildly enlarged. There is bibasilar airspace disease. There are worsening, bilateral effusions. I suspect underlying C OPD. IMPRESSION: 1. BILATERAL AIRSPACE DISEASE. 2. BILATERAL EFFUSIONS. 3. MILD CARDIOMEGALY. 4. I SUSPECT UNDERLYING COPD.
[2019-01-23] MEDS: PANTOPRAZOLE 40 MG TABLET PO SCH ×2 (09:11→17:51)
[2019-01-23] MEDS: METOPROLOL SUCCINATE (ER) 25 MG TAB.ER.24H PO SCH (09:11)
[2019-01-23] MEDS: ISOSORBIDE MONONITRATE ER 30 MG TAB.ER.24H PO SCH (09:12)
[2019-01-23] MEDS: CYANOCOBALAMIN 500 MCG TAB PO SCH (09:12)
[2019-01-23] MEDS: ACETAMINOPHEN TAB 325 MG TAB PO SCH ×3 (09:12→21:36)
[2019-01-23] MEDS: ATORVASTATIN 80 MG TAB PO SCH (09:12)
[2019-01-23] MEDS: traMADol 50 MG TAB PO PRN (09:12)
[2019-01-23] MEDS: valACYclovir 500 MG TAB PO SCH ×2 (09:12→21:36)
[2019-01-23] MEDS: LIOTHYRONINE SODIUM 5 MCG TAB PO SCH (09:12)
[2019-01-23] MEDS: GABAPENTIN 400 MG CAP PO SCH ×3 (09:13→21:37)
[2019-01-23] MEDS: FERROUS SULFATE 325 MG TAB PO SCH ×2 (09:13→21:36)
[2019-01-23 09:19] LABS: INR 1.3 (<1.2); Prothrombin Time 13.4 sec (9.0-12.0)
--- NOTE | 2019-01-23 09:25 | P.PN ---
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 Patient follows with Dr. Duff, and was supposed to see him yesterday in regards to the treatment plan for his cancer. He was recently hospitalized last week with symptoms of nausea, vomiting and diarrhea, generalized weakness and dehydration. CT of the abdomen was negative for any diagnostic evidence of obstruction. Patient was recently treated for a urinary tract infection with a round of Keflex which she did not finish because he developed a rash. Other medical history includes chronic kidney disease stage III, history of bladder cancer being followed by Dr. Presley, CAD with previous stenting and previous myocardial infarction, history of thoracic abdominal aortic aneurysm repair, hypertension, and hyperlipidemia. Patient received IV hydration during his last admission, and was discharged home. C. diff was nega tive, amylase and lipase were within normal limits, his symptoms had resolved, his kidney function was improving with hydration. After going home patient felt increasingly weak and fatigued, short of breath, and it yesterday morning patient could hardly walk 10 feet related to his shortness of breath with exertion, and weakness. No nausea or vomiting, no abdominal pain, patient did pass 2 very dark colored almost black colored stools yesterday. No fever or chills, no chest pain. Patient was taken to the outpatient clinic, where he was noted to be hypotensive with a blood pressure of 74/41, and was transferred to the hospital for evaluation of his hypotension and weakness. He has an occa sional cough, which has been chronic for the last 3 months, and occasional production of clear sputum. No significant cough or congestion. Chest x-ray is showing pulmonary fibrosis leading more prominent in the left lung base, follow- up chest x-ray today showed stable possible left lower lobe infiltrate. Lab work showed white blood cell count of 21, hemoglobin is 9.8, INR is 5.4, sodium was 143, potassium is 4.6, chloride was 108, CO2 is 21, B1 is 61 and creatinine is 2.04, plasma lactic acid was 3.8, troponin was negative 1, proBNP was 803, urinalysis was within normal limits, on today's labs, there has been a drop in hemoglobin down to 7.9, white blood cell count is 10.7, INR has increased to 6.4, and patient was given vitamin K, she received IV hydration, and the there has been some improvement in patient's renal profile, with BUN down to 46 and creatinine 1.7, lactic acid is down to 1.1. Patient has not had any more bowel movements, he remains weak and fatigued, but hemodynamically more stable, blood pressure is 99/52, he remains on IV 0.9 normal saline at a rate of 75 ML per hour, afebrile, room air pulse ox is 99%. He was started on antibiotic coverage in the form of Zosyn and vancomycin, blood cultures have been drawn and are pending at this time. On 01/20/2019 patient seen in follow-up on selective care unit, he is awake and alert, in no acute distress, no complaints of worsening shortness of breath, he remains on supplemental oxygen currently 3 L, and his pulse ox is 100%, afebrile, hemodynamically patient is stable, as today patient received units of packed red blood cells for hemoglobin of 6.9, today's blood work shows hemoglobin of 7.5, white blood cell count is 8.5, INR is down to 1.9, renal profile is improving, with the BUN of 33, and creatinine of 1.56. Her calcitonin level was relatively low, at 0.12. Patient remains on empiric antibiotics in the form of Zosyn and vancomycin, and blood culture showed no growth, urine culture is pending, preliminary Gram stain showed many gram- positive cocci, rare budding yeast, few gram-positive bacilli and few gram- negative bacilli. Fungal culture is pending. No fever or chills. no Complaints of chest pain, no cough or congestion. On 01/21/2019 patient seen in follow-up on selective care unit, he is resting comfortably in bed, in no acute distress. Remains on 2 L of oxygen and the pulse ox of 99%, hemodynamically stable, afebrile, respirations are even and nonlabored, lung sounds reveal coarse rales at the left lower base. No cough or congestion, today's labs have been reviewed, showing white blood cell count of 8.1, hemoglobin of 7.4, INR is 1.4, Coumadin remains on hold, sodium is 141, potassium is 4.6, chloride is 113, B1 of 19 creatinine is 1.58. Patient has been prepped for EGD and colonoscopy today. Continues on antibiotic coverage in the form of Zosyn and vancomycin, blood and sputum cultures showed no growth. No fever or chills On 01/23/2019 patient seen in follow-up on medical surgical floor. He is resting comfortably in bed, he remains on 3 L of oxygen, his pulse ox is 96%, will Probably weaning that down. He denies any specific complaints, no shortness of breath, no chest pain, he does have occasional cough, which is unchanged from his baseline, with production of small amount of whitish colored or clear colored sputum. No fever or chills, hemodynamic was stable, there has been no further episodes of GI bleeding, no melanotic stools, no hematemesis. Today's hemoglobin is 8.0, Coumadin is on hold, and INR is 1.3. Sputum culture revealed no growth, patient remains on antibiotic coverage in the form of IV Zosyn, vancomycin has been discontinued, follow-up chest x-ray today was obtained, single view, and showed bibasilar airspace disease and a worsening bilateral effusions. Clinically patient is asymptomatic, lung sounds reveal diffuse coarse crackles throughout. No lower extremity swelling. Today's labs have been reviewed, no leukocytosis, with blood cell, is 9.2, hemoglobin is 8.0, as mentioned above, sodium is 141, potassium is 4.1, Court is 110, BUN is 13 creatinine is 1.68. Objective - Vital Signs Vital signs: Vital Signs Temp 98.6 F 01/23/19 07:17 Pulse 109 H 01/23/19 07:17 Resp 15 01/23/19 07:17 BP 121/62 01/23/19 07:17 Pulse Ox 95 01/23/19 07:17 Intake & Output 01/22/19 01/23/19 01/23/19 18:59 06:59 18:59 Intake Total 500 240 Output Total 600 Balance 500 -600 240 Weight 74.8 kg Intake: Oral 500 240 Output: Urine 600 Other: Voiding Method Toilet Toilet Urinal Urinal # Voids 3 2 - Exam GENERAL EXAM: Alert, pleasant, 79-year-old white male comfortable in no apparent distress. HEAD: Normocephalic/atraumatic. EYES: Normal reaction of pupils, equal size. Conjunctiva pink, sclera white. NOSE: Clear with pink turbinates. THROAT: No erythema or exudates. NECK: No masses, no JVD, no thyroid enlargement, no adenopathy. CHEST: No chest wall deformity. Symmetrical expansion. LUNGS: Equal air entry with coarse inspiratory crackles throughout the lung friend CVS: Regular rate and rhythm, normal S1 and S2, no gallops, no murmurs, no rubs ABDOMEN: Soft, nontender. No hepatosplenomegaly, normal bowel sounds, no guarding or rigidity. EXTREMITIES: No clubbing, no edema, no cyanosis, 2+ pulses and upper and lower extremities. MUSCULOSKELETAL: Muscle strength and tone normal. SPINE: No scoliosis or deformity SKIN: No rashes CENTRAL NERVOUS SYSTEM: Alert and oriented -3. No focal deficits, tone is normal in all 4 extremities. PSYCHIATRIC: Alert and oriented -3. Appropriate affect. Intact judgment and insight. - Labs CBC & Chem 7: 01/22/19 07:18 01/22/19 07:18 Labs: Abnormal Lab Results - Last 24 Hours (Table) 01/23/19 Range/Units 08:20 PT 13.4 H (9.0-12.0) sec INR 1.3 H (<1.2) Microbiology - Last 24 Hours (Table) 01/18/19 12:50 Blood Culture - Preliminary Blood No Growth after 96 hours Assessment and Plan Plan: Assessment: #1. Weakness, hypotension, shortness of breath, likely related to acute GI blood loss anemia #2. Left lower lobe infiltrate, the possibility of underlying pneumonia is not completely excluded, with acute hypoxemic respiratory failure #3. Anion gap metabolic acidosis related to lactic acidosis, related to blood loss anemia, an infectious etiology is not completely excluded, #4. Acute kidney injury related to ATN #5. Coagulopathy, and melanotic stools #6. Recent hospitalization for nausea, vomiting diarrhea, weakness and dehydration #7. Recent diagnosis of poorly differentiated non-small cell carcinoma consis tent with metastatic high-grade urothelial carcinoma, has not received treatment yet #8. Chronic kidney disease stage III #9. History of bladder cancer follows with Dr. Presley #10. History of CAD with previous stenting and previous myocardial infarction #11. History of thoracic abdominal aortic aneurysm repair #12. Hypertension #13. Hyperlipidemia #14. History of carotid artery blood clots , on chronic anticoagulation with Coumadin Plan: Today's chest x-ray shows worsening bilateral pleural effusions, and bilateral airspace disease, this was a single view portable chest x-ray, clinically patient denies any pulmonary complaints, denies any other complaints, no shortness of breath, no worsening cough or congestion, afebrile, sputum and blood cultures remain negative thus far, he is on Zosyn. Encourage patient to get up and ambulate, wean FiO2, does not look fluid overloaded, no lower extremity edema. We will obtain a 2 view chest x-ray tomorrow. I performed a history & physical examination of the patient and discussed their management with my nurse practitioner, Elyssa Fields. I reviewed the nurse practitioner's note and agree with the documented findings and plan of care. Lung sounds are positive for diminised breath sounds and coarse rales in left lower lobe. The findings and the impression was discussed with the patient. I attest to the documentation by the nurse practitioner. Time with Patient: Less than 30
[2019-01-23 09:29] LABS: Albumin 2.5 g/dL (3.5-5.0); Calcium 8.1 mg/dL (8.4-10.2); Potassium 4.2 mmol/L (3.5-5.1); Total Bilirubin 0.3 mg/dL (0.2-1.3)
[2019-01-23 09:48] LABS: Anisocytosis Slight; Basophils % (A) 0 %; Eosinophils # (A) 0.2 k/uL (0-0.7); Eosinophils % (A) 2 %; HCT 23.2 % (39.0-53.0); HGB 7.2 gm/dL (13.0-17.5); Hypochromasia Marked; Lymphocytes # (A) 0.8 k/uL (1.0-4.8); Lymphocytes % (A) 8 %; MCH 26.9 pg (25.0-35.0); MCHC 31.1 g/dL (31.0-37.0); MCV 86.3 fL (80.0-100.0); Mean Platelet Volume 8.2; Monocytes # (A) 0.5 k/uL (0-1.0); Monocytes % (A) 5 %; Neutrophils # (A) 8.9 k/uL (1.3-7.7); Neutrophils % (A) 84 %; Platelet Count 240 k/uL (150-450); RBC 2.69 m/uL (4.30-5.90); RDW 17.8 % (11.5-15.5); WBC 10.6 k/uL (3.8-10.6)
--- NOTE | 2019-01-23 11:15 | P.PN ---
Subjective Progress Note Date: 01/23/19 This is a 71-year-old male patient of Dr. Barney. Patient presented to the ER with complaints of generalized weakness and fatigue. Patient was recently admitted for general weakness and acute kidney injury. At this time patient does not use hearing aids and unable to hear clearly. 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 During previous admission patient was seen by pulmonary and oncology services. Additional medical history includes bladder cancer, coronary artery disease, myocardial infarction, essential hypertension, hyperlipidemia, abdominal aneurysm repair, coronary artery blood clots in which he is on Coumadin. Patient INR 5.6 on admission. Initial lactic acid 3.8. Creatinine 2.04 and bun 61. Patient also hypotensive on arrival. Patient received 2 L bolus. Blood pressure has improved. Chest x- ray completed showing slight progression in the mid thoracic compression deformity. Pulmonary fibrosis particularly exaggerated in the left lung base. EKG completed showing normal sinus rhythm, possible inferior infarct. Patient denies chest pain or shortness breath. Patient denies nausea vomiting or diarrhea. Patient denies any urinary burning or frequency 01/20/2019 patient is sitting up in bed comfortably. Family at bedside. Does report a productive cough. Does report shortness of breath with activity. Requiring oxygen. Does not usually use oxygen at home. He did receive 1 unit of blood yesterday. Hemoglobin has increased from 6.9-7.5. Awaiting GI evaluat ion. Patient reports no further stools. At home he did have black stools. Patient currently on Zosyn and vancomycin for pneumonia. Echocardiogram results are pending. Patient denies any chest pain. Denies any nausea vomiting. Denies any burning with urination. Also note INR is down from 6.7-1.9 after vitamin K. chest x-ray from yesterday showing stable left lower lobe infiltrate superimposed on fibrosis 01/21/2019 patient is scheduled for EGD and colonoscopy today. Hemoglobin history from 7.5-7.4. INR is down to 1.4. Creatinine 1.56-1.5. Albumin is low at 2.5. Patient denies any chest pain: Still having some shortness of breath requiring oxygen. Sputum culture growing normal respiratory shirley. Patient denies any nausea or vomiting. Denies any burning with urination. Patient's aspirin, Plavix and Coumadin remain on hold. Patient complaining of rash along the lower back and buttocks area. Patient reports that the rash is nonpainful. Denies any history of shingles. On 01/22/2019 patient is alert and oriented 3 in no apparent distress complaining of generalized weakness otherwise he denies any complaints there is no fever or chills no headache or dizziness no chest pain no shortness of breath no cough no nausea or vomiting no abdominal pain no diarrhea and no urinary symptoms rash on back examined compatible with zoster eruption although not painful patient stated that he had this rash multiple times in the past On 01/23/2019 patient was seen and examined on the medical floor he is alert and oriented 3 in no apparent distress, he had some shortness of breath during the night and had to be restarted on oxygen, he is complaining of cough otherwise he denies any complaints there is no fever or chills no headache or dizziness no chest pain no nausea or vomiting no abdominal pain no diarrhea and no urinary symptoms Objective - Vital Signs Vital signs: Vital Signs Temp 98.6 F 01/23/19 07:17 Pulse 109 H 01/23/19 08:00 Resp 15 01/23/19 08:00 BP 121/62 01/23/19 07:17 Pulse Ox 95 01/23/19 07:17 Intake & Output 01/22/19 01/23/19 01/23/19 18:59 06:59 18:59 Intake Total 500 240 Output Total 600 Balance 500 -600 240 Weight 74.8 kg Intake: Oral 500 240 Output: Urine 600 Other: Voiding Method Toilet Toilet Toilet Urinal Urinal Urinal # Voids 3 2 - Exam In general patient is alert and oriented 3 in no apparent distress Head normocephalic and atraumatic Neck supple no JVD no goiter Lungs clear to auscultation no crackles no wheezing Heart regular rate and rhythm S1-S2, no rub or gallop Abdomen is soft nontender nondistended positive bowel sounds no hepatosplenomegaly Extremities no edema no cyanosis or clubbing Neuro no gross focal neurological deficit Patient has rash along the lower back and buttocks area. Rash is flat with ulcers in the middle. - Labs CBC & Chem 7: 01/23/19 08:20 01/23/19 08:20 Labs: Abnormal Lab Results - Last 24 Hours (Table) 01/23/19 01/23/19 01/23/19 Range/Units 08:20 08:20 08:20 RBC 2.69 L (4.30-5.90) m/uL Hgb 7.2 L (13.0-17.5) gm/dL Hct 23.2 L (39.0-53.0) % RDW 17.8 H (11.5-15.5) % Neutrophils # 8.9 H (1.3-7.7) k/uL Lymphocytes # 0.8 L (1.0-4.8) k/uL PT 13.4 H (9.0-12.0) sec INR 1.3 H (<1.2) Chloride 111 H (98-107) mmol/L Creatinine 1.96 H (0.66-1.25) mg/dL Glucose 111 H (74-99) mg/dL Calcium 8.1 L (8.4-10.2) mg/dL Total Protein 5.0 L (6.3-8.2) g/dL Albumin 2.5 L (3.5-5.0) g/dL Microbiology - Last 24 Hours (Table) 01/18/19 12:50 Blood Culture - Preliminary Blood No Growth after 96 hours Assessment and Plan Plan: 1. Generalized weakness, fatigue and shortness of breath possibly related to anemia due to GI bleed and pneumonia 2. Left lower lobe infiltrate with possible pneumonia: Currently on vancomycin and Zosyn. Pulmonary service following. Pro-calcitonin level 0.12. Sputum culture normal respiratory shirley 3. Pneumonia with possible sepsis present on admission: Continue antibiotics. Patient did require IV fluids. 4. Acute blood loss anemia secondary to GI bleed: Patient is no longer having black stools. He did receive a unit of blood. Hemoglobin has gone up from 6.9- 7.5. Awaiting GI evaluation for possible endoscopy. Patient's Coumadin, aspirin and Plavix are all on hold. Hemoglobin is 7.4 he is scheduled for EGD and colonoscopy today 5. Coagulopathy INR of 6.7 on admission down to 1.9 after vitamin K given. Continue monitor PT/INR 6. Acute kidney injury secondary to ATN due to dehydration and anemia.: Continue IV fluids. Creatinine is down to 1.56 7. Chronic kidney disease stage III with a baseline creatinine of 1.5-1.8 8. 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 Patient was seen by oncology. He will be planning to start chemotherapy after his current illness has resolved. 9. History of coronary artery disease with previous cardiac stents and myocardial infarction. Last cardiac stents in 2018. Cardiology is following they have ordered an echo. And awaiting GI evaluation before restarting Plavix 10. 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 Which Coumadin is currently on hold due to GI bleed 11. History of thoracic abdominal aortic aneurysm repair 12. History of essential hypertension 13. Hyperlipidemia 14. Hypotension improved with IV fluids. Possibly related to sepsis and anemia. Plan: Today patient was seen and examined labs and medication were reviewed EGD and colonoscopy results reviewed At this time patient remains off blood thinners per cardiology and GI recommendation Patient will possibly need home O2 and nebulizer treatments at time of discharge due pneumonia and lung metastases from the bladder cancer. Valtrex was added yesterday to medication regimen Continue current medication at this time will follow in a.m. GI prophylaxis Protonix and DVT prophylaxis SCDs
[2019-01-24] MEDS: PIPERACILLIN-TAZOBACTAM 3.375 GM in SODIUM CHLORIDE 0.9% 100 ML IVPB SCH ×3 (05:20→20:29)
[2019-01-24] MEDS: LEVOTHYROXINE 112 MCG TAB PO SCH (05:21)
[2019-01-24] MEDS: SODIUM CHLORIDE 0.9% 1,000 ML IV SCH ×2 (05:24→08:28)
--- NOTE | 2019-01-24 07:10 | XR ---
EXAMINATION TYPE: XR chest 2V DATE OF EXAM: 01/24/2019 COMPARISON: 01/23/2019 HISTORY: Follow-up for right basilar airspace disease TECHNIQUE: Frontal and lateral views of the chest are obtained. FINDINGS: There is increasing confluence of the right infrahilar consolidation. There is improved ae ration of the lateral lungs although a reticular basilar predominant pattern suggests underlying pulm onary fibrosis. There is improved aeration of the medial left lower lung and trace right pleural effu viviane remaining. Calcified biapical pleural plaques are seen. Cardia mediastinal silhouette is enlarge d with descending thoracic aortic and upper abdominal aortic endovascular stent. Mild generalized oss eous demineralization is seen. IMPRESSION: Improved aeration of the peripheral lungs however there is worsening consolidation in th e right infrahilar region. Given the short-term change findings likely relate to shifting atelectasis . Underlying pulmonary fibrosis and stable trace right pleural effusion are also noted.
[2019-01-24] MEDS: FERROUS SULFATE 325 MG TAB PO SCH ×2 (08:24→20:29)
[2019-01-24] MEDS: PANTOPRAZOLE 40 MG TABLET PO SCH ×2 (08:25→17:44)
[2019-01-24] MEDS: ATORVASTATIN 80 MG TAB PO SCH (08:25)
[2019-01-24] MEDS: ISOSORBIDE MONONITRATE ER 30 MG TAB.ER.24H PO SCH (08:25)
[2019-01-24] MEDS: GABAPENTIN 400 MG CAP PO SCH ×3 (08:25→21:04)
[2019-01-24] MEDS: ACETAMINOPHEN TAB 325 MG TAB PO SCH ×3 (08:25→21:08)
[2019-01-24] MEDS: METOPROLOL SUCCINATE (ER) 25 MG TAB.ER.24H PO SCH (08:26)
[2019-01-24] MEDS: LIOTHYRONINE SODIUM 5 MCG TAB PO SCH (08:26)
[2019-01-24] MEDS: CYANOCOBALAMIN 500 MCG TAB PO SCH (08:26)
[2019-01-24] MEDS: valACYclovir 500 MG TAB PO SCH ×2 (08:27→20:29)
[2019-01-24] MEDS: LACTATED RINGERS 1,000 ML IV SCH (08:29)
[2019-01-24 11:09] LABS: Anisocytosis Slight; Basophils % (A) 0 %; Eosinophils # (A) 0.3 k/uL (0-0.7); Eosinophils % (A) 3 %; HCT 23.5 % (39.0-53.0); HGB 7.1 gm/dL (13.0-17.5); Hypochromasia Marked; Lymphocytes # (A) 0.8 k/uL (1.0-4.8); Lymphocytes % (A) 8 %; MCH 26.3 pg (25.0-35.0); MCHC 30.4 g/dL (31.0-37.0); MCV 86.5 fL (80.0-100.0); Mean Platelet Volume 8.4; Monocytes # (A) 0.5 k/uL (0-1.0); Monocytes % (A) 5 %; Neutrophils # (A) 8.7 k/uL (1.3-7.7); Neutrophils % (A) 83 %; Platelet Count 265 k/uL (150-450); RBC 2.72 m/uL (4.30-5.90); RDW 17.9 % (11.5-15.5); WBC 10.5 k/uL (3.8-10.6)
[2019-01-24 11:43] LABS: Albumin 2.5 g/dL (3.5-5.0); Calcium 8.2 mg/dL (8.4-10.2); Potassium 4.3 mmol/L (3.5-5.1); Total Bilirubin 0.3 mg/dL (0.2-1.3)
--- NOTE | 2019-01-24 13:00 | P.PN ---
Subjective Progress Note Date: 01/24/19 This is a 71-year-old male patient of Dr. Barney. Patient presented to the ER with complaints of generalized weakness and fatigue. Patient was recently admitted for general weakness and acute kidney injury. At this time patient does not use hearing aids and unable to hear clearly. 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 During previous admission patient was seen by pulmonary and oncology services. Additional medical history includes bladder cancer, coronary artery disease, myocardial infarction, essential hypertension, hyperlipidemia, abdominal aneurysm repair, coronary artery blood clots in which he is on Coumadin. Patient INR 5.6 on admission. Initial lactic acid 3.8. Creatinine 2.04 and bun 61. Patient also hypotensive on arrival. Patient received 2 L bolus. Blood pressure has improved. Chest x- ray completed showing slight progression in the mid thoracic compression deformity. Pulmonary fibrosis particularly exaggerated in the left lung base. EKG completed showing normal sinus rhythm, possible inferior infarct. Patient denies chest pain or shortness breath. Patient denies nausea vomiting or diarrhea. Patient denies any urinary burning or frequency 01/20/2019 patient is sitting up in bed comfortably. Family at bedside. Does report a productive cough. Does report shortness of breath with activity. Requiring oxygen. Does not usually use oxygen at home. He did receive 1 unit of blood yesterday. Hemoglobin has increased from 6.9-7.5. Awaiting GI evaluat ion. Patient reports no further stools. At home he did have black stools. Patient currently on Zosyn and vancomycin for pneumonia. Echocardiogram results are pending. Patient denies any chest pain. Denies any nausea vomiting. Denies any burning with urination. Also note INR is down from 6.7-1.9 after vitamin K. chest x-ray from yesterday showing stable left lower lobe infiltrate superimposed on fibrosis 01/21/2019 patient is scheduled for EGD and colonoscopy today. Hemoglobin history from 7.5-7.4. INR is down to 1.4. Creatinine 1.56-1.5. Albumin is low at 2.5. Patient denies any chest pain: Still having some shortness of breath requiring oxygen. Sputum culture growing normal respiratory shirley. Patient denies any nausea or vomiting. Denies any burning with urination. Patient's aspirin, Plavix and Coumadin remain on hold. Patient complaining of rash along the lower back and buttocks area. Patient reports that the rash is nonpainful. Denies any history of shingles. On 01/22/2019 patient is alert and oriented 3 in no apparent distress complaining of generalized weakness otherwise he denies any complaints there is no fever or chills no headache or dizziness no chest pain no shortness of breath no cough no nausea or vomiting no abdominal pain no diarrhea and no urinary symptoms rash on back examined compatible with zoster eruption although not painful patient stated that he had this rash multiple times in the past On 01/23/2019 patient was seen and examined on the medical floor he is alert and oriented 3 in no apparent distress, he had some shortness of breath during the night and had to be restarted on oxygen, he is complaining of cough otherwise he denies any complaints there is no fever or chills no headache or dizziness no chest pain no nausea or vomiting no abdominal pain no diarrhea and no urinary symptoms 01/24/2019 patient reporting that he is not feeling well today. No specific complaints. He is having some nasal congestion still reporting a cough. With some sputum production. Mucinex has been added. His aspirin, Plavix and Couma din remain on hold. No further signs or symptoms of GI bleed. Has undergone EGD and colonoscopy during this admission. EKG had revealed 2 nonbleeding ulcers and mild internal hemorrhoids noted on colonoscopy. Patient remains on Protonix 40 mg twice a day. Awaiting today's CBC results. Patient also was on Valtrex for shingles. He denies any chest pain or worsening shortness breath. Denies any nausea or vomiting. Reports having bowel movements no diarrhea. Denies any burning with urination. Chest x-ray is showing improvement in aeration and worsening consolidation in right infrahilar region. He is felt pulmonary service. Creatinine is down from 1.96-1.82 Objective - Vital Signs Vital signs: Vital Signs Temp 97.4 F L 01/24/19 07:00 Pulse 77 01/24/19 07:00 Resp 16 01/24/19 07:00 BP 111/62 01/24/19 07:00 Pulse Ox 99 01/24/19 07:00 Intake & Output 01/23/19 01/24/19 01/24/19 18:59 06:59 18:59 Intake Total 760 590 550 Output Total 600 600 Balance 160 -10 550 Intake: Intake, IV Titration 160 550 Amount Lactated Ringers 1,000 ml 160 @ 20 mls/hr IV .Q24H [facility] Rx#:[id number] Piperacillin-Tazobactam 3 100 .375 gm In Sodium Chloride 0.9% 100 ml @ 25 mls/hr IVPB Q8H [facility] Rx#: [id number] Sodium Chloride 0.9% 1, 450 000 ml @ 75 mls/hr IV . [id number] [facility] Rx#:[id number] Oral 600 590 Output: Urine 600 600 Other: Voiding Method Toilet Urinal Urinal Urinal # Voids 4 - Exam Head normocephalic Neck supple Lungs crackles noted bilaterally Heart regular rate and rhythm S1-S2, no rub or gallop Abdomen is soft nontender nondistended positive bowel sounds no hepatosplenomegaly Extremities no edema Neuro alert and orientated to 3 Patient has rash along the lower back and buttocks area. Rash is flat with ulcers in the middle. - Labs CBC & Chem 7: 01/24/19 09:57 01/24/19 10:49 Labs: Abnormal Lab Results - Last 24 Hours (Table) 01/24/19 01/24/19 Range/Units 09:57 10:49 RBC 2.72 L (4.30-5.90) m/uL Hgb 7.1 L (13.0-17.5) gm/dL Hct 23.5 L (39.0-53.0) % MCHC 30.4 L (31.0-37.0) g/dL RDW 17.9 H (11.5-15.5) % Neutrophils # 8.7 H (1.3-7.7) k/uL Lymphocytes # 0.8 L (1.0-4.8) k/uL Chloride 110 H (98-107) mmol/L Creatinine 1.82 H (0.66-1.25) mg/dL Glucose 127 H (74-99) mg/dL Calcium 8.2 L (8.4-10.2) mg/dL AST 16 L (17-59) U/L Total Protein 5.0 L (6.3-8.2) g/dL Albumin 2.5 L (3.5-5.0) g/dL Microbiology - Last 24 Hours (Table) 01/18/19 12:50 Blood Culture - Preliminary Blood No Growth after 120 hours Assessment and Plan Assessment: 1. Generalized weakness, fatigue and shortness of breath possibly related to anemia due to GI bleed and pneumonia 2. Left lower lobe infiltrate with possible pneumonia: Currently on Zosyn. Pulmonary service following. Pro-calcitonin level 0.12. Sputum culture normal respiratory shirley 3. Pneumonia with possible sepsis present on admission: Continue antibiotics. Patient did require IV fluids. 4. Acute blood loss anemia secondary to GI bleed: Patient is no longer having black stools. He did receive a unit of blood. Hemoglobin has gone up from 6.9- 7.5. Awaiting GI evaluation for possible endoscopy. Patient's Coumadin, aspirin and Plavix are all on hold. Status post EGD revealing 2 nonbleeding ulcers and colonoscopy revealing mild internal. CBC pending 5. Coagulopathy INR of 6.7 on admission down to 1.9 after vitamin K given. Continue monitor PT/INR. INR 1.30 6. Acute kidney injury secondary to ATN due to dehydration and anemia.: Continue IV fluids. Creatinine is down to 1.56 7. Chronic kidney disease stage III with a baseline creatinine of 1.5-1.8 8. 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 Patient was seen by oncology. He will be planning to start chemotherapy after his current illness has resolved. 9. History of coronary artery disease with previous cardiac stents and myocardial infarction. Last cardiac stents in 2018. Cardiology is following they have ordered an echo. And awaiting GI evaluation before restarting Plavix 10. 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 Which Coumadin is currently on hold due to GI bleed. Cardiology has looked into Eliquis for anticoagulation. Per skilled nursing case manager co-pay is 28 hours. 11. History of thoracic abdominal aortic aneurysm repair 12. History of essential hypertension 13. Hyperlipidemia 14. Hypotension improved with IV fluids. Possibly related to sepsis and anemia. Plan Patient will possibly need home O2 and nebulizer treatments at time of discharge due pneumonia and lung metastases from the bladder cancer. Patient is currently off of blood thinners per cardiology and GI recommendations. Continue to monitor hemoglobin. Awaiting their further recommendations on when to resume blood thinners. Add Mucinex Check CBC, CMP and INR GI prophylaxis Protonix and DVT prophylaxis SCDs I performed an examination of the patient and discussed their management with the physician Shipping And Receiving Assistant. I have reviewed the Physician Shipping And Receiving Assistant's notes and agree with the documented findings and plan of care
--- NOTE | 2019-01-24 13:18 | P.PN ---
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 Patient follows with Dr. Duff, and was supposed to see him yesterday in regards to the treatment plan for his cancer. He was recently hospitalized last week with symptoms of nausea, vomiting and diarrhea, generalized weakness and dehydration. CT of the abdomen was negative for any diagnostic evidence of obstruction. Patient was recently treated for a urinary tract infection with a round of Keflex which she did not finish because he developed a rash. Other medical history includes chronic kidney disease stage III, history of bladder cancer being followed by Dr. Presley, CAD with previous stenting and previous myocardial infarction, history of thoracic abdominal aortic aneurysm repair, hypertension, and hyperlipidemia. Patient received IV hydration during his last admission, and was discharged home. C. diff was nega tive, amylase and lipase were within normal limits, his symptoms had resolved, his kidney function was improving with hydration. After going home patient felt increasingly weak and fatigued, short of breath, and it yesterday morning patient could hardly walk 10 feet related to his shortness of breath with exertion, and weakness. No nausea or vomiting, no abdominal pain, patient did pass 2 very dark colored almost black colored stools yesterday. No fever or chills, no chest pain. Patient was taken to the outpatient clinic, where he was noted to be hypotensive with a blood pressure of 74/41, and was transferred to the hospital for evaluation of his hypotension and weakness. He has an occa sional cough, which has been chronic for the last 3 months, and occasional production of clear sputum. No significant cough or congestion. Chest x-ray is showing pulmonary fibrosis leading more prominent in the left lung base, follow- up chest x-ray today showed stable possible left lower lobe infiltrate. Lab work showed white blood cell count of 21, hemoglobin is 9.8, INR is 5.4, sodium was 143, potassium is 4.6, chloride was 108, CO2 is 21, B1 is 61 and creatinine is 2.04, plasma lactic acid was 3.8, troponin was negative 1, proBNP was 803, urinalysis was within normal limits, on today's labs, there has been a drop in hemoglobin down to 7.9, white blood cell count is 10.7, INR has increased to 6.4, and patient was given vitamin K, she received IV hydration, and the there has been some improvement in patient's renal profile, with BUN down to 46 and creatinine 1.7, lactic acid is down to 1.1. Patient has not had any more bowel movements, he remains weak and fatigued, but hemodynamically more stable, blood pressure is 99/52, he remains on IV 0.9 normal saline at a rate of 75 ML per hour, afebrile, room air pulse ox is 99%. He was started on antibiotic coverage in the form of Zosyn and vancomycin, blood cultures have been drawn and are pending at this time. On 01/20/2019 patient seen in follow-up on selective care unit, he is awake and alert, in no acute distress, no complaints of worsening shortness of breath, he remains on supplemental oxygen currently 3 L, and his pulse ox is 100%, afebrile, hemodynamically patient is stable, as today patient received units of packed red blood cells for hemoglobin of 6.9, today's blood work shows hemoglobin of 7.5, white blood cell count is 8.5, INR is down to 1.9, renal profile is improving, with the BUN of 33, and creatinine of 1.56. Her calcitonin level was relatively low, at 0.12. Patient remains on empiric antibiotics in the form of Zosyn and vancomycin, and blood culture showed no growth, urine culture is pending, preliminary Gram stain showed many gram- positive cocci, rare budding yeast, few gram-positive bacilli and few gram- negative bacilli. Fungal culture is pending. No fever or chills. no Complaints of chest pain, no cough or congestion. On 01/21/2019 patient seen in follow-up on selective care unit, he is resting comfortably in bed, in no acute distress. Remains on 2 L of oxygen and the pulse ox of 99%, hemodynamically stable, afebrile, respirations are even and nonlabored, lung sounds reveal coarse rales at the left lower base. No cough or congestion, today's labs have been reviewed, showing white blood cell count of 8.1, hemoglobin of 7.4, INR is 1.4, Coumadin remains on hold, sodium is 141, potassium is 4.6, chloride is 113, B1 of 19 creatinine is 1.58. Patient has been prepped for EGD and colonoscopy today. Continues on antibiotic coverage in the form of Zosyn and vancomycin, blood and sputum cultures showed no growth. No fever or chills On 01/23/2019 patient seen in follow-up on medical surgical floor. He is resting comfortably in bed, he remains on 3 L of oxygen, his pulse ox is 96%, will Probably weaning that down. He denies any specific complaints, no shortness of breath, no chest pain, he does have occasional cough, which is unchanged from his baseline, with production of small amount of whitish colored or clear colored sputum. No fever or chills, hemodynamic was stable, there has been no further episodes of GI bleeding, no melanotic stools, no hematemesis. Today's hemoglobin is 8.0, Coumadin is on hold, and INR is 1.3. Sputum culture revealed no growth, patient remains on antibiotic coverage in the form of IV Zosyn, vancomycin has been discontinued, follow-up chest x-ray today was obtained, single view, and showed bibasilar airspace disease and a worsening bilateral effusions. Clinically patient is asymptomatic, lung sounds reveal diffuse coarse crackles throughout. No lower extremity swelling. Today's labs have been reviewed, no leukocytosis, with blood cell, is 9.2, hemoglobin is 8.0, as mentioned above, sodium is 141, potassium is 4.1, Court is 110, BUN is 13 creatinine is 1.68. On 01/24/2019 patient is seen again in follow-up on medical surgical floor. He is resting comfortably in bed, in no acute distress, he states he is feeling we ak, and more short of breath than he had been in the previous days, but does not appear to be in any form of distress, no use of accessory muscles of breathing, he remains on 2 L of oxygen with a pulse ox of 99%, he is hemodynamically stable, lung sounds reveal coarse bibasilar crackles, his occasional cough with production of clear sputum. Sputum and blood culture showed no growth thus far, today's labs have been reviewed, showing white blood cell count of 10.5, hemoglobin of 7.1, patient remains on Zosyn for antibiotic coverage, his chest x-ray has been reviewed with Dr. Dr. Simpson, showed improved aeration of the peripheral lungs, but there is some worsening of the right infrahilar region, possibly related to shifting atelectasis. No fever or chills. The patient has not had any further bleeding since admission. Objective - Vital Signs Vital signs: Vital Signs Temp 97.4 F L 01/24/19 07:00 Pulse 77 01/24/19 07:00 Resp 16 01/24/19 07:00 BP 111/62 01/24/19 07:00 Pulse Ox 99 01/24/19 07:00 Intake & Output 01/23/19 01/24/19 01/24/19 18:59 06:59 18:59 Intake Total 760 590 550 Output Total 600 600 Balance 160 -10 550 Intake: Intake, IV Titration 160 550 Amount Lactated Ringers 1,000 ml 160 @ 20 mls/hr IV .Q24H [facility] Rx#:[id number] Piperacillin-Tazobactam 3 100 .375 gm In Sodium Chloride 0.9% 100 ml @ 25 mls/hr IVPB Q8H [facility] Rx#: [id number] Sodium Chloride 0.9% 1, 450 000 ml @ 75 mls/hr IV . [id number] [facility] Rx#:[id number] Oral 600 590 Output: Urine 600 600 Other: Voiding Method Toilet Urinal Urinal Urinal # Voids 4 - Exam GENERAL EXAM: Alert, pleasant, 79-year-old white male comfortable in no apparent distress. HEAD: Normocephalic/atraumatic. EYES: Normal reaction of pupils, equal size. Conjunctiva pink, sclera white. NOSE: Clear with pink turbinates. THROAT: No erythema or exudates. NECK: No masses, no JVD, no thyroid enlargement, no adenopathy. CHEST: No chest wall deformity. Symmetrical expansion. LUNGS: Equal air entry with coarse inspiratory crackles throughout the lung friend CVS: Regular rate and rhythm, normal S1 and S2, no gallops, no murmurs, no rubs ABDOMEN: Soft, nontender. No hepatosplenomegaly, normal bowel sounds, no guarding or rigidity. EXTREMITIES: No clubbing, no edema, no cyanosis, 2+ pulses and upper and lower extremities. MUSCULOSKELETAL: Muscle strength and tone normal. SPINE: No scoliosis or deformity SKIN: No rashes CENTRAL NERVOUS SYSTEM: Alert and oriented -3. No focal deficits, tone is normal in all 4 extremities. PSYCHIATRIC: Alert and oriented -3. Appropriate affect. Intact judgment and insight. - Labs CBC & Chem 7: 01/24/19 09:57 01/24/19 10:49 Labs: Abnormal Lab Results - Last 24 Hours (Table) 01/24/19 01/24/19 Range/Units 09:57 10:49 RBC 2.72 L (4.30-5.90) m/uL Hgb 7.1 L (13.0-17.5) gm/dL Hct 23.5 L (39.0-53.0) % MCHC 30.4 L (31.0-37.0) g/dL RDW 17.9 H (11.5-15.5) % Neutrophils # 8.7 H (1.3-7.7) k/uL Lymphocytes # 0.8 L (1.0-4.8) k/uL Chloride 110 H (98-107) mmol/L Creatinine 1.82 H (0.66-1.25) mg/dL Glucose 127 H (74-99) mg/dL Calcium 8.2 L (8.4-10.2) mg/dL AST 16 L (17-59) U/L Total Protein 5.0 L (6.3-8.2) g/dL Albumin 2.5 L (3.5-5.0) g/dL Microbiology - Last 24 Hours (Table) 01/18/19 12:50 Blood Culture - Preliminary Blood No Growth after 120 hours Assessment and Plan Plan: Assessment: #1. Weakness, hypotension, shortness of breath, likely related to acute GI blood loss anemia, underwent EGD showing 2 nonbleeding ulcers, and mild internal hemorrhoids on colonoscopy #2. Left lower lobe infiltrate, the possibility of underlying pneumonia is not completely excluded, with acute hypoxemic respiratory failure #3. Anion gap metabolic acidosis related to lactic acidosis, related to blood loss anemia, an infectious etiology is not completely excluded, #4. Acute kidney injury related to ATN #5. Coagulopathy, and melanotic stools #6. Recent hospitalization for nausea, vomiting diarrhea, weakness and dehydration #7. 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 Chronic kidney disease stage III #9. History of bladder cancer follows with Dr. Presley #10. History of CAD with previous stenting and previous myocardial infarction #11. History of thoracic abdominal aortic aneurysm repair #12. Hypertension #13. Hyperlipidemia #14. History of carotid artery blood clots , on chronic anticoagulation with Coumadin #15. Rash along the lower back and buttocks area, possibility of shingles Plan: Continue current antibiotic coverage, vital signs remain stable, but overall patient is feeling weak and more short of breath, although does not appear to be in any respiratory distress. Hemoglobin 7.1, still quite anemic, but has had no active bleeding, Coumadin remains on hold, sputum and blood culture showed no growth, chest x-ray has been reviewed and shows improved aeration of the peripheral lungs, however there is some worsening of the right infrahilar region. From pulmonary perspective clinically patient is stable, could be considered for discharge home on the outpatient course of oral Augmentin. I performed a history & physical examination of the patient and discussed their management with my nurse practitioner, Elyssa Fields. I reviewed the nurse practitioner's note and agree with the documented findings and plan of care. Lung sounds are positive for diminised breath sounds and coarse rales in left lower lobe. The findings and the impression was discussed with the patient. I attest to the documentation by the nurse practitioner. Time with Patient: Less than 30
[2019-01-24] MEDS ORDERED: SODIUM FERRIC GLUCONAT-SUCROSE 125 MG in SODIUM CHLORIDE 0.9% 100 ML IVPB ONE (14:17)
[2019-01-24] MEDS: traMADol 50 MG TAB PO PRN (20:29)
[2019-01-24] MEDS: guaiFENesin 600 MG TABLET.ER PO SCH (20:29)
[2019-01-25] MEDS: PIPERACILLIN-TAZOBACTAM 3.375 GM in SODIUM CHLORIDE 0.9% 100 ML IVPB SCH ×3 (03:56→21:27)
[2019-01-25] MEDS: LEVOTHYROXINE 112 MCG TAB PO SCH (06:04)
[2019-01-25] MEDS: LACTATED RINGERS 1,000 ML IV SCH (07:49)
[2019-01-25] MEDS: ISOSORBIDE MONONITRATE ER 30 MG TAB.ER.24H PO SCH (07:52)
[2019-01-25] MEDS: FERROUS SULFATE 325 MG TAB PO SCH ×2 (07:52→21:27)
[2019-01-25] MEDS: PANTOPRAZOLE 40 MG TABLET PO SCH ×2 (07:52→15:53)
[2019-01-25] MEDS: ATORVASTATIN 80 MG TAB PO SCH (07:52)
[2019-01-25] MEDS: guaiFENesin 600 MG TABLET.ER PO SCH ×2 (07:52→21:28)
[2019-01-25] MEDS: ACETAMINOPHEN TAB 325 MG TAB PO SCH ×3 (07:53→21:28)
[2019-01-25] MEDS: valACYclovir 500 MG TAB PO SCH (07:53)
[2019-01-25] MEDS: CYANOCOBALAMIN 500 MCG TAB PO SCH (07:53)
[2019-01-25] MEDS: GABAPENTIN 400 MG CAP PO SCH ×3 (07:53→21:27)
[2019-01-25] MEDS: METOPROLOL SUCCINATE (ER) 25 MG TAB.ER.24H PO SCH (07:53)
[2019-01-25] MEDS: LIOTHYRONINE SODIUM 5 MCG TAB PO SCH (07:54)
[2019-01-25] MEDS: traMADol 50 MG TAB PO PRN ×2 (07:55→21:29)
[2019-01-25] MEDS: SODIUM CHLORIDE 0.9% 1,000 ML IV SCH (07:56)
[2019-01-25 08:25] LABS: Anisocytosis Slight; Basophils % (A) 0 %; Eosinophils # (A) 0.4 k/uL (0-0.7); Eosinophils % (A) 3 %; HCT 25.8 % (39.0-53.0); HGB 7.9 gm/dL (13.0-17.5); Hypochromasia Marked; Lymphocytes # (A) 1.1 k/uL (1.0-4.8); Lymphocytes % (A) 11 %; MCH 27.1 pg (25.0-35.0); MCHC 30.7 g/dL (31.0-37.0); MCV 88.3 fL (80.0-100.0); Mean Platelet Volume 7.9; Monocytes # (A) 0.5 k/uL (0-1.0); Monocytes % (A) 5 %; Neutrophils # (A) 8.2 k/uL (1.3-7.7); Neutrophils % (A) 79 %; Platelet Count 273 k/uL (150-450); RBC 2.93 m/uL (4.30-5.90); RDW 18.4 % (11.5-15.5); WBC 10.4 k/uL (3.8-10.6)
[2019-01-25 08:27] LABS: Albumin 2.8 g/dL (3.5-5.0); Calcium 8.6 mg/dL (8.4-10.2); Potassium 4.2 mmol/L (3.5-5.1); Total Bilirubin 0.5 mg/dL (0.2-1.3); Total Protein 5.6 g/dL (6.3-8.2)
--- NOTE | 2019-01-25 11:38 | P.PN ---
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 Patient follows with Dr. Duff, and was supposed to see him yesterday in regards to the treatment plan for his cancer. He was recently hospitalized last week with symptoms of nausea, vomiting and diarrhea, generalized weakness and dehydration. CT of the abdomen was negative for any diagnostic evidence of obstruction. Patient was recently treated for a urinary tract infection with a round of Keflex which she did not finish because he developed a rash. Other medical history includes chronic kidney disease stage III, history of bladder cancer being followed by Dr. Presley, CAD with previous stenting and previous myocardial infarction, history of thoracic abdominal aortic aneurysm repair, hypertension, and hyperlipidemia. Patient received IV hydration during his last admission, and was discharged home. C. diff was negative, amylase and lipase were within normal limits, his symptoms had resolved, his kidney function was improving with hydration. After going home patient felt increasingly weak and fatigued, short of breath, and it yesterday morning patient could hardly walk 10 feet related to his shortness of breath with exertion, and weakness. No nausea or vomiting, no abdominal pain, patient did pass 2 very dark colored almost black colored stools yesterday. No fever or chills, no chest pain. Patient was taken to the outpatient clinic, where he was noted to be hypotensive with a blood pressure of 74/41, and was transferred to the hospital for evaluation of his hypotension and weakness. He has an occasi onal cough, which has been chronic for the last 3 months, and occasional production of clear sputum. No significant cough or congestion. Chest x-ray is showing pulmonary fibrosis leading more prominent in the left lung base, follow- up chest x-ray today showed stable possible left lower lobe infiltrate. Lab work showed white blood cell count of 21, hemoglobin is 9.8, INR is 5.4, sodium was 143, potassium is 4.6, chloride was 108, CO2 is 21, B1 is 61 and creatinine is 2.04, plasma lactic acid was 3.8, troponin was negative 1, proBNP was 803, urinalysis was within normal limits, on today's labs, there has been a drop in hemoglobin down to 7.9, white blood cell count is 10.7, INR has increased to 6.4, and patient was given vitamin K, she received IV hydration, and the there has been some improvement in patient's renal profile, with BUN down to 46 and creatinine 1.7, lactic acid is down to 1.1. Patient has not had any more bowel movements, he remains weak and fatigued, but hemodynamically more stable, blood pressure is 99/52, he remains on IV 0.9 normal saline at a rate of 75 ML per hour, afebrile, room air pulse ox is 99%. He was started on antibiotic coverage in the form of Zosyn and vancomycin, blood cultures have been drawn and are pending at this time. On 01/20/2019 patient seen in follow-up on selective care unit, he is awake and alert, in no acute distress, no complaints of worsening shortness of breath, he remains on supplemental oxygen currently 3 L, and his pulse ox is 100%, afebrile, hemodynamically patient is stable, as today patient received units of packed red blood cells for hemoglobin of 6.9, today's blood work shows hemoglobin of 7.5, white blood cell count is 8.5, INR is down to 1.9, renal profile is improving, with the BUN of 33, and creatinine of 1.56. Her calcitonin level was relatively low, at 0.12. Patient remains on empiric antibiotics in the form of Zosyn and vancomycin, and blood culture showed no growth, urine culture is pending, preliminary Gram stain showed many gram- positive cocci, rare budding yeast, few gram-positive bacilli and few gram- negative bacilli. Fungal culture is pending. No fever or chills. no Complaints of chest pain, no cough or congestion. On 01/21/2019 patient seen in follow-up on selective care unit, he is resting comfortably in bed, in no acute distress. Remains on 2 L of oxygen and the pulse ox of 99%, hemodynamically stable, afebrile, respirations are even and nonlabored, lung sounds reveal coarse rales at the left lower base. No cough or congestion, today's labs have been reviewed, showing white blood cell count of 8.1, hemoglobin of 7.4, INR is 1.4, Coumadin remains on hold, sodium is 141, potassium is 4.6, chloride is 113, B1 of 19 creatinine is 1.58. Patient has been prepped for EGD and colonoscopy today. Continues on antibiotic coverage in the form of Zosyn and vancomycin, blood and sputum cultures showed no growth. No fever or chills The patient is seen today 01/22/2019 in follow-up on the regular medical floor. He is currently sitting up in bed. Awake and alert in no acute distress. Maintaining O2 saturations in the 90s on room air. White count 9.2. Hemoglobin 8.0. Creatinine 1.68. INR 1.3. EGD/colonoscopy revealed 2 nonbleeding duodenal ulcers. No old blood or active bleeding on EGD. Mild internal hemorrhoids. He required 1 unit of packed red blood cells this admission. On 01/23/2019 patient seen in follow-up on medical surgical floor. He is resting comfortably in bed, he remains on 3 L of oxygen, his pulse ox is 96%, will Probably weaning that down. He denies any specific complaints, no shortness of breath, no chest pain, he does have occasional cough, which is unchanged from his baseline, with production of small amount of whitish colored or clear colored sputum. No fever or chills, hemodynamic was stable, there has been no further episodes of GI bleeding, no melanotic stools, no hematemesis. Today's hemoglobin is 8.0, Coumadin is on hold, and INR is 1.3. Sputum culture revealed no growth, patient remains on antibiotic coverage in the form of IV Zosyn, vancomycin has been discontinued, follow-up chest x-ray today was obtained, single view, and showed bibasilar airspace disease and a worsening bilateral effusions. Clinically patient is asymptomatic, lung sounds reveal diffuse coarse crackles throughout. No lower extremity swelling. Today's labs have been reviewed, no leukocytosis, with blood cell, is 9.2, hemoglobin is 8.0, as mentioned above, sodium is 141, potassium is 4.1, Court is 110, BUN is 13 creatinine is 1.68. On 01/24/2019 patient is seen again in follow-up on medical surgical floor. He is resting comfortably in bed, in no acute distress, he states he is feeling weak, and more short of breath than he had been in the previous days, but does not appear to be in any form of distress, no use of accessory muscles of breathing, he remains on 2 L of oxygen with a pulse ox of 99%, he is hemodynamically stable, lung sounds reveal coarse bibasilar crackles, his occasional cough with production of clear sputum. Sputum and blood culture showed no growth thus far, today's labs have been reviewed, showing white blood cell count of 10.5, hemoglobin of 7.1, patient remains on Zosyn for antibiotic coverage, his chest x-ray has been reviewed with Dr. Dr. Simpson, showed improved aeration of the peripheral lungs, but there is some worsening of the right infrahilar region, possibly related to shifting atelectasis. No fever or chills. The patient has not had any further bleeding since admission. The patient is seen today 01/25/2019 in follow-up on the regular medical floor. He is currently resting comfortably in bed. Awake and alert in no acute distress. Maintaining good O2 saturations in the 90s on room air. He's been afebrile. Hemodynamically stable. No further bleeding noted. Required 1 unit of packed red blood cells this admission. Current hemoglobin 7.9. Blood and sputum cultures revealed no growth. White count 10.4. Hemoglobin 7.9. Creatinine 1.99. Remains on Zosyn. Objective - Vital Signs Vital signs: Vital Signs Temp 98.5 F 01/25/19 07:00 Pulse 78 01/25/19 07:00 Resp 18 01/25/19 07:00 BP 101/59 01/25/19 07:00 Pulse Ox 97 01/25/19 07:00 Intake & Output 01/24/19 01/25/19 01/25/19 18:59 06:59 18:59 Intake Total 550 Output Total 800 400 Balance 550 -800 -400 Intake: Intake, IV Titration 550 Amount Piperacillin-Tazobactam 3 100 .375 gm In Sodium Chloride 0.9% 100 ml @ 25 mls/hr IVPB Q8H [facility] Rx#: [id number] Sodium Chloride 0.9% 1, 450 000 ml @ 75 mls/hr IV . [id number] [facility] Rx#:[id number] Output: Urine 800 400 Other: Voiding Method Urinal Urinal Urinal # Voids 2 - Exam GENERAL EXAM: Alert, pleasant, 79-year-old male comfortable in no apparent distress. On room air. HEAD: Normocephalic/atraumatic. EYES: Normal reaction of pupils, equal size. Conjunctiva pink, sclera white. NOSE: Clear with pink turbinates. THROAT: No erythema or exudates. NECK: No masses, no JVD, no thyroid enlargement, no adenopathy. CHEST: No chest wall deformity. Symmetrical expansion. LUNGS: Equal air entry with coarse inspiratory crackles over left lower lobe CVS: Regular rate and rhythm, normal S1 and S2, no gallops, no murmurs, no rubs ABDOMEN: Soft, nontender. No hepatosplenomegaly, normal bowel sounds, no guarding or rigidity. EXTREMITIES: No clubbing, no edema, no cyanosis, 2+ pulses and upper and lower extremities. MUSCULOSKELETAL: Muscle strength and tone normal. SPINE: No scoliosis or deformity SKIN: No rashes CENTRAL NERVOUS SYSTEM: Alert and oriented -3. No focal deficits, tone is normal in all 4 extremities. PSYCHIATRIC: Alert and oriented -3. Appropriate affect. Intact judgment and insight. - Labs CBC & Chem 7: 01/25/19 07:24 01/25/19 07:24 Labs: Abnormal Lab Results - Last 24 Hours (Table) 01/24/19 01/25/19 01/25/19 Range/Units 10:49 07:24 07:24 RBC 2.93 L (4.30-5.90) m/uL Hgb 7.9 L (13.0-17.5) gm/dL Hct 25.8 L (39.0-53.0) % MCHC 30.7 L (31.0-37.0) g/dL RDW 18.4 H (11.5-15.5) % Neutrophils # 8.2 H (1.3-7.7) k/uL Chloride 110 H 110 H (98-107) mmol/L Creatinine 1.82 H 1.99 H (0.66-1.25) mg/dL Glucose 127 H 101 H (74-99) mg/dL Calcium 8.2 L (8.4-10.2) mg/dL AST 16 L (17-59) U/L Total Protein 5.0 L 5.6 L (6.3-8.2) g/dL Albumin 2.5 L 2.8 L (3.5-5.0) g/dL Microbiology - Last 24 Hours (Table) 01/18/19 12:50 Blood Culture - Final Blood No Growth after 144 hours Assessment and Plan Assessment: Assessment: #1. Weakness, hypotension, shortness of breath, likely related to acute GI blood loss anemia. EGD/colonoscopy revealed 2 nonbleeding duodenal ulcers. No old blood or active bleeding noted on EGD. Mild internal hemorrhoids on colonoscopy. Status post 1 unit of packed red blood cells this admission. Current hemoglobin 7.9. #2. Left lower lobe infiltrate, the possibility of underlying pneumonia is not completely excluded, with acute hypoxemic respiratory failure #3. Anion gap metabolic acidosis related to lactic acidosis, related to blood l oss anemia, an infectious etiology is not completely excluded, #4. Acute kidney injury related to ATN #5. Coagulopathy, and melanotic stools #6. Recent hospitalization for nausea, vomiting diarrhea, weakness and dehydration #7. 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 Chronic kidney disease stage III #9. History of bladder cancer follows with Dr. Presley #10. History of CAD with previous stenting and previous myocardial infarction #11. History of thoracic abdominal aortic aneurysm repair #12. Hypertension #13. Hyperlipidemia #14. History of carotid artery blood clots , on chronic anticoagulation with Coumadin Plan: The patient was seen and evaluated by Dr. Simpson. He is currently stable from the pulmonary standpoint. On room air. No pulmonary complaints. Home once cleared medically. I, the cosigning physician, performed a history & physical examination of the patient. Lungs sounds with crackles in left lung base. Maintaining good O2 saturations in the 90s on room air. I discussed the assessment and plan of care with my nurse practitioner, Stephanie Ulloa. I attest to the above note as dictated by her.
--- NOTE | 2019-01-25 12:13 | P.PN ---
Subjective Progress Note Date: 01/25/19 This is a 71-year-old male patient of Dr. Barney. Patient presented to the ER with complaints of generalized weakness and fatigue. Patient was recently admitted for general weakness and acute kidney injury. At this time patient does not use hearing aids and unable to hear clearly. 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 During previous admission patient was seen by pulmonary and oncology services. Additional medical history includes bladder cancer, coronary artery disease, myocardial infarction, essential hypertension, hyperlipidemia, abdominal aneurysm repair, coronary artery blood clots in which he is on Coumadin. Patient INR 5.6 on admission. Initial lactic acid 3.8. Creatinine 2.04 and bun 61. Patient also hypotensive on arrival. Patient received 2 L bolus. Blood pressure has improved. Chest x- ray completed showing slight progression in the mid thoracic compression deformity. Pulmonary fibrosis particularly exaggerated in the left lung base. EKG completed showing normal sinus rhythm, possible inferior infarct. Patient denies chest pain or shortness breath. Patient denies nausea vomiting or diarrhea. Patient denies any urinary burning or frequency 01/20/2019 patient is sitting up in bed comfortably. Family at bedside. Does report a productive cough. Does report shortness of breath with activity. Requiring oxygen. Does not usually use oxygen at home. He did receive 1 unit of blood yesterday. Hemoglobin has increased from 6.9-7.5. Awaiting GI evaluat ion. Patient reports no further stools. At home he did have black stools. Patient currently on Zosyn and vancomycin for pneumonia. Echocardiogram results are pending. Patient denies any chest pain. Denies any nausea vomiting. Denies any burning with urination. Also note INR is down from 6.7-1.9 after vitamin K. chest x-ray from yesterday showing stable left lower lobe infiltrate superimposed on fibrosis 01/21/2019 patient is scheduled for EGD and colonoscopy today. Hemoglobin history from 7.5-7.4. INR is down to 1.4. Creatinine 1.56-1.5. Albumin is low at 2.5. Patient denies any chest pain: Still having some shortness of breath requiring oxygen. Sputum culture growing normal respiratory shirley. Patient denies any nausea or vomiting. Denies any burning with urination. Patient's aspirin, Plavix and Coumadin remain on hold. Patient complaining of rash along the lower back and buttocks area. Patient reports that the rash is nonpainful. Denies any history of shingles. On 01/22/2019 patient is alert and oriented 3 in no apparent distress complaining of generalized weakness otherwise he denies any complaints there is no fever or chills no headache or dizziness no chest pain no shortness of breath no cough no nausea or vomiting no abdominal pain no diarrhea and no urinary symptoms rash on back examined compatible with zoster eruption although not painful patient stated that he had this rash multiple times in the past On 01/23/2019 patient was seen and examined on the medical floor he is alert and oriented 3 in no apparent distress, he had some shortness of breath during the night and had to be restarted on oxygen, he is complaining of cough otherwise he denies any complaints there is no fever or chills no headache or dizziness no chest pain no nausea or vomiting no abdominal pain no diarrhea and no urinary symptoms 01/24/2019 patient reporting that he is not feeling well today. No specific complaints. He is having some nasal congestion still reporting a cough. With some sputum production. Mucinex has been added. His aspirin, Plavix and Couma din remain on hold. No further signs or symptoms of GI bleed. Has undergone EGD and colonoscopy during this admission. EKG had revealed 2 nonbleeding ulcers and mild internal hemorrhoids noted on colonoscopy. Patient remains on Protonix 40 mg twice a day. Awaiting today's CBC results. Patient also was on Valtrex for shingles. He denies any chest pain or worsening shortness breath. Denies any nausea or vomiting. Reports having bowel movements no diarrhea. Denies any burning with urination. Chest x-ray is showing improvement in aeration and worsening consolidation in right infrahilar region. He is felt pulmonary service. Creatinine is down from 1.96-1.82 01/25/2019 patient reports that he is feeling better. He did receive a dose of IV iron yesterday. Hemoglobin has gone up from 7.1-7.9. He is having regular stools. Denies any black stools or blood present in his stools. In case was discussed with both GI and cardiology service. Cardiology is recommending only to continue the Plavix and Eliquis 5 mg twice a day. Aspirin Be discontinued. GI service is given the okay to resume anticoagulation. Also recommending to monitor patient overnight the night for any further bleeding and repeat hemoglobin in a.m. Patient reports improvement in his shortness breath. He d enies any chest pain denies any nausea or vomiting. Patient was rash is starting to scabe. Pulmonary service has cleared him for discharge. The recommending Augmentin for antibiotic for his pneumonia at discharge. Objective - Vital Signs Vital signs: Vital Signs Temp 98.5 F 01/25/19 07:00 Pulse 78 01/25/19 07:00 Resp 18 01/25/19 07:00 BP 101/59 01/25/19 07:00 Pulse Ox 97 01/25/19 07:00 Intake & Output 01/24/19 01/25/19 01/25/19 18:59 06:59 18:59 Intake Total 550 Output Total 800 400 Balance 550 -800 -400 Intake: Intake, IV Titration 550 Amount Piperacillin-Tazobactam 3 100 .375 gm In Sodium Chloride 0.9% 100 ml @ 25 mls/hr IVPB Q8H [facility] Rx#: [id number] Sodium Chloride 0.9% 1, 450 000 ml @ 75 mls/hr IV . [id number] [facility] Rx#:[id number] Output: Urine 800 400 Other: Voiding Method Urinal Urinal Urinal # Voids 2 - Exam Head normocephalic Neck supple Lungs diminished at the bases Heart regular rate and rhythm S1-S2, no rub or gallop Abdomen is soft nontender nondistended positive bowel sounds no hepatosplenomegaly Extremities no edema Neuro alert and orientated to 3 Skin: Shingles rash along the sacral buttocks area starting to scab - Labs CBC & Chem 7: 01/25/19 07:24 01/25/19 07:24 Labs: Abnormal Lab Results - Last 24 Hours (Table) 01/25/19 01/25/19 Range/Units 07:24 07:24 RBC 2.93 L (4.30-5.90) m/uL Hgb 7.9 L (13.0-17.5) gm/dL Hct 25.8 L (39.0-53.0) % MCHC 30.7 L (31.0-37.0) g/dL RDW 18.4 H (11.5-15.5) % Neutrophils # 8.2 H (1.3-7.7) k/uL Chloride 110 H (98-107) mmol/L Creatinine 1.99 H (0.66-1.25) mg/dL Glucose 101 H (74-99) mg/dL Total Protein 5.6 L (6.3-8.2) g/dL Albumin 2.8 L (3.5-5.0) g/dL Microbiology - Last 24 Hours (Table) 01/18/19 12:50 Blood Culture - Final Blood No Growth after 144 hours Assessment and Plan Assessment: 1. Generalized weakness, fatigue and shortness of breath possibly related to anemia due to GI bleed and pneumonia 2. Left lower lobe infiltrate with possible pneumonia: Currently on Zosyn. Pulmonary service following. Pro-calcitonin level 0.12. Sputum culture normal respiratory shirley. Pulmonary service recommending Augmentin at time of discharge. Pulmonary has cleared him for discharge from their perspective 3. Pneumonia with possible sepsis present on admission 4. Acute blood loss anemia secondary to GI bleed: Patient is no longer having black stools. He did receive a unit of blood. Hemoglobin has gone up from 6.9-7.5. Awaiting GI evaluation for possible endoscopy. Patient's Coumadin, aspirin and Plavix are all on hold. Status post EGD revealing 2 nonbleeding duodenal ulcers and colonoscopy revealing mild internal. 5. Coagulopathy INR of 6.7 on admission down to 1.9 after vitamin K given. Continue monitor PT/INR. INR 1.0 6. Acute kidney injury secondary to ATN due to dehydration and anemia 7. Chronic kidney disease stage III with a baseline creatinine of 1.5-1.8 8. 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 Patient was seen by oncology. He will be planning to start chemotherapy after his current illness has resolved. 9. History of coronary artery disease with previous cardiac stents and myocardial infarction. Last cardiac stents in 2018. 10. 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 Which Coumadin is currently on hold due to GI bleed. Cardiology has looked into Eliquis for anticoagulation. Per case therapist co-pay is $28 per month 11. History of thoracic abdominal aortic aneurysm repair 12. History of essential hypertension 13. Hyperlipidemia 14. Hypotension improved with IV fluids. Possibly related to sepsis and anemia. Plan Patient being assessed for possible home oxygen. Discussed case with GI and cardiology service. And is okay to resume anticoagulation per cardiology and GI service. We'll restart Plavix [address] patient on Eliquis 5 mg twice a day. Coumadin and aspirin have been discontinued Recheck CBC in a.m. Anticipate discharge tomorrow if hemoglobin remains stable and no active signs of bleeding. GI prophylaxis Protonix and DVT prophylaxis SCDs I performed an examination of the patient and discussed their management with the physician Retail Agent. I have reviewed the Physician Retail Agent's notes and agree with the documented findings and plan of care
[2019-01-25] MEDS: CLOPIDOGREL 75 MG TAB PO SCH (15:53)
--- NOTE | 2019-01-25 16:52 | P.PN ---
Subjective Progress Note Date: 01/25/19 Principal diagnosis: sepsis symptoms. In follow-up today patient continues to have a rather nonproductive cough, he denies chest pain, difficulty in breathing, he is able to ambulate independently, he does have chronic back pain from spinal stenosis, this is unchanged or progressive at this time, he is tolerating oral intake, has no concerns about elimination. Objective - Vital Signs Vital signs: Vital Signs Temp 98.5 F 01/25/19 07:00 Pulse 78 01/25/19 07:00 Resp 18 01/25/19 07:00 BP 101/59 01/25/19 07:00 Pulse Ox 97 01/25/19 07:00 Intake & Output 01/24/19 01/25/19 01/25/19 18:59 06:59 18:59 Intake Total 550 Output Total 800 400 Balance 550 -800 -400 Intake: Intake, IV Titration 550 Amount Piperacillin-Tazobactam 3 100 .375 gm In Sodium Chloride 0.9% 100 ml @ 25 mls/hr IVPB Q8H [facility] Rx#: [id number] Sodium Chloride 0.9% 1, 450 000 ml @ 75 mls/hr IV . [id number] [facility] Rx#:[id number] Output: Urine 800 400 Other: Voiding Method Urinal Urinal Urinal # Voids 2 2 - Exam Well-developed, well-nourished 79-year-old male, he is laying in bed, he is able to move/change positions independently without assistance, and O 4, no acute distress, respirations are even and unlabored, no swelling of the lower extremities, appropriate mood and affect, no gross focal or motor neuro deficits - Labs CBC & Chem 7: 01/25/19 07:24 01/25/19 07:24 Labs: Abnormal Lab Results - Last 24 Hours (Table) 01/25/19 01/25/19 Range/Units 07:24 07:24 RBC 2.93 L (4.30-5.90) m/uL Hgb 7.9 L (13.0-17.5) gm/dL Hct 25.8 L (39.0-53.0) % MCHC 30.7 L (31.0-37.0) g/dL RDW 18.4 H (11.5-15.5) % Neutrophils # 8.2 H (1.3-7.7) k/uL Chloride 110 H (98-107) mmol/L Creatinine 1.99 H (0.66-1.25) mg/dL Glucose 101 H (74-99) mg/dL Total Protein 5.6 L (6.3-8.2) g/dL Albumin 2.8 L (3.5-5.0) g/dL Microbiology - Last 24 Hours (Table) 01/18/19 12:50 Blood Culture - Final Blood No Growth after 144 hours Assessment and Plan (1) Urothelial carcinoma of bladder Narrative/Plan: Patient is recently diagnosed with metastatic urothelial carcinoma. There is a plan to begin chemotherapy, pending insurance verification of tecentric. Patient that he will begin chemotherapy once his current condition has resolved and he has completed antibiotics as directed. He verbalized understanding. Current Visit: Yes Status: Acute Priority: High Code(s): C67.9 - MALIGNANT NEOPLASM OF BLADDER, UNSPECIFIED SNOMED Code(s): 354696818
[2019-01-25] MEDS: APIXABAN 5 MG TAB PO SCH (23:04)
[2019-01-26] MEDS: LACTATED RINGERS 1,000 ML IV SCH (04:57)
[2019-01-26] MEDS: LEVOTHYROXINE 112 MCG TAB PO SCH (04:58)
[2019-01-26] MEDS: PIPERACILLIN-TAZOBACTAM 3.375 GM in SODIUM CHLORIDE 0.9% 100 ML IVPB SCH ×2 (04:58→13:24)
[2019-01-26 07:38] LABS: Anisocytosis Slight; Basophils % (A) 0 %; Eosinophils # (A) 0.3 k/uL (0-0.7); Eosinophils % (A) 3 %; HCT 23.9 % (39.0-53.0); HGB 7.4 gm/dL (13.0-17.5); Hypochromasia Marked; Lymphocytes # (A) 1.1 k/uL (1.0-4.8); Lymphocytes % (A) 9 %; MCH 27.2 pg (25.0-35.0); MCHC 30.9 g/dL (31.0-37.0); MCV 88.1 fL (80.0-100.0); Mean Platelet Volume 7.8; Monocytes # (A) 0.6 k/uL (0-1.0); Monocytes % (A) 5 %; Neutrophils # (A) 9.1 k/uL (1.3-7.7); Neutrophils % (A) 81 %; Platelet Count 247 k/uL (150-450); RBC 2.71 m/uL (4.30-5.90); RDW 18.8 % (11.5-15.5); WBC 11.3 k/uL (3.8-10.6)
[2019-01-26 07:42] LABS: Albumin 2.7 g/dL (3.5-5.0); Calcium 8.5 mg/dL (8.4-10.2); Potassium 4.7 mmol/L (3.5-5.1); Total Bilirubin 0.5 mg/dL (0.2-1.3); Total Protein 5.5 g/dL (6.3-8.2)
[2019-01-26] MEDS: ACETAMINOPHEN TAB 325 MG TAB PO SCH ×2 (08:37→17:25)
[2019-01-26] MEDS: traMADol 50 MG TAB PO PRN (08:39)
[2019-01-26] MEDS: GABAPENTIN 400 MG CAP PO SCH ×2 (08:40→17:25)
[2019-01-26] MEDS: ATORVASTATIN 80 MG TAB PO SCH (08:40)
[2019-01-26] MEDS: PANTOPRAZOLE 40 MG TABLET PO SCH (08:40)
[2019-01-26] MEDS: guaiFENesin 600 MG TABLET.ER PO SCH (08:40)
[2019-01-26] MEDS: CLOPIDOGREL 75 MG TAB PO SCH (08:40)
[2019-01-26] MEDS: FERROUS SULFATE 325 MG TAB PO SCH (08:40)
[2019-01-26] MEDS: LIOTHYRONINE SODIUM 5 MCG TAB PO SCH (08:40)
[2019-01-26] MEDS: METOPROLOL SUCCINATE (ER) 25 MG TAB.ER.24H PO SCH (08:41)
[2019-01-26] MEDS: ISOSORBIDE MONONITRATE ER 30 MG TAB.ER.24H PO SCH (08:41)
[2019-01-26] MEDS: CYANOCOBALAMIN 500 MCG TAB PO SCH (08:41)
[2019-01-26] MEDS: APIXABAN 5 MG TAB PO SCH (08:41)
--- NOTE | 2019-01-26 12:21 | P.PN ---
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 Patient follows with Dr. Duff, and was supposed to see him yesterday in regards to the treatment plan for his cancer. He was recently hospitalized last week with symptoms of nausea, vomiting and diarrhea, generalized weakness and dehydration. CT of the abdomen was negative for any diagnostic evidence of obstruction. Patient was recently treated for a urinary tract infection with a round of Keflex which she did not finish because he developed a rash. Other medical history includes chronic kidney disease stage III, history of bladder cancer being followed by Dr. Presley, CAD with previous stenting and previous myocardial infarction, history of thoracic abdominal aortic aneurysm repair, hypertension, and hyperlipidemia. Patient received IV hydration during his last admission, and was discharged home. C. diff was nega tive, amylase and lipase were within normal limits, his symptoms had resolved, his kidney function was improving with hydration. After going home patient felt increasingly weak and fatigued, short of breath, and it yesterday morning patient could hardly walk 10 feet related to his shortness of breath with exertion, and weakness. No nausea or vomiting, no abdominal pain, patient did pass 2 very dark colored almost black colored stools yesterday. No fever or chills, no chest pain. Patient was taken to the outpatient clinic, where he was noted to be hypotensive with a blood pressure of 74/41, and was transferred to the hospital for evaluation of his hypotension and weakness. He has an occa sional cough, which has been chronic for the last 3 months, and occasional production of clear sputum. No significant cough or congestion. Chest x-ray is showing pulmonary fibrosis leading more prominent in the left lung base, follow- up chest x-ray today showed stable possible left lower lobe infiltrate. Lab work showed white blood cell count of 21, hemoglobin is 9.8, INR is 5.4, sodium was 143, potassium is 4.6, chloride was 108, CO2 is 21, B1 is 61 and creatinine is 2.04, plasma lactic acid was 3.8, troponin was negative 1, proBNP was 803, urinalysis was within normal limits, on today's labs, there has been a drop in hemoglobin down to 7.9, white blood cell count is 10.7, INR has increased to 6.4, and patient was given vitamin K, she received IV hydration, and the there has been some improvement in patient's renal profile, with BUN down to 46 and creatinine 1.7, lactic acid is down to 1.1. Patient has not had any more bowel movements, he remains weak and fatigued, but hemodynamically more stable, blood pressure is 99/52, he remains on IV 0.9 normal saline at a rate of 75 ML per hour, afebrile, room air pulse ox is 99%. He was started on antibiotic coverage in the form of Zosyn and vancomycin, blood cultures have been drawn and are pending at this time. On 01/20/2019 patient seen in follow-up on selective care unit, he is awake and alert, in no acute distress, no complaints of worsening shortness of breath, he remains on supplemental oxygen currently 3 L, and his pulse ox is 100%, afebrile, hemodynamically patient is stable, as today patient received units of packed red blood cells for hemoglobin of 6.9, today's blood work shows hemoglobin of 7.5, white blood cell count is 8.5, INR is down to 1.9, renal profile is improving, with the BUN of 33, and creatinine of 1.56. Her calcitonin level was relatively low, at 0.12. Patient remains on empiric antibiotics in the form of Zosyn and vancomycin, and blood culture showed no growth, urine culture is pending, preliminary Gram stain showed many gram- positive cocci, rare budding yeast, few gram-positive bacilli and few gram- negative bacilli. Fungal culture is pending. No fever or chills. no Complaints of chest pain, no cough or congestion. On 01/21/2019 patient seen in follow-up on selective care unit, he is resting comfortably in bed, in no acute distress. Remains on 2 L of oxygen and the pulse ox of 99%, hemodynamically stable, afebrile, respirations are even and nonlabored, lung sounds reveal coarse rales at the left lower base. No cough or congestion, today's labs have been reviewed, showing white blood cell count of 8.1, hemoglobin of 7.4, INR is 1.4, Coumadin remains on hold, sodium is 141, potassium is 4.6, chloride is 113, B1 of 19 creatinine is 1.58. Patient has been prepped for EGD and colonoscopy today. Continues on antibiotic coverage in the form of Zosyn and vancomycin, blood and sputum cultures showed no growth. No fever or chills On 01/23/2019 patient seen in follow-up on medical surgical floor. He is resting comfortably in bed, he remains on 3 L of oxygen, his pulse ox is 96%, will Probably weaning that down. He denies any specific complaints, no shortness of breath, no chest pain, he does have occasional cough, which is unchanged from his baseline, with production of small amount of whitish colored or clear colored sputum. No fever or chills, hemodynamic was stable, there has been no further episodes of GI bleeding, no melanotic stools, no hematemesis. Today's hemoglobin is 8.0, Coumadin is on hold, and INR is 1.3. Sputum culture revealed no growth, patient remains on antibiotic coverage in the form of IV Zosyn, vancomycin has been discontinued, follow-up chest x-ray today was obtained, single view, and showed bibasilar airspace disease and a worsening bilateral effusions. Clinically patient is asymptomatic, lung sounds reveal diffuse coarse crackles throughout. No lower extremity swelling. Today's labs have been reviewed, no leukocytosis, with blood cell, is 9.2, hemoglobin is 8.0, as mentioned above, sodium is 141, potassium is 4.1, Court is 110, BUN is 13 creatinine is 1.68. On 01/24/2019 patient is seen again in follow-up on medical surgical floor. He is resting comfortably in bed, in no acute distress, he states he is feeling we ak, and more short of breath than he had been in the previous days, but does not appear to be in any form of distress, no use of accessory muscles of breathing, he remains on 2 L of oxygen with a pulse ox of 99%, he is hemodynamically stable, lung sounds reveal coarse bibasilar crackles, his occasional cough with production of clear sputum. Sputum and blood culture showed no growth thus far, today's labs have been reviewed, showing white blood cell count of 10.5, hemoglobin of 7.1, patient remains on Zosyn for antibiotic coverage, his chest x-ray has been reviewed with Dr. Dr. Simpson, showed improved aeration of the peripheral lungs, but there is some worsening of the right infrahilar region, possibly related to shifting atelectasis. No fever or chills. The patient has not had any further bleeding since admission. On 01/26/2019 patient seen in follow-up on medical surgical floor. Awake and alert, in no acute distress resting quietly in bed, currently on room air, his pulse ox is 91-92%, afebrile, cultures are negative thus far, including blood and sputum cultures, patient has been treated was 90s of IV Zosyn, but can stop the antibiotics today. Follow-up labs today have been reviewed, showing white blood cell, of 11.3, hemoglobin of 7.4, serum sodium of 140, potassium is 4.7, chloride is 108, BUN of 11 creatinine is 1.87. Patient has had no further bleeding, and he required 1 unit of packed red blood cell transfusion on admission. No cough, no congestion, lung sounds reveal coarse crackles at bilateral lower bases. No chest wall tenderness, no hemoptysis. Objective - Vital Signs Vital signs: Vital Signs Temp 98.3 F 01/26/19 07:00 Pulse 94 01/26/19 07:00 Resp 19 01/26/19 07:00 BP 125/70 01/26/19 07:00 Pulse Ox 92 L 01/26/19 11:39 Intake & Output 01/25/19 01/26/19 01/26/19 18:59 06:59 18:59 Intake Total 390 Output Total 400 750 Balance -400 -750 390 Intake: Oral 390 Output: Urine 400 750 Other: Voiding Method Urinal Urinal # Voids 2 1 - Exam GENERAL EXAM: Alert, pleasant, 79-year-old white male comfortable in no apparent distress. HEAD: Normocephalic/atraumatic. EYES: Normal reaction of pupils, equal size. Conjunctiva pink, sclera white. NOSE: Clear with pink turbinates. THROAT: No erythema or exudates. NECK: No masses, no JVD, no thyroid enlargement, no adenopathy. CHEST: No chest wall deformity. Symmetrical expansion. LUNGS: Equal air entry with coarse inspiratory crackles throughout the lung friend CVS: Regular rate and rhythm, normal S1 and S2, no gallops, no murmurs, no rubs ABDOMEN: Soft, nontender. No hepatosplenomegaly, normal bowel sounds, no guarding or rigidity. EXTREMITIES: No clubbing, no edema, no cyanosis, 2+ pulses and upper and lower extremities. MUSCULOSKELETAL: Muscle strength and tone normal. SPINE: No scoliosis or deformity SKIN: No rashes CENTRAL NERVOUS SYSTEM: Alert and oriented -3. No focal deficits, tone is normal in all 4 extremities. PSYCHIATRIC: Alert and oriented -3. Appropriate affect. Intact judgment and insight. - Labs CBC & Chem 7: 01/26/19 07:01 01/26/19 07:01 Labs: Abnormal Lab Results - Last 24 Hours (Table) 01/26/19 01/26/19 Range/Units 07: 07:01 WBC 11.3 H (3.8-10.6) k/uL RBC 2.71 L (4.30-5.90) m/uL Hgb 7.4 L (13.0-17.5) gm/dL Hct 23.9 L (39.0-53.0) % MCHC 30.9 L (31.0-37.0) g/dL RDW 18.8 H (11.5-15.5) % Neutrophils # 9.1 H (1.3-7.7) k/uL Chloride 108 H (98-107) mmol/L Creatinine 1.87 H (0.66-1.25) mg/dL Total Protein 5.5 L (6.3-8.2) g/dL Albumin 2.7 L (3.5-5.0) g/dL Assessment and Plan Plan: Assessment: #1. Weakness, hypotension, shortness of breath, likely related to acute GI blood loss anemia, underwent EGD showing 2 nonbleeding ulcers, and mild internal hemorrhoids on colonoscopy #2. Left lower lobe infiltrate, the possibility of underlying pneumonia is not completely excluded, with acute hypoxemic respiratory failure #3. Anion gap metabolic acidosis related to lactic acidosis, related to blood loss anemia, an infectious etiology is not completely excluded, #4. Acute kidney injury related to ATN #5. Coagulopathy, and melanotic stools #6. Recent hospitalization for nausea, vomiting diarrhea, weakness and dehydration #7. 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 Chronic kidney disease stage III #9. History of bladder cancer follows with Dr. Presley #10. History of CAD with previous stenting and previous myocardial infarction #11. History of thoracic abdominal aortic aneurysm repair #12. Hypertension #13. Hyperlipidemia #14. History of carotid artery blood clots , on chronic anticoagulation with Coumadin #15. Rash along the lower back and buttocks area, possibility of shingles Plan: We'll discontinue the IV Zosyn, patient has been well treated, cultures are negative, no fever or chills, no worsening dyspnea, no chest wall tendernessm no hemoptysis. Increase activity as tolerated, patient is stable for discharge home today. Does not need outpatient antibiotics. Follow-up with Dr. Aguilar in the office in 7-10 days. I performed a history & physical examination of the patient and discussed their management with my nurse practitioner, Elyssa Fields. I reviewed the nurse practitioner's note and agree with the documented findings and plan of care. Lung sounds are positive for diminised breath sounds and coarse rales in left l ower lobe. The findings and the impression was discussed with the patient. I attest to the documentation by the nurse practitioner. Time with Patient: Less than 30
[2019-01-26] MEDS ORDERED: SODIUM FERRIC GLUCONAT-SUCROSE 125 MG in SODIUM CHLORIDE 0.9% 100 ML IVPB ONE (14:00)
--- NOTE | 2019-01-26 14:42 | P.DS ---
Providers Date of admission: 01/18/19 15:35 Expected date of discharge: 01/26/19 Attending physician: Laly Centeno Consults: 01/19/19 10:51 Consult Physician Routine Consulting Provider: Kyle Aguilar Consult Reason/Comments: Pneumonia, lung cancer Do you want consulting provider notified?: Yes 01/19/19 11:04 Consult Physician Routine Consulting Provider: Fredy Ramires Consult Reason/Comments: New metastatic lung cancer Do you want consulting provider notified?: Yes 01/19/19 11:05 Consult Physician Routine Consulting Provider: Jarvis Ribeiro Consult Reason/Comments: History of stents, carotid artery blood clot maintained on Coumadin Do you want consulting provider notified?: Yes Primary care physician: Thania Barney Hospital Course: Discharge diagnosis 1. Generalized weakness, fatigue and shortness of breath possibly related to anemia due to GI bleed and pneumonia 2. Left lower lobe infiltrate with possible pneumonia: Currently on Zosyn. Pulmonary service following. Pro-calcitonin level 0.12. Sputum culture normal respiratory shirley. Pulmonary service recommending Augmentin at time of discharge. Pulmonary has cleared him for discharge from their perspective. She'll be DC'd on Augmentin for 1 week 3. Pneumonia with possible sepsis present on admission 4. Acute blood loss anemia secondary to GI bleed: Patient is no longer having black stools. He did receive a unit of blood. Hemoglobin has gone up from 6.9- 7.5. Awaiting GI evaluation for possible endoscopy. Patient's Coumadin, aspirin and Plavix are all on hold. Status post EGD revealing 2 nonbleeding duodenal ulcers and colonoscopy revealing mild internal. Patient has been restarted on eliquis and Plavix. 5. Coagulopathy INR of 6.7 on admission down to 1.9 after vitamin K given. Continue monitor PT/INR. INR 1.0 6. Acute kidney injury secondary to ATN due to dehydration and anemia. 7. Chronic kidney disease stage III with a baseline creatinine of 1.5-1.8. Current creatinine 1.87. Repeat creatinine ordered for 2 days 8. 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 Patient was seen by oncology. He will be planning to start chemotherapy after his current illness has resolved. 9. History of coronary artery disease with previous cardiac stents and myocardial infarction. Last cardiac stents in 2018. 10. 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 Which Coumadin is currently on hold due to GI bleed. Cardiology has looked into Eliquis for anticoagulation. Per manager of case management co-pay is $28 per month 11. History of thoracic abdominal aortic aneurysm repair 12. History of essential hypertension 13. Hyperlipidemia 14. Hypotension improved with IV fluids. Possibly related to sepsis and anemia. Hospital course This is a 71-year-old male patient of Dr. Barney. Patient presented to the ER with complaints of generalized weakness and fatigue. Patient was recently a dmitted for general weakness and acute kidney injury. At this time patient does not use hearing aids and unable to hear clearly. 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 During previous admission patient was seen by pulmonary and oncology services. Additional medical history includes bladder cancer, coronary artery disease, myocardial infarction, essential hypertension, hyperlipidemia, abdominal aneurysm repair, coronary artery blood clots in which he is on Coumadin. Patient INR 5.6 on admission. Initial lactic acid 3.8. Creatinine 2.04 and bun 61. Patient also hypotensive on arrival. Patient received 2 L bolus. Blood pressure has improved. Chest x-ray completed showing slight progression in the mid thoracic compression deformity. Pulmonary fibrosis particularly exaggerated in the left lung base. EKG completed showing normal sinus rhythm, possible inferior infarct. Patient denies chest pain or shortness breath. Patient denies nausea vomiting or diarrhea. Patient denies any urinary burning or frequency 01/20/2019 patient is sitting up in bed comfortably. Family at bedside. Does report a productive cough. Does report shortness of breath with activity. Requiring oxygen. Does not usually use oxygen at home. He did receive 1 unit of blood yesterday. Hemoglobin has increased from 6.9-7.5. Awaiting GI evaluation. Patient reports no further stools. At home he did have black stools. Patient currently on Zosyn and vancomycin for pneumonia. Echocardiogram results are pending. Patient denies any chest pain. Denies any nausea vomiting. Denies any burning with urination. Also note INR is down from 6.7-1.9 after vitamin K. chest x-ray from yesterday showing stable left lower lobe infiltrate superimposed on fibrosis 01/21/2019 patient is scheduled for EGD and colonoscopy today. Hemoglobin history from 7.5-7.4. INR is down to 1.4. Creatinine 1.56-1.5. Albumin is low at 2.5. Patient denies any chest pain: Still having some shortness of breath requiring oxygen. Sputum culture growing normal respiratory shirley. Patient denies any nausea or vomiting. Denies any burning with urination. Patient's aspirin, Plavix and Coumadin remain on hold. Patient complaining of rash along the lower back and buttocks area. Patient reports that the rash is nonpainful. Denies any history of shingles. On 01/22/2019 patient is alert and oriented 3 in no apparent distress complaining of generalized weakness otherwise he denies any complaints there is no fever or chills no headache or dizziness no chest pain no shortness of breath no cough no nausea or vomiting no abdominal pain no diarrhea and no urinary symptoms rash on back examined compatible with zoster eruption although not painful patient stated that he had this rash multiple times in the past On 01/23/2019 patient was seen and examined on the medical floor he is alert and oriented 3 in no apparent distress, he had some shortness of breath during the night and had to be restarted on oxygen, he is complaining of cough otherwise he denies any complaints there is no fever or chills no headache or dizziness no chest pain no nausea or vomiting no abdominal pain no diarrhea and no urinary symptoms 01/24/2019 patient reporting that he is not feeling well today. No specific complaints. He is having some nasal congestion still reporting a cough. With some sputum production. Mucinex has been added. His aspirin, Plavix and Coumadin remain on hold. No further signs or symptoms of GI bleed. Has undergone EGD and colonoscopy during this admission. EKG had revealed 2 nonbleeding ulcers and mild internal hemorrhoids noted on colonoscopy. Patient remains on Protonix 40 mg twice a day. Awaiting today's CBC results. Patient also was on Valtrex for shingles. He denies any chest pain or worsening shortness breath. Denies any nausea or vomiting. Reports having bowel moveme nts no diarrhea. Denies any burning with urination. Chest x-ray is showing improvement in aeration and worsening consolidation in right infrahilar region. He is felt pulmonary service. Creatinine is down from 1.96-1.82 01/25/2019 patient reports that he is feeling better. He did receive a dose of IV iron yesterday. Hemoglobin has gone up from 7.1-7.9. He is having regular stools. Denies any black stools or blood present in his stools. In case was discussed with both GI and cardiology service. Cardiology is recommending only to continue the Plavix and Eliquis 5 mg twice a day. Aspirin Be discontinued. GI service is given the okay to resume anticoagulation. Also recommending to monitor patient overnight the night for any further bleeding and repeat hemoglobin in a.m. Patient reports improvement in his shortness breath. He denies any chest pain denies any nausea or vomiting. Patient was rash is starting to scabe. Pulmonary service has cleared him for discharge. The urmila mmending Augmentin for antibiotic for his pneumonia at discharge. On 01/26/2019 patient is alert and oriented 3. Patient expresses he is very eager to go home. Patient has been cleared for discharge from pulmonary standpoint. Hemoglobin 7.4 which is decreased from 7.9 yesterday. Patient to receive IV iron prior to discharge. Patient will be discharged on Plavix and eliquis per cardiology and GI services recommendation. Repeat CBC and CMP will be ordered for 2 days. Per nursing staff and patient no signs of active bleeding. At this time patient denies chest pain or shortness of breath. Patient denies nausea vomiting or diarrhea. Patient denies any urinary burning or frequency I performed an examination of the patient and discussed their management with the Nurse Practitioner. I have reviewed the Nurse Practitioner's notes and agree with the documented findings and plan of care Patient Condition at Discharge: Stable Plan - Discharge Summary Discharge Rx Participant: No New Discharge Prescriptions: New Apixaban [Eliquis] 5 mg PO BID 30 Days #60 tab Pantoprazole [Protonix] 40 mg PO AC-BID 30 Days #60 tablet.dr Castillo-Pot Clav 500-125 mg [Augmentin 500-125 mg] 1 tab PO Q12HR 7 Days #14 tab Continue Liothyronine Sodium [Cytomel] 5 mcg PO DAILY Isosorbide Mononitrate ER [Imdur] 30 mg PO DAILY #90 tab.er.24h Levothyroxine Sodium [Synthroid] 112 mcg PO DAILY traMADol HCL [Ultram] 50 mg PO BID PRN PRN Reason: Pain Metoprolol Succinate (ER) [Toprol XL] 25 mg PO DAILY Nitroglycerin Sl Tabs [Nitrostat] 0.4 mg SUBLINGUAL Q5M PRN #25 tab PRN Reason: Chest Pain Clopidogrel [Plavix] 75 mg PO DAILY #90 tab Hydrocortisone Cream [Hydrocortisone 1% Cream] 1 applic TOPICAL BID PRN #1 applic PRN Reason: Skin Irritation Ferrous Sulfate [Feosol] 325 mg PO BID #60 tab Rosuvastatin Calcium [Crestor] 40 mg PO DAILY Cyanocobalamin (Vitamin B-12) [Vitamin B-12] 1,000 mcg PO DAILY Gabapentin [Neurontin] 800 mg PO TID Acetaminophen [Tylenol] 325 mg PO TID Discontinued Aspirin 81 mg PO DAILY Warfarin [Coumadin] 3 mg PO DAILY Discharge Medication List Liothyronine Sodium [Cytomel] 5 mcg PO DAILY 10/20/14 [History] Isosorbide Mononitrate ER [Imdur] 30 mg PO DAILY #90 tab.er.24h 10/23/14 [Rx] Levothyroxine Sodium [Synthroid] 112 mcg PO DAILY 01/11/17 [History] Metoprolol Succinate (ER) [Toprol XL] 25 mg PO DAILY 01/11/17 [History] traMADol HCL [Ultram] 50 mg PO BID PRN 01/11/17 [History] Nitroglycerin Sl Tabs [Nitrostat] 0.4 mg SUBLINGUAL Q5M PRN #25 tab 03/31/18 [Rx] Clopidogrel [Plavix] 75 mg PO DAILY #90 tab 05/04/18 [Rx] Ferrous Sulfate [Feosol] 325 mg PO BID #60 tab 01/13/19 [Rx] Hydrocortisone Cream [Hydrocortisone 1% Cream] 1 applic TOPICAL BID PRN #1 applic 01/13/19 [Rx] Acetaminophen [Tylenol] 325 mg PO TID 01/18/19 [History] Cyanocobalamin (Vitamin B-12) [Vitamin B-12] 1,000 mcg PO DAILY 01/18/19 [History] Gabapentin [Neurontin] 800 mg PO TID 01/18/19 [History] Rosuvastatin Calcium [Crestor] 40 mg PO DAILY 01/18/19 [History] Amoxic-Pot Clav 500-125 mg [Augmentin 500-125 mg] 1 tab PO Q12HR 7 Days #14 tab 01/26/19 [Rx] Apixaban [Eliquis] 5 mg PO BID 30 Days #60 tab 01/26/19 [Rx] Pantoprazole [Protonix] 40 mg PO AC-BID 30 Days #60 tablet. 01/26/19 [Rx] Follow up Appointment(s)/Referral(s): Man Goddard MD [STAFF PHYSICIAN] - 1 Week Thania Barney DO [Primary Care Provider] - 1-2 days Rickie Duff MD [STAFF PHYSICIAN] - 1 Week Ambulatory/Diagnostic Orders: Complete Blood Count w/diff [LAB.AMB] Time Frame: 2 Days, Location: None Selected Comprehensive Metabolic Panel [LAB.AMB] Location: None Selected Patient Instructions/Handouts: Sepsis (GEN), Pneumonia (DC) Activity/Diet/Wound Care/Special Instructions: Eneida baird is $28 for 30 day supply Discharge Disposition: HOME SELF-CARE
[2019-01-26 15:43] VITALS: BP 109/57; PULSE 86; RESP 17; TEMP 97.8
== END 2019-01-26 17:25 | disposition home or self-care (01) | DRG 871 ==
LOC: EC 12:09 → 3SCARD 15:35 → 4SSUR 01-21 22:40
PROVIDERS: ADMIT Internal Medicine; ATTEND Internal Medicine
PROC: 30233N1 Transfusion of Nonautologous Red Blood Cells into Peripheral Vein, Percutaneous Approach (ICD-10-PCS; 2019-01-19)
PROC: 0DJ08ZZ Inspection of Upper Intestinal Tract, Via Natural or Artificial Opening Endoscopic (ICD-10-PCS; principal; 2019-01-21 09:00)
PROC: 0DJD8ZZ Inspection of Lower Intestinal Tract, Via Natural or Artificial Opening Endoscopic (ICD-10-PCS; 2019-01-21 09:00)
DX: A41.9 Sepsis, unspecified organism (principal); J96.01 Acute respiratory failure with hypoxia; J18.9 Pneumonia, unspecified organism; K26.4 Chronic or unspecified duodenal ulcer with hemorrhage; N17.0 Acute kidney failure with tubular necrosis; C78.00 Secondary malignant neoplasm of unspecified lung; D62 Acute posthemorrhagic anemia; D68.32 Hemorrhagic disorder due to extrinsic circulating anticoagulants; E87.2 Acidosis; B02.9 Zoster without complications; C67.9 Malignant neoplasm of bladder, unspecified; T45.515A Adverse effect of anticoagulants, initial encounter; E78.5 Hyperlipidemia, unspecified; E86.0 Dehydration; H91.93 Unspecified hearing loss, bilateral; I12.9 Hypertensive chronic kidney disease with stage 1 through stage 4 chronic kidney disease, or unspecified chronic kidney disease; I25.10 Atherosclerotic heart disease of native coronary artery without angina pectoris; I25.2 Old myocardial infarction; J84.10 Pulmonary fibrosis, unspecified; K64.8 Other hemorrhoids; M48.00 Spinal stenosis, site unspecified; G89.29 Other chronic pain; N18.3 Chronic kidney disease, stage 3 (moderate); Y95 Nosocomial condition; Z79.01 Long term (current) use of anticoagulants; Z79.02 Long term (current) use of antithrombotics/antiplatelets; Z79.82 Long term (current) use of aspirin; Z79.890 Hormone replacement therapy; Z79.899 Other long term (current) drug therapy; Z86.79 Personal history of other diseases of the circulatory system; Z87.440 Personal history of urinary (tract) infections; Z87.442 Personal history of urinary calculi; Z87.891 Personal history of nicotine dependence; Z95.5 Presence of coronary angioplasty implant and graft; E07.9 Disorder of thyroid, unspecified; Z88.5 Allergy status to narcotic agent; Z88.1 Allergy status to other antibiotic agents; Z91.040 Latex allergy status
CPT/HCPCS: 36415; 43235; 45378; 71045; 71046; 80048; 80053; 80202; 81003; 82550; 83605; 83735; 83880; 84145; 84484; 85025; 85027; 85610; 85730; 86850; 86900; 86901; 86920; 87040; 87070; 87205; 93005; 93306; 96365; 96366; 96368; 99291

== ENCOUNTER 2019-01-28 10:02 | Emergency (ER) | payer MEDICARE, OTHER ==
[2019-01-28] MEDS ORDERED: SODIUM CHLORIDE 0.9% 1,000 ML IV STA (10:27)
--- NOTE | 2019-01-28 10:34 | ED ---
Weakness HPI - General Chief complaint: Weakness Stated complaint: Weakness, Low BP Time Seen by Provider: 01/28/19 10:16 Source: patient, family, RN notes reviewed Mode of arrival: wheelchair Limitations: no limitations - History of Present Illness Initial comments: This a 71-year-old male presents emergency Department with chief complaint of generalized weakness. Patient has had recent hospitalization for anemia, pneumonia, sepsis. Patient is advised to return the emergency Department if his heart rate was over 100. Patient's Rh 2120. He's had progressive weakness which he states he was still weak even when he was discharged from the hospital. Patient denies any melena or hematochezia. Patient states he has no chest pain or shortness of breath are the usual. Patient states she has no appetite just does not feel well. Patient is taking Eliquis she was on Coumadin for prior carotid clot. Patient had evidence of pneumonia on her admission discharged on Augmentin. Patient was to follow-up for metastatic cancer. - Related Data Home Medications Medication Instructions Recorded Confirmed Liothyronine Sodium [Cytomel] 5 mcg PO DAILY 10/20/14 01/28/19 Levothyroxine Sodium [Synthroid] 112 mcg PO DAILY 01/11/17 01/28/19 Metoprolol Succinate (ER) [Toprol 25 mg PO DAILY 01/11/17 01/28/19 XL] traMADol HCL [Ultram] 50 mg PO BID PRN 01/11/17 01/28/19 Acetaminophen [Tylenol] 325 mg PO TID 01/18/19 01/28/19 Cyanocobalamin (Vitamin B-12) 1,000 mcg PO DAILY 01/18/19 01/28/19 [Vitamin B-12] Gabapentin [Neurontin] 800 mg PO TID 01/18/19 01/28/19 Rosuvastatin Calcium [Crestor] 40 mg PO DAILY 01/18/19 01/28/19 Previous Rx's Medication Instructions Recorded Isosorbide Mononitrate ER [Imdur] 30 mg PO DAILY #90 tab.er.24h 10/23/14 Nitroglycerin Sl Tabs [Nitrostat] 0.4 mg SUBLINGUAL Q5M PRN #25 tab 03/31/18 Clopidogrel [Plavix] 75 mg PO DAILY #90 tab 05/04/18 Ferrous Sulfate [Feosol] 325 mg PO BID #60 tab 01/13/19 Hydrocortisone Cream 1 applic TOPICAL BID PRN #1 applic 01/13/19 [Hydrocortisone 1% Cream] Amoxic-Pot Clav 500-125 mg 1 tab PO Q12HR 7 Days #14 tab 01/26/19 [Augmentin 500-125 mg] Apixaban [Eliquis] 5 mg PO BID 30 Days #60 tab 01/26/19 Pantoprazole [Protonix] 40 mg PO AC-BID 30 Days #60 01/26/19 tablet. Allergies Allergy/AdvReac Type Severity Reaction Status Date / Time ciprofloxacin [From Cipro] Allergy Rash/Hives Verified 01/28/19 10:21 Iodinated Contrast- Oral and Allergy Unknown Verified 01/28/19 10:21 IV Dye [Iodinated Contrast Media - Oral and] morphine AdvReac Severe Nausea & Verified 01/28/19 10:21 Vomiting Review of Systems ROS Statement: Those systems with pertinent positive or pertinent negative responses have been documented in the HPI. ROS Other: All systems not noted in ROS Statement are negative. 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 LT KNEE HAD BONE CHIPS REMOVED,, 10-20-14 HEART CATH w/angioplasty but was unable to place stent, recent bladder polyp removed; indwelling catheter was removed 01-11-17. 3 STENTS RCA 05/03/18, biopsy lung-bronch Past Anesthesia/Blood Transfusion Reactions: No Reported Reaction Past Psychological History: No Psychological Hx Reported Smoking Status: Former smoker Past Alcohol Use History: None Reported Past Drug Use History: None Reported - Past Family History Mother Additional Family Medical History / Comment(s): brain tumor Father Family Medical History: Unable to Obtain General Exam Limitations: no limitations General appearance: alert, in no apparent distress, lethargic Head exam: Present: atraumatic, normocephalic, normal inspection Eye exam: Present: normal appearance, PERRL, EOMI. Absent: scleral icterus, conjunctival injection, periorbital swelling ENT exam: Present: normal exam, normal oropharynx, mucous membranes moist Neck exam: Present: normal inspection, full ROM. Absent: tenderness, meningismus, lymphadenopathy Respiratory exam: Present: normal lung sounds bilaterally. Absent: respiratory distress, wheezes, rales, rhonchi, stridor Cardiovascular Exam: Present: regular rate, normal rhythm, normal heart sounds. Absent: systolic murmur, diastolic murmur, rubs, gallop, clicks GI/Abdominal exam: Present: soft, normal bowel sounds. Absent: distended, tenderness, guarding, rebound, rigid Neurological exam: Present: alert, oriented X3, CN II-XII intact Psychiatric exam: Present: normal affect, normal mood Skin exam: Present: warm, dry, intact, normal color. Absent: rash Course Vital Signs 01/28/19 01/28/19 01/28/19 10:06 10:59 11:00 Temperature 97.8 F Pulse Rate 96 101 H 95 Respiratory 18 14 18 Rate Blood Pressure 88/55 O2 Sat by Pulse 94 L 94 L 95 Oximetry 01/28/19 01/28/19 01/28/19 11:10 11:20 11:24 Temperature Pulse Rate 92 86 81 Respiratory 17 14 18 Rate Blood Pressure 113/67 113/67 O2 Sat by Pulse 94 L Oximetry 01/28/19 01/28/19 01/28/19 11:30 11:40 11:50 Temperature Pulse Rate 81 80 80 Respiratory 11 L 18 20 Rate Blood Pressure 113/67 112/62 112/62 O2 Sat by Pulse 85 L 94 L 95 Oximetry 01/28/19 12:00 Temperature Pulse Rate Respiratory Rate Blood Pressure 112/62 O2 Sat by Pulse Oximetry - Reevaluation(s) Reevaluation #1: 01/28/19 12:39 Patient updated on results and reevaluated. Patient states he feels greatly improved at IV fluids. Medical Decision Making - Medical Decision Making 79-year-old male present emergency department for concerns of elevated heart rate. Patient currently has been within normals. Patient had initial blood p ressure which was low though this was rechecked before IV fluids and was improved. Patient labs, chest x-ray and urinalysis were repeated with no acute findings. Patient feels improved after IV fluids and will be discharged. Patient advised to increase fluid intake, food intake and will follow-up PCP - Lab Data Result diagrams: 01/28/19 11:00 01/28/19 11:00 Lab Results 01/28/19 01/28/19 01/28/19 Range/Units 11:00 11:00 11:00 WBC 9.9 (3.8-10.6) k/uL RBC 3.11 L (4.30-5.90) m/uL Hgb 8.5 L (13.0-17.5) gm/dL Hct 27.6 L (39.0-53.0) % MCV 88.6 (80.0-100.0) fL MCH 27.2 (25.0-35.0) pg MCHC 30.7 L (31.0-37.0) g/dL RDW 20.2 H (11.5-15.5) % Plt Count 288 (150-450) k/uL Neutrophils % 77 % Lymphocytes % 11 % Monocytes % 7 % Eosinophils % 2 % Basophils % 1 % Neutrophils # 7.6 (1.3-7.7) k/uL Lymphocytes # 1.1 (1.0-4.8) k/uL Monocytes # 0.7 (0-1.0) k/uL Eosinophils # 0.2 (0-0.7) k/uL Basophils # 0.1 (0-0.2) k/uL Hypochromasia Moderate Anisocytosis Moderate PT (9.0-12.0) sec INR (<1.2) APTT (22.0-30.0) sec Sodium 141 (137-145) mmol/L Potassium 4.6 (3.5-5.1) mmol/L Chloride 107 (98-107) mmol/L Carbon Dioxide 26 (22-30) mmol/L Anion Gap 8 mmol/L BUN 15 (9-20) mg/dL Creatinine 1.86 H (0.66-1.25) mg/dL Est GFR (CKD-EPI)AfAm 39 (>60 ml/min/1.73 sqM) Est GFR (CKD-EPI)NonAf 34 (>60 ml/min/1.73 sqM) Glucose 109 H (74-99) mg/dL Plasma Lactic Acid Evans 1.9 (0.7-2.0) mmol/L Calcium 9.1 (8.4-10.2) mg/dL Magnesium 2.1 (1.6-2.3) mg/dL Total Bilirubin 0.5 (0.2-1.3) mg/dL AST 22 (17-59) U/L ALT 22 (21-72) U/L Alkaline Phosphatase 95 (38-126) U/L Creatine Kinase <20 L (55-170) U/L Troponin I (0.000-0.034) ng/mL Total Protein 6.5 (6.3-8.2) g/dL Albumin 3.4 L (3.5-5.0) g/dL Urine Color Urine Appearance (Clear) Urine pH (5.0-8.0) Ur Specific [place] (1.001-1.035) Urine Protein (Negative) Urine Glucose (UA) (Negative) Urine Ketones (Negative) Urine Blood (Negative) Urine Nitrite (Negative) Urine Bilirubin (Negative) Urine Urobilinogen (<2.0) mg/dL Ur Leukocyte Esterase (Negative) Urine RBC (0-5) /hpf Urine WBC (0-5) /hpf Ur Squamous Epith Cells (0-4) /hpf Urine Bacteria (None) /hpf Urine Mucus (None) /hpf 01/28/19 01/28/19 01/28/19 Range/Units 11:00 11:00 11:00 WBC (3.8-10.6) k/uL RBC (4.30-5.90) m/uL Hgb (13.0-17.5) gm/dL Hct (39.0-53.0) % MCV (80.0-100.0) fL MCH (25.0-35.0) pg MCHC (31.0-37.0) g/dL RDW (11.5-15.5) % Plt Count (150-450) k/uL Neutrophils % % Lymphocytes % % Monocytes % % Eosinophils % % Basophils % % Neutrophils # (1.3-7.7) k/uL Lymphocytes # (1.0-4.8) k/uL Monocytes # (0-1.0) k/uL Eosinophils # (0-0.7) k/uL Basophils # (0-0.2) k/uL Hypochromasia Anisocytosis PT 10.3 (9.0-12.0) sec INR 1.0 (<1.2) APTT 24.6 (22.0-30.0) sec Sodium (137-145) mmol/L Potassium (3.5-5.1) mmol/L Chloride (98-107) mmol/L Carbon Dioxide (22-30) mmol/L Anion Gap mmol/L BUN (9-20) mg/dL Creatinine (0.66-1.25) mg/dL Est GFR (CKD-EPI)AfAm (>60 ml/min/1.73 sqM) Est GFR (CKD-EPI)NonAf (>60 ml/min/1.73 sqM) Glucose (74-99) mg/dL Plasma Lactic Acid Evans (0.7-2.0) mmol/L Calcium (8.4-10.2) mg/dL Magnesium (1.6-2.3) mg/dL Total Bilirubin (0.2-1.3) mg/dL AST (17-59) U/L ALT (21-72) U/L Alkaline Phosphatase (38-126) U/L Creatine Kinase (55-170) U/L Troponin I <0.012 (0.000-0.034) ng/mL Total Protein (6.3-8.2) g/dL Albumin (3.5-5.0) g/dL Urine Color Yellow Urine Appearance Clear (Clear) Urine pH 6.5 (5.0-8.0) Ur Specific [place] 1.016 (1.001-1.035) Urine Protein 1+ H (Negative) Urine Glucose (UA) Negative (Negative) Urine Ketones Negative (Negative) Urine Blood Negative (Negative) Urine Nitrite Negative (Negative) Urine Bilirubin Negative (Negative) Urine Urobilinogen <2.0 (<2.0) mg/dL Ur Leukocyte Esterase Moderate H (Negative) Urine RBC 1 (0-5) /hpf Urine WBC 7 H (0-5) /hpf Ur Squamous Epith Cells 6 H (0-4) /hpf Urine Bacteria Rare H (None) /hpf Urine Mucus Rare H (None) /hpf Disposition Clinical Impression: Generalized weakness, Dehydration Disposition: HOME SELF-CARE Condition: Stable Additional Instructions: Please return to the Emergency Department if symptoms worsen or any other concerns. Is patient prescribed a controlled substance at d/c from ED?: No Referrals: Thania Barney DO [Primary Care Provider] - 1-2 days Time of Disposition: 12:41
[2019-01-28 11:36] LABS: Partial Thromboplastin Time 24.6 sec (22.0-30.0); Prothrombin Time 10.3 sec (9.0-12.0)
[2019-01-28 11:40] LABS: ALT 22 U/L (21-72); AST 22 U/L (17-59); Albumin 3.4 g/dL (3.5-5.0); Alkaline Phosphatase 95 U/L (38-126); Anion Gap 8 mmol/L; Blood Urea Nitrogen 15 mg/dL (9-20); Calcium 9.1 mg/dL (8.4-10.2); Carbon Dioxide 26 mmol/L (22-30); Chloride 107 mmol/L (98-107); Creatine Kinase <20 U/L (55-170); Glucose 109 mg/dL (74-99); Magnesium 2.1 mg/dL (1.6-2.3); Potassium 4.6 mmol/L (3.5-5.1); Sodium 141 mmol/L (137-145); Total Bilirubin 0.5 mg/dL (0.2-1.3); Total Protein 6.5 g/dL (6.3-8.2)
[2019-01-28 11:41] LABS: Appearance,Urine Clear (Clear); Bacteria,Urine Rare /hpf; Bilirubin,Urine Negative (Negative); Blood,Urine Negative (Negative); Color,Urine Yellow; Glucose,Urine (UA) Negative (Negative); Ketones,Urine Negative (Negative); Leukocyte Esterase,Urine Moderate (Negative); Mucus,Urine Rare /hpf; Nitrite,Urine Negative (Negative); PH, Urine 6.5 (5.0-8.0); Protein,Urine 1+ (Negative); RBC,Urine 1 /hpf (0-5); Specific Gravity,Urine 1.016 (1.001-1.035); Squamous Epithelial Cell,Urine 6 /hpf (0-4); Urobilinogen,Urine <2.0 mg/dL (<2.0); WBC,Urine 7 /hpf (0-5)
[2019-01-28 11:56] LABS: Anisocytosis Moderate; Basophils # (A) 0.1 k/uL (0-0.2); Basophils % (A) 1 %; Eosinophils # (A) 0.2 k/uL (0-0.7); Eosinophils % (A) 2 %; HCT 27.6 % (39.0-53.0); HGB 8.5 gm/dL (13.0-17.5); Hypochromasia Moderate; Lymphocytes # (A) 1.1 k/uL (1.0-4.8); Lymphocytes % (A) 11 %; MCH 27.2 pg (25.0-35.0); MCHC 30.7 g/dL (31.0-37.0); MCV 88.6 fL (80.0-100.0); Monocytes # (A) 0.7 k/uL (0-1.0); Monocytes % (A) 7 %; Neutrophils # (A) 7.6 k/uL (1.3-7.7); Neutrophils % (A) 77 %; Platelet Count 288 k/uL (150-450); RBC 3.11 m/uL (4.30-5.90); RDW 20.2 % (11.5-15.5); WBC 9.9 k/uL (3.8-10.6)
--- NOTE | 2019-01-28 12:18 | XR ---
EXAMINATION TYPE: XR chest 2V DATE OF EXAM: 01/28/2019 COMPARISON: 01/24/[address] x-ray [address] CT thorax dated 10/19/2018. HISTORY: Weakness TECHNIQUE: Frontal and lateral views of the chest are obtained. FINDINGS: Right perihilar consolidation on correlate with the prior CT chest appears to represent th e right lower lobe mass. Pleural-based densities also representing the known pulmonary masses on the right. Subpleural reticulation is seen throughout related to underlying pulmonary fibrosis when lorenza red with the prior CT thorax. No sizable pneumothorax. Generalized osseous demineralization. Aortic s tent is seen. Cardia mediastinal silhouette is upper limits of normal. IMPRESSION: Right infrahilar and right basilar opacities represent the known masses. Findings are un changed from the prior x-ray of 01/24/2019. Other areas of atelectasis have resolved.
[2019-01-28 12:35] VITALS: PULSE 80
[2019-01-28 13:05] VITALS: BP 116/68; RESP 18; TEMP 98
== END 2019-01-28 13:04 | disposition home or self-care (01) ==
LOC: EC 10:02
DX: E86.0 Dehydration (principal); R53.1 Weakness; I25.10 Atherosclerotic heart disease of native coronary artery without angina pectoris; H91.92 Unspecified hearing loss, left ear; E78.5 Hyperlipidemia, unspecified; I10 Essential (primary) hypertension; I25.2 Old myocardial infarction; E07.9 Disorder of thyroid, unspecified; G62.9 Polyneuropathy, unspecified; Z87.891 Personal history of nicotine dependence; Z88.1 Allergy status to other antibiotic agents; Z88.5 Allergy status to narcotic agent; Z91.041 Radiographic dye allergy status; Z79.890 Hormone replacement therapy; Z79.891 Long term (current) use of opiate analgesic; Z79.899 Other long term (current) drug therapy; Z85.118 Personal history of other malignant neoplasm of bronchus and lung; Z85.51 Personal history of malignant neoplasm of bladder; Z97.4 Presence of external hearing-aid; Z86.79 Personal history of other diseases of the circulatory system; Z87.39 Personal history of other diseases of the musculoskeletal system and connective tissue; Z95.5 Presence of coronary angioplasty implant and graft; Z87.01 Personal history of pneumonia (recurrent)
CPT/HCPCS: 36415; 71046; 80053; 81001; 82550; 83605; 83735; 84484; 85025; 85610; 85730; 93005; 96360; 99285

== ENCOUNTER 2019-02-24 12:07 | Inpatient (IN) | payer MEDICARE, OTHER ==
[2019-02-24] MEDS ORDERED: ONDANSETRON 4 MG/2 ML VIAL IVP STA (12:17)
[2019-02-24] MEDS ORDERED: SODIUM CHLORIDE 0.9% 1,000 ML IV STA ×3 (12:17→12:35)
--- NOTE | 2019-02-24 12:19 | ED ---
Nausea/Vomiting/Diarrhea HPI - General Chief complaint: Nausea/Vomiting/Diarrhea Stated complaint: VOMITING, LETHARGY, FATIQUE Time Seen by Provider: 02/24/19 12:17 Source: patient, family, RN notes reviewed, old records reviewed Mode of arrival: wheelchair Limitations: no limitations - History of Present Illness Initial comments: This is a 71-year-old male to ER for evaluation. Patient's known to this emergency department for episodes of nausea vomiting, cancer related. Patient has lung cancer. No Current chemotherapy no fevers. Patient is multiple hospital admissions for severe dehydration persistent nausea vomiting, patient unable to tolerate appetite yesterday on has not eaten or drank anything today. Patient also had episode of vomiting today. Patient denies any significant pain. MD complaint: nausea, vomiting, diarrhea -: days(s) Description of Vomiting: food contents, watery, bilious Description of Diarrhea: water, mucous Associated Abdominal Pain: No Radiation: none Severity: mild Quality: aching Consistency: constant Improves with: none Worsens with: none Associated Symptoms: myalgias, nausea/vomiting, weakness - Related Data Home Medications Medication Instructions Recorded Confirmed Liothyronine Sodium [Cytomel] 5 mcg PO DAILY 10/20/14 02/24/19 Metoprolol Succinate (ER) [Toprol 25 mg PO DAILY 01/11/17 02/24/19 XL] traMADol HCL [Ultram] 50 - 100 mg PO BID PRN 01/11/17 02/24/19 Acetaminophen [Tylenol] 325 mg PO TID PRN 01/18/19 02/24/19 Cyanocobalamin (Vitamin B-12) 1,000 mcg PO DAILY 01/18/19 02/24/19 [Vitamin B-12] Gabapentin [Neurontin] 800 mg PO DIRECTED 01/18/19 02/24/19 Rosuvastatin Calcium [Crestor] 40 mg PO HS 01/18/19 02/24/19 Baclofen [Lioresal] 40 mg PO DIRECTED 02/24/19 02/24/19 Docusate [Colace] 100 mg PO DAILY PRN 02/24/19 02/24/19 Isosorbide Mononitrate ER [Imdur] 30 mg PO DIRECTED 02/24/19 02/24/19 Levothyroxine Sodium [Synthroid] 100 mcg PO DAILY 02/24/19 02/24/19 Omeprazole 20 mg PO DAILY 02/24/19 02/24/19 Warfarin [Coumadin] 5 mg PO HS 02/24/19 02/24/19 predniSONE 5 mg PO DAILY 02/24/19 02/24/19 Previous Rx's Medication Instructions Recorded Nitroglycerin Sl Tabs [Nitrostat] 0.4 mg SUBLINGUAL Q5M PRN #25 tab 03/31/18 Clopidogrel [Plavix] 75 mg PO DAILY #90 tab 05/04/18 Ferrous Sulfate [Feosol] 325 mg PO BID #60 tab 01/13/19 Pantoprazole [Protonix] 40 mg PO AC-BID 30 Days #60 01/26/19 tablet. Allergies Allergy/AdvReac Type Severity Reaction Status Date / Time ciprofloxacin [From Cipro] Allergy Rash/Hives Verified 02/24/19 12:29 Iodinated Contrast- Oral and Allergy Unknown Verified 02/24/19 12:29 IV Dye [Iodinated Contrast Media - Oral and] morphine AdvReac Severe Nausea & Verified 02/24/19 12:29 Vomiting Review of Systems ROS Statement: Those systems with pertinent positive or pertinent negative responses have been documented in the HPI. ROS Other: All systems not noted in ROS Statement are negative. Past Medical History Past Medical History: Coronary Artery Disease (CAD), Cancer, Hearing Disorder / Deafness, Hyperlipidemia, Hypertension, Myocardial Infarction (ND), Thyroid Disorder Additional Past Medical History / Comment(s): "aaa-repaired", vertigo AND HEARING LOSS SINCE [place] -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 LT KNEE HAD BONE CHIPS REMOVED,, 10-20-14 HEART CATH w/angioplasty but was unable to place stent, recent bladder polyp removed; indwelling catheter was removed 01-11-17. 3 STENTS RCA 05/03/18, biopsy lung-bronch Past Anesthesia/Blood Transfusion Reactions: No Reported Reaction Past Psychological History: No Psychological Hx Reported Smoking Status: Former smoker Past Alcohol Use History: None Reported Past Drug Use History: None Reported - Past Family History Mother Additional Family Medical History / Comment(s): brain tumor Father Family Medical History: Unable to Obtain General Exam Limitations: no limitations Course Vital Signs 02/24/19 02/24/19 02/24/19 12:12 12:45 13:25 Temperature 98.1 F Pulse Rate 80 86 88 Respiratory 16 24 24 Rate Blood Pressure 105/65 119/69 114/65 O2 Sat by Pulse 97 99 99 Oximetry - Reevaluation(s) Reevaluation #1: 02/24/19 13:38 Medical record and prior hospitalizations reviewed Reevaluation #2: 02/24/19 13:38 Symptoms improved, improving 02/24/19 13:39 No active nausea or vomiting Medical Decision Making - Medical Decision Making 79 maale to ED w NVD, weakness, anorexia, CA pain, will admit for symptom management - Lab Data Result diagrams: 02/24/19 12:35 02/24/19 12:35 Lab Results 02/24/19 02/24/19 02/24/19 Range/Units 12:35 12:35 12:35 WBC 11.4 H (3.8-10.6) k/uL RBC 4.52 (4.30-5.90) m/uL Hgb 11.9 L D (13.0-17.5) gm/dL Hct 38.9 L (39.0-53.0) % MCV 86.1 (80.0-100.0) fL MCH 26.3 (25.0-35.0) pg MCHC 30.5 L (31.0-37.0) g/dL RDW 17.1 H (11.5-15.5) % Plt Count 416 (150-450) k/uL Neutrophils % 75 % Lymphocytes % 15 % Monocytes % 7 % Eosinophils % 2 % Basophils % 1 % Neutrophils # 8.6 H (1.3-7.7) k/uL Lymphocytes # 1.7 (1.0-4.8) k/uL Monocytes # 0.8 (0-1.0) k/uL Eosinophils # 0.2 (0-0.7) k/uL Basophils # 0.1 (0-0.2) k/uL Hypochromasia Moderate Anisocytosis Slight PT (9.0-12.0) sec INR (<1.2) Sodium 142 (137-145) mmol/L Potassium 5.5 H (3.5-5.1) mmol/L Chloride 104 (98-107) mmol/L Carbon Dioxide 26 (22-30) mmol/L Anion Gap 12 mmol/L BUN 35 H (9-20) mg/dL Creatinine 1.73 H (0.66-1.25) mg/dL Est GFR (CKD-EPI)AfAm 43 (>60 ml/min/1.73 sqM) Est GFR (CKD-EPI)NonAf 37 (>60 ml/min/1.73 sqM) Glucose 130 H (74-99) mg/dL Plasma Lactic Acid Evans 2.2 H* (0.7-2.0) mmol/L Calcium 10.0 (8.4-10.2) mg/dL Phosphorus 3.6 (2.5-4.5) mg/dL Magnesium 2.4 H (1.6-2.3) mg/dL Total Bilirubin 0.7 (0.2-1.3) mg/dL AST 37 (17-59) U/L ALT 37 (21-72) U/L Alkaline Phosphatase 138 H (38-126) U/L Troponin I (0.000-0.034) ng/mL Total Protein 8.3 H (6.3-8.2) g/dL Albumin 4.1 (3.5-5.0) g/dL 02/24/19 02/24/19 Range/Units 12:35 12:35 WBC (3.8-10.6) k/uL RBC (4.30-5.90) m/uL Hgb (13.0-17.5) gm/dL Hct (39.0-53.0) % MCV (80.0-100.0) fL MCH (25.0-35.0) pg MCHC (31.0-37.0) g/dL RDW (11.5-15.5) % Plt Count (150-450) k/uL Neutrophils % % Lymphocytes % % Monocytes % % Eosinophils % % Basophils % % Neutrophils # (1.3-7.7) k/uL Lymphocytes # (1.0-4.8) k/uL Monocytes # (0-1.0) k/uL Eosinophils # (0-0.7) k/uL Basophils # (0-0.2) k/uL Hypochromasia Anisocytosis PT 24.4 H (9.0-12.0) sec INR 2.5 H (<1.2) Sodium (137-145) mmol/L Potassium (3.5-5.1) mmol/L Chloride (98-107) mmol/L Carbon Dioxide (22-30) mmol/L Anion Gap mmol/L BUN (9-20) mg/dL Creatinine (0.66-1.25) mg/dL Est GFR (CKD-EPI)AfAm (>60 ml/min/1.73 sqM) Est GFR (CKD-EPI)NonAf (>60 ml/min/1.73 sqM) Glucose (74-99) mg/dL Plasma Lactic Acid Evans (0.7-2.0) mmol/L Calcium (8.4-10.2) mg/dL Phosphorus (2.5-4.5) mg/dL Magnesium (1.6-2.3) mg/dL Total Bilirubin (0.2-1.3) mg/dL AST (17-59) U/L ALT (21-72) U/L Alkaline Phosphatase (38-126) U/L Troponin I <0.012 (0.000-0.034) ng/mL Total Protein (6.3-8.2) g/dL Albumin (3.5-5.0) g/dL - EKG Data -: EKG Interpreted by Me (EKG shows sinus rhythm rate of 60, HI 146, QRS 84, QTc 460) - Radiology Data Radiology results: report reviewed (CXR is negatiev for acute disease), image reviewed Disposition Clinical Impression: Generalized weakness, Nausea, Diarrhea Disposition: ADMITTED IP TO THIS HOSP Condition: Fair Is patient prescribed a controlled substance at d/c from ED?: No Referrals: Thania Barney DO [Primary Care Provider] - 1-2 days
[2019-02-24] MEDS ORDERED: methylPREDNISolone SOD SUCCI 125 MG/2 ML VIAL IV STA (12:34)
[2019-02-24] MEDS ORDERED: HYDROmorphone 1 MG/ML 1 ML SYRINGE IVP STA (12:34)
[2019-02-24] MEDS ORDERED: PANTOPRAZOLE 40 MG/10 ML VIAL IVP STA (12:34)
[2019-02-24] MEDS ORDERED: SODIUM CHLORIDE 0.9% 500 ML 500 ML IV STA (12:35)
[2019-02-24 12:51] LABS: Anisocytosis Slight; Basophils # (A) 0.1 k/uL (0-0.2); Basophils % (A) 1 %; Eosinophils # (A) 0.2 k/uL (0-0.7); Eosinophils % (A) 2 %; HCT 38.9 % (39.0-53.0); Hypochromasia Moderate; Lymphocytes # (A) 1.7 k/uL (1.0-4.8); Lymphocytes % (A) 15 %; MCH 26.3 pg (25.0-35.0); MCHC 30.5 g/dL (31.0-37.0); MCV 86.1 fL (80.0-100.0); Mean Platelet Volume 7.2; Monocytes # (A) 0.8 k/uL (0-1.0); Monocytes % (A) 7 %; Neutrophils # (A) 8.6 k/uL (1.3-7.7); Neutrophils % (A) 75 %; Platelet Count 416 k/uL (150-450); RBC 4.52 m/uL (4.30-5.90); RDW 17.1 % (11.5-15.5); WBC 11.4 k/uL (3.8-10.6)
[2019-02-24 13:02] LABS: Albumin 4.1 g/dL (3.5-5.0); Magnesium 2.4 mg/dL (1.6-2.3); Phosphorus 3.6 mg/dL (2.5-4.5); Potassium 5.5 mmol/L (3.5-5.1); Total Bilirubin 0.7 mg/dL (0.2-1.3); Total Protein 8.3 g/dL (6.3-8.2)
[2019-02-24 13:10] LABS: INR 2.5 (<1.2); Prothrombin Time 24.4 sec (9.0-12.0)
[2019-02-24 13:12] LABS: HGB 11.9 gm/dL (13.0-17.5)
--- NOTE | 2019-02-24 13:16 | XR ---
EXAMINATION TYPE: XR chest 2V DATE OF EXAM: 02/24/2019 COMPARISON: 02/03/2019 TECHNIQUE: PA and lateral views submitted. HISTORY: Cough FINDINGS: Right infrahilar and right basilar opacities again represent the patient's known masses. Reticular in terstitial opacities relate to pulmonary fibrosis. Aortic stent of the descending thoracic aorta and probable coronary artery stent are seen. No sizable pneumothorax. Arthropathy shoulders with diffuse osteopenia. Degenerative change of the spine. Biapical pleural parenchymal scarring is seen. Chronic reaction at the right costophrenic angle is se en without sizable pleural effusion. Diffuse osseous demineralization is noted. Thoracic MRI heights are stable. IMPRESSION: 1. Right lower lobe and perihilar masses are stable relative the prior exam. Underlying pulmonary fib rosis suggested..
[2019-02-24] MEDS ORDERED: DEXTROSE 5%-0.45% NACL 1,000 ML IV ONE (14:20)
[2019-02-24 14:30] LABS: Appearance,Urine Clear (Clear); Bilirubin,Urine Negative (Negative); Blood,Urine Negative (Negative); Color,Urine Yellow; Glucose,Urine (UA) Negative (Negative); Ketones,Urine Negative (Negative); Leukocyte Esterase,Urine Negative (Negative); Nitrite,Urine Negative (Negative); Protein,Urine Trace (Negative); Specific Gravity,Urine 1.014 (1.001-1.035); Urobilinogen,Urine <2.0 mg/dL (<2.0)
[2019-02-24] MEDS: ONDANSETRON 4 MG/2 ML VIAL IVP PRN (17:24)
[2019-02-24] MEDS ORDERED: NITROGLYCERIN SL TABS 0.4 MG TAB SUBLINGUAL PRN (18:05)
[2019-02-24] MEDS ORDERED: ACETAMINOPHEN TAB 325 MG TAB PO PRN (18:05)
[2019-02-24] MEDS ORDERED: GABAPENTIN 800 MG PO SCH (18:15)
[2019-02-24] MEDS ORDERED: WARFARIN 5 MG TAB PO SCH (19:00)
--- NOTE | 2019-02-24 20:27 | P.HPIM ---
History of Present Illness H&P Date: 02/24/19 Chief Complaint: Dehydration Aubrey Gomez is a 79-year-old male with a past medical history of lung cancer, coronary artery disease with stenting, hypothyroidism, hypertension who presented to [facility] ED today for weakness, nausea and vomiting. He states he has been unable to keep anything down for the past 2 days. He denies recent chemotherapy, states he has not been able to start due to his recurrent nausea and vomiting. He denies chest pain, shortness of breath, abdominal pain. He does complain of chronic back pain. In the ED, his vitals are stable, creatinine was increased to 1.73 from baseline 1.5, and lactic increased to 2.2. Review of Systems All systems: negative Constitutional: Reports fatigue, Reports lethargy, Reports malaise, Reports poor appetite, Reports weakness, Denies chills, Denies fever Eyes: denies blurred vision, denies pain Ears, nose, mouth and throat: Denies headache, Denies sore throat Cardiovascular: Denies chest pain, Denies shortness of breath Respiratory: Denies cough Gastrointestinal: Reports loss of appetite, Denies abdominal pain, Denies diarrhea, Denies nausea, Denies vomiting Musculoskeletal: Denies myalgias Integumentary: Denies pruritus, Denies rash Neurological: Denies numbness, Denies weakness Psychiatric: Denies anxiety, Denies depression Endocrine: Denies fatigue, Denies weight change Past Medical History Past Medical History: Coronary Artery Disease (CAD), Cancer, Hearing Disorder / Deafness, Hyperlipidemia, Hypertension, Myocardial Infarction (DC), Thyroid Disorder Additional Past Medical History / Comment(s): "aaa-repaired", vertigo AND HEARING LOSS SINCE [place] -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 LT KNEE HAD BONE CHIPS REMOVED,, 10-20-14 HEART CATH w/angioplasty but was unable to place stent, recent bladder polyp removed; indwelling catheter was removed 01-11-17. 3 STENTS RCA 05/03/18, biopsy lung-bronch Past Anesthesia/Blood Transfusion Reactions: No Reported Reaction Smoking Status: Former smoker - Past Family History Mother Additional Family Medical History / Comment(s): brain tumor Father Family Medical History: Unable to Obtain Medications and Allergies Home Medications Medication Instructions Recorded Confirmed Type Liothyronine Sodium [Cytomel] 5 mcg PO DAILY 10/20/14 02/24/19 History Metoprolol Succinate (ER) [Toprol 25 mg PO DAILY 01/11/17 02/24/19 History XL] traMADol HCL [Ultram] 50 - 100 mg PO BID PRN 01/11/17 02/24/19 History Nitroglycerin Sl Tabs [Nitrostat] 0.4 mg SUBLINGUAL Q5M PRN #25 tab 03/31/18 02/24/19 Rx Clopidogrel [Plavix] 75 mg PO DAILY #90 tab 05/04/18 02/24/19 Rx Ferrous Sulfate [Feosol] 325 mg PO BID #60 tab 01/13/19 02/24/19 Rx Acetaminophen [Tylenol] 325 mg PO TID PRN 01/18/19 02/24/19 History Cyanocobalamin (Vitamin B-12) 1,000 mcg PO DAILY 01/18/19 02/24/19 History [Vitamin B-12] Gabapentin [Neurontin] 800 mg PO DIRECTED 01/18/19 02/24/19 History Rosuvastatin Calcium [Crestor] 40 mg PO HS 01/18/19 02/24/19 History Pantoprazole [Protonix] 40 mg PO AC-BID 30 Days #60 01/26/19 02/24/19 Rx tablet. Baclofen [Lioresal] 40 mg PO DIRECTED 02/24/19 02/24/19 History Docusate [Colace] 100 mg PO DAILY PRN 02/24/19 02/24/19 History Isosorbide Mononitrate ER [Imdur] 30 mg PO DIRECTED 02/24/19 02/24/19 History Levothyroxine Sodium [Synthroid] 100 mcg PO DAILY 02/24/19 02/24/19 History Omeprazole 20 mg PO DAILY 02/24/19 02/24/19 History Warfarin [Coumadin] 5 mg PO HS 02/24/19 02/24/19 History predniSONE 5 mg PO DAILY 02/24/19 02/24/19 History Allergies Allergy/AdvReac Type Severity Reaction Status Date / Time ciprofloxacin [From Cipro] Allergy Rash/Hives Verified 02/24/19 12:29 Iodinated Contrast- Oral and Allergy Unknown Verified 02/24/19 12:29 IV Dye [Iodinated Contrast Media - Oral and] morphine AdvReac Severe Nausea & Verified 02/24/19 12:29 Vomiting Physical Exam Vitals: Vital Signs Temp Pulse Pulse Resp BP BP Pulse Ox 02/24/19 15:24 96.0 F L 69 16 121/72 99 02/24/19 14:56 98.6 F 67 22 115/68 98 02/24/19 14:22 69 22 106/66 99 02/24/19 13:25 88 24 114/65 99 02/24/19 12:45 86 24 119/69 99 02/24/19 12:12 98.1 F 80 16 105/65 97 Intake and Output 02/24/19 02/24/19 02/24/19 06:59 14:59 22:59 Output Total 200 Balance -200 Output: Urine 200 Other: # Voids 1 Weight 72.575 kg Physical examination: VITAL SIGNS: [Reviewed. BMI noted] GENERAL: [Well developed, well nourished, NAD]. EYES: [Pupils equal. Conjunctiva christo]l. HEENT: [External appearance of nose and ears normal, oral cavity grossly normal]. NECK: [Supple, no JVD; no thyromegaly]. HEART: [Regular rate and rhythm. No murmur. Peripheral pulses 2+]. LUNGS:[ Respiratory rate normal; clear to auscultation]. ABDOMEN: [Soft, nontender, liver spleen not palpable, no masses palpable]. LYMPHATICS: [No lymph nodes palpable in the axilla and neck]. PSYCH: [Alert and oriented x3; mood and affect christo]l. NEUROLOGICAL: [Cranial nerves grossly intact; no facial asymmetry, power and sensation grossly intact]. Results CBC & Chem 7: 02/24/19 12:35 02/24/19 12:35 Labs: Abnormal Lab Results - Last 24 Hours (Table) 02/24/19 02/24/19 02/24/19 Range/Units 12:35 12:35 12:35 WBC 11.4 H (3.8-10.6) k/uL Hgb 11.9 L D (13.0-17.5) gm/dL Hct 38.9 L (39.0-53.0) % MCHC 30.5 L (31.0-37.0) g/dL RDW 17.1 H (11.5-15.5) % Neutrophils # 8.6 H (1.3-7.7) k/uL PT (9.0-12.0) sec INR (<1.2) Potassium 5.5 H (3.5-5.1) mmol/L BUN 35 H (9-20) mg/dL Creatinine 1.73 H (0.66-1.25) mg/dL Glucose 130 H (74-99) mg/dL Plasma Lactic Acid Evans 2.2 H* (0.7-2.0) mmol/L Magnesium 2.4 H (1.6-2.3) mg/dL Alkaline Phosphatase 138 H (38-126) U/L Total Protein 8.3 H (6.3-8.2) g/dL Urine Protein (Negative) 02/24/19 02/24/19 Range/Units 12:35 14:19 WBC (3.8-10.6) k/uL Hgb (13.0-17.5) gm/dL Hct (39.0-53.0) % MCHC (31.0-37.0) g/dL RDW (11.5-15.5) % Neutrophils # (1.3-7.7) k/uL PT 24.4 H (9.0-12.0) sec INR 2.5 H (<1.2) Potassium (3.5-5.1) mmol/L BUN (9-20) mg/dL Creatinine (0.66-1.25) mg/dL Glucose (74-99) mg/dL Plasma Lactic Acid Evans (0.7-2.0) mmol/L Magnesium (1.6-2.3) mg/dL Alkaline Phosphatase (38-126) U/L Total Protein (6.3-8.2) g/dL Urine Protein Trace H (Negative) Thrombosis Risk Factor Assmnt - Choose All That Apply Any of the Below Risk Factors Present?: Yes Other Risk Factors: Yes Each Risk Factor Represents 3 Points: Age 75 years or older Other congenital or acquired thrombophilia - If yes, enter type in comment: No Thrombosis Risk Factor Assessment Total Risk Factor Score: 3 Thrombosis Risk Factor Assessment Level: Moderate Risk Assessment and Plan Assessment: 1. Acute kidney injury. Received 3 L IV fluid in the ED. Continue IVF 2. Elevated lactic acid. Secondary to dehydration 3. History of lung cancer. Oncology consult. Pain control and antiemetics 4. Coronary artery disease with stenting, history of [place]. Continue coumadin, AM INR. Continue imdur 5. Hypothyroidism. Continue synthroid GI prophylaxis: PPI DVT prophylaxis: coumadin (1) Acute kidney injury Current Visit: Yes Status: Acute Code(s): N17.9 - ACUTE KIDNEY FAILURE, UNS PECIFIED SNOMED Code(s): 72366011
[2019-02-24] MEDS: ATORVASTATIN 80 MG TAB PO SCH (20:28)
[2019-02-24] MEDS: BACLOFEN 10 MG TAB PO SCH (21:57)
[2019-02-25] MEDS: LEVOTHYROXINE 100 MCG TAB PO SCH (05:54)
[2019-02-25] MEDS ORDERED: PANTOPRAZOLE 40 MG/10 ML VIAL IVP SCH (09:00)
[2019-02-25] MEDS ORDERED: NON-FORMULARY DRUG (Omeprazole [Omeprazole] 20 MG) PO SCH (09:00)
[2019-02-25] MEDS: BACLOFEN 10 MG TAB PO SCH ×3 (09:19→21:33)
[2019-02-25] MEDS: methylPREDNISolone SOD SUCCI 125 MG/2 ML VIAL IV SCH (09:19)
[2019-02-25] MEDS: ISOSORBIDE MONONITRATE ER 30 MG TAB.ER.24H PO SCH (09:19)
[2019-02-25] MEDS: METOPROLOL SUCCINATE (ER) 25 MG TAB.ER.24H PO SCH (09:19)
[2019-02-25] MEDS: CLOPIDOGREL 75 MG TAB PO SCH (09:19)
[2019-02-25] MEDS: LIOTHYRONINE SODIUM 5 MCG TAB PO SCH (09:20)
[2019-02-25 09:37] LABS: INR 3.7 (<1.2); Prothrombin Time 35.7 sec (9.0-12.0)
[2019-02-25 09:52] LABS: Calcium 9.2 mg/dL (8.4-10.2); Potassium 4.7 mmol/L (3.5-5.1)
[2019-02-25 14:38] VITALS: BMI 24.3
[2019-02-25] MEDS: MEGESTROL 400 MG/10 ML CUP PO SCH (15:52)
[2019-02-25] MEDS ORDERED: traMADol 50 MG TAB PO PRN (16:09)
--- NOTE | 2019-02-25 17:19 | CONS ---
CONSULTATION REASON FOR CONSULTATION: Lung cancer. HISTORY OF ILLNESS: Mr. Gomez is a pleasant 79-year-old gentleman with known advanced [id number] cancer of the lung, squamous cell subtype, with a primary in the right lower lobe with multiple areas of intrapulmonary metastases. He was not found to be a surgical candidate and instead received first systemic therapy utilizing single immunotherapy in the form of Tecentriq on 02/04/2019. Second dose was last week, which was held due to the patient's progressive weakness, loss of functional status and shortness of breath. He presented to the emergency room last night. He reported mild abdominal pain; however, he has been mostly very tired with decreased oral solid and liquid intake and loss of functional status. When seen today, he reported feeling better after receiving IV fluids in the emergency room and following admission. PAST MEDICAL HISTORY: 1. Lung cancer with diagnostic and therapeutic circumstances as indicated above. 2. Stable coronary artery disease. 3. COPD. 4. Hypertension. 5. Hypothyroidism. CURRENT MEDICATIONS: Reviewed with the patient and listed in the electronic medical record. SOCIAL HISTORY: The patient smoked 1-1/2 packs of cigarettes daily; quit smoking just recently after diagnosis of cancer. Denies any excessive use of alcohol. REVIEW OF SYSTEMS: Progressive anorexia, decreased oral intake, weight loss, intermittent abdominal pain, increasing shortness of breath. PHYSICAL EXAMINATION: The patient appeared alert and oriented. Skin is warm and dry. Hair distribution within normal for age and gender. Blood pressure was 111/56, pulse 74 and regular, respiratory rate 18, not labored. There is no pathologic cervical, supraclavicular, infraclavicular or axillary lymphadenopathy. Trachea was in midline. Chest was clear with good air exchange bilaterally. Heart sounds are normal S1 and S2. There was no S3, rubs or murmurs auscultated. Abdomen was soft. The liver and the spleen were not clinically palpable; no masses, tenderness or inguinal lymphadenopathy. Extremities appeared to be grossly unremarkable. Range of motion was within normal; no deformity seen. Neurologic examination showed no focal motor or sensory deficits. Cranial nerves II through XII unremarkable. LABORATORY STUDIES: Elevated BUN and creatinine, more consistent with azotemia than an acute renal injury. IMPRESSION: 1. Acute dehydration, improved. 2. Anorexia and weight loss. 3. Advanced metastatic [id number] cancer of the lung, on Tecentriq, as stated above. 4. Coronary artery disease, stable. 5. Medical debility. RECOMMENDATIONS: 1. Agree with current management. 2. Start on Megace for medical treatment of anorexia. 3. Analgesics as needed. 4. Further Tecentriq therapy after discharge. We will follow the patient along with you in the hospital. Further recommendations to follow. Thank you for giving us the privilege of participating in the care of Mr. Gomez. MADELEINE / SHAKIRAN: [id number] /
[2019-02-25] MEDS ORDERED: WARFARIN 0.5 MG TAB PO ONE (18:00)
[2019-02-25] MEDS: ATORVASTATIN 80 MG TAB PO SCH (21:32)
[2019-02-26] MEDS: ONDANSETRON 4 MG/2 ML VIAL IVP PRN ×3 (02:11→20:38)
[2019-02-26 03:51] LABS: Glucose,Whole Blood 119 mg/dL (75-99)
[2019-02-26] MEDS ORDERED: PROCHLORPERAZINE 5 MG TAB PO PRN (05:30)
[2019-02-26] MEDS: LEVOTHYROXINE 100 MCG TAB PO SCH (06:27)
[2019-02-26 08:05] LABS: INR 4.3 (<1.2); Prothrombin Time 41.4 sec (9.0-12.0)
--- NOTE | 2019-02-26 09:17 | P.PN ---
Subjective Progress Note Date: 02/25/19 Patient seen and evaluated at bedside. He continues to feel weak today and has no appetite. Attributes this to food tasting bad. Denies chest pain, shortness of breath, abd pain. Objective - Vital Signs Vital signs: Vital Signs Temp 97.5 F L 02/26/19 05:00 Pulse 68 02/26/19 05:00 Resp 16 02/26/19 05:00 BP 137/76 02/26/19 05:00 Pulse Ox 99 02/26/19 05:00 Intake & Output 02/25/19 02/26/19 02/26/19 18:59 06:59 18:59 Intake Total 200 700 Output Total 200 Balance 0 700 Weight 72.575 kg Intake: Oral 200 700 Output: Urine 200 Other: Voiding Method Urinal Toilet Urinal # Voids 1 1 # Bowel Movements 1 - Exam General: thin, pleasant, NAD HEENT: mucus membranes moist CV: RRR, no murmur Lungs: normal respiratory effort, clear sterling Ext: no edema - Labs CBC & Chem 7: 02/24/19 12:35 02/25/19 08:58 Labs: Abnormal Lab Results - Last 24 Hours (Table) 02/25/19 02/25/19 02/26/19 Range/Units 08:58 08:58 03:50 PT 35.7 H (9.0-12.0) sec INR 3.7 H (<1.2) Chloride 109 H (98-107) mmol/L BUN 30 H (9-20) mg/dL Creatinine 1.64 H (0.66-1.25) mg/dL Glucose 110 H (74-99) mg/dL POC Glucose (mg/dL) 119 H (75-99) mg/dL 02/26/19 Range/Units 07:25 PT 41.4 H (9.0-12.0) sec INR 4.3 H (<1.2) Chloride (98-107) mmol/L BUN (9-20) mg/dL Creatinine (0.66-1.25) mg/dL Glucose (74-99) mg/dL POC Glucose (mg/dL) (75-99) mg/dL Assessment and Plan Assessment: 1. Acute kidney injury. Received 3 L IV fluid in the ED. Creatinine improving. Continue IVF 2. Intractable nausea and vomiting. Manage with zofran q8h prn 3. Elevated lactic acid. Secondary to dehydration 4. History of lung cancer. Oncology consult. Pain control and antiemetics 5. Coronary artery disease with stenting, history of [place]. Continue coumadin pha rmacy to dose. Continue imdur 6. Hypothyroidism. Continue synthroid GI prophylaxis: PPI DVT prophylaxis: coumadin (1) Acute kidney injury Current Visit: Yes Status: Acute Code(s): N17.9 - ACUTE KIDNEY FAILURE, UNSPECIFIED SNOMED Code(s): 05296015
--- NOTE | 2019-02-26 09:20 | P.PN ---
Subjective Progress Note Date: 02/26/19 Patient seen and evaluated at bedside. Pt woke up at 3 am last night very nauseated and vomited multiple times, controlled with zofran and compazine. Oncology saw pt yesterday and recommended adding megace. He continues to report poor appetite. Objective - Vital Signs Vital signs: Vital Signs Temp 97.5 F L 02/26/19 05:00 Pulse 68 02/26/19 05:00 Resp 16 02/26/19 05:00 BP 137/76 02/26/19 05:00 Pulse Ox 99 02/26/19 05:00 Intake & Output 02/25/19 02/26/19 02/26/19 18:59 06:59 18:59 Intake Total 200 700 Output Total 200 Balance 0 700 Weight 72.575 kg Intake: Oral 200 700 Output: Urine 200 Other: Voiding Method Urinal Toilet Urinal # Voids 1 1 # Bowel Movements 1 - Exam General: thin, pleasant, NAD HEENT: mucus membranes moist CV: RRR, no murmur Lungs: normal respiratory effort, clear sterling Ext: no edema - Labs CBC & Chem 7: 02/24/19 12:35 02/25/19 08:58 Labs: Abnormal Lab Results - Last 24 Hours (Table) 02/25/19 02/25/19 02/26/19 Range/Units 08:58 08:58 03:50 PT 35.7 H (9.0-12.0) sec INR 3.7 H (<1.2) Chloride 109 H (98-107) mmol/L BUN 30 H (9-20) mg/dL Creatinine 1.64 H (0.66-1.25) mg/dL Glucose 110 H (74-99) mg/dL POC Glucose (mg/dL) 119 H (75-99) mg/dL 02/26/19 Range/Units 07:25 PT 41.4 H (9.0-12.0) sec INR 4.3 H (<1.2) Chloride (98-107) mmol/L BUN (9-20) mg/dL Creatinine (0.66-1.25) mg/dL Glucose (74-99) mg/dL POC Glucose (mg/dL) (75-99) mg/dL Assessment and Plan Assessment: 1. Acute kidney injury. Received 3 L IV fluid in the ED. Creatinine improving. Continue IVF 2. Intractable nausea and vomiting. Received zofran and compazine last night. Will schedule reglan today 3. Elevated lactic acid. Secondary to dehydration 4. History of lung cancer. Oncology consulted. Add megace for appetite 5. Coronary artery disease with stenting, history of DC. Continue coumadin pharmacy to dose. Continue imdur 6. Hypothyroidism. Continue synthroid GI prophylaxis: PPI DVT prophylaxis: coumadin (1) Acute kidney injury Current Visit: Yes Status: Acute Code(s): N17.9 - ACUTE KIDNEY FAILURE, UNSPECIFIED SNOMED Code(s): 32736350
[2019-02-26] MEDS: PANTOPRAZOLE 40 MG TABLET PO SCH (10:03)
[2019-02-26] MEDS: BACLOFEN 10 MG TAB PO SCH ×3 (10:03→20:47)
[2019-02-26] MEDS: ISOSORBIDE MONONITRATE ER 30 MG TAB.ER.24H PO SCH (10:03)
[2019-02-26] MEDS: METOPROLOL SUCCINATE (ER) 25 MG TAB.ER.24H PO SCH (10:03)
[2019-02-26] MEDS: CLOPIDOGREL 75 MG TAB PO SCH (10:03)
[2019-02-26] MEDS: MEGESTROL 400 MG/10 ML CUP PO SCH (10:04)
[2019-02-26] MEDS: LIOTHYRONINE SODIUM 5 MCG TAB PO SCH (10:04)
[2019-02-26] MEDS: methylPREDNISolone SOD SUCCI 125 MG/2 ML VIAL IV SCH (10:04)
[2019-02-26] MEDS: METOCLOPRAMIDE 5 MG TAB PO SCH ×2 (10:05→20:41)
[2019-02-26] MEDS ORDERED: WARFARIN 0.5 MG TAB PO ONE (18:00)
[2019-02-26 19:17] LABS: Glucose,Whole Blood 88 mg/dL (75-99)
--- NOTE | 2019-02-26 20:15 | XR ---
EXAMINATION TYPE: XR chest 1V portable DATE OF EXAM: 02/26/2019 COMPARISON: 02/24/2019 HISTORY: Short of breath TECHNIQUE: Single frontal view of the chest is obtained. FINDINGS: Heart is enlarged. There is pulmonary interstitial fibrosis. There are chest leads. There is slight blunting of the right costophrenic angle. Thoracic aorta is atheromatous. IMPRESSION: Extensive pulmonary interstitial fibrosis unchanged. Mild pleural reaction and fluid and infiltrate at the right lung base increased compared to recent exam.
--- NOTE | 2019-02-26 20:38 | XR ---
EXAMINATION TYPE: XR knee limited LT DATE OF EXAM: 02/26/2019 COMPARISON: NONE HISTORY: Knee pain TECHNIQUE: 2 views FINDINGS: I see no fracture nor dislocation. Joint spaces are normal. There are no pathologic calcifi cations. IMPRESSION: Negative left knee exam.
--- NOTE | 2019-02-26 20:38 | CT ---
EXAMINATION TYPE: CT brain wo con DATE OF EXAM: 02/26/2019 COMPARISON: 10/24/2014 HISTORY: AMS CT DLP: 2202 mGycm Automated exposure control for dose reduction was used. FINDINGS: There is cerebral cortical atrophy. There is no mass effect nor midline shift. There is no sign of in tracranial hemorrhage. The calvarium is intact. IMPRESSION: CEREBRAL ATROPHY. NO ACUTE INTRACRANIAL ABNORMALITY. NO SIGNIFICANT CHANGE COMPARED TO OLD EXAM.
[2019-02-26] MEDS: ATORVASTATIN 80 MG TAB PO SCH (20:47)
--- NOTE | 2019-02-26 20:56 | US ---
EXAMINATION TYPE: US venous doppler duplex LE LT DATE OF EXAM: 02/26/2019 8:46 PM COMPARISON: NONE CLINICAL HISTORY: pain in L left. Patient is receiving chemotherapy for lung CA; no leg swelling is v isualized SIDE PERFORMED: Left TECHNIQUE: The lower extremity deep venous system is examined utilizing real time linear array sonog brittanie with graded compression, doppler sonography and color-flow sonography. VESSELS IMAGED: Common Femoral Vein Deep Femoral Vein Greater Saphenous Vein * Femoral Vein Popliteal Vein Small Saphenous Vein * Proximal Calf Veins (* superficial vessels) Left Leg: Negative for DVT IMPRESSION: No evidence of deep venous thrombosis in the left leg.
[2019-02-26] MEDS: HYDROmorphone 1 MG/ML 1 ML SYRINGE IVP PRN (21:44)
--- NOTE | 2019-02-26 22:14 | P.PN ---
Progress Note - Text Significant Event: Received page from RN that pt less responsive and moaning, SpO2 down to 90% on RA. He also complained of leg pain to light touch. Rapid response called and pt placed on 2L O2. CT head performed and no acute process. LE DVT negative for clot. CXR with increased RLL opacity compared to previous. A/P: Concern for aspiration pneumonia with vomiting today. Check labs. Start clindamycin to cover. Titrate O2 to maintain >90%
[2019-02-26 22:54] LABS: Anisocytosis Slight; Basophils % (A) 0 %; Eosinophils # (A) 0.1 k/uL (0-0.7); Eosinophils % (A) 1 %; HCT 30.5 % (39.0-53.0); Hypochromasia Marked; Lymphocytes # (A) 1.2 k/uL (1.0-4.8); Lymphocytes % (A) 12 %; MCH 26.8 pg (25.0-35.0); MCHC 30.8 g/dL (31.0-37.0); MCV 86.8 fL (80.0-100.0); Mean Platelet Volume 7.6; Monocytes # (A) 0.7 k/uL (0-1.0); Monocytes % (A) 7 %; Neutrophils # (A) 7.8 k/uL (1.3-7.7); Neutrophils % (A) 78 %; Platelet Count 368 k/uL (150-450); RBC 3.51 m/uL (4.30-5.90); RDW 16.7 % (11.5-15.5); WBC 9.9 k/uL (3.8-10.6)
[2019-02-26 23:02] LABS: HGB 9.4 gm/dL (13.0-17.5)
[2019-02-26 23:05] LABS: Albumin 3.2 g/dL (3.5-5.0); Calcium 9.1 mg/dL (8.4-10.2); Potassium 3.9 mmol/L (3.5-5.1); Total Bilirubin 0.5 mg/dL (0.2-1.3); Total Protein 6.4 g/dL (6.3-8.2)
[2019-02-26] MEDS: CLINDAMYCIN 600 MG in DEXTROSE 5% IN WATER 50 ML IVPB SCH ×2 (23:47)
[2019-02-27] MEDS: ONDANSETRON 4 MG/2 ML VIAL IVP PRN (02:23)
[2019-02-27] MEDS: HYDROmorphone 1 MG/ML 1 ML SYRINGE IVP PRN ×2 (02:40→06:11)
[2019-02-27] MEDS: LEVOTHYROXINE 100 MCG TAB PO SCH (05:17)
[2019-02-27] MEDS: MEGESTROL 400 MG/10 ML CUP PO SCH (07:18)
[2019-02-27] MEDS: PANTOPRAZOLE 40 MG/10 ML VIAL IVP SCH (07:57)
[2019-02-27] MEDS: METOCLOPRAMIDE 5 MG/ML 2 ML VIAL IVP SCH ×4 (07:57→23:13)
[2019-02-27] MEDS: BACLOFEN 10 MG TAB PO SCH ×2 (08:00→14:57)
[2019-02-27] MEDS: CLOPIDOGREL 75 MG TAB PO SCH (08:00)
[2019-02-27] MEDS: ISOSORBIDE MONONITRATE ER 30 MG TAB.ER.24H PO SCH (08:00)
[2019-02-27] MEDS: LIOTHYRONINE SODIUM 5 MCG TAB PO SCH (08:00)
[2019-02-27 08:15] LABS: Calcium 9.1 mg/dL (8.4-10.2)
[2019-02-27 08:18] LABS: INR 4.2 (<1.2)
[2019-02-27] MEDS: PANTOPRAZOLE 40 MG TABLET PO SCH (08:32)
[2019-02-27] MEDS: METOCLOPRAMIDE 5 MG TAB PO SCH (08:32)
--- NOTE | 2019-02-27 08:53 | XR ---
EXAMINATION TYPE: XR abdomen complete w decub DATE OF EXAM: 02/27/2019 COMPARISON: 12/29/2018 HISTORY: Abdominal pain TECHNIQUE: Supine, upright, and left side down lateral decubitus views of the abdomen are obtained. FINDINGS: Basilar consolidation finding suggestive of pulmonary fibrosis. Aortic stents noted. Calcif ications in the upper quadrant could relate to a renal stone or gallstone. Bowel gas pattern nonspeci fic with retained debris but no obstruction. Bladder appears distended. Calcifications the pelvis non specific. Degenerative change of the spine arthropathy of the hips. IMPRESSION: 1. Nonspecific abdomen with no obstruction. 2. Nonspecific right upper quadrant calcification 3. Basilar infiltrate and findings suggestive of pulmonary fibrosis and small pleural effusions with pleural thickening. 4. The bladder appears to be distended.
[2019-02-27] MEDS: methylPREDNISolone SOD SUCCI 125 MG/2 ML VIAL IV SCH (10:21)
[2019-02-27] MEDS: CLINDAMYCIN 600 MG in DEXTROSE 5% IN WATER 50 ML IVPB SCH ×6 (10:21→23:12)
[2019-02-27] MEDS ORDERED: HYDROmorphone 0.5 MG/0.5 ML SYRINGE IVP PRN (11:05)
[2019-02-27 11:22] LABS: Anisocytosis Slight; Basophils % (A) 0 %; Eosinophils # (A) 0.1 k/uL (0-0.7); Eosinophils % (A) 1 %; HCT 31.9 % (39.0-53.0); HGB 9.8 gm/dL (13.0-17.5); Hypochromasia Marked; Lymphocytes # (A) 1.1 k/uL (1.0-4.8); Lymphocytes % (A) 11 %; MCH 26.7 pg (25.0-35.0); MCHC 30.8 g/dL (31.0-37.0); MCV 86.7 fL (80.0-100.0); Mean Platelet Volume 8.2; Monocytes # (A) 0.9 k/uL (0-1.0); Monocytes % (A) 9 %; Neutrophils # (A) 7.6 k/uL (1.3-7.7); Neutrophils % (A) 78 %; Platelet Count 389 k/uL (150-450); RBC 3.68 m/uL (4.30-5.90); RDW 16.9 % (11.5-15.5); WBC 9.8 k/uL (3.8-10.6)
[2019-02-27] MEDS: LORazepam 2 MG/ML INJ IV PRN ×2 (11:26→21:10)
--- NOTE | 2019-02-27 12:23 | CT ---
EXAMINATION TYPE: CT ChestAbdPelvis wo con DATE OF EXAM: 02/27/2019 COMPARISON: 01/11/2019 HISTORY: [place] CT DLP: 1224 mGycm. Automated Exposure Control for Dose Reduction was Utilized. TECHNIQUE: CT scan of the thorax, abdomen and pelvis is performed without IV contrast. FINDINGS: LUNGS: Diffuse interlobular septal thickening compatible chronic fibrosis. There is a large appearing mass seen in the right upper lobe measuring approximately 3.4 x 2.4 cm. Additional multiple pleural- based masses are noted on the right. There is basilar consolidation. Bilateral small pleural effusion greater on the right. Paraseptal emphysematous changes are noted involving the lung apex. MEDIASTINUM: Coronary artery calcification and cardiomegaly noted. There is aortic stent. Ascending a claus measures 4.1 cm compatible with aneurysmal dilation. Atherosclerotic changes are noted LIVER/GB: No significant abnormality is appreciated. PANCREAS: No significant abnormality is seen. SPLEEN: No significant abnormality is seen. ADRENALS: No significant abnormality is seen. KIDNEYS: Punctate 2 mm calcification left renal cortex noted. No hydronephrosis. 3 mm hyperdensity in the lower kidney hemorrhagic cyst.. Bladder is distended. BOWEL: Nonspecific abdomen.. LYMPH NODES: No greater than 1cm abdominal or pelvic lymph nodes are appreciated. OSSEOUS STRUCTURES: Arthropathy of the hips. There is multilevel facet arthropathy. Multilevel degene rative disc disease with grade 1 anterolisthesis L4 and L5. Suspect multilevel disc bulging and canal stenosis with most marked findings at L3-4 and L4-5. Severe compression deformity appears new from p rior exam levels T9. Suspect canal stenosis involving the lower lumbar spine OTHER: No significant additional abnormality is seen. Bilateral fat-containing inguinal hernias. IMPRESSION: 1. Severe pulmonary fibrosis with bilateral infiltrate. There are multiple masses seen on the right t he largest measuring 3.4 cm correlate for history of malignancy. 2. Hyperdense lesion right kidney indeterminate due to small size possibly representing tiny hemorrha gic cyst. Other etiologies not excluded. 3. Ascending aortic aneurysm measuring 4.1 cm. Larger descending thoracic and upper abdominal aneurys m with aortic stent noted. 4. Coronary artery calcification. 5. Age-indeterminate moderate to severe compression deformity T9 which was not present on the prior C T scan of 01/11/2019.
[2019-02-27] MEDS: METOPROLOL SUCCINATE (ER) 25 MG TAB.ER.24H PO SCH (14:56)
[2019-02-27] MEDS ORDERED: WARFARIN 0.5 MG TAB PO ONE (18:00)
--- NOTE | 2019-02-27 18:11 | PN ---
PROGRESS NOTE DATE OF SERVICE: 02/27/2019 I am covering for Dr. Almanzar. HISTORY OF PRESENT ILLNESS: This 79-year-old gentleman who had a past medical history of multiple medical problems including lung cancer with METS was admitted with acute kidney injury, intractable nausea, vomiting. The patient is still having intractable nausea, vomiting. Apparently the patient is slightly sedated also. The CT scan done yesterday as part of the code was only showing cerebral atrophy. No significant changes are noted. An abdominal x-ray done today showed nonspecific findings and bilateral infiltrates. A chest CT abdomen and pelvis was ordered today this morning and I ordered a chest CT of the abdomen and pelvis CT scan which showed severe pulmonary fibrosis, bilateral infiltrates and multiple masses also noted and hyperdense lesion in the right kidney indeterminate and as well as aneurysm to 4.1 cm coronary artery calcification and compression deformity of T9. PAST MEDICAL HISTORY: Past medical history reviewed. REVIEW OF SYMPTOMS: Could not be taken. The patient is stuporous. CURRENT MEDICATIONS: Reviewed and include: 1. Tylenol 320 mg p.o. t.i.d. 2. Lipitor 80 mg q.h.s. 3. Lioresal 20 mg p.o. t.i.d. 4. Clindamycin IV q.8h. 5. Dilaudid 0.5 q.6 hours. 6. Imdur 30 mg. 7. Synthroid 100 mcg. 8. Cytomel 5 mcg p.o. daily. 9. Ativan 0.5 q.6h p.r.n. 10.Megace 800 mg p.o. 11.Solu-Medrol IV daily. 12.Reglan 5 mg daily. 13.Toprol-XL 25 mg p.o. daily. 14.Nitrostat 0.4 sublingually p.r.n. 15.Zofran 4 mg q.6h p.r.n. 16.Protonix 40 mg IV daily. 17.Compazine. 18.Ultram. 19.Coumadin on hold. PHYSICAL EXAM: Patient is alert, oriented x2. Pulse is 56, blood pressure 140/66, respirations 16, temperature 98.4, pulse ox 94% on 2 L. HEENT: Conjunctivae normal. Oral mucosa moist. NECK is no jugular venous distention. No carotid bruit. No lymph node enlargement. CARDIOVASCULAR: S1, S2 muffled. RESPIRATION: Breath sounds diminished in the bases. A few scattered rhonchi and crackles. ABDOMEN: Soft, nontender. No mass palpable. LEGS: No edema. No swelling. NERVOUS SYSTEM: Higher functions as mentioned earlier. Moves all four limbs. LYMPHATICS: No lymph nodes palpable in the neck, axillae or groin. SKIN no ulcer, no rashes and no bleeding. JOINTS: No active deforming arthropathy. LABS: WBC 9.8, hemoglobin 10.8, sodium 140, potassium 4.8. ASSESSMENT: 1. Intractable nausea, vomiting possibly acute gastritis. 2. Possible bibasilar pneumonia. 3. Acute kidney injury, possibly prerenal renal failure. 4. Lung cancer with metastases. 5. Hypertension. 6. Hyperlipidemia. 7. History of hypothyroidism. 8. Coumadin coagulopathy. 9. Ascending aortic aneurysm 4.1 cm. 10.History of descending and thoracic aortic aneurysm with stents. 11.Pulmonary fibrosis in the CT scan. 12.Anemia of chronic disease. 13.NO CODE. NO CPR, NO VENT. RECOMMENDATIONS AND DISCUSSION: In this 79-year-old gentleman who presented with multiple complex medical issues, I would recommend continue the current medications, management and symptomatic treatment. We will initiate broad-spectrum IV antibiotics. Otherwise hold the Coumadin. We will continue to hold Coumadin and monitor PT, INR closely. Also recommend symptomatic treatment for nausea. Overall prognosis guarded because of multiple complex medical issues. Further recommendations to follow. I would also optimize the steroids as well. MMODL / IJN: [id number] / JUDITH
[2019-02-27] MEDS: methylPREDNISolone SOD SUCCI 40 MG/ML 1 ML VIAL IV SCH ×2 (18:12→21:11)
[2019-02-27] MEDS: PIPERACILLIN-TAZOBACTAM 3.375 GM in SODIUM CHLORIDE 0.9% 100 ML IVPB SCH ×2 (18:14→23:12)
[2019-02-27] MEDS: ATORVASTATIN 80 MG TAB PO SCH (21:11)
[2019-02-28] MEDS: LEVOTHYROXINE 100 MCG TAB PO SCH (05:29)
[2019-02-28] MEDS: METOCLOPRAMIDE 5 MG/ML 2 ML VIAL IVP SCH ×4 (05:29→21:48)
[2019-02-28] MEDS: CLINDAMYCIN 600 MG in DEXTROSE 5% IN WATER 50 ML IVPB SCH ×6 (08:53→23:31)
[2019-02-28] MEDS: methylPREDNISolone SOD SUCCI 40 MG/ML 1 ML VIAL IV SCH ×3 (08:54→21:48)
[2019-02-28] MEDS: PANTOPRAZOLE 40 MG/10 ML VIAL IVP SCH (08:54)
[2019-02-28] MEDS: traMADol 50 MG TAB PO PRN ×2 (08:55→21:33)
[2019-02-28] MEDS: ISOSORBIDE MONONITRATE ER 30 MG TAB.ER.24H PO SCH (08:55)
[2019-02-28] MEDS: METOPROLOL SUCCINATE (ER) 25 MG TAB.ER.24H PO SCH (08:55)
[2019-02-28] MEDS: LIOTHYRONINE SODIUM 5 MCG TAB PO SCH (08:56)
[2019-02-28] MEDS: MEGESTROL 400 MG/10 ML CUP PO SCH (08:56)
[2019-02-28] MEDS: PIPERACILLIN-TAZOBACTAM 3.375 GM in SODIUM CHLORIDE 0.9% 100 ML IVPB SCH ×3 (08:57→23:31)
[2019-02-28 09:14] LABS: Anisocytosis Slight; Basophils % (A) 0 %; Eosinophils % (A) 0 %; HCT 31.7 % (39.0-53.0); HGB 9.6 gm/dL (13.0-17.5); Hypochromasia Moderate; Lymphocytes # (A) 0.8 k/uL (1.0-4.8); Lymphocytes % (A) 7 %; MCH 25.9 pg (25.0-35.0); MCHC 30.3 g/dL (31.0-37.0); MCV 85.5 fL (80.0-100.0); Mean Platelet Volume 7.6; Monocytes # (A) 0.7 k/uL (0-1.0); Monocytes % (A) 6 %; Neutrophils # (A) 9.8 k/uL (1.3-7.7); Neutrophils % (A) 86 %; Platelet Count 329 k/uL (150-450); RBC 3.71 m/uL (4.30-5.90); RDW 17.3 % (11.5-15.5); WBC 11.5 k/uL (3.8-10.6)
[2019-02-28 09:22] LABS: Calcium 9.1 mg/dL (8.4-10.2); Potassium 4.2 mmol/L (3.5-5.1)
[2019-02-28 09:39] LABS: T4, Free (Free Thyroxine) 1.22 ng/dL (0.78-2.19)
--- NOTE | 2019-02-28 11:22 | P.PN ---
Subjective Progress Note Date: 02/28/19 Patient seen and evaluated at bedside. He does not remember much of the previous night but per nursing has not vomited. He does continue to have poor appetite and nausea. CT did reveal bilateral infiltrate at lung bases so he continues on broad spectrum abx to cover pneumonia. He was also started on solumedrol to help with his intractable nausea and breathing. Objective - Vital Signs Vital signs: Vital Signs Temp 98.4 F 02/28/19 05:00 Pulse 74 02/28/19 05:00 Resp 20 02/28/19 07:15 BP 148/72 02/28/19 05:00 Pulse Ox 91 L 02/28/19 05:00 Intake & Output 02/27/19 02/28/19 02/28/19 18:59 06:59 18:59 Intake Total 0 200 Output Total 2000 1200 Balance -2000 -1000 Intake: Intake, IV Titration 100 Amount Piperacillin-Tazobactam 3 100 .375 gm In Sodium Chloride 0.9% 100 ml @ 25 mls/hr IVPB Q8HR [facility] Rx# :[id number] Oral 0 100 Output: Urine 1999 1200 Other: Voiding Method Diaper Diaper Diaper Incontinent Incontinent Incontinent # Voids 2 1 - Exam General: thin, weak, NAD HEENT: mucus membranes moist CV: RRR, no murmur Lungs: normal respiratory effort, clear sterling Ext: no edema - Labs CBC & Chem 7: 02/28/19 08:39 02/28/19 08:27 Labs: Abnormal Lab Results - Last 24 Hours (Table) 02/27/19 02/28/19 02/28/19 Range/Units 07:24 08:27 08:39 WBC 11.5 H (3.8-10.6) k/uL RBC 3.68 L 3.71 L (4.30-5.90) m/uL Hgb 9.8 L 9.6 L (13.0-17.5) gm/dL Hct 31.9 L 31.7 L (39.0-53.0) % MCHC 30.8 L 30.3 L (31.0-37.0) g/dL RDW 16.9 H 17.3 H (11.5-15.5) % Neutrophils # 9.8 H (1.3-7.7) k/uL Lymphocytes # 0.8 L (1.0-4.8) k/uL Chloride 113 H (98-107) mmol/L Carbon Dioxide 21 L (22-30) mmol/L BUN 26 H (9-20) mg/dL Creatinine 1.48 H (0.66-1.25) mg/dL Glucose 121 H (74-99) mg/dL Assessment and Plan Assessment: 1. Acute kidney injury. Received 3 L IV fluid in the ED. Creatinine improving. Continue IVF 2. Bilateral lung infiltrates. Covering aspiration pneumonia with zosyn and clindamycin. Follow labs 3. Intractable nausea and vomiting. Scheduled IV reglan, zofran prn 4. Elevated lactic acid. Secondary to dehydration 5. History of lung cancer. Oncology consulted 6. Coronary artery disease with stenting, history of [place]. Holding coumadin, pharmacy to dose. Continue imdur 7. Hypothyroidism. Continue synthroid 8. Leukocytosis. Likely reactive from steroids, continue abx 9. Ascending aortic aneurysm 10. Pulmonary fibrosis DNR, DNI (1) Acute kidney injury Current Visit: Yes Status: Acute Code(s): N17.9 - ACUTE KIDNEY FAILURE, UNSPECIFIED SNOMED Code(s): 55651097
[2019-02-28 11:53] LABS: Prothrombin Time 59.6 sec (9.0-12.0)
[2019-02-28 11:57] LABS: INR 6.2 (<1.2)
[2019-02-28] MEDS ORDERED: PHYTONADIONE ORAL 5 MG/5 ML ORAL.SYRG PO STA (12:27)
--- NOTE | 2019-02-28 13:25 | P.CONS ---
History of Present Illness - Reason for Consult Consult date: 02/28/19 urothelial cancer with lung mets Requesting physician: Gibran Pascal - Chief Complaint Weakness - History of Present Illness Mr. Gomez is a very pleasant 79-year-old male patient who is well known to our practice. He was seen in November by Dr. Duff for concerns about right lung mass and pleural effusion. Has a known history of urothelial carcinoma, treated by Urology, successfully for quite some time, no chemotherapy. On 11/24/18 patient had a right lung FNA and core biopsy, Pathology consistent with non-small cell carcinoma consistent with a high-grade urothelial carcinoma, he has plans to start chemotherapy. He was started on immunotherapy with tecentriq. He wsa admitted with 3 days of persistent nausea, vomiting and diarrhea, he has not been able to keep anything down. He is on warfarin and his INR 6.2, likely from vitamin K deficiency. 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 LT KNEE HAD BONE CHIPS REMOVED,, 10-20-14 HEART CATH w/angioplasty but was unable to place stent, recent bladder polyp removed; indwelling catheter was removed 01-11-17. 3 STENTS RCA 05/03/18, biopsy lung-bronch Past Anesthesia/Blood Transfusion Reactions: No Reported Reaction Smoking Status: Former smoker - Past Family History Mother Additional Family Medical History / Comment(s): brain tumor Father Family Medical History: Unable to Obtain Medications and Allergies Home Medications Medication Instructions Recorded Confirmed Type Liothyronine Sodium [Cytomel] 5 mcg PO DAILY 10/20/14 02/24/19 History Metoprolol Succinate (ER) [Toprol 25 mg PO DAILY 01/11/17 02/24/19 History XL] traMADol HCL [Ultram] 50 - 100 mg PO BID PRN 01/11/17 02/24/19 History Nitroglycerin Sl Tabs [Nitrostat] 0.4 mg SUBLINGUAL Q5M PRN #25 tab 03/31/18 02/24/19 Rx Clopidogrel [Plavix] 75 mg PO DAILY #90 tab 05/04/18 02/24/19 Rx Ferrous Sulfate [Feosol] 325 mg PO BID #60 tab 01/13/19 02/24/19 Rx Acetaminophen [Tylenol] 325 mg PO TID PRN 01/18/19 02/24/19 History Cyanocobalamin (Vitamin B-12) 1,000 mcg PO DAILY 01/18/19 02/24/19 History [Vitamin B-12] Gabapentin [Neurontin] 800 mg PO DIRECTED 01/18/19 02/24/19 History Rosuvastatin Calcium [Crestor] 40 mg PO HS 01/18/19 02/24/19 History Pantoprazole [Protonix] 40 mg PO AC-BID 30 Days #60 01/26/19 02/24/19 Rx tablet. Baclofen [Lioresal] 40 mg PO DIRECTED 02/24/19 02/24/19 History Docusate [Colace] 100 mg PO DAILY PRN 02/24/19 02/24/19 History Isosorbide Mononitrate ER [Imdur] 30 mg PO DIRECTED 02/24/19 02/24/19 History Levothyroxine Sodium [Synthroid] 100 mcg PO DAILY 02/24/19 02/24/19 History Omeprazole 20 mg PO DAILY 02/24/19 02/24/19 History Warfarin [Coumadin] 5 mg PO HS 02/24/19 02/24/19 History predniSONE 5 mg PO DAILY 02/24/19 02/24/19 History Allergies Allergy/AdvReac Type Severity Reaction Status Date / Time ciprofloxacin [From Cipro] Allergy Rash/Hives Verified 02/24/19 12:29 Iodinated Contrast- Oral and Allergy Unknown Verified 02/24/19 12:29 IV Dye [Iodinated Contrast Media - Oral and] morphine AdvReac Severe Nausea & Verified 02/24/19 12:29 Vomiting Physical Exam Vitals: Vital Signs Temp Pulse Resp BP Pulse Ox 02/28/19 05:00 98.4 F 74 20 148/72 91 L 02/28/19 00:00 66 16 02/27/19 21:33 96.4 F L 66 16 160/74 94 L 02/27/19 16:00 56 L 16 02/27/19 13:38 96.4 F L 16 140/66 94 L Intake and Output 02/27/19 02/28/19 02/28/19 22:59 06:59 14:59 Intake Total 100 100 Output Total 1000 1200 Balance -900 -1100 Intake: Intake, IV Titration 100 Amount Piperacillin-Tazobactam 3 100 .375 gm In Sodium Chloride 0.9% 100 ml @ 25 mls/hr IVPB Q8HR [facility] Rx# :[id number] Oral 0 100 Output: Urine 1000 1200 Other: Voiding Method Diaper Diaper Incontinent Incontinent # Voids 2 1 General: Alert and Oriented x3, No Acute Distress Head: Normocytic, Atraumatic Neck: Supple Mouth: No Lesions, No Thrush Eyes: Non-sclerotic No Palpable cervical, supraclavicular, axillary adenopathy Heart: Regular Rate, Regular Rhythm Lungs: Clear to Ausculations, No Wheeze, No Rhonchi, Diminishe bilateral lower lobes, No increased respiratory effort noted Abdomen: Soft, Non-Distended, Non-Tended, BSx4 Extremities: No Edema, Equal Strength Neurological: No Focal Defects: No sensory or motor deficits noted Psych: Calm and cooperative Results CBC & Chem 7: 02/28/19 08:39 02/28/19 08:27 Labs: Abnormal Lab Results - Last 24 Hours (Table) 02/27/19 02/28/19 02/28/19 Range/Units 07:24 08:27 08:39 WBC 11.5 H (3.8-10.6) k/uL RBC 3.68 L 3.71 L (4.30-5.90) m/uL Hgb 9.8 L 9.6 L (13.0-17.5) gm/dL Hct 31.9 L 31.7 L (39.0-53.0) % MCHC 30.8 L 30.3 L (31.0-37.0) g/dL RDW 16.9 H 17.3 H (11.5-15.5) % Neutrophils # 9.8 H (1.3-7.7) k/uL Lymphocytes # 0.8 L (1.0-4.8) k/uL Chloride 113 H (98-107) mmol/L Carbon Dioxide 21 L (22-30) mmol/L BUN 26 H (9-20) mg/dL Creatinine 1.48 H (0.66-1.25) mg/dL Glucose 121 H (74-99) mg/dL Assessment and Plan Plan: Assessment and recommendations 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 I have created the compled impression and recommendations. I agree with the above dictation by ROGER Varghese. This dictation has been written as a scribe.
[2019-02-28] MEDS ORDERED: WARFARIN 0.5 MG TAB PO ONE (18:00)
[2019-02-28] MEDS: ATORVASTATIN 80 MG TAB PO SCH (21:48)
[2019-03-01] MEDS: METOCLOPRAMIDE 5 MG/ML 2 ML VIAL IVP SCH ×4 (05:26→23:43)
[2019-03-01] MEDS: LEVOTHYROXINE 100 MCG TAB PO SCH (05:27)
[2019-03-01] MEDS: PIPERACILLIN-TAZOBACTAM 3.375 GM in SODIUM CHLORIDE 0.9% 100 ML IVPB SCH ×3 (07:52→23:43)
[2019-03-01] MEDS: CLINDAMYCIN 600 MG in DEXTROSE 5% IN WATER 50 ML IVPB SCH ×6 (07:52→23:43)
[2019-03-01] MEDS: PANTOPRAZOLE 40 MG/10 ML VIAL IVP SCH (07:55)
[2019-03-01] MEDS: methylPREDNISolone SOD SUCCI 40 MG/ML 1 ML VIAL IV SCH ×3 (07:55→21:51)
[2019-03-01] MEDS: ISOSORBIDE MONONITRATE ER 30 MG TAB.ER.24H PO SCH (07:56)
[2019-03-01] MEDS: METOPROLOL SUCCINATE (ER) 25 MG TAB.ER.24H PO SCH (07:56)
[2019-03-01] MEDS: LIOTHYRONINE SODIUM 5 MCG TAB PO SCH (07:57)
[2019-03-01] MEDS: MEGESTROL 400 MG/10 ML CUP PO SCH (07:57)
[2019-03-01 11:05] LABS: Anisocytosis Slight; Basophils % (A) 0 %; Eosinophils % (A) 0 %; HCT 29.6 % (39.0-53.0); Hypochromasia Moderate; Lymphocytes # (A) 0.4 k/uL (1.0-4.8); Lymphocytes % (A) 3 %; MCH 25.9 pg (25.0-35.0); MCHC 30.4 g/dL (31.0-37.0); MCV 85.3 fL (80.0-100.0); Mean Platelet Volume 7.7; Monocytes # (A) 0.4 k/uL (0-1.0); Monocytes % (A) 4 %; Neutrophils # (A) 10.3 k/uL (1.3-7.7); Neutrophils % (A) 92 %; Platelet Count 315 k/uL (150-450); RBC 3.47 m/uL (4.30-5.90); RDW 17.3 % (11.5-15.5); WBC 11.2 k/uL (3.8-10.6)
[2019-03-01 11:15] LABS: INR 2.1 (<1.2); Prothrombin Time 20.5 sec (9.0-12.0)
[2019-03-01 11:19] LABS: Calcium 8.5 mg/dL (8.4-10.2)
--- NOTE | 2019-03-01 13:56 | P.PN ---
Subjective Progress Note Date: 03/01/19 Patient seen and evaluated at bedside. He is resting and weak today but no further vomiting. He denies chest pain or shortness of breath. His INR has normalized with vitamin K and creatinine up slightly from yesterday. Pt continues with poor appetite. Objective - Vital Signs Vital signs: Vital Signs Temp 97.6 F 03/01/19 11:32 Pulse 75 03/01/19 11:32 Resp 16 03/01/19 11:32 BP 91/52 03/01/19 11:32 Pulse Ox 93 L 03/01/19 11:32 Intake & Output 02/28/19 03/01/19 03/01/19 18:59 06:59 18:59 Intake Total 900 650 Output Total 200 275 Balance 700 650 -275 Weight 72.575 kg Intake: Intake, IV Titration 300 150 Amount Clindamycin 600 mg In 200 50 Dextrose 5% in Water 50 ml @ 50 mls/hr IVPB Q8HR [facility] Rx#:[id number] Piperacillin-Tazobactam 3 100 100 .375 gm In Sodium Chloride 0.9% 100 ml @ 25 mls/hr IVPB Q8HR [facility] Rx# :[id number] Oral 600 500 Output: Urine 200 275 Other: Voiding Method Diaper Diaper Diaper Incontinent Incontinent Incontinent # Voids 3 2 - Exam General: thin, weak, NAD HEENT: mucus membranes moist CV: RRR, no murmur Lungs: normal respiratory effort, clear sterling Ext: no edema - Labs CBC & Chem 7: 03/01/19 10:32 03/01/19 10:32 Labs: Abnormal Lab Results - Last 24 Hours (Table) 03/01/19 03/01/19 03/01/19 Range/Units 10:32 10:32 10:32 WBC 11.2 H (3.8-10.6) k/uL RBC 3.47 L (4.30-5.90) m/uL Hgb 9.0 L (13.0-17.5) gm/dL Hct 29.6 L (39.0-53.0) % MCHC 30.4 L (31.0-37.0) g/dL RDW 17.3 H (11.5-15.5) % Neutrophils # 10.3 H (1.3-7.7) k/uL Lymphocytes # 0.4 L (1.0-4.8) k/uL PT 20.5 H (9.0-12.0) sec INR 2.1 H (<1.2) Chloride 111 H (98-107) mmol/L BUN 36 H (9-20) mg/dL Creatinine 1.62 H (0.66-1.25) mg/dL Glucose 221 H (74-99) mg/dL Assessment and Plan Assessment: 1. Acute kidney injury. Received 3 L IV fluid in the ED. Creatinine improving. Continue IVF 2. Bilateral lung infiltrates. Stable Covering aspiration pneumonia with zosyn and clindamycin 3. Intractable nausea and vomiting. Improving. Scheduled IV reglan, zofran prn 4. Elevated lactic acid. Resolved. Secondary to dehydration 5. 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 Oncology consulted. Sputum and urine cultures ordered. Optimize electrolytes 6. Coronary artery disease with stenting, history of [place]. Holding coumadin, pharmacy to dose. Continue imdur 7. Hypothyroidism. Continue synthroid 8. Leukocytosis. Likely reactive from steroids, continue abx 9. Ascending aortic aneurysm 10. Pulmonary fibrosis 11. Supratherapeutic INR. Holding couamdin, reversed with Vit K yesterday DNR, DNI (1) Acute kidney injury Current Visit: Yes Status: Acute Code(s): N17.9 - ACUTE KIDNEY FAILURE, UNSPECIFIED SNOMED Code(s): 96524255
--- NOTE | 2019-03-01 14:11 | P.PN ---
Subjective Progress Note Date: 03/01/19 Principal diagnosis: Metastatic Urolthelial Cancer Persistent nausea and decreased appetite. Objective - Vital Signs Vital signs: Vital Signs Temp 97.6 F 03/01/19 11:32 Pulse 75 03/01/19 11:32 Resp 16 03/01/19 11:32 BP 91/52 03/01/19 11:32 Pulse Ox 93 L 03/01/19 11:32 Intake & Output 02/28/19 03/01/19 03/01/19 18:59 06:59 18:59 Intake Total 900 650 Output Total 200 275 Balance 700 650 -275 Weight 72.575 kg Intake: Intake, IV Titration 300 150 Amount Clindamycin 600 mg In 200 50 Dextrose 5% in Water 50 ml @ 50 mls/hr IVPB Q8HR [facility] Rx#:[id number] Piperacillin-Tazobactam 3 100 100 .375 gm In Sodium Chloride 0.9% 100 ml @ 25 mls/hr IVPB Q8HR [facility] Rx# :[id number] Oral 600 500 Output: Urine 200 275 Other: Voiding Method Diaper Diaper Diaper Incontinent Incontinent Incontinent # Voids 3 2 - Exam General: chronic ill Head: Normocytic, Atraumatic Neck: Supple Mouth: No Lesions, No Thrush Eyes: Non-sclerotic No Palpable cervical, supraclavicular, axillary adenopathy Heart: Regular Rate, Regular Rhythm Lungs: Clear to Ausculations, No Wheeze, No Rhonchi, Diminishe bilateral lower lobes, No increased respiratory effort noted Abdomen: Soft, Non-Distended, Non-Tended, BSx4 Extremities: No Edema, Equal Strength Neurological: No Focal Defects: No sensory or motor deficits noted Psych: Calm and cooperative - Labs CBC & Chem 7: 03/01/19 10:32 03/01/19 10:32 Labs: Abnormal Lab Results - Last 24 Hours (Table) 03/01/19 03/01/19 03/01/19 Range/Units 10:32 10:32 10:32 WBC 11.2 H (3.8-10.6) k/uL RBC 3.47 L (4.30-5.90) m/uL Hgb 9.0 L (13.0-17.5) gm/dL Hct 29.6 L (39.0-53.0) % MCHC 30.4 L (31.0-37.0) g/dL RDW 17.3 H (11.5-15.5) % Neutrophils # 10.3 H (1.3-7.7) k/uL Lymphocytes # 0.4 L (1.0-4.8) k/uL PT 20.5 H (9.0-12.0) sec INR 2.1 H (<1.2) Chloride 111 H (98-107) mmol/L BUN 36 H (9-20) mg/dL Creatinine 1.62 H (0.66-1.25) mg/dL Glucose 221 H (74-99) mg/dL Assessment and Plan Plan: Assessment and recommendations 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
[2019-03-01] MEDS: SODIUM CHLORIDE 0.45% 1,000 ML IV SCH (17:20)
[2019-03-01] MEDS: DRONABINOL 2.5 MG CAP PO SCH (17:24)
[2019-03-01] MEDS ORDERED: WARFARIN 2.5 MG TAB PO ONE (18:00)
[2019-03-01] MEDS: ATORVASTATIN 80 MG TAB PO SCH (20:31)
[2019-03-02] MEDS: traMADol 50 MG TAB PO PRN (01:29)
[2019-03-02] MEDS: METOCLOPRAMIDE 5 MG/ML 2 ML VIAL IVP SCH ×2 (05:47→12:50)
[2019-03-02] MEDS: LEVOTHYROXINE 100 MCG TAB PO SCH (05:47)
[2019-03-02] MEDS: SODIUM CHLORIDE 0.45% 1,000 ML IV SCH (05:47)
[2019-03-02] MEDS: CLINDAMYCIN 600 MG in DEXTROSE 5% IN WATER 50 ML IVPB SCH ×4 (08:02→15:36)
[2019-03-02] MEDS: PIPERACILLIN-TAZOBACTAM 3.375 GM in SODIUM CHLORIDE 0.9% 100 ML IVPB SCH ×2 (08:02→15:38)
[2019-03-02] MEDS: MEGESTROL 400 MG/10 ML CUP PO SCH (08:02)
[2019-03-02] MEDS: methylPREDNISolone SOD SUCCI 40 MG/ML 1 ML VIAL IV SCH ×2 (08:03→15:37)
[2019-03-02] MEDS: LIOTHYRONINE SODIUM 5 MCG TAB PO SCH (08:03)
[2019-03-02] MEDS: DRONABINOL 2.5 MG CAP PO SCH (08:03)
[2019-03-02] MEDS: METOPROLOL SUCCINATE (ER) 25 MG TAB.ER.24H PO SCH (08:03)
[2019-03-02] MEDS: PANTOPRAZOLE 40 MG/10 ML VIAL IVP SCH (08:03)
[2019-03-02] MEDS: ISOSORBIDE MONONITRATE ER 30 MG TAB.ER.24H PO SCH (08:03)
--- NOTE | 2019-03-02 09:32 | P.PN ---
Subjective Progress Note Date: 03/02/19 Patient seen and evaluated at bedside. He is starting to feel better today, no vomiting in 2 days now but still poor appetite. He does feel the dronabinol has helped. He denies chest pain or shortness of breath. Objective - Vital Signs Vital signs: Vital Signs Temp 98.9 F 03/02/19 05:00 Pulse 61 03/02/19 05:00 Resp 18 03/02/19 05:00 BP 155/76 03/02/19 05:00 Pulse Ox 95 03/02/19 05:00 Intake & Output 03/01/19 03/02/19 03/02/19 18:59 06:59 18:59 Intake Total 150 2200 Output Total 275 220 Balance -125 1980 Intake: Intake, IV Titration 150 750 Amount Clindamycin 600 mg In 50 50 Dextrose 5% in Water 50 ml @ 50 mls/hr IVPB Q8HR [facility] Rx#:[id number] Piperacillin-Tazobactam 3 100 100 .375 gm In Sodium Chloride 0.9% 100 ml @ 25 mls/hr IVPB Q8HR [facility] Rx# :[id number] Sodium Chloride 0.45% 1, 600 000 ml @ 75 mls/hr IV . [id number] [facility] Rx#:[id number] Oral 1450 Output: Urine 275 220 Other: Voiding Method Diaper Toilet Incontinent Diaper Incontinent # Voids 3 - Exam General: thin, NAD HEENT: mucus membranes moist CV: RRR, no murmur Lungs: normal respiratory effort, clear sterling Abd: soft, nontender Ext: no edema - Labs CBC & Chem 7: 03/01/19 10:32 03/01/19 10:32 Labs: Abnormal Lab Results - Last 24 Hours (Table) 03/01/19 03/01/19 03/01/19 Range/Units 10:32 10:32 10:32 WBC 11.2 H (3.8-10.6) k/uL RBC 3.47 L (4.30-5.90) m/uL Hgb 9.0 L (13.0-17.5) gm/dL Hct 29.6 L (39.0-53.0) % MCHC 30.4 L (31.0-37.0) g/dL RDW 17.3 H (11.5-15.5) % Neutrophils # 10.3 H (1.3-7.7) k/uL Lymphocytes # 0.4 L (1.0-4.8) k/uL PT 20.5 H (9.0-12.0) sec INR 2.1 H (<1.2) Chloride 111 H (98-107) mmol/L BUN 36 H (9-20) mg/dL Creatinine 1.62 H (0.66-1.25) mg/dL Glucose 221 H (74-99) mg/dL Assessment and Plan Assessment: 1. Acute kidney injury. Poor PO intake. Continue IVF 2. Bilateral lung infiltrates. Covering aspiration pneumonia with zosyn and clindamycin. Will obtain procalcitonin today and if negative d/c antibiotics 3. Intractable nausea and vomiting. Resolved with scheduled IV reglan, zofran prn 4. 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 Oncology consulted. MRI brain ordered to eval for metastatic etiology of intractable nausea 5. Coronary artery disease with stenting, history of AL. Holding coumadin, ph armacy to dose. Continue imdur 6. Hypothyroidism. Continue synthroid 7. Leukocytosis. Likely reactive 8. Ascending aortic aneurysm 9. Pulmonary fibrosis 10. Elevated lactic acid. Resolved 11. Supratherapeutic INR. Resolved with vitamin K Anticipate discharge tomorrow. PT and OT to eval pt for placement in [facility] vs d/c to home DNR, DNI (1) Acute kidney injury Current Visit: Yes Status: Acute Code(s): N17.9 - ACUTE KIDNEY FAILURE, UNSPECIFIED SNOMED Code(s): 80229043 (2) Intractable nausea and vomiting Current Visit: Yes Status: Acute Code(s): R11.2 - NAUSEA WITH VOMITING, UN SPECIFIED SNOMED Code(s): 559504894 (3) Bladder malignancy Current Visit: No Status: Acute Code(s): C67.9 - MALIGNANT NEOPLASM OF BLADDER, UNSPECIFIED SNOMED Code(s): 002187145 (4) Generalized weakness Current Visit: Yes Status: Acute Code(s): R53.1 - WEAKNESS SNOMED Code(s): 27307976 (5) Urothelial carcinoma of bladder Current Visit: No Status: Acute Priority: High Code(s): C67.9 - MALIGNANT NEOPLASM OF BLADDER, UNSPECIFIED SNOMED Code(s): 074396031
[2019-03-02 09:52] LABS: Anisocytosis Slight; Basophils % (A) 0 %; Eosinophils % (A) 0 %; HCT 27.8 % (39.0-53.0); HGB 8.5 gm/dL (13.0-17.5); Hypochromasia Moderate; Lymphocytes # (A) 0.6 k/uL (1.0-4.8); Lymphocytes % (A) 5 %; MCH 26.1 pg (25.0-35.0); MCHC 30.7 g/dL (31.0-37.0); MCV 85.1 fL (80.0-100.0); Mean Platelet Volume 8.1; Monocytes # (A) 0.6 k/uL (0-1.0); Monocytes % (A) 4 %; Neutrophils # (A) 11.7 k/uL (1.3-7.7); Neutrophils % (A) 90 %; Platelet Count 289 k/uL (150-450); RBC 3.27 m/uL (4.30-5.90); RDW 17.2 % (11.5-15.5)
[2019-03-02 10:01] LABS: Calcium 8.4 mg/dL (8.4-10.2); Potassium 3.7 mmol/L (3.5-5.1)
[2019-03-02 10:05] LABS: INR 1.8 (<1.2); Prothrombin Time 17.6 sec (9.0-12.0)
[2019-03-02] MEDS: LORazepam 2 MG/ML INJ IV PRN (10:35)
[2019-03-02 11:46] VITALS: BP 120/61; PULSE 73; RESP 15; TEMP 98.3
--- NOTE | 2019-03-02 12:43 | MR ---
EXAMINATION TYPE: MR brain wo/w con DATE OF EXAM: 03/02/2019 COMPARISON: CT chest abdomen pelvis dated 02/27/[address] brain dated 02/26/2019. MRI brain dated 2018. HISTORY: Persistent nausea and vomiting, con mets. Known pulmonary masses. TECHNIQUE: Multiplanar, multisequence images of the brain and brainstem is performed without and with IV contras t, utilizing 7 mL intravenous Gadavist . FINDINGS: Diffusion weighted images demonstrate no evidence of a recent infarct or other diffusion ab normality. There is no extra-axial fluid collection. Moderate burden nonspecific white matter change s demonstrated as T2/FLAIR hyperintense foci throughout the subcortical and periventricular white mat ter. This is similar to the prior exam of 11/19/2018 The ventricular system and cisternal spaces are s ymmetrically prominent compatible with age-related volume loss is seen on the prior CT. Punctate lacu jaspal infarcts are seen of the bilateral basal ganglia that do not demonstrate restricted diffusion. Pu nctate lacunar injury is also seen of the right external capsule. Punctate old lacunar injury is also seen within the right cerebellar hemisphere. Midline structures demonstrate normal morphology. The craniocervical junction appears within normal limits. Post contrast images demonstrate no abnormal enhancement. The dural venous sinuses appear pa tent. Very scant mucosal thickening is seen within the ethmoid sinuses. The remaining visualized sinu ses are clear and the globes are intact. Minimal leftward nasal septal deviation. IMPRESSION: 1. No abnormal intracranial enhancement to suggest metastasis in this patient with known multiple ana rosa g masses. 2. Moderate burden nonspecific white matter change with multifocal lacunar injuries of the bilateral basal ganglia, right cerebellar hemisphere and right external capsule. 3. Age-related cerebral volume loss. 4. No acute infarct, midline shift or mass effect.
--- NOTE | 2019-03-02 12:45 | P.PN ---
Subjective Progress Note Date: 03/02/19 Principal diagnosis: Metastatic Urolthelial Cancer Persistent nausea and decreased appetite. Status Post MRI, Awaiting Read Objective - Vital Signs Vital signs: Vital Signs Temp 98.3 F 03/02/19 11:40 Pulse 73 03/02/19 11:40 Resp 15 03/02/19 11:40 BP 120/61 03/02/19 11:40 Pulse Ox 93 L 03/02/19 11:40 Intake & Output 03/01/19 03/02/19 03/02/19 18:59 06:59 18:59 Intake Total 150 2200 Output Total 275 220 Balance -125 1979 Intake: Intake, IV Titration 150 750 Amount Clindamycin 600 mg In 50 50 Dextrose 5% in Water 50 ml @ 50 mls/hr IVPB Q8HR [facility] Rx#:[id number] Piperacillin-Tazobactam 3 100 100 .375 gm In Sodium Chloride 0.9% 100 ml @ 25 mls/hr IVPB Q8HR [facility] Rx# :[id number] Sodium Chloride 0.45% 1, 600 000 ml @ 75 mls/hr IV . [id number] [facility] Rx#:[id number] Oral 1450 Output: Urine 275 220 Other: Voiding Method Diaper Toilet Incontinent Diaper Incontinent # Voids 3 - Exam General: chronic ill Head: Normocytic, Atraumatic Neck: Supple Mouth: No Lesions, No Thrush Eyes: Non-sclerotic No Palpable cervical, supraclavicular, axillary adenopathy Heart: Regular Rate, Regular Rhythm Lungs: Clear to Ausculations, No Wheeze, No Rhonchi, Diminishe bilateral lower lobes, No increased respiratory effort noted Abdomen: Soft, Non-Distended, Non-Tended, BSx4 Extremities: No Edema, Equal Strength Neurological: No Focal Defects: No sensory or motor deficits noted Psych: Calm and cooperative - Labs CBC & Chem 7: 03/02/19 09:37 03/02/19 09:37 Labs: Abnormal Lab Results - Last 24 Hours (Table) 03/02/19 03/02/19 03/02/19 Range/Units 09:37 09:37 09:37 WBC 13.0 H (3.8-10.6) k/uL RBC 3.27 L (4.30-5.90) m/uL Hgb 8.5 L (13.0-17.5) gm/dL Hct 27.8 L (39.0-53.0) % MCHC 30.7 L (31.0-37.0) g/dL RDW 17.2 H (11.5-15.5) % Neutrophils # 11.7 H (1.3-7.7) k/uL Lymphocytes # 0.6 L (1.0-4.8) k/uL PT 17.6 H (9.0-12.0) sec INR 1.8 H (<1.2) Chloride 110 H (98-107) mmol/L BUN 32 H (9-20) mg/dL Creatinine 1.53 H (0.66-1.25) mg/dL Glucose 185 H (74-99) mg/dL Assessment and Plan Plan: Assessment and recommendations 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
[2019-03-02] MEDS ORDERED: WARFARIN 2 MG TAB PO ONE (18:00)
--- NOTE | 2019-03-02 20:41 | P.DS ---
Providers Date of admission: 02/26/19 14:02 Expected date of discharge: 03/02/19 Attending physician: Ayo Almanzar MD Consults: 02/24/19 14:20 Consult Physician Routine Consulting Provider: Rickie Duff Consult Reason/Comments: known Do you want consulting provider notified?: Yes Primary care physician: Thania Barney - Discharge Diagnosis(es) (1) Acute kidney injury Status: Acute (2) Intractable nausea and vomiting Status: Acute (3) Bladder malignancy Status: Acute (4) Generalized weakness Status: Acute (5) Urothelial carcinoma of bladder Status: Acute Priority: High Hospital Course: Aubrey Gomez is a 79 yo M with PMH of urothelial carcinoma metastatic to lung, CAD, hypothyroidism, HTN who presented to [facility] ED with persistent nausea, vomiting and weakness. He had been unable to keep any food down in the 2 days prior to admission. He denied recent chemotherapy or immunotherapy. He states he has not been able to start his next round due to recurrent nausea and vomiting. In the ED, his vitals were stable with elevated creatinine and lactic acid. He was admitted to medicine and started on IV fluids and zofran and phergan prn. He continued to vomit and on 02/26 a rapid response was called due to drop in SpO2. He was started on zosyn and clindamycin to cover for aspiration pneumonia. He was then switched to scheduled IV reglan and started on IV steroids which controlled his vomiting. Oncology saw pt and added marinol and megace for his appetite. MRI brain was performed which did not reveal metastatic brain disease. He was discharged with PO reglan and scripts to continue marinol and megace in addition to prednisone taper. General: thin, NAD. Vitals reviewed Eyes: PERRL, EOMI, conjunctiva normal HENT: normocephalic, mucus membranes moist Neck: supple, no JVD Lungs: normal respiratory effort, no wheezes or rales CV: Regular rate and rhythm, no murmur. Peripheral pulses 2+ Abdomen: soft, nondistended, no organomegaly Lymph: no cervical or axillary LAD Skin: warm and dry Neuro: A&Ox3, normal mood and affect Patient Condition at Discharge: Fair Plan - Discharge Summary Discharge Rx Participant: No New Discharge Prescriptions: New Dronabinol [Marinol] 2.5 mg PO AC-BID #40 cap Megestrol [Megace] 800 mg PO DAILY #500 ml predniSONE 10 mg PO DAILY #30 tab Metoclopramide HCl [Reglan] 5 mg PO AC-TID #60 tablet Continue Liothyronine Sodium [Cytomel] 5 mcg PO DAILY traMADol HCL [Ultram] 50 - 100 mg PO BID PRN PRN Reason: Pain Metoprolol Succinate (ER) [Toprol XL] 25 mg PO DAILY Nitroglycerin Sl Tabs [Nitrostat] 0.4 mg SUBLINGUAL Q5M PRN #25 tab PRN Reason: Chest Pain Clopidogrel [Plavix] 75 mg PO DAILY #90 tab Ferrous Sulfate [Feosol] 325 mg PO BID #60 tab Rosuvastatin Calcium [Crestor] 40 mg PO HS Cyanocobalamin (Vitamin B-12) [Vitamin B-12] 1,000 mcg PO DAILY Gabapentin [Neurontin] 800 mg PO DIRECTED Acetaminophen [Tylenol] 325 mg PO TID PRN PRN Reason: Pain Baclofen [Lioresal] 40 mg PO DIRECTED Warfarin [Coumadin] 5 mg PO HS Omeprazole 20 mg PO DAILY Docusate [Colace] 100 mg PO DAILY PRN PRN Reason: Constipation Levothyroxine Sodium [Synthroid] 100 mcg PO DAILY Isosorbide Mononitrate ER [Imdur] 30 mg PO DIRECTED Discontinued Pantoprazole [Protonix] 40 mg PO AC-BID 30 Days #60 tablet.dr predniSONE 5 mg PO DAILY Discharge Medication List Liothyronine Sodium [Cytomel] 5 mcg PO DAILY 10/20/14 [History] Metoprolol Succinate (ER) [Toprol XL] 25 mg PO DAILY 01/11/17 [History] traMADol HCL [Ultram] 50 - 100 mg PO BID PRN 01/11/17 [History] Nitroglycerin Sl Tabs [Nitrostat] 0.4 mg SUBLINGUAL Q5M PRN #25 tab 03/31/18 [Rx] Clopidogrel [Plavix] 75 mg PO DAILY #90 tab 05/04/18 [Rx] Ferrous Sulfate [Feosol] 325 mg PO BID #60 tab 01/13/19 [Rx] Acetaminophen [Tylenol] 325 mg PO TID PRN 01/18/19 [History] Cyanocobalamin (Vitamin B-12) [Vitamin B-12] 1,000 mcg PO DAILY 01/18/19 [History] Gabapentin [Neurontin] 800 mg PO DIRECTED 01/18/19 [History] Rosuvastatin Calcium [Crestor] 40 mg PO HS 01/18/19 [History] Baclofen [Lioresal] 40 mg PO DIRECTED 02/24/19 [History] Docusate [Colace] 100 mg PO DAILY PRN 02/24/19 [History] Isosorbide Mononitrate ER [Imdur] 30 mg PO DIRECTED 02/24/19 [History] Levothyroxine Sodium [Synthroid] 100 mcg PO DAILY 02/24/19 [History] Omeprazole 20 mg PO DAILY 02/24/19 [History] Warfarin [Coumadin] 5 mg PO HS 02/24/19 [History] Dronabinol [Marinol] 2.5 mg PO AC-BID #40 cap 03/02/19 [Rx] Megestrol [Megace] 800 mg PO DAILY #500 ml 03/02/19 [Rx] Metoclopramide HCl [Reglan] 5 mg PO AC-TID #60 tablet 03/02/19 [Rx] predniSONE 10 mg PO DAILY #30 tab 03/02/19 [Rx] Follow up Appointment(s)/Referral(s): Thania Barney DO [Primary Care Provider] - 1-2 days Discharge Disposition: HOME SELF-CARE
[2019-03-03] MEDS ORDERED: PANTOPRAZOLE 40 MG TABLET PO SCH (07:30)
== END 2019-03-02 17:59 | disposition home or self-care (01) | DRG 178 ==
LOC: EC 12:07 → 3NMEDONC 14:21 → OBSVTOIN 02-26 14:02
PROVIDERS: ADMIT Family Medicine; ATTEND Family Medicine
DX: J69.0 Pneumonitis due to inhalation of food and vomit (principal); N17.9 Acute kidney failure, unspecified; C78.00 Secondary malignant neoplasm of unspecified lung; E87.2 Acidosis; C67.9 Malignant neoplasm of bladder, unspecified; D63.8 Anemia in other chronic diseases classified elsewhere; E03.9 Hypothyroidism, unspecified; E56.1 Deficiency of vitamin K; R79.1 Abnormal coagulation profile; T45.515A Adverse effect of anticoagulants, initial encounter; E78.5 Hyperlipidemia, unspecified; E86.0 Dehydration; G89.3 Neoplasm related pain (acute) (chronic); H91.92 Unspecified hearing loss, left ear; I10 Essential (primary) hypertension; I25.10 Atherosclerotic heart disease of native coronary artery without angina pectoris; I25.2 Old myocardial infarction; I71.4 Abdominal aortic aneurysm, without rupture; J44.9 Chronic obstructive pulmonary disease, unspecified; Z66 Do not resuscitate; Z79.01 Long term (current) use of anticoagulants; Z79.02 Long term (current) use of antithrombotics/antiplatelets; Z79.890 Hormone replacement therapy; Z87.442 Personal history of urinary calculi; Z87.891 Personal history of nicotine dependence; Z95.5 Presence of coronary angioplasty implant and graft; G62.9 Polyneuropathy, unspecified; Z88.5 Allergy status to narcotic agent; Z88.1 Allergy status to other antibiotic agents; Z91.041 Radiographic dye allergy status; M51.36 Other intervertebral disc degeneration, lumbar region; M48.061 Spinal stenosis, lumbar region without neurogenic claudication; R63.4 Abnormal weight loss; Z68.24 Body mass index [BMI] 24.0-24.9, adult
CPT/HCPCS: 36415; 70450; 70553; 71045; 71046; 71250; 74021; 74176; 80048; 80053; 81003; 82533; 83605; 83735; 84100; 84145; 84439; 84443; 84481; 84484; 85025; 85610; 93005; 94770; 96361; 96374; 96375; 99285

== ENCOUNTER 2019-03-18 18:17 | Inpatient (IN) | payer MEDICARE, OTHER ==
[2019-03-18] MEDS ORDERED: SODIUM CHLORIDE 0.9% 1,000 ML IV STA (18:51)
--- NOTE | 2019-03-18 18:55 | ED ---
General Adult HPI - General Chief complaint: Recheck/Abnormal Lab/Rx Stated complaint: Dehydration/mouth bleeding/weakness Time Seen by Provider: 03/18/19 18:40 Source: patient, family, RN notes reviewed Mode of arrival: ambulatory Limitations: no limitations - History of Present Illness Initial comments: Patient is a pleasant 79-year-old male presenting to the emergency Department with with complaints of generalized weakness. Patient does have known history of bladder cancer with metastasis to the lung. Patient is currently on immunotherapy however has only had one dose. Patient has had increasing weakness over the past couple of days, more so today. Patient is only able to walk a couple of feet. Patient feels weak all over, no isolated area of weakness. Patient denies confusion. No fevers. Patient has had some leaking of the left side of the lip. Patient did have his INR checked a couple of days ago at 5.4 and has held his Coumadin since that time. Patient has had decreased oral intake recently. Patient is hard of hearing. Majority of history comes from . - Related Data Home Medications Medication Instructions Recorded Confirmed Liothyronine Sodium [Cytomel] 5 mcg PO DAILY 10/20/14 03/18/19 Metoprolol Succinate (ER) [Toprol 25 mg PO DAILY 01/11/17 03/18/19 XL] traMADol HCL [Ultram] 50 - 100 mg PO BID PRN 01/11/17 03/18/19 Acetaminophen [Tylenol] 325 mg PO TID PRN 01/18/19 03/18/19 Cyanocobalamin (Vitamin B-12) 1,000 mcg PO DAILY 01/18/19 03/18/19 [Vitamin B-12] Gabapentin [Neurontin] 800 mg PO DIRECTED 01/18/19 03/18/19 Rosuvastatin Calcium [Crestor] 40 mg PO HS 01/18/19 03/18/19 Baclofen [Lioresal] 40 mg PO DIRECTED 02/24/19 03/18/19 Docusate [Colace] 100 mg PO DAILY PRN 02/24/19 03/18/19 Isosorbide Mononitrate ER [Imdur] 30 mg PO DIRECTED 02/24/19 03/18/19 Levothyroxine Sodium [Synthroid] 100 mcg PO DAILY 02/24/19 03/18/19 Omeprazole 20 mg PO DAILY 02/24/19 03/18/19 Warfarin [Coumadin] 5 mg PO HS 02/24/19 03/18/19 Previous Rx's Medication Instructions Recorded Nitroglycerin Sl Tabs [Nitrostat] 0.4 mg SUBLINGUAL Q5M PRN #25 tab 03/31/18 Clopidogrel [Plavix] 75 mg PO DAILY #90 tab 05/04/18 Ferrous Sulfate [Feosol] 325 mg PO BID #60 tab 01/13/19 Dronabinol [Marinol] 2.5 mg PO AC-BID #40 cap 03/02/19 Megestrol [Megace] 800 mg PO DAILY #500 ml 03/02/19 Metoclopramide HCl [Reglan] 5 mg PO AC-TID #60 tablet 03/02/19 Allergies Allergy/AdvReac Type Severity Reaction Status Date / Time ciprofloxacin [From Cipro] Allergy Rash/Hives Verified 03/18/19 19:45 Iodinated Contrast- Oral and Allergy Unknown Verified 03/18/19 19:45 IV Dye [Iodinated Contrast Media - Oral and] morphine AdvReac Severe Nausea & Verified 03/18/19 19:45 Vomiting Review of Systems ROS Statement: Those systems with pertinent positive or pertinent negative responses have been documented in the HPI. ROS Other: All systems not noted in ROS Statement are negative. Constitutional: Denies: fever Eyes: Denies: eye pain ENT: Denies: ear pain Respiratory: Denies: cough Cardiovascular: Denies: chest pain Endocrine: Reports: fatigue Gastrointestinal: Denies: abdominal pain Genitourinary: Denies: dysuria Musculoskeletal: Denies: back pain Skin: Denies: rash Neurological: Denies: headache Past Medical History Past Medical History: Coronary Artery Disease (CAD), Cancer, Hearing Disorder / Deafness, Hyperlipidemia, Hypertension, Myocardial Infarction ([place]), Thyroid Disorder Additional Past Medical History / Comment(s): "aaa-repaired", vertigo AND HEARING LOSS SINCE [place] -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 LT KNEE HAD BONE CHIPS REMOVED,, 10-20-14 HEART CATH w/angioplasty but was unable to place stent, recent bladder polyp removed; indwelling catheter was removed 01-11-. 3 STENTS RCA 05/03/18, biopsy lung-bronch Past Anesthesia/Blood Transfusion Reactions: No Reported Reaction Past Psychological History: No Psychological Hx Reported Smoking Status: Former smoker Past Alcohol Use History: None Reported Past Drug Use History: None Reported - Past Family History Mother Additional Family Medical History / Comment(s): brain tumor Father Family Medical History: Unable to Obtain General Exam Limitations: no limitations General appearance: alert, in no apparent distress Head exam: Present: atraumatic Eye exam: Present: normal appearance, PERRL, EOMI ENT exam: Present: other (Dried blood left external lips. No active bleeding.) Neck exam: Present: normal inspection Respiratory exam: Present: normal lung sounds bilaterally Cardiovascular Exam: Present: tachycardia GI/Abdominal exam: Present: soft. Absent: distended, tenderness Extremities exam: Present: normal inspection. Absent: pedal edema, calf tenderness Neurological exam: Present: alert, oriented X3, CN II-XII intact. Absent: motor sensory deficit Expanded Neurological exam: Present: protecting the airway Patient oriented to: Present: person, place, time Speech: Present: fluid speech Motor strength exam: RUE: 5, LUE: 5, RLE: 5, LLE: 5 Eye Response: (4) open spontaneously Motor Response: (6) obeys commands Verbal Response: (5) oriented Psychiatric exam: Present: normal affect, normal mood Skin exam: Present: normal color Course Vital Signs 03/18/19 03/18/19 18:23 20:02 Temperature 97.8 F Pulse Rate 108 H 123 H Respiratory 18 18 Rate Blood Pressure 98/65 113/75 O2 Sat by Pulse 95 96 Oximetry EKG Findings - EKG Comments: EKG Findings:: Sinus tachycardia 127. IA 166. QRS 80. QT 294. QTC 427. Nor mal axis. Q wave in lead III. No acute ST change. Medical Decision Making - Medical Decision Making Patient reevaluated. Patient and family updated. Case was discussed with Dr. Montes De Oca, covering with Dr. Reid, covering for Dr. Valera, who admits for Dr. Barney. - Lab Data Result diagrams: 03/18/19 20:24 03/18/19 20:24 Lab Results 03/18/19 03/18/19 03/18/19 Range/Units 20:24 20:24 20:24 WBC 11.0 H (3.8-10.6) k/uL RBC 4.47 (4.30-5.90) m/uL Hgb 11.6 L D (13.0-17.5) gm/dL Hct 38.2 L (39.0-53.0) % MCV 85.4 (80.0-100.0) fL MCH 25.9 (25.0-35.0) pg MCHC 30.3 L (31.0-37.0) g/dL RDW 17.5 H (11.5-15.5) % Plt Count 336 (150-450) k/uL Neutrophils % 79 % Lymphocytes % 11 % Monocytes % 7 % Eosinophils % 2 % Basophils % 0 % Neutrophils # 8.7 H (1.3-7.7) k/uL Lymphocytes # 1.2 (1.0-4.8) k/uL Monocytes # 0.7 (0-1.0) k/uL Eosinophils # 0.2 (0-0.7) k/uL Basophils # 0.0 (0-0.2) k/uL Hypochromasia Marked Anisocytosis Slight PT 53.2 H (9.0-12.0) sec INR 5.5 H* (<1.2) APTT 52.6 H (22.0-30.0) sec Sodium 142 (137-145) mmol/L Potassium 4.5 (3.5-5.1) mmol/L Chloride 107 (98-107) mmol/L Carbon Dioxide 23 (22-30) mmol/L Anion Gap 12 mmol/L BUN 32 H (9-20) mg/dL Creatinine 1.92 H (0.66-1.25) mg/dL Est GFR (CKD-EPI)AfAm 38 (>60 ml/min/1.73 sqM) Est GFR (CKD-EPI)NonAf 33 (>60 ml/min/1.73 sqM) Glucose 108 H (74-99) mg/dL Plasma Lactic Acid Evans (0.7-2.0) mmol/L Calcium 9.3 (8.4-10.2) mg/dL Phosphorus 3.2 (2.5-4.5) mg/dL Magnesium 2.5 H (1.6-2.3) mg/dL Total Bilirubin 0.5 (0.2-1.3) mg/dL AST 81 H (17-59) U/L ALT 129 H (21-72) U/L Alkaline Phosphatase 138 H (38-126) U/L Total Protein 6.8 (6.3-8.2) g/dL Albumin 3.4 L (3.5-5.0) g/dL Free T4 1.41 (0.78-2.19) ng/dL Free T3 pg/mL 5.4 H (2.8-5.3) pg/ml 03/18/19 Range/Units 20:24 WBC (3.8-10.6) k/uL RBC (4.30-5.90) m/uL Hgb (13.0-17.5) gm/dL Hct (39.0-53.0) % MCV (80.0-100.0) fL MCH (25.0-35.0) pg MCHC (31.0-37.0) g/dL RDW (11.5-15.5) % Plt Count (150-450) k/uL Neutrophils % % Lymphocytes % % Monocytes % % Eosinophils % % Basophils % % Neutrophils # (1.3-7.7) k/uL Lymphocytes # (1.0-4.8) k/uL Monocytes # (0-1.0) k/uL Eosinophils # (0-0.7) k/uL Basophils # (0-0.2) k/uL Hypochromasia Anisocytosis PT (9.0-12.0) sec INR (<1.2) APTT (22.0-30.0) sec Sodium (137-145) mmol/L Potassium (3.5-5.1) mmol/L Chloride (98-107) mmol/L Carbon Dioxide (22-30) mmol/L Anion Gap mmol/L BUN (9-20) mg/dL Creatinine (0.66-1.25) mg/dL Est GFR (CKD-EPI)AfAm (>60 ml/min/1.73 sqM) Est GFR (CKD-EPI)NonAf (>60 ml/min/1.73 sqM) Glucose (74-99) mg/dL Plasma Lactic Acid Evans 2.0 (0.7-2.0) mmol/L Calcium (8.4-10.2) mg/dL Phosphorus (2.5-4.5) mg/dL Magnesium (1.6-2.3) mg/dL Total Bilirubin (0.2-1.3) mg/dL AST (17-59) U/L ALT (21-72) U/L Alkaline Phosphatase (38-126) U/L Total Protein (6.3-8.2) g/dL Albumin (3.5-5.0) g/dL Free T4 (0.78-2.19) ng/dL Free T3 pg/mL (2.8-5.3) pg/ml - Radiology Data Radiology results: image reviewed (Chest x-ray shows coarse interstitial. No change from previous.) Disposition Clinical Impression: Dehydration, Coagulopathy Disposition: ADMITTED IP TO THIS HOSP Is patient prescribed a controlled substance at d/c from ED?: No Referrals: Thania Barney DO [Primary Care Provider] - 1-2 days Decision Time: 21:23
[2019-03-18 20:48] LABS: Anisocytosis Slight; Basophils % (A) 0 %; Eosinophils # (A) 0.2 k/uL (0-0.7); Eosinophils % (A) 2 %; HCT 38.2 % (39.0-53.0); Hypochromasia Marked; Lymphocytes # (A) 1.2 k/uL (1.0-4.8); Lymphocytes % (A) 11 %; MCH 25.9 pg (25.0-35.0); MCHC 30.3 g/dL (31.0-37.0); MCV 85.4 fL (80.0-100.0); Monocytes # (A) 0.7 k/uL (0-1.0); Monocytes % (A) 7 %; Neutrophils # (A) 8.7 k/uL (1.3-7.7); Neutrophils % (A) 79 %; Platelet Count 336 k/uL (150-450); RBC 4.47 m/uL (4.30-5.90); RDW 17.5 % (11.5-15.5)
--- NOTE | 2019-03-18 21:01 | XR ---
EXAMINATION: XR chest 2V DATE AND TIME: 03/18/2019 8:08 PM CLINICAL INDICATION: PHH; Weakness TECHNIQUE: Departmental protocol COMPARISON: 02/26/2019 radiographs FINDINGS: The baseline coarse reticulation throughout the lungs is redemonstrated, consistent with c hronic interstitial lung change. In this setting, it is difficult to detect or exclude pneumonia radiographically. No pneumothorax or other abnormal gas collections are evident. Elevated right hemidiaphragm with blunted right cosmetic angle is redemonstrated and there is stable. Cardiomediastinal silhouette, bones, and soft tissues are unchanged. IMPRESSION: Stable radiographic appearance; no definite new process.
[2019-03-18 21:03] LABS: Albumin 3.4 g/dL (3.5-5.0); Calcium 9.3 mg/dL (8.4-10.2); Magnesium 2.5 mg/dL (1.6-2.3); Phosphorus 3.2 mg/dL (2.5-4.5); Potassium 4.5 mmol/L (3.5-5.1); Total Bilirubin 0.5 mg/dL (0.2-1.3); Total Protein 6.8 g/dL (6.3-8.2)
[2019-03-18 21:04] LABS: Partial Thromboplastin Time 52.6 sec (22.0-30.0); Prothrombin Time 53.2 sec (9.0-12.0)
[2019-03-18 21:08] LABS: INR 5.5 (<1.2)
[2019-03-18 21:14] LABS: HGB 11.6 gm/dL (13.0-17.5)
[2019-03-18 21:19] LABS: T4, Free (Free Thyroxine) 1.41 ng/dL (0.78-2.19)
[2019-03-18] MEDS ORDERED: PHYTONADIONE ORAL 5 MG/5 ML ORAL.SYRG PO STA (21:23)
[2019-03-18] MEDS ORDERED: NALOXONE 0.4 MG/ML 1 ML VIAL IV PRN (21:24)
[2019-03-18] MEDS ORDERED: SODIUM CHLORIDE 0.9% 1,000 ML IV SCH (21:30)
[2019-03-18 21:36] LABS: Appearance,Urine Clear (Clear); Bilirubin,Urine Negative (Negative); Blood,Urine Moderate (Negative); Color,Urine Yellow; Glucose,Urine (UA) Negative (Negative); Granular Casts,Urine 8 /lpf (0); Ketones,Urine Negative (Negative); Leukocyte Esterase,Urine Negative (Negative); Mucus,Urine Rare /hpf; Nitrite,Urine Negative (Negative); Protein,Urine 1+ (Negative); RBC,Urine 62 /hpf (0-5); Specific Gravity,Urine 1.018 (1.001-1.035); Urobilinogen,Urine <2.0 mg/dL (<2.0); WBC,Urine 2 /hpf (0-5)
[2019-03-18 22:39] VITALS: BMI 22.8
[2019-03-18] MEDS ORDERED: traMADol 50 MG TAB PO PRN (23:15)
[2019-03-18] MEDS ORDERED: NITROGLYCERIN SL TABS 0.4 MG TAB SUBLINGUAL PRN (23:16)
[2019-03-18] MEDS ORDERED: ACETAMINOPHEN TAB 325 MG TAB PO PRN (23:16)
[2019-03-19] MEDS: SODIUM CHLORIDE 0.9% 1,000 ML IV SCH ×4 (00:19→22:20)
[2019-03-19] MEDS: LEVOTHYROXINE 100 MCG TAB PO SCH (05:55)
--- NOTE | 2019-03-19 08:13 | NM ---
EXAMINATION TYPE: NM pul vent and perfuse DATE OF EXAM: 03/19/2019 COMPARISON: NONE HISTORY: Cough, shortness of breath and elevated d-dimer TECHNIQUE: Utilizing inhalation of 38.8 mCi Tc 99m DTPA aerosol and intravenous injection of 4.7 mCi of Tc 99m MAA, ventilation and perfusion images are acquired post injection in multiple projections. FINDINGS: There is a large amount of central airway deposition. There are subsegmental areas of decreased perfu viviane. These are matched by decreased areas of ventilation. IMPRESSION: THIS EXAMINATION IS INTERMEDIATE PROBABILITY FOR PULMONARY EMBOLUS.
[2019-03-19 09:49] LABS: Calcium 8.8 mg/dL (8.4-10.2); Magnesium 2.3 mg/dL (1.6-2.3); Potassium 4.2 mmol/L (3.5-5.1)
[2019-03-19 09:51] LABS: INR 3.9 (<1.2)
[2019-03-19 10:57] LABS: Anisocytosis Slight; Basophils % (A) 0 %; Eosinophils # (A) 0.2 k/uL (0-0.7); Eosinophils % (A) 2 %; HCT 33.8 % (39.0-53.0); HGB 10.1 gm/dL (13.0-17.5); Hypochromasia Moderate; Lymphocytes # (A) 0.6 k/uL (1.0-4.8); Lymphocytes % (A) 7 %; MCH 25.3 pg (25.0-35.0); MCV 84.3 fL (80.0-100.0); Mean Platelet Volume 8.3; Monocytes # (A) 0.6 k/uL (0-1.0); Monocytes % (A) 6 %; Neutrophils # (A) 7.3 k/uL (1.3-7.7); Neutrophils % (A) 83 %; Platelet Count 301 k/uL (150-450); RBC 4.01 m/uL (4.30-5.90); RDW 17.6 % (11.5-15.5); WBC 8.8 k/uL (3.8-10.6)
[2019-03-19] MEDS ORDERED: NITROGLYCERIN SL TABS 0.4 MG TAB SUBLINGUAL PRN (16:36)
[2019-03-19] MEDS ORDERED: DOCUSATE 100 MG CAP PO PRN (16:36)
[2019-03-19] MEDS ORDERED: BACLOFEN 40 MG PO SCH (16:45)
[2019-03-19] MEDS ORDERED: ISOSORBIDE MONONITRATE ER 30 MG TAB.ER.24H PO SCH (16:45)
--- NOTE | 2019-03-19 17:37 | HP ---
HISTORY AND PHYSICAL I am covering for Dr. Almanzar. DATE OF SERVICE: 03/19/2019 CHIEF COMPLAINTS: Weakness and abnormal labs, dehydration. HISTORY OF PRESENT ILLNESS: This 79-year-old gentleman with a past medical history of multiple medical problems, including coronary artery disease, hypertension, hyperlipidemia, history of myocardial infarction, history of thyroid disorder, history of abdominal aortic aneurysm repair, was recently admitted with acute renal failure to [facility]. The patient improved significantly and the patient went home, but apparently the patient's p.o. intake was significantly reduced. The patient was dehydrated. The patient complained of weakness. He came to [facility]. The patient had multiple lab abnormalities, including elevated white count of 11 and a prolonged INR of 5.5. D- dimer was 1.15 and creatinine was 1.92. Patient was started on IV fluids. Patient also complained of generalized tiredness and weakness. Patient has hematuria also. PAST MEDICAL HISTORY: 1. History of CAD. 2. History of hearing deficit. 3. History of recent renal failure. 4. History of hypertension. 5. Hyperlipidemia. 6. History of myocardial infarction. 7. History of abdominal aortic aneurysm repair. HOME MEDICATIONS: 1. Ultram 50 to 100 mg b.i.d. p.r.n. 2. Coumadin 5 mg p.o. at bedtime. 3. Crestor 40 mg at bedtime. 4. Omeprazole 20 mg daily. 5. Nitrostat 0.4 sublingually p.r.n. 6. Toprol-XL 50 mg p.o. daily. 7. Reglan 5 mg before meals t.i.d. 8. Megace 800 mg p.o. daily. 9. Cytomel 5 mcg p.o. daily. 10.Synthroid 100 mcg p.o. daily. 11.Imdur 30 mg p.r.n. 12.Neurontin 800 mg p.r.n. 13.Iron sulfate 325 mg p.o. b.i.d. 14.Marinol 2.5 mg b.i.d. 15.Colace 100 mg p.o. daily p.r.n. 16.Vitamin B12 1000 mcg p.o. daily. 17.Plavix 75 mg p.o. daily. 18.Lioresal 40 mg p.r.n. 19.Tylenol 325 mg t.i.d. p.r.n. ALLERGIES: 1. CIPRO. 2. IODINATED CONTRAST. 3. MORPHINE. FAMILY HISTORY: Brain tumor in the family. SOCIAL HISTORY: Previous history of smoking. No current smoking. REVIEW OF SYSTEMS: ENT: Diminished hearing. Diminished vision. CARDIOVASCULAR SYSTEM: No angina, palpitations. RESPIRATORY SYSTEM: As mentioned earlier. GI: No nausea, vomiting. : No dysuria or retention. NERVOUS SYSTEM: As mentioned earlier. ALLERGY/IMMUNOLOGY: No asthma, hayfever. MUSCULOSKELETAL: As mentioned earlier. HEMATOLOGY/ONCOLOGY: No history of anemia. ENDOCRINE: Hypothyroidism. CONSTITUTIONAL: As mentioned earlier. DERMATOLOGY: Negative. RHEUMATOLOGY: Negative. PSYCHIATRY: As mentioned earlier. PHYSICAL: Patient alert and oriented x3. Pulse is 75, blood pressure 102/58, respiration 18, temperature 96.8, pulse ox 99% on 3 L. HEENT: Conjunctivae normal. Oral mucosa moist. NECK: No jugular venous distention. No carotid bruit. No lymph node enlargement. CARDIOVASCULAR SYSTEM: S1, S2 muffled. No S3. No S4. RESPIRATORY SYSTEM: Breath sounds diminished at the bases. A few scattered rhonchi and crackles. ABDOMEN: Soft, non-tender. No mass palpable. No hepatosplenomegaly. No ascites. LEGS: No edema. No swelling. NERVOUS SYSTEM: Higher functions as mentioned earlier. Moves all 4 limbs. No focal motor or sensory deficit. LYMPHATICS: No lymph node palpable in neck, axillae or groin. SKIN: No ulcer, rash, bleeding. JOINTS: No active deforming arthropathy. LABS: WBC 8.8, hemoglobin 10.1. INR is 3.9. Sodium 140, potassium 4.2. Creatinine is 1.63. ASSESSMENT: 1. Severe dehydration with acute renal failure with acute on chronic renal failure with chronic kidney disease, stage III resulting from diminished oral intake. 2. Gait dysfunction and generalized weakness. 3. Coagulopathy with prolonged INR at 5.5. 4. Increased white count. 5. Anemia of chronic disease. 6. Increased AST, ALT. 7. History of coronary artery disease. 8. History of hypertension. 9. Hyperlipidemia. 10.Myocardial infarction. 11.Hypothyroidism. 12.History of abdominal aortic aneurysm repair. 13.History of nephrolithiasis. 14.History of spinal stenosis and degenerative joint disease. 15.History of lung cancer and bladder cancer. 16.History of cardiac catheterization. RECOMMENDATIONS AND DISCUSSION: In this 79-year-old gentleman who presented with multiple complex medical issues, we will monitor the patient closely, continue the current management, continue with symptomatic treatment. Otherwise, at this time I recommend cautious IV fluids, PT/OT evaluation. Resume the home medications. Hold Coumadin. Vitamin K 2.5 mg will monitor the PT, INR closely. Possible ECF rehab. Dr. Almanzar will follow the patient on Thursday. Further recommendations to follow. See orders for further details. MMODL / IJN: [id number] / MTDD
--- NOTE | 2019-03-19 17:40 | P.CONS ---
History of Present Illness - Reason for Consult Consult date: 03/19/19 Metastatic Urothelial On Immune Therapy Requesting physician: Micheal Alvarado - Chief Complaint Weakness - History of Present Illness Mr. Gomez is known to our practice for treatment of metastatic urothelial cancer, most recently found to have incred disease to lungs and started on tecentriq. Unfortunetly he was hospitalized shortly after with persistent N/V and dehydration and has not received second dose. He has been admitted for increased weakaness and dehydration. He is frustrated as he doesnt believe he is not drinking or eating at home and feels he has no qualiuty of life in hospital. 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 LT KNEE HAD BONE CHIPS REMOVED,, 10-20-14 HEART CATH w/angioplasty but was unable to place stent, recent bladder polyp removed; indwelling catheter was removed 01-11-17. 3 STENTS RCA 05/03/18, biopsy lung-bronch Past Anesthesia/Blood Transfusion Reactions: No Reported Reaction Smoking Status: Former smoker - Past Family History Mother Additional Family Medical History / Comment(s): brain tumor Father Family Medical History: Unable to Obtain Medications and Allergies Home Medications Medication Instructions Recorded Confirmed Type Liothyronine Sodium [Cytomel] 5 mcg PO DAILY 10/20/14 03/18/19 History Metoprolol Succinate (ER) [Toprol 25 mg PO DAILY 01/11/17 03/18/19 History XL] traMADol HCL [Ultram] 50 - 100 mg PO BID PRN 01/11/17 03/18/19 History Nitroglycerin Sl Tabs [Nitrostat] 0.4 mg SUBLINGUAL Q5M PRN #25 tab 03/31/18 03/18/19 Rx Clopidogrel [Plavix] 75 mg PO DAILY #90 tab 05/04/18 03/18/19 Rx Ferrous Sulfate [Feosol] 325 mg PO BID #60 tab 01/13/19 03/18/19 Rx Acetaminophen [Tylenol] 325 mg PO TID PRN 01/18/19 03/18/19 History Cyanocobalamin (Vitamin B-12) 1,000 mcg PO DAILY 01/18/19 03/18/19 History [Vitamin B-12] Gabapentin [Neurontin] 800 mg PO DIRECTED 01/18/19 03/18/19 History Rosuvastatin Calcium [Crestor] 40 mg PO HS 01/18/19 03/18/19 History Baclofen [Lioresal] 40 mg PO DIRECTED 02/24/19 03/18/19 History Docusate [Colace] 100 mg PO DAILY PRN 02/24/19 03/18/19 History Isosorbide Mononitrate ER [Imdur] 30 mg PO DIRECTED 02/24/19 03/18/19 History Levothyroxine Sodium [Synthroid] 100 mcg PO DAILY 02/24/19 03/18/19 History Omeprazole 20 mg PO DAILY 02/24/19 03/18/19 History Warfarin [Coumadin] 5 mg PO HS 02/24/19 03/18/19 History Dronabinol [Marinol] 2.5 mg PO AC-BID #40 cap 03/02/19 03/18/19 Rx Megestrol [Megace] 800 mg PO DAILY #500 ml 03/02/19 03/18/19 Rx Metoclopramide HCl [Reglan] 5 mg PO AC-TID #60 tablet 03/02/19 03/18/19 Rx Allergies Allergy/AdvReac Type Severity Reaction Status Date / Time ciprofloxacin [From Cipro] Allergy Rash/Hives Verified 03/18/19 19:45 Iodinated Contrast- Oral and Allergy Unknown Verified 03/18/19 19:45 IV Dye [Iodinated Contrast Media - Oral and] morphine AdvReac Severe Nausea & Verified 03/18/19 19:45 Vomiting Physical Exam Vitals: Vital Signs Temp Pulse Pulse Pulse Resp BP BP 03/19/19 12:12 96.8 F L 75 18 102/58 03/19/19 08:00 86 03/19/19 05:00 98.4 F 125 H 16 116/78 03/19/19 00:30 79 16 03/18/19 22:39 97.0 F L 123 H 16 122/72 03/18/19 22:01 97.7 F 125 H 18 115/76 03/18/19 20:02 123 H 18 113/75 03/18/19 18:23 97.8 F 108 H 18 98/65 Pulse Ox 03/19/19 12:12 99 03/19/19 08:00 03/19/19 05:00 100 03/19/19 00:30 03/18/19 22:39 100 03/18/19 22:01 96 03/18/19 20:02 96 03/18/19 18:23 95 Intake and Output 03/19/19 03/19/19 03/19/19 06:59 14:59 22:59 Intake Total 650 1670 Balance 650 1670 Intake: Intake, IV Titration 650 900 Amount Sodium Chloride 0.9% 1, 500 900 000 ml @ 100 mls/hr IV . Q10H KIMI Rx#:[id number] Sodium Chloride 0.9% 1, 150 000 ml @ 75 mls/hr IV . [id number] IKMI Rx#:[id number] Oral 770 Other: Voiding Method Toilet Toilet Toilet Urinal Urinal # Voids 2 2 Weight 68.039 kg General: Alert and Oriented x3, No Acute Distress Head: Normocytic, Atraumatic Neck: Supple Mouth: No Lesions, No Thrush Eyes: Non-sclerotic No Palpable cervical, supraclavicular, axillary adenopathy Heart: Regular Rate, Regular Rhythm Lungs: Clear to Ausculations, No Wheeze, No Rhonchi, Diminishe bilateral lower lobes, No increased respiratory effort noted Abdomen: Soft, Non-Distended, Non-Tended, BSx4 Extremities: No Edema, Equal Strength Neurological: No Focal Defects: No sensory or motor deficits noted Psych: Calm and cooperative [place] Results CBC & Chem 7: 03/19/19 09:13 03/19/19 09:13 Labs: Abnormal Lab Results - Last 24 Hours (Table) 03/18/19 03/18/19 03/18/19 Range/Units 20:24 20:24 20:24 WBC 11.0 H (3.8-10.6) k/uL RBC (4.30-5.90) m/uL Hgb 11.6 L D (13.0-17.5) gm/dL Hct 38.2 L (39.0-53.0) % MCHC 30.3 L (31.0-37.0) g/dL RDW 17.5 H (11.5-15.5) % Neutrophils # 8.7 H (1.3-7.7) k/uL Lymphocytes # (1.0-4.8) k/uL PT 53.2 H (9.0-12.0) sec INR 5.5 H* (<1.2) APTT 52.6 H (22.0-30.0) sec D-Dimer (<0.60) mg/L FEU Chloride (98-107) mmol/L BUN 32 H (9-20) mg/dL Creatinine 1.92 H (0.66-1.25) mg/dL Glucose 108 H (74-99) mg/dL Magnesium 2.5 H (1.6-2.3) mg/dL AST 81 H (17-59) U/L ALT 129 H (21-72) U/L Alkaline Phosphatase 138 H (38-126) U/L Albumin 3.4 L (3.5-5.0) g/dL Free T3 pg/mL 5.4 H (2.8-5.3) pg/ml Urine Protein (Negative) Urine Blood (Negative) Urine RBC (0-5) /hpf Urine Mucus (None) /hpf 03/18/19 03/18/19 03/19/19 Range/Units 20:24 20:50 09:13 WBC (3.8-10.6) k/uL RBC 4.01 L (4.30-5.90) m/uL Hgb 10.1 L (13.0-17.5) gm/dL Hct 33.8 L (39.0-53.0) % MCHC 30.0 L (31.0-37.0) g/dL RDW 17.6 H (11.5-15.5) % Neutrophils # (1.3-7.7) k/uL Lymphocytes # 0.6 L (1.0-4.8) k/uL PT (9.0-12.0) sec INR (<1.2) APTT (22.0-30.0) sec D-Dimer 1.15 H (<0.60) mg/L FEU Chloride (98-107) mmol/L BUN (9-20) mg/dL Creatinine (0.66-1.25) mg/dL Glucose (74-99) mg/dL Magnesium (1.6-2.3) mg/dL AST (17-59) U/L ALT (21-72) U/L Alkaline Phosphatase (38-126) U/L Albumin (3.5-5.0) g/dL Free T3 pg/mL (2.8-5.3) pg/ml Urine Protein 1+ H (Negative) Urine Blood Moderate H (Negative) Urine RBC 62 H (0-5) /hpf Urine Mucus Rare H (None) /hpf 03/19/19 03/19/19 Range/Units 09:13 09:13 WBC (3.8-10.6) k/uL RBC (4.30-5.90) m/uL Hgb (13.0-17.5) gm/dL Hct (39.0-53.0) % MCHC (31.0-37.0) g/dL RDW (11.5-15.5) % Neutrophils # (1.3-7.7) k/uL Lymphocytes # (1.0-4.8) k/uL PT 38.0 H (9.0-12.0) sec INR 3.9 H (<1.2) APTT (22.0-30.0) sec D-Dimer (<0.60) mg/L FEU Chloride 109 H (98-107) mmol/L BUN 28 H (9-20) mg/dL Creatinine 1.63 H (0.66-1.25) mg/dL Glucose 156 H (74-99) mg/dL Magnesium (1.6-2.3) mg/dL AST (17-59) U/L ALT (21-72) U/L Alkaline Phosphatase (38-126) U/L Albumin (3.5-5.0) g/dL Free T3 pg/mL (2.8-5.3) pg/ml Urine Protein (Negative) Urine Blood (Negative) Urine RBC (0-5) /hpf Urine Mucus (None) /hpf Assessment and Plan Plan: 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 last visit Plan: Component of failure to thrive, repeated dehydration, lack of PO intake, proabale depression, and now coumadin coagualopathy, liekly vitamin K deficiency from no po intake. - Will check Immune Related effect profile. - Encourage PO itake and recommend PT/OT Dieticien, possible social work - REcommend home with palliative care, ability to have iv hydration and home, hospice appr
[2019-03-19] MEDS: METOPROLOL SUCCINATE (ER) 25 MG TAB.ER.24H PO SCH (18:12)
[2019-03-19] MEDS: METOCLOPRAMIDE 5 MG TAB PO SCH (18:12)
[2019-03-20] MEDS: LEVOTHYROXINE 100 MCG TAB PO SCH (06:08)
[2019-03-20] MEDS: PANTOPRAZOLE 40 MG TABLET PO SCH (07:05)
[2019-03-20] MEDS: LIOTHYRONINE SODIUM 5 MCG TAB PO SCH (07:05)
[2019-03-20] MEDS: MEGESTROL 400 MG/10 ML CUP PO SCH (07:05)
[2019-03-20] MEDS: METOPROLOL SUCCINATE (ER) 25 MG TAB.ER.24H PO SCH (07:05)
[2019-03-20] MEDS: METOCLOPRAMIDE 5 MG TAB PO SCH ×3 (07:05→17:31)
[2019-03-20] MEDS: CYANOCOBALAMIN 500 MCG TAB PO SCH (07:05)
[2019-03-20] MEDS: CLOPIDOGREL 75 MG TAB PO SCH (07:06)
[2019-03-20 08:15] LABS: INR 2.3 (<1.2); Prothrombin Time 22.2 sec (9.0-12.0)
[2019-03-20 08:27] LABS: Albumin 2.8 g/dL (3.5-5.0); Calcium 8.9 mg/dL (8.4-10.2); Potassium 4.4 mmol/L (3.5-5.1); Total Bilirubin 0.6 mg/dL (0.2-1.3); Total Protein 5.9 g/dL (6.3-8.2)
[2019-03-20 08:42] LABS: Anisocytosis Slight; Basophils % (A) 0 %; Eosinophils # (A) 0.2 k/uL (0-0.7); Eosinophils % (A) 2 %; HCT 35.5 % (39.0-53.0); HGB 10.7 gm/dL (13.0-17.5); Hypochromasia Moderate; Lymphocytes # (A) 0.7 k/uL (1.0-4.8); Lymphocytes % (A) 9 %; MCH 25.3 pg (25.0-35.0); MCHC 30.1 g/dL (31.0-37.0); MCV 84.1 fL (80.0-100.0); Mean Platelet Volume 7.7; Monocytes # (A) 0.5 k/uL (0-1.0); Monocytes % (A) 6 %; Neutrophils # (A) 6.6 k/uL (1.3-7.7); Neutrophils % (A) 81 %; Platelet Count 299 k/uL (150-450); RBC 4.22 m/uL (4.30-5.90); RDW 17.5 % (11.5-15.5); WBC 8.2 k/uL (3.8-10.6)
[2019-03-20] MEDS ORDERED: LEVOTHYROXINE 100 MCG TAB PO SCH (09:00)
--- NOTE | 2019-03-20 10:47 | P.PN ---
<Palma Dhaliwal - Last Filed: 03/20/19 12:28> Subjective Progress Note Date: 03/20/19 Principal diagnosis: Metastatic Urothelial Cancer on immune therapy Patient is anxious and frustrated with repeated hospitalizations. Objective - Vital Signs Vital signs: Vital Signs Temp 97.8 F 03/20/19 07:00 Pulse 71 03/20/19 07:00 Resp 16 03/20/19 07:00 BP 123/63 03/20/19 07:00 Pulse Ox 99 03/20/19 07:00 Intake & Output 03/19/19 03/20/19 03/20/19 18:59 06:59 18:59 Intake Total 1670 1600 Output Total 1050 Balance 1670 550 Weight 68.039 kg Intake: Intake, IV Titration 900 1600 Amount Sodium Chloride 0.9% 1, 900 1600 000 ml @ 100 mls/hr IV . Q10H [facility]I Rx#:[id number] Oral 770 Output: Urine 1050 Other: Voiding Method Toilet Toilet Urinal Urinal Urinal # Voids 2 1 - Exam Gen: Alert and Oriented, [place] Head NCNT Lip: Left lesion lip Mouth Dry Neck: Supple Lungs: Diminished no increased effort Heart: RRR Ext No edema - Labs CBC & Chem 7: 03/20/19 07:30 03/20/19 07:30 Labs: Abnormal Lab Results - Last 24 Hours (Table) 03/19/19 03/20/19 03/20/19 Range/Units 09:13 07:30 07:30 RBC 4.01 L 4.22 L (4.30-5.90) m/uL Hgb 10.1 L 10.7 L (13.0-17.5) gm/dL Hct 33.8 L 35.5 L (39.0-53.0) % MCHC 30.0 L 30.1 L (31.0-37.0) g/dL RDW 17.6 H 17.5 H (11.5-15.5) % Lymphocytes # 0.6 L 0.7 L (1.0-4.8) k/uL PT 22.2 H (9.0-12.0) sec INR 2.3 H (<1.2) Chloride (98-107) mmol/L BUN (9-20) mg/dL Creatinine (0.66-1.25) mg/dL Glucose (74-99) mg/dL ALT (21-72) U/L Total Protein (6.3-8.2) g/dL Albumin (3.5-5.0) g/dL 03/20/19 Range/Units 07:30 RBC (4.30-5.90) m/uL Hgb (13.0-17.5) gm/dL Hct (39.0-53.0) % MCHC (31.0-37.0) g/dL RDW (11.5-15.5) % Lymphocytes # (1.0-4.8) k/uL PT (9.0-12.0) sec INR (<1.2) Chloride 110 H (98-107) mmol/L BUN 22 H (9-20) mg/dL Creatinine 1.59 H (0.66-1.25) mg/dL Glucose 100 H (74-99) mg/dL ALT 108 H (21-72) U/L Total Protein 5.9 L (6.3-8.2) g/dL Albumin 2.8 L (3.5-5.0) g/dL Assessment and Plan Plan: 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 last visit Plan: Component of failure to thrive, repeated dehydration, lack of PO intake, proabale depression, and now coumadin coagualopathy, liekly vitamin K deficiency from no po intake. - Will check Immune Related effect profile. - Encourage PO itake and recommend PT/OT Dieticien, possible social work - REcommend home with palliative care, ability to have iv hydration and home, hospice appr <Filomena Aviles - Last Filed: 03/20/19 18:58> Objective - Vital Signs Vital signs: Vital Signs Temp 97.6 F 03/20/19 12:06 Pulse 72 03/20/19 15:49 Resp 18 07/28/19 15:49 BP 124/72 03/20/19 12:06 Pulse Ox 100 03/20/19 12:06 Intake & Output 03/19/19 03/20/19 03/20/19 18:59 06:59 18:59 Intake Total 1670 1600 2320 Output Total 1050 450 Balance 6210 642 1603 Weight 68.039 kg Intake: Intake, IV Titration 900 1600 1200 Amount Sodium Chloride 0.9% 1, 900 1600 1200 000 ml @ 100 mls/hr IV . Q10H [facility] Rx#:[id number] Oral 770 1120 Output: Urine 1050 450 Other: Voiding Method Toilet Toilet Urinal Urinal Urinal # Voids 2 1 3 - Labs CBC & Chem 7: 03/20/19 07:30 03/20/19 07:30 Labs: Abnormal Lab Results - Last 24 Hours (Table) 03/20/19 03/20/19 03/20/19 Range/Units 07:30 07:30 07:30 RBC 4.22 L (4.30-5.90) m/uL Hgb 10.7 L (13.0-17.5) gm/dL Hct 35.5 L (39.0-53.0) % MCHC 30.1 L (31.0-37.0) g/dL RDW 17.5 H (11.5-15.5) % Lymphocytes # 0.7 L (1.0-4.8) k/uL PT 22.2 H (9.0-12.0) sec INR 2.3 H (<1.2) Chloride 110 H (98-107) mmol/L BUN 22 H (9-20) mg/dL Creatinine 1.59 H (0.66-1.25) mg/dL Glucose 100 H (74-99) mg/dL ALT 108 H (21-72) U/L Total Protein 5.9 L (6.3-8.2) g/dL Albumin 2.8 L (3.5-5.0) g/dL Assessment and Plan Plan: The patient was seen and examined by me and discussed with nurse practitioner Palma, Agree with the assessment and plan formulated. Patient is sleeping comfortably, hospice appropriate, however could continue trying Atezolizumab. Can continue after discharge. Filomena Aviles M.D.
[2019-03-20] MEDS ORDERED: diphenhydrAMINE 25 MG CAP PO PRN (12:46)
[2019-03-20] MEDS ORDERED: CALAMINE/ZINC OXIDE LOTION 177 ML BTL TOPICAL PRN (12:48)
[2019-03-20] MEDS: traMADol 50 MG TAB PO PRN (15:03)
[2019-03-20] MEDS: SODIUM CHLORIDE 0.9% 1,000 ML IV SCH ×2 (17:06→22:42)
--- NOTE | 2019-03-20 18:18 | PN ---
PROGRESS NOTE DATE OF SERVICE: 03/20/2019 This 79-year-old gentleman who was admitted with severe dehydration, acute renal failure, is being closely monitored at this time. The patient also had some gait dysfunction. The patient also had coagulopathy. Patient was given conservative line of medications. The patient also had some hematuria. INR is 2.3 at this time. Creatinine is 1.59. Hematology/Oncology following is following the patient closely. The patient had metastatic urothelial cancer running in the immune therapy. PAST MEDICAL HISTORY: Reviewed. REVIEW OF SYSTEMS: Cardiovascular: No angina or palpitations. Respiration: As mentioned earlier. GI no nausea or vomiting. no dysuria or hematuria. CENTRAL NERVOUS SYSTEM: No numbness or weakness. CURRENT MEDICATIONS: 1. Tylenol 320 mg q.6h p.r.n. 2. Calamine lotion topically. 3. Plavix 75 mg. 4. Vitamin B12 1000 mcg daily. 5. Benadryl 25 mg q.i.d. p.r.n. 6. Colace 100 mg p.o. daily. 7. Synthroid 100 mcg p.o. daily. 8. Cytomel 5 mcg p.o. daily. 9. Megace 800 mg p.o. 10.Reglan 5 mg a.c. t.i.d. 11.Toprol-XL 25 mg p.o. 12.Narcan 0.2 q.2h p.r.n. 13.Nitrostat 0.4 sublingual p.r.n. 14.Protonix 40 mg daily. 15.Ultram 50 to 100 mg p.o. b.i.d. p.r.n. PHYSICAL EXAM: Patient is alert, oriented x3. Pulse is 72, blood pressure 124/72, respiration 18, temperature 97.2. Pulse ox 100 percent on 3 L. HEENT is diminished hearing. Diminished vision. CARDIOVASCULAR: No angina or palpitations. RESPIRATORY: As mentioned earlier. A few scattered rhonchi. No crackles. ABDOMEN: Soft. Mild diffuse distention. Nontender. No mass palpable. The patient also had diffuse rash over the trunk. LEGS no edema. No swelling. NERVOUS SYSTEM: No focal deficits. LABS: WBC 8.2, hemoglobin 10.7, INR 2.3. Creatinine is 1.59. Albumin is 2.8. ASSESSMENT: 1. Severe dehydration with acute renal failure with acute on chronic renal failure with possible acute tubular necrosis. Result from diminished p.o. intake. 2. Chronic renal failure stage 3 recently from the stage III baseline. 3. Anorexia. 4. Metastatic urothelial cancer on immunotherapy. 5. Diffuse maculopapular rash, possibly drug allergy. 6. Gait dysfunction, generalized weakness. 7. Coagulopathy with prolonged INR 5.5, present on admission. 8. Increased WBC. 9. Anemia of chronic disease. 10.Increased AST/ALT. 11.History of coronary artery disease. 12.History of hypertension. 13.Hyperlipidemia. 14.History of myocardial infarction. 15.History of hypothyroidism. 16.History of abdominal aortic aneurysm repair. 17.History of nephrolithiasis. 18.Spinal stenosis and degenerative joint disease. 19.History of lung cancer and bladder cancer. 20.History of cardiac catheterization. RECOMMENDATIONS AND DISCUSSION: In this 79-year-old gentleman who presented with multiple medical issues, at this time, I recommend to continue current medications, continue with monitoring, symptomatic treatment. I would recommend continue the current medication. Creatinine is improving to 1.59. I would recommend to continue the IV fluids cautiously otherwise the importance of compliance also stressed with the patient. I would also recommend Benadryl p.r.n. and calamine lotion for local application. Otherwise, continue to monitor. We will closely monitor. PT/OT evaluation has also been requested with possible ECF rehab as well. Closely follow with Hematology/Oncology. Further recommendations to follow. Dr. Almanzar will follow tomorrow. MMDENNISL / IJN: [id number] /
[2019-03-21] MEDS: LEVOTHYROXINE 100 MCG TAB PO SCH (06:07)
[2019-03-21 09:43] LABS: Prothrombin Time 19.2 sec (9.0-12.0)
[2019-03-21 09:49] LABS: Albumin 2.7 g/dL (3.5-5.0); Calcium 8.5 mg/dL (8.4-10.2); Potassium 4.4 mmol/L (3.5-5.1); Total Bilirubin 0.4 mg/dL (0.2-1.3); Total Protein 5.6 g/dL (6.3-8.2)
[2019-03-21 09:52] LABS: Anisocytosis Slight; Basophils % (A) 0 %; Eosinophils # (A) 0.2 k/uL (0-0.7); Eosinophils % (A) 2 %; HCT 33.8 % (39.0-53.0); HGB 10.1 gm/dL (13.0-17.5); Hypochromasia Marked; Lymphocytes # (A) 0.8 k/uL (1.0-4.8); Lymphocytes % (A) 10 %; MCH 25.4 pg (25.0-35.0); MCHC 29.8 g/dL (31.0-37.0); MCV 85.2 fL (80.0-100.0); Monocytes # (A) 0.5 k/uL (0-1.0); Monocytes % (A) 6 %; Neutrophils % (A) 79 %; Platelet Count 308 k/uL (150-450); RBC 3.97 m/uL (4.30-5.90); RDW 17.3 % (11.5-15.5); WBC 7.6 k/uL (3.8-10.6)
--- NOTE | 2019-03-21 10:39 | P.PN ---
Subjective Progress Note Date: 03/21/19 Principal diagnosis: Metastatic Urothelial Cancer on immune therapy resting, belkofski stilll sob Objective - Vital Signs Vital signs: Vital Signs Temp 98.3 F 03/21/19 05:00 Pulse 75 03/21/19 05:00 Resp 16 03/21/19 05:00 BP 126/74 03/21/19 05:00 Pulse Ox 91 L 03/21/19 05:00 Intake & Output 03/20/19 03/21/19 03/21/19 18:59 06:59 18:59 Intake Total 2320 2190 Output Total 450 750 Balance 1870 1440 Intake: Intake, IV Titration 1200 1600 Amount Sodium Chloride 0.9% 1, 1200 1600 000 ml @ 100 mls/hr IV . Q10H [facility] Rx#:[id number] Oral 1120 590 Output: Urine 450 750 Other: Voiding Method Urinal Urinal # Voids 3 - Exam Gen: Alert and Oriented, [place] Head NCNT Lip: Left lesion lip Mouth Dry Neck: Supple Lungs: Diminished no increased effort Heart: RRR Ext No edema - Labs CBC & Chem 7: 03/21/19 09:23 03/21/19 09:23 Labs: Abnormal Lab Results - Last 24 Hours (Table) 03/21/19 03/21/19 03/21/19 Range/Units 09:23 09:23 09:23 RBC 3.97 L (4.30-5.90) m/uL Hgb 10.1 L (13.0-17.5) gm/dL Hct 33.8 L (39.0-53.0) % MCHC 29.8 L (31.0-37.0) g/dL RDW 17.3 H (11.5-15.5) % Lymphocytes # 0.8 L (1.0-4.8) k/uL PT 19.2 H (9.0-12.0) sec INR 2.0 H (<1.2) Chloride 111 H (98-107) mmol/L Creatinine 1.44 H (0.66-1.25) mg/dL Glucose 133 H (74-99) mg/dL ALT 89 H (21-72) U/L Total Protein 5.6 L (6.3-8.2) g/dL Albumin 2.7 L (3.5-5.0) g/dL Assessment and Plan Plan: 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 last visit Plan: Component of failure to thrive, repeated dehydration, lack of PO intake, proabale depression, and now coumadin coagualopathy, liekly vitamin K deficiency from no po intake. - Will check Immune Related effect profile. - Encourage PO itake and recommend PT/OT Dieticien, possible social work - REcommend home with palliative care, ability to have iv hydration and home, hospice appr - SOB and episodes hypoxia (Pathological or related anxiety) have pulmonary evaluate. - If he decides to continue Tecentriq may do so on Palliative snf services./
[2019-03-21] MEDS: METOCLOPRAMIDE 5 MG TAB PO SCH ×2 (11:11→11:15)
[2019-03-21] MEDS: METOPROLOL SUCCINATE (ER) 25 MG TAB.ER.24H PO SCH (11:12)
[2019-03-21] MEDS: CYANOCOBALAMIN 500 MCG TAB PO SCH (11:12)
[2019-03-21] MEDS: PANTOPRAZOLE 40 MG TABLET PO SCH (11:13)
[2019-03-21] MEDS: MEGESTROL 400 MG/10 ML CUP PO SCH (11:13)
[2019-03-21] MEDS: CLOPIDOGREL 75 MG TAB PO SCH (11:13)
[2019-03-21] MEDS: LIOTHYRONINE SODIUM 5 MCG TAB PO SCH (11:13)
[2019-03-21] MEDS: traMADol 50 MG TAB PO PRN (11:42)
[2019-03-21] MEDS: SODIUM CHLORIDE 0.9% 1,000 ML IV SCH (14:00)
[2019-03-21 14:02] VITALS: BP 110/68; PULSE 73; RESP 18; TEMP 97.9
--- NOTE | 2019-03-21 20:35 | P.DS ---
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 He presented to [facility] ED with weakness, dehydration and decreased PO intake. Pt was recently admitted at the beginning of the month for the same. In the ED he had multiple lab abormalities including elevated creatinine, elevated INR, elevated WBC. He underwent V/Q scan which did not reveal PE. Pt was admitted and restarted on his home meds and IV fluids. He did improve and was able to tolerate regular diet. Pt decided to discharge home with hospice as alternative to ECF. He is recommended to discontinue coumadin at this time and will continue the remainder of his home medications. Discharge exam Constitutional: No acute distress, vitals reviewed. CV: RRR, systolic murmur Lungs: clear throughout Ext: no edema Patient Condition at Discharge: Serious Plan - Discharge Summary Discharge Rx Participant: Yes New Discharge Prescriptions: Continue Liothyronine Sodium [Cytomel] 5 mcg PO DAILY traMADol HCL [Ultram] 50 - 100 mg PO BID PRN PRN Reason: Pain Metoprolol Succinate (ER) [Toprol XL] 25 mg PO DAILY Nitroglycerin Sl Tabs [Nitrostat] 0.4 mg SUBLINGUAL Q5M PRN #25 tab PRN Reason: Chest Pain Clopidogrel [Plavix] 75 mg PO DAILY #90 tab Ferrous Sulfate [Feosol] 325 mg PO BID #60 tab Rosuvastatin Calcium [Crestor] 40 mg PO HS Cyanocobalamin (Vitamin B-12) [Vitamin B-12] 1,000 mcg PO DAILY Gabapentin [Neurontin] 800 mg PO DIRECTED Acetaminophen [Tylenol] 325 mg PO TID PRN PRN Reason: Pain Baclofen [Lioresal] 40 mg PO DIRECTED Omeprazole 20 mg PO DAILY Docusate [Colace] 100 mg PO DAILY PRN PRN Reason: Constipation Levothyroxine Sodium [Synthroid] 100 mcg PO DAILY Isosorbide Mononitrate ER [Imdur] 30 mg PO DIRECTED Dronabinol [Marinol] 2.5 mg PO AC-BID #40 cap Megestrol [Megace] 800 mg PO DAILY #500 ml Metoclopramide HCl [Reglan] 5 mg PO AC-TID #60 tablet Discharge Medication List Liothyronine Sodium [Cytomel] 5 mcg PO DAILY 10/20/14 [History] Metoprolol Succinate (ER) [Toprol XL] 25 mg PO DAILY 01/11/17 [History] traMADol HCL [Ultram] 50 - 100 mg PO BID PRN 01/11/17 [History] Nitroglycerin Sl Tabs [Nitrostat] 0.4 mg SUBLINGUAL Q5M PRN #25 tab 03/31/18 [Rx] Clopidogrel [Plavix] 75 mg PO DAILY #90 tab 05/04/18 [Rx] Ferrous Sulfate [Feosol] 325 mg PO BID #60 tab 01/13/19 [Rx] Acetaminophen [Tylenol] 325 mg PO TID PRN 01/18/19 [History] Cyanocobalamin (Vitamin B-12) [Vitamin B-12] 1,000 mcg PO DAILY 01/18/19 [History] Gabapentin [Neurontin] 800 mg PO DIRECTED 01/18/19 [History] Rosuvastatin Calcium [Crestor] 40 mg PO HS 01/18/19 [History] Baclofen [Lioresal] 40 mg PO DIRECTED 02/24/19 [History] Docusate [Colace] 100 mg PO DAILY PRN 02/24/19 [History] Isosorbide Mononitrate ER [Imdur] 30 mg PO DIRECTED 02/24/19 [History] Levothyroxine Sodium [Synthroid] 100 mcg PO DAILY 02/24/19 [History] Omeprazole 20 mg PO DAILY 02/24/19 [History] Dronabinol [Marinol] 2.5 mg PO AC-BID #40 cap 03/02/19 [Rx] Megestrol [Megace] 800 mg PO DAILY #500 ml 03/02/19 [Rx] Metoclopramide HCl [Reglan] 5 mg PO AC-TID #60 tablet 03/02/19 [Rx] Follow up Appointment(s)/Referral(s): Fredy Ramires MD [STAFF PHYSICIAN] - 03/31/19 10:00 am [facility], [NON-STAFF] - 1-2 Days Thania Barney DO [Primary Care Provider] - 03/28/19 1:45 pm (patient will be seen in the [place] office by yogesh) Activity/Diet/Wound Care/Special Instructions: Home with palliative care. Anticoagulation as per oncology. Discharge Disposition: HOME WITH HOME HEALTH SERVICES
== END 2019-03-21 15:45 | disposition home health service (06) | DRG 683 ==
LOC: EC 18:17 → 3NMEDONC 21:25
PROVIDERS: ADMIT Family Medicine; ATTEND Family Medicine
DX: N17.0 Acute kidney failure with tubular necrosis (principal); C68.9 Malignant neoplasm of urinary organ, unspecified; C78.00 Secondary malignant neoplasm of unspecified lung; D68.9 Coagulation defect, unspecified; E86.0 Dehydration; G62.9 Polyneuropathy, unspecified; R31.9 Hematuria, unspecified; R63.0 Anorexia; D63.8 Anemia in other chronic diseases classified elsewhere; E03.9 Hypothyroidism, unspecified; E78.5 Hyperlipidemia, unspecified; H91.93 Unspecified hearing loss, bilateral; I12.9 Hypertensive chronic kidney disease with stage 1 through stage 4 chronic kidney disease, or unspecified chronic kidney disease; I25.10 Atherosclerotic heart disease of native coronary artery without angina pectoris; I25.2 Old myocardial infarction; M48.00 Spinal stenosis, site unspecified; M51.36 Other intervertebral disc degeneration, lumbar region; N18.3 Chronic kidney disease, stage 3 (moderate); R01.1 Cardiac murmur, unspecified; R21 Rash and other nonspecific skin eruption; R26.9 Unspecified abnormalities of gait and mobility; H54.7 Unspecified visual loss; E56.1 Deficiency of vitamin K; R62.7 Adult failure to thrive; T50.905A Adverse effect of unspecified drugs, medicaments and biological substances, initial encounter; K13.0 Diseases of lips; Z68.22 Body mass index [BMI] 22.0-22.9, adult; Z79.01 Long term (current) use of anticoagulants; Z79.02 Long term (current) use of antithrombotics/antiplatelets; Z79.890 Hormone replacement therapy; Z79.899 Other long term (current) drug therapy; Z86.79 Personal history of other diseases of the circulatory system; Z87.442 Personal history of urinary calculi; Z87.891 Personal history of nicotine dependence; Z95.5 Presence of coronary angioplasty implant and graft; Z88.5 Allergy status to narcotic agent; Z88.1 Allergy status to other antibiotic agents; Z91.041 Radiographic dye allergy status; Z86.010 Personal history of colon polyps
CPT/HCPCS: 36415; 71046; 78582; 80048; 80053; 81001; 82533; 83605; 83735; 84100; 84439; 84443; 84481; 85025; 85379; 85610; 85730; 93005; 96360; 96361; 99285